=== PATIENT | female | born 1970 | race Caucasian/White ===

== ENCOUNTER → 2017-10-03 11:35 | Outpatient (POV) | payer MEDICARE, SELFPAY ==
[2017-10-03 12:06] VITALS: BP 141/94; PULSE 95; RESP 16; O2SAT 96
--- NOTE | 2017-10-03 12:20 | HMH.PAINSOAP ---
[facility] Pain Management SOAP Note Subjective:: This patient is a pleasant 47-year-old white female who we have been treating for right sided headaches and occipital neuralgia. She did get a right-sided occipital nerve block which did not give her much benefit. I do believe that she would benefit from a cervical epidural steroid injection. This will be the next step and we will seek approval and plan on a cervical epidural steroid injection under fluoroscopy. Objective:: Alert and oriented ?3 in no acute distress. Decreased range of motion of the cervical spine with increased pain with extension. Positive Spurling test to the right. Motor strength of the upper extremities is 5/5. There is no gross sensory deficit. Assessment:: Right-sided occipital neuralgia. 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 Plan:: We will seek approval and plan on cervical epidural steroid injection C6-C7.
== END ==
PROVIDERS: Family Provider Family Medicine; PCP Family Medicine; Visit Provider Anesthesiology
DX: M54.81 Occipital neuralgia (principal); M50.30 Other cervical disc degeneration, unspecified cervical region
CPT/HCPCS: 99212

== ENCOUNTER 2017-10-06 20:57 | Emergency (ER) | payer MEDICARE, SELFPAY ==
[2017-10-06 22:03] VITALS: BP 120/68; PULSE 86; RESP 18; TEMP 37; O2SAT 100; BMI 41.5
--- NOTE | 2017-10-06 23:30 | HMH.EDGENADL ---
ED Disposition Clinical Impression: Migraine Qualifiers: Migraine type: unspecified Status migrainosus presence: with status migrainosus Intractability: intractable Qualified Code(s): G43.911 - Migraine, unspecified, intractable, with status migrainosus Disposition: Home, Self-Care Condition on Discharge: Good Additional Instructions: Additional instructions for HEADACHE: See your physician as soon as possible for further evaluation. Return immediately if worsening headache, vomiting, problems with vision or speech, fever, numbness or weakness of the extremities, neck pain or stiffness. Referrals: Jese Walton MD [Primary Care Provider] - - Critical Care Critical Care Time: No Attestation: On 10/06/17, the high probability of a clinically significant, sudden or life threatening deterioration of the following system(s) required my full and direct attention, intervention and personal management. The time I documented below is in addition to time spent performing reported procedures but includes the following listed in this critical care notation. Medical Decision Making Vital Signs: 10/06/17 22:03 10/07/17 00:04 Temperature 98.6 F Temperature Source Oral Pulse Rate 91 H Pulse Rate [Right Brachial] 86 Respiratory Rate 18 16 Blood Pressure 150/92 Blood Pressure [Right Arm] 120/68 Blood Pressure Mean [Right Arm] 85 Blood Pressure Source [Right Arm] Automatic Cuff Blood Pressure Position [Right Arm] Sitting 02 Sat by Pulse Oximetry 100 Oxygen Delivery Method Room Air Room Air Orders (Tests/Meds): ED MEDICATIONS Discontinued Medications Generic Name Dose Route Start Last Admin Trade Name Freq PRN Reason Stop Dose Admin Morphine Sulfate 10 mg 10/06/17 23:28 10/06/17 23:46 Morphine 2mg/Ml Syringe IM 10/06/17 23:29 10 mg ONCE ONE Administration Promethazine HCl 25 mg 10/06/17 23:30 10/06/17 23:38 Phenergan 25mg/Ml 1ml Vial IM 10/06/17 23:31 25 mg ONCE ONE Administration - Timothy Inquiry Pt receiving controlled substance: Yes Timothy was queried for this patient: No Reason not queried -: Emergent pt cond-no time Risks and benefits of using a controlled substance: were not discussed with pt by me Comment: patient familiar, requests specific meds General Adult HPI - General Chief complaint: PAIN Stated complaint: migraine Mode of Arrival: Family Vehicle Limitations: No Limitations Description of Symptoms (Recalled from ER Triage Doc. by RN): C/O MIGRAINE HEADCAHE WITH NAUSEA AND VOMITING AND LIGHT SENSITIVITY - History of Present Illness HPI narrative: The patient complains of a migraine headache for 3 days. She has a long history of your migraines, and currently seen in pain management by Dr. Chávez. She had a nerve block at the beginning of September which did not help. She is scheduled to have an epidural injection next Monday. She currently uses Effexor, Maxalt, and oxycodone. When she comes to the emergency department she gets an injection of morphine and Phenergan. She states the last time she was in the emergency room was in August. Her headache is above her right eye with nausea, vomiting, and photophobia. All symptoms are typical of her migraines. - Related Data Home Medications Medication Instructions Recorded Confirmed ALPRAZolam [Alprazolam 0.25mg 0.25 mg PO BID 10/06/17 10/06/17 Tab] Alendronate Sodium [Fosamax] 70 mg PO WEEKLY 10/06/17 10/06/17 Esomeprazole Magnesium [Nexium 40 mg PO DAILY 10/06/17 10/06/17 24Hr] Levothyroxine Sodium 100 mg PO DAILY 10/06/17 10/06/17 [Levothyroxine 100mcg (0.1MG) Tab] Oxycodone HCl [Oxycodone (IR) 5mg 5 mg PO Q4HP PRN 10/06/17 10/06/17 Cap] Potassium Chloride [K-Tab ER 20 20 meq PO BID 10/06/17 10/06/17 mEq] Rizatriptan Benzoate [Rizatriptan] 10 mg PO Q2HP PRN 10/06/17 10/06/17 Triamterene/Hydrochlorothiazid 0.5 mg PO DAILY 10/06/17 10/06/17 [Triamterene-Hctz 75-50 mg Tab] Venl
--- NOTE | 2017-10-06 23:33 | ED_ITS ---
ED Disposition Clinical Impression: Migraine Qualifiers: Migraine type: unspecified Status migrainosus presence: with status migrainosus Intractability: intractable Qualified Code(s): G43.911 - Migraine, unspecified, intractable, with status migrainosus Disposition: Home, Self-Care Condition on Discharge: Good Additional Instructions: Additional instructions for HEADACHE: See your physician as soon as possible for further evaluation. Return immediately if worsening headache, vomiting, problems with vision or speech, fever, numbness or weakness of the extremities, neck pain or stiffness. Referrals: Jese Walton MD [Primary Care Provider] - - Critical Care Critical Care Time: No Attestation: On 10/06/17, the high probability of a clinically significant, sudden or life threatening deterioration of the following system(s) required my full and direct attention, intervention and personal management. The time I documented below is in addition to time spent performing reported procedures but includes the following listed in this critical care notation. Medical Decision Making Vital Signs: 10/06/17 22:03 10/07/17 00:04 Temperature 98.6 F Temperature Source Oral Pulse Rate 91 H Pulse Rate [Right Brachial] 86 Respiratory Rate 18 16 Blood Pressure 150/92 Blood Pressure [Right Arm] 120/68 Blood Pressure Mean [Right Arm] 85 Blood Pressure Source [Right Arm] Automatic Cuff Blood Pressure Position [Right Arm] Sitting 02 Sat by Pulse Oximetry 100 Oxygen Delivery Method Room Air Room Air Orders (Tests/Meds): ED MEDICATIONS Discontinued Medications Generic Name Dose Route Start Last Admin Trade Name Freq PRN Reason Stop Dose Admin Morphine Sulfate 10 mg 10/06/17 23:28 10/06/17 23:46 Morphine 2mg/Ml Syringe IM 10/06/17 23:29 10 mg ONCE ONE Administration Promethazine HCl 25 mg 10/06/17 23:30 10/06/17 23:38 Phenergan 25mg/Ml 1ml Vial IM 10/06/17 23:31 25 mg ONCE ONE Administration - Timothy Inquiry Pt receiving controlled substance: Yes Timothy was queried for this patient: No Reason not queried -: Emergent pt cond-no time Risks and benefits of using a controlled substance: were not discussed with pt by me Comment: patient familiar, requests specific meds General Adult HPI - General Chief complaint: PAIN Stated complaint: migraine Mode of Arrival: Family Vehicle Limitations: No Limitations Description of Symptoms (Recalled from ER Triage Doc. by RN): C/O MIGRAINE HEADCAHE WITH NAUSEA AND VOMITING AND LIGHT SENSITIVITY - History of Present Illness HPI narrative: The patient complains of a migraine headache for 3 days. She has a long history of your migraines, and currently seen in pain management by Dr. Chávez. She had a nerve block at the beginning of September which did not help. She is scheduled to have an epidural injection next Monday. She currently uses Effexor, Maxalt, and oxycodone. When she comes to the emergency department she gets an injection of morphine and Phenergan. She states the last time she was in the emergency room was in August. Her headache is above her right eye with nausea, vomiting, and photophobia. All symptoms are typical of her migraines. - Related Data Home Medications Medication Instructions Recorded Confirmed ALPRAZolam [Alprazolam 0.25m
[2017-10-07 00:04] VITALS: BP 150/92; PULSE 91; RESP 16; O2SAT 98
== END 2017-10-07 00:06 | disposition home or self-care (01) ==
PROVIDERS: Emergency Provider Emergency Medicine; Family Provider Family Medicine; PCP Family Medicine
DX: G43.911 Migraine, unspecified, intractable, with status migrainosus (principal); Z79.899 Other long term (current) drug therapy; Z88.6 Allergy status to analgesic agent; Z88.8 Allergy status to other drugs, medicaments and biological substances
CPT/HCPCS: 96372; 99282

== ENCOUNTER 2017-10-27 17:26 | Emergency (ER) | payer MEDICARE, SELFPAY ==
[2017-10-27 17:27] VITALS: BP 149/85; PULSE 104; RESP 18; O2SAT 97
[2017-10-27 17:46] VITALS: BP 161/96; PULSE 103; RESP 22; TEMP 36.8; O2SAT 97; BMI 43.2
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
[2017-10-27 18:27] VITALS: BP 149/85; PULSE 104; RESP 18; O2SAT 97
[2017-10-27 19:30] VITALS: BP 143/84; PULSE 92; RESP 19; O2SAT 98
== END 2017-10-27 19:40 | disposition home or self-care (01) ==
PROVIDERS: Emergency Provider Emergency Medicine; Family Provider Family Medicine; PCP Family Medicine
DX: S51.812A Laceration without foreign body of left forearm, initial encounter (principal); G43.909 Migraine, unspecified, not intractable, without status migrainosus; W26.0XXA Contact with knife, initial encounter; Y93.89 Activity, other specified; Y92.9 Unspecified place or not applicable; Z79.899 Other long term (current) drug therapy; Z88.5 Allergy status to narcotic agent; Z88.8 Allergy status to other drugs, medicaments and biological substances; Z91.048 Other nonmedicinal substance allergy status; Z85.9 Personal history of malignant neoplasm, unspecified; Z23 Encounter for immunization
CPT/HCPCS: 90715; 99283

== ENCOUNTER → 2017-11-10 12:04 | Outpatient (CLI) | payer MEDICARE, SELFPAY ==
[2017-11-10 12:45] VITALS: BP 122/70; PULSE 68; RESP 20; TEMP 36.9; O2SAT 96
[2017-11-10 12:50] VITALS: BP 140/70; PULSE 66; RESP 20; TEMP 36.4; O2SAT 96
== END ==
PROVIDERS: PCP Family Medicine; Visit Provider Family Medicine
DX: G43.819 Other migraine, intractable, without status migrainosus (principal)
CPT/HCPCS: 96372

== ENCOUNTER 2017-11-21 18:50 | Emergency (ER) | payer MEDICARE, SELFPAY ==
[2017-11-21 19:29] VITALS: BP 187/105; PULSE 100; RESP 16; TEMP 36.6; O2SAT 94; BMI 41.4
--- NOTE | 2017-11-21 22:41 | HMH.EDHA ---
ED Disposition Clinical Impression: Headache Qualifiers: Headache type: unspecified Headache chronicity pattern: acute headache Intractability: not intractable Qualified Code(s): R51 - Headache Disposition: Home, Self-Care Condition on Discharge: Good Instructions: DI for Headache Additional Instructions: fluids and call pcp for follow up Referrals: Josh Walton MD [Primary Care Provider] - - Critical Care Critical Care Time: No Attestation: On 11/21/17, the high probability of a clinically significant, sudden or life threatening deterioration of the following system(s) required my full and direct attention, intervention and personal management. The time I documented below is in addition to time spent performing reported procedures but includes the following listed in this critical care notation. Medical Decision Making - Medical Records Medical records reviewed: Yes: I reviewed the patient's medical records. Vital Signs: 11/21/17 19:29 Temperature 97.9 F Temperature Source Oral Pulse Rate [Right Brachial] 100 H Respiratory Rate 16 Blood Pressure [Right Arm] 187/105 Blood Pressure Mean [Right Arm] 132 02 Sat by Pulse Oximetry 94 L Oxygen Delivery Method Room Air - Lab Data Lab results reviewed: Yes: I reviewed the patient's lab results. - Timothy Inquiry Pt receiving controlled substance: No Headache HPI - General Chief Complaint: Headache Stated Complaint: BROOKE Time Seen by Provider: 11/21/17 22:41 Mode of Arrival: Ambulatory Source of Information: Patient, Relative, Medical Record Limitations: No Limitations Description of Symptoms (Recalled from ER Triage Doc. by RN): MIGRAINE X2 DAYS - History of Present Illness HPI Narrative: pt with acute onset of brooke with hx of brooke with no fever or rash or trauma Complaint: headache Onset (ago): day(s) Onset description: gradual Severity: moderate - Related Data Home Medications Medication Instructions Recorded Confirmed ALPRAZolam [Alprazolam 0.25mg 0.25 mg PO BID 10/06/17 10/27/17 Tab] Alendronate Sodium [Fosamax] 70 mg PO WEEKLY 10/06/17 10/27/17 Esomeprazole Magnesium [Nexium 40 mg PO DAILY 10/06/17 10/27/17 24Hr] Levothyroxine Sodium 100 mg PO DAILY 10/06/17 10/27/17 [Levothyroxine 100mcg (0.1MG) Tab] Oxycodone HCl [Oxycodone (IR) 5mg 5 mg PO Q4HP PRN 10/06/17 10/27/17 Cap] Potassium Chloride [K-Tab ER 20 20 meq PO BID 10/06/17 10/27/17 mEq] Rizatriptan Benzoate [Rizatriptan] 10 mg PO Q2HP PRN 10/06/17 10/27/17 Triamterene/Hydrochlorothiazid 0.5 mg PO DAILY 10/06/17 10/27/17 [Triamterene-Hctz 75-50 mg Tab] Venlafaxine HCl [Effexor Xr] 150 mg PO BID 10/06/17 10/27/17 dilTIAZem HCl [Cartia Xt] 240 mg PO DAILY 10/06/17 10/27/17 Allergies Allergy/AdvReac Type Severity Reaction Status Date / Time bupropion [BUPROPION] Allergy Unknown Verified 10/27/17 17:55 butorphanol [From STADOL] Allergy Unknown Verified 10/27/17 17:55 gabapentin [From NEURONTIN] Allergy Unknown Verified 10/27/17 17:55 hydromorphone [HYDROMORPHONE] Allergy Unknown Verified 10/27/17 17:55 ketorolac [From TORADOL] Allergy Unknown Verified 10/27/17 17:55 metoclopramide [From REGLAN] Allergy Unknown Verified 10/27/17 17:55 prochlorperazine Allergy Unknown Verified 10/27/17 17:55 [From COMPAZINE] BANDAIDS Allergy Unknown I-RASH Uncoded 09/19/17 14:41 PEANUTS (FOOD) Allergy Unknown I-RASH Uncoded 09/19/17 14:41 TOMATOES (FOOD) Allergy Unknown I-RASH Uncoded 09/19/17 14:41 [facility] History I have reviewed the patient's past medical history: Yes Medical History: Reports:: Cancer Denies:: Diabetes Mellitus Type 1, Diabetes Mellitus Type 2, MRSA Laterality Cases: Left: Lumpectomy Amputation: No Fractures: No - Social History Smoking Status: Never smoker Alcohol Intake: never Alcohol Intake Frequency:: holidays/special occasions only Substance Use Type: denies use - Psychiatric History Expresses thoughts of harming self
--- NOTE | 2017-11-21 22:44 | ED_ITS ---
ED Disposition Clinical Impression: Headache Qualifiers: Headache type: unspecified Headache chronicity pattern: acute headache Intractability: not intractable Qualified Code(s): R51 - Headache Disposition: Home, Self-Care Condition on Discharge: Good Instructions: DI for Headache Additional Instructions: fluids and call pcp for follow up Referrals: Josh Walton MD [Primary Care Provider] - - Critical Care Critical Care Time: No Attestation: On 11/21/17, the high probability of a clinically significant, sudden or life threatening deterioration of the following system(s) required my full and direct attention, intervention and personal management. The time I documented below is in addition to time spent performing reported procedures but includes the following listed in this critical care notation. Medical Decision Making - Medical Records Medical records reviewed: Yes: I reviewed the patient's medical records. Vital Signs: 11/21/17 19:29 Temperature 97.9 F Temperature Source Oral Pulse Rate [Right Brachial] 100 H Respiratory Rate 16 Blood Pressure [Right Arm] 187/105 Blood Pressure Mean [Right Arm] 132 02 Sat by Pulse Oximetry 94 L Oxygen Delivery Method Room Air - Lab Data Lab results reviewed: Yes: I reviewed the patient's lab results. - Timothy Inquiry Pt receiving controlled substance: No Headache HPI - General Chief Complaint: Headache Stated Complaint: BROOKE Time Seen by Provider: 11/21/17 22:41 Mode of Arrival: Ambulatory Source of Information: Patient, Relative, Medical Record Limitations: No Limitations Description of Symptoms (Recalled from ER Triage Doc. by RN): MIGRAINE X2 DAYS - History of Present Illness HPI Narrative: pt with acute onset of brooke with hx of brooke with no fever or rash or trauma Complaint: headache Onset (ago): day(s) Onset description: gradual Severity: moderate - Related Data Home Medications Medication Instructions Recorded Confirmed ALPRAZolam [Alprazolam 0.25mg 0.25 mg PO BID 10/06/17 10/27/17 Tab] Alendronate Sodium [Fosamax] 70 mg PO WEEKLY 10/06/17 10/27/17 Esomeprazole Magnesium [Nexium 40 mg PO DAILY 10/06/17 10/27/17 24Hr] Levothyroxine Sodium 100 mg PO DAILY 10/06/17 10/27/17 [Levothyroxine 100mcg (0.1MG) Tab] Oxycodone HCl [Oxycodone (IR) 5mg 5 mg PO Q4HP PRN 10/06/17 10/27/17 Cap] Potassium Chloride [K-Tab ER 20 20 meq PO BID 10/06/17 10/27/17 mEq] Rizatriptan Benzoate [Rizatriptan] 10 mg PO Q2HP PRN 10/06/17 10/27/17 Triamterene/Hydrochlorothiazid 0.5 mg PO DAILY 10/06/17 10/27/17 [Triamterene-Hctz 75-50 mg Tab] Venlafaxine HCl [Effexor Xr] 150 mg PO BID 10/06/17 10/27/17 dilTIAZem HCl [Cartia Xt] 240 mg PO DAILY 10/06/17 10/27/17 Allergies Allergy/AdvReac Type Severity Reaction Status Date / Time bupropion [BUPROPION] Allergy Unknown Verified 10/27/17 17:55 butorphanol [From STADOL] Allergy Unknown Verified 10/27/17 17:55 gabapentin [From NEURONTIN] Allergy Unknown Verified 10/27/17 17:55 hydromorphone [HYDROMORPHONE] Allergy Unknown Verified 10/27/17 17:55 ketorolac [From TORADOL] Allergy Unknown Verified 10/27/17 17:55 metoclopramide [From REGLAN] Allergy Unknown Verified 10/27/17 17:55 prochlorperazine Allergy Unknown Verified 10/27
[2017-11-21 22:57] VITALS: BP 152/95; PULSE 97; RESP 16; TEMP 36.6
== END 2017-11-21 22:58 | disposition home or self-care (01) ==
PROVIDERS: Emergency Provider Emergency Medicine; Family Provider Family Medicine; PCP Family Medicine
DX: R51 Headache (principal); Z88.8 Allergy status to other drugs, medicaments and biological substances; Z79.899 Other long term (current) drug therapy
CPT/HCPCS: 96372; 99281

== ENCOUNTER → 2017-11-24 12:56 | Day surgery (SDC) | payer MEDICARE, SELFPAY ==
[2017-11-24 13:30] VITALS: BP 160/100; PULSE 92; RESP 19; TEMP 36.4; O2SAT 99; BMI 38.1
[2017-11-24 13:59] VITALS: BP 189/94; PULSE 84; RESP 18; O2SAT 97
[2017-11-24 14:02] VITALS: BP 154/103; PULSE 94; RESP 20; O2SAT 95
--- NOTE | 2017-11-24 14:06 | HMH.PMPROC ---
- Procedure Date: 11/24/17 Time: 14:06 Anesthesiologist:: Merrill Chávez MD Complications:: None Pre-procedure Diagnosis:: Degenerative disc disease of cervical spine cervical radiculopathy symptoms. Post-procedure Diagnosis:: Same Indications for Procedure:: Patient is a pleasant 47-year-old white female who we have been treating for right sided headaches and occipital neuralgia. She has also some neck pain with degenerative disc disease of the cervical spine with cervical radiculopathy symptoms. He did not get much benefit from her right-sided occipital nerve block. We will do a cervical epidural steroid injection today to see if this gives her better benefit. Procedure Details:: Cervical epidural steroid injection under fluoroscopy Informed consent was obtained and the risks and benefits of the procedure was explained to the patient. The patient was taken to the procedure room placed prone on the procedure table. The neck was prepped using ChloraPrep. The skin and subcutaneous tissues were anesthetized using lidocaine. I placed a 18-gauge epidural needle into the C5-C6 interspace and advanced using [id number] to air and fluoroscopic guidance. After confirmation of needle placement in the epidural space with dye, I injected 3 mL's lidocaine 1.5% and Depo-Medrol 80 mg. The patient tolerated the procedure well with no complications. Plan and Disposition:: We will follow-up with her in 2 weeks. Will reevaluate her symptoms at that time.
--- NOTE | 2017-11-24 14:09 | P.PCN_ITS ---
- Procedure Date: 11/24/17 Time: 14:06 Anesthesiologist:: Merrill Chávez MD Complications:: None Pre-procedure Diagnosis:: Degenerative disc disease of cervical spine cervical radiculopathy symptoms. Post-procedure Diagnosis:: Same Indications for Procedure:: Patient is a pleasant 47-year-old white female who we have been treating for right sided headaches and occipital neuralgia. She has also some neck pain with degenerative disc disease of the cervical spine with cervical radiculopathy symptoms. He did not get much benefit from her right-sided occipital nerve block. We will do a cervical epidural steroid injection today to see if this gives her better benefit. Procedure Details:: Cervical epidural steroid injection under fluoroscopy Informed consent was obtained and the risks and benefits of the procedure was explained to the patient. The patient was taken to the procedure room placed prone on the procedure table. The neck was prepped using ChloraPrep. The skin and subcutaneous tissues were anesthetized using lidocaine. I placed a 18- gauge epidural needle into the C5-C6 interspace and advanced using loss-of- resistance to air and fluoroscopic guidance. After confirmation of needle placement in the epidural space with dye, I injected 3 mL's lidocaine 1.5% and Depo-Medrol 80 mg. The patient tolerated the procedure well with no complications. Plan and Disposition:: We will follow-up with her in 2 weeks. Will reevaluate her symptoms at that time.
[2017-11-24 14:19] VITALS: BP 177/108; PULSE 88; RESP 16; TEMP 36.6; O2SAT 100
== END ==
PROVIDERS: Family Provider Family Medicine; PCP Family Medicine; Visit Provider Anesthesiology
DX: M50.10 Cervical disc disorder with radiculopathy, unspecified cervical region (principal); M54.81 Occipital neuralgia
CPT/HCPCS: 62321; J1040; Q9966

== ENCOUNTER 2017-12-10 19:13 | Emergency (ER) | payer MEDICARE, SELFPAY ==
[2017-12-10 19:14] VITALS: BP 158/83; PULSE 110; RESP 18; TEMP 36.6; O2SAT 97; BMI 41.4
--- NOTE | 2017-12-10 19:26 | HMH.EDHA ---
ED Disposition Clinical Impression: Migraine Qualifiers: Migraine type: unspecified Status migrainosus presence: without status migrainosus Intractability: not intractable Qualified Code(s): G43.909 - Migraine, unspecified, not intractable, without status migrainosus Disposition: Home, Self-Care Condition on Discharge: Good Instructions: DI for Migraine Additional Instructions: call pcp in am Referrals: Josh Walton MD [Primary Care Provider] - - Critical Care Critical Care Time: No Attestation: On 12/10/17, the high probability of a clinically significant, sudden or life threatening deterioration of the following system(s) required my full and direct attention, intervention and personal management. The time I documented below is in addition to time spent performing reported procedures but includes the following listed in this critical care notation. Medical Decision Making - Medical Records Medical records reviewed: Yes: I reviewed the patient's medical records. Vital Signs: 12/10/17 19:14 Temperature 97.9 F Temperature Source Oral Pulse Rate [Right Brachial] 110 H Respiratory Rate 18 Blood Pressure [Right Arm] 158/83 Blood Pressure Mean [Right Arm] 108 Blood Pressure Source [Right Arm] Automatic Cuff Blood Pressure Position [Right Arm] Sitting 02 Sat by Pulse Oximetry 97 Oxygen Delivery Method Room Air - Timothy Inquiry Pt receiving controlled substance: No Headache HPI - General Chief Complaint: Headache Stated Complaint: migraine Time Seen by Provider: 12/10/17 19:26 Mode of Arrival: Ambulatory Source of Information: Patient, Significant Other, Medical Record Limitations: No Limitations Description of Symptoms (Recalled from ER Triage Doc. by RN): Migraine that started 3 days ago. Took oxycodone around 1400 with no relief. Go to Dr. Chávez for pain management of migraines. Next appointment is tomorrow. - History of Present Illness HPI Narrative: wf with hx of migraines/chronic roe who presents for eval- she is seeing pain center- she reports no relief with home meds- no new sx and no neuro or fever or rash and no trauma Complaint: migraine Onset (ago): day(s) Onset description: gradual Location: diffuse Severity: similar to previous episodes Quality: similar to previous headaches Relieving factors: prescription medication Treatments prior to arrival: prescription analgesic - Related Data Home Medications Medication Instructions Recorded Confirmed ALPRAZolam [Alprazolam 0.25mg 0.25 mg PO BID 10/06/17 10/27/17 Tab] Alendronate Sodium [Fosamax] 70 mg PO WEEKLY 10/06/17 10/27/17 Esomeprazole Magnesium [Nexium 40 mg PO DAILY 10/06/17 10/27/17 24Hr] Levothyroxine Sodium 100 mg PO DAILY 10/06/17 10/27/17 [Levothyroxine 100mcg (0.1MG) Tab] Oxycodone HCl [Oxycodone (IR) 5mg 5 mg PO Q4HP PRN 10/06/17 10/27/17 Cap] Rizatriptan Benzoate [Rizatriptan] 10 mg PO Q2HP PRN 10/06/17 10/27/17 Triamterene/Hydrochlorothiazid 0.5 mg PO DAILY 10/06/17 10/27/17 [Triamterene-Hctz 75-50 mg Tab] Venlafaxine HCl [Effexor Xr] 150 mg PO BID 10/06/17 10/27/17 dilTIAZem HCl [Cartia Xt] 240 mg PO DAILY 10/06/17 10/27/17 Allergies Allergy/AdvReac Type Severity Reaction Status Date / Time bupropion [BUPROPION] Allergy Unknown Verified 10/27/17 17:55 butorphanol [From STADOL] Allergy Unknown Verified 10/27/17 17:55 gabapentin [From NEURONTIN] Allergy Unknown Verified 10/27/17 17:55 hydromorphone [HYDROMORPHONE] Allergy Unknown Verified 10/27/17 17:55 ketorolac [From TORADOL] Allergy Unknown Verified 10/27/17 17:55 metoclopramide [From REGLAN] Allergy Unknown Verified 10/27/17 17:55 prochlorperazine Allergy Unknown Verified 10/27/17 17:55 [From COMPAZINE] BANDAIDS Allergy Unknown I-RASH Uncoded 09/19/17 14:41 PEANUTS (FOOD) Allergy Unknown I-RASH Uncoded 09/19/17 14:41 TOMATOES (FOOD) Allergy Unknown I-RASH Uncoded 09/19/17 14:[address] [facility] History I have reviewed the p
--- NOTE | 2017-12-10 19:30 | ED_ITS ---
ED Disposition Clinical Impression: Migraine Qualifiers: Migraine type: unspecified Status migrainosus presence: without status migrainosus Intractability: not intractable Qualified Code(s): G43.909 - Migraine, unspecified, not intractable, without status migrainosus Disposition: Home, Self-Care Condition on Discharge: Good Instructions: DI for Migraine Additional Instructions: call pcp in am Referrals: Josh Walton MD [Primary Care Provider] - - Critical Care Critical Care Time: No Attestation: On 12/10/17, the high probability of a clinically significant, sudden or life threatening deterioration of the following system(s) required my full and direct attention, intervention and personal management. The time I documented below is in addition to time spent performing reported procedures but includes the following listed in this critical care notation. Medical Decision Making - Medical Records Medical records reviewed: Yes: I reviewed the patient's medical records. Vital Signs: 12/10/17 19:14 Temperature 97.9 F Temperature Source Oral Pulse Rate [Right Brachial] 110 H Respiratory Rate 18 Blood Pressure [Right Arm] 158/83 Blood Pressure Mean [Right Arm] 108 Blood Pressure Source [Right Arm] Automatic Cuff Blood Pressure Position [Right Arm] Sitting 02 Sat by Pulse Oximetry 97 Oxygen Delivery Method Room Air - Timothy Inquiry Pt receiving controlled substance: No Headache HPI - General Chief Complaint: Headache Stated Complaint: migraine Time Seen by Provider: 12/10/17 19:26 Mode of Arrival: Ambulatory Source of Information: Patient, Significant Other, Medical Record Limitations: No Limitations Description of Symptoms (Recalled from ER Triage Doc. by RN): Migraine that started 3 days ago. Took oxycodone around 1400 with no relief. Go to Dr. Chávez for pain management of migraines. Next appointment is tomorrow. - History of Present Illness HPI Narrative: wf with hx of migraines/chronic roe who presents for eval- she is seeing pain center- she reports no relief with home meds- no new sx and no neuro or fever or rash and no trauma Complaint: migraine Onset (ago): day(s) Onset description: gradual Location: diffuse Severity: similar to previous episodes Quality: similar to previous headaches Relieving factors: prescription medication Treatments prior to arrival: prescription analgesic - Related Data Home Medications Medication Instructions Recorded Confirmed ALPRAZolam [Alprazolam 0.25mg 0.25 mg PO BID 10/06/17 10/27/17 Tab] Alendronate Sodium [Fosamax] 70 mg PO WEEKLY 10/06/17 10/27/17 Esomeprazole Magnesium [Nexium 40 mg PO DAILY 10/06/17 10/27/17 24Hr] Levothyroxine Sodium 100 mg PO DAILY 10/06/17 10/27/17 [Levothyroxine 100mcg (0.1MG) Tab] Oxycodone HCl [Oxycodone (IR) 5mg 5 mg PO Q4HP PRN 10/06/17 10/27/17 Cap] Rizatriptan Benzoate [Rizatriptan] 10 mg PO Q2HP PRN 10/06/17 10/27/17 Triamterene/Hydrochlorothiazid 0.5 mg PO DAILY 10/06/17 10/27/17 [Triamterene-Hctz 75-50 mg Tab] Venlafaxine HCl [Effexor Xr] 150 mg PO BID 10/06/17 10/27/17 dilTIAZem HCl [Cartia Xt] 240 mg PO DAILY 10/06/17 10/27/17 Allergies Allergy/AdvReac Type Severity Reaction Status Date / Time bupropion [BUPROPION] Allergy Unknown Verified 10/27/17 17:55
[2017-12-10 20:01] VITALS: BP 164/87; PULSE 103; RESP 16; TEMP 36.6; O2SAT 100
== END 2017-12-10 20:02 | disposition home or self-care (01) ==
PROVIDERS: Emergency Provider Emergency Medicine; Family Provider Family Medicine; PCP Family Medicine
DX: G43.909 Migraine, unspecified, not intractable, without status migrainosus (principal); E78.5 Hyperlipidemia, unspecified; I10 Essential (primary) hypertension; Z79.899 Other long term (current) drug therapy; Z88.6 Allergy status to analgesic agent; Z88.8 Allergy status to other drugs, medicaments and biological substances
CPT/HCPCS: 96372; 99281

== ENCOUNTER → 2017-12-11 15:02 | Outpatient (POV) | payer MEDICARE, SELFPAY ==
[2017-12-11 15:15] VITALS: BP 151/94; PULSE 95; RESP 18; TEMP 36.4; O2SAT 97; BMI 38.6
--- NOTE | 2017-12-11 16:01 | HMH.PAINSOAP ---
[facility] Pain Management SOAP Note Subjective:: Patient is a pleasant 47-year-old white female that we are treating in our clinic for chronic pain. Patient has right-sided headaches, occipital neuralgia, migraines. Patient has seen multiple neurologists and has tried and failed Botox injections and numerous medications. Patient is following up today after cervical epidural steroid injection. She stated it helped her pain significantly however her pain did return. She is now having more neck pain it is facet-like in nature. Patient denies any radiation of pain at this time. Patient rates her pain a 3 out of 10 at this moment. Patient does have a MRI of her cervical spine showing multilevel cervical spondylosis and degenerative disc disease along with bulging disks. Due to the relief that she received after her cervical epidural she is interested in injective therapies. She is wanting to know if there is an injection that may help with more long-term relief. ROS General: no recent weight change, no fever, no sleep disturbances Respiratory: no cough, no shortness of air, no recurring pulmonary infections Cardiovascular/Peripheral Vascular: No chest pain, No palpitations, no edema, no shortness of breath. Gastrointestinal: no incontinence, normal bowel movements reported Genitourinary: no incontinence Musculoskeletal: Neck pain Psychiatric: normal mood/ affect, [denies depression], [denies anxiety] Neurological: [denies weakness in extremities], [denies balance issues] Objective:: Physical Exam General: Alert and oriented x3, no acute distress, pleasant and cooperative, [on room air] Lungs: Resps E/U, Symmetrical chest expansion, Eyes: PERRL Musculoskeletal: Flexion and extension of cervical spine somewhat guarded secondary to pain, positive facet loading cervical spine bilaterally. 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 Patient has had injections and RFA of the facet joints of the lumbar spine in the past with relief lasting over 2 years. I believe that giving the patient's symptomology that this will be very beneficial for her. Patient has tried and failed multiple medications, anti-inflammatories, therapy. This note was dictated using voice recognition software may contain errors or omissions
--- NOTE | 2017-12-11 16:05 | P.CONS_ITS ---
[facility] Pain Management SOAP Note Subjective:: Patient is a pleasant 47-year-old white female that we are treating in our clinic for chronic pain. Patient has right-sided headaches, occipital neuralgia , migraines. Patient has seen multiple neurologists and has tried and failed Botox injections and numerous medications. Patient is following up today after cervical epidural steroid injection. She stated it helped her pain significantly however her pain did return. She is now having more neck pain it is facet-like in nature. Patient denies any radiation of pain at this time. Patient rates her pain a 3 out of 10 at this moment. Patient does have a MRI of her cervical spine showing multilevel cervical spondylosis and degenerative disc disease along with bulging disks. Due to the relief that she received after her cervical epidural she is interested in injective therapies. She is wanting to know if there is an injection that may help with more long-term relief. ROS General: no recent weight change, no fever, no sleep disturbances Respiratory: no cough, no shortness of air, no recurring pulmonary infections Cardiovascular/Peripheral Vascular: No chest pain, No palpitations, no edema, no shortness of breath. Gastrointestinal: no incontinence, normal bowel movements reported Genitourinary: no incontinence Musculoskeletal: Neck pain Psychiatric: normal mood/ affect, [denies depression], [denies anxiety] Neurological: [denies weakness in extremities], [denies balance issues] Objective:: Physical Exam General: Alert and oriented x3, no acute distress, pleasant and cooperative, [ on room air] Lungs: Resps E/U, Symmetrical chest expansion, Eyes: PERRL Musculoskeletal: Flexion and extension of cervical spine somewhat guarded secondary to pain, positive facet loading cervical spine bilaterally. Deep tendon reflexes normal, strength in upper and lower extremities [5/5], normal gait noted Neurological: speech clear, rn documentation equal, no gross sensory deficits Assessment:: Cervical spondylosis, cervical degenerative disc disease, cervical bulging disc Plan:: We will attempt to get insurance approval for cervical facet joint injection at C4-C5 C5-C6 C6-C7. Patient has had injections and RFA of the facet joints of the lumbar spine in the past with relief lasting over 2 years. I believe that giving the patient's symptomology that this will be very beneficial for her. Patient has tried and failed multiple medications, anti-inflammatories, therapy. This note was dictated using voice recognition software may contain errors or omissions
== END ==
PROVIDERS: Family Provider Family Medicine; PCP Family Medicine; Visit Provider Clinical Nurse Specialist Family Health
DX: M47.812 Spondylosis without myelopathy or radiculopathy, cervical region (principal)
CPT/HCPCS: 99212

== ENCOUNTER 2017-12-22 12:02 | Outpatient (CLI) | payer MEDICARE, SELFPAY ==
[2017-12-22 12:50] VITALS: BP 141/92; PULSE 83; RESP 18; TEMP 36.6
[2017-12-22 13:25] VITALS: BP 167/83; PULSE 84; RESP 18
== END 2017-12-22 13:25 | disposition home or self-care (01) ==
LOC: INF 12:02
PROVIDERS: PCP Family Medicine; Visit Provider Family Medicine
DX: G43.911 Migraine, unspecified, intractable, with status migrainosus (principal)
CPT/HCPCS: 96372; J2270

== ENCOUNTER → 2017-12-28 14:45 | Day surgery (SDC) | payer MEDICARE, SELFPAY ==
[2017-12-28 15:02] VITALS: BP 154/98; PULSE 102; RESP 18; TEMP 36.7; O2SAT 92; BMI 38.1
--- NOTE | 2017-12-28 15:32 | HMH.PMPROC ---
- Procedure Date: 12/28/17 Time: 15:32 Anesthesiologist:: Merrill Chávez MD Complications:: None Pre-procedure Diagnosis:: Degenerative disc disease of cervical spine with cervical spondylosis and arthropathy Post-procedure Diagnosis:: Same Indications for Procedure:: This patient is a pleasant 47-year-old white female who we are treating for neck pain. She does have facet RV at C4-5, C5-6 and C6-7. Increased pain with extension. Most of her pain is axial. We will do bilateral facet joint injection/medial branch blocks of C4-5, C5-6 and C6-7 today. Procedure Details:: Cervical medial branch block Informed consent was obtained and the risk and benefits of the procedure was explained to the patient. The patient was into the procedure room and placed prone on the procedure table. The neck was prepped using ChloraPrep. C-arm fluoroscopy was used to view the cervical spine. The skin and subcutaneous tissues were anesthetized lidocaine. I placed 22-gauge spinal needles into the facet joints of C 4-5, C 5-6 and C 6-7 bilaterally. Needle placement was confirmed with dye. After this I injected 1 mL lidocaine 1.5% and Depo-Medrol 13 mg into each facet joint/medial branch of C4-C5, C5-C6 and C6-C7 bilaterally. We used a total of 80 mg of Medrol for all 3 levels bilaterally. Patient tolerated the procedure well with no complications. Plan and Disposition:: We will follow-up with her in 2 weeks. We will reevaluate her symptoms at that time.
[2017-12-28 15:36] VITALS: BP 128/80; PULSE 70; RESP 20
[2017-12-28 15:37] VITALS: BP 128/87; PULSE 79; RESP 20
[2017-12-28 15:43] VITALS: BP 160/94; PULSE 105; RESP 16; O2SAT 96
== END ==
PROVIDERS: Family Provider Family Medicine; PCP Family Medicine; Visit Provider Anesthesiology
DX: M50.321 Other cervical disc degeneration at C4-C5 level (principal); M47.892 Other spondylosis, cervical region; M12.88 Other specific arthropathies, not elsewhere classified, other specified site
CPT/HCPCS: 64490; 64491; 64492; J1030; Q9967

== ENCOUNTER → 2018-01-04 10:26 | Outpatient (CLI) | payer MEDICARE, SELFPAY ==
--- NOTE | 2018-01-04 10:31 | CT_ITS ---
CT abdomen pelvis w con Ordering Physician: Valentín Juarez MD Patient Age: 47 years: Female HISTORY: ITS.REASON: ABD PAIN Lower abdominal pain mainly left lower quadrant TECHNIQUE: Helical CT scans abdomen pelvis with 75 cc [id number]. No oral contrast utilized. COMPARISON :Previous CT abdomen and pelvis 02/03/20 17 FINDINGS Lung bases clear. Heart normal size. Liver. 17 mm hepatic cyst at the superior left lobe. No significant change since 2017. Perhaps 2 mm incrementally larger. Remainder of liver is unremarkable. Gallbladder unremarkable. Pancreas unremarkable. Adrenals unremarkable Pelvis. Hysterectomy. No adnexal masses Appendix is normal. Terminal ileum unremarkable. Large bowel Increased/generous stool is seen at the right and transverse colon. Less evident stool stool throughout left colon.. Upper normal wall thickness sigmoid colon. Most likely reflects lack of distentionThere may be some developing diverticuli at the distal sigmoid colon but I see no good evidence of diverticulitis. Small bowel unremarkable. Good transit of oral contrast. There are fatty changes changes at ileocecal valve noted. Reflecting Normal variation. Here. No pelvic nor mesenteric nor retrograde no adenopathy. Small fat-containing umbilical hernia. Osseous structures. No lesions.. Mild degenerative disc space narrowing L5/S1 with mild spondylosis and mild bilateral foraminal encroachment due to such at this level mild facet arthropathy as well. IMPRESSION 1. No acute findings in the abdomen or pelvis. Appendix & terminal ileum normal. 2. Slight increased, generous stool throughout the right and transverse colon Upper normal wall thickness at sigmoid colon most likely reflects lack of distention. Possibly a few developing diverticuli at sigmoid colon but no diverticulitis No pelvic pathology 3... Final added note. Left renal pelvis is slightly more generous on today's study than it was on 2017, however the left ureter is unremarkable and no calculi evident.. This this may may reflect more generous hydration state today. Consider correlation with urinalysis
== END ==
PROVIDERS: Family Provider Family Medicine; PCP Family Medicine; Visit Provider Family Medicine
DX: R10.9 Unspecified abdominal pain (principal)
CPT/HCPCS: 74177; Q9967

== ENCOUNTER → 2018-01-15 13:59 | Outpatient (POV) | payer MEDICARE, SELFPAY ==
[2018-01-15 14:26] VITALS: BP 134/77; PULSE 94; RESP 18; BMI 38.9
--- NOTE | 2018-01-15 16:14 | HMH.PAINSOAP ---
[facility] Pain Management SOAP Note Subjective:: Patient is a pleasant 47-year-old white female who presents today for follow-up after cervical facet joint injections. Patient states that after injection her pain got worse. She says she did not get any relief from her medial branch block at any point in time. Patient is still currently having headaches up to 3-4 times a week. Patient's tried and failed Botox, Prozac, Imitrex, Topamax, injections. Patient is currently on oxycodone 5 mg 1 p.o. 3 times daily from her primary care physician she also gets injections of morphine when her migraines are uncontrollable. Patient and I discussed potentially nerve stimulation to help with her neck and bilateral shoulder pain along with her migraines. I gave the patient information on nuVectra. ROS General: no recent weight change, no fever, no sleep disturbances Respiratory: no cough, no shortness of air, no recurring pulmonary infections Cardiovascular/Peripheral Vascular: No chest pain, No palpitations, no edema, no shortness of breath. Gastrointestinal: no incontinence, normal bowel movements reported Genitourinary: no incontinence Musculoskeletal: Neck pain, bilateral shoulder pain, migraines Psychiatric: normal mood/ affect, Neurological: [denies weakness in extremities], [denies balance issues] Objective:: Physical Exam General: Alert and oriented x3, no acute distress, pleasant and cooperative, [on room air] Lungs: Resps E/U, Symmetrical chest expansion, Eyes: PERRL Musculoskeletal: Flexion and extension of cervical spine somewhat guarded secondary to pain, deep tendon reflexes normal, strength in upper and lower extremities [5/5], normal gait noted Neurological: speech clear, all round logger equal, no gross sensory deficits Assessment:: Degenerative disc disease of the cervical spine with cervical spondylosis and arthropathy, cervical radiculopathy, migraines Plan:: Follow-up with this patient in a month after she has time to look over the nerve stimulation information. At this time the patient will continue with their current regimen with her primary care physician. This note was dictated using voice recognition software and may contain errors or omissions
--- NOTE | 2018-01-15 16:18 | P.CONS_ITS ---
[facility] Pain Management SOAP Note Subjective:: Patient is a pleasant 47-year-old white female who presents today for follow-up after cervical facet joint injections. Patient states that after injection her pain got worse. She says she did not get any relief from her medial branch block at any point in time. Patient is still currently having headaches up to 3 -4 times a week. Patient's tried and failed Botox, Prozac, Imitrex, Topamax, injections. Patient is currently on oxycodone 5 mg 1 p.o. 3 times daily from her primary care physician she also gets injections of morphine when her migraines are uncontrollable. Patient and I discussed potentially nerve stimulation to help with her neck and bilateral shoulder pain along with her migraines. I gave the patient information on nuVectra. ROS General: no recent weight change, no fever, no sleep disturbances Respiratory: no cough, no shortness of air, no recurring pulmonary infections Cardiovascular/Peripheral Vascular: No chest pain, No palpitations, no edema, no shortness of breath. Gastrointestinal: no incontinence, normal bowel movements reported Genitourinary: no incontinence Musculoskeletal: Neck pain, bilateral shoulder pain, migraines Psychiatric: normal mood/ affect, Neurological: [denies weakness in extremities], [denies balance issues] Objective:: Physical Exam General: Alert and oriented x3, no acute distress, pleasant and cooperative, [ on room air] Lungs: Resps E/U, Symmetrical chest expansion, Eyes: PERRL Musculoskeletal: Flexion and extension of cervical spine somewhat guarded secondary to pain, deep tendon reflexes normal, strength in upper and lower extremities [5/5], normal gait noted Neurological: speech clear, 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 At this time the patient will continue with their current regimen with her primary care physician. This note was dictated using voice recognition software and may contain errors or omissions
== END ==
PROVIDERS: Family Provider Family Medicine; PCP Family Medicine; Visit Provider Clinical Nurse Specialist Family Health
DX: M54.12 Radiculopathy, cervical region (principal)
CPT/HCPCS: 99212

== ENCOUNTER 2018-01-30 15:24 | Outpatient (CLI) | payer MEDICARE, SELFPAY ==
[2018-01-30 15:43] VITALS: BP 145/94; PULSE 88; RESP 18; TEMP 36.5; O2SAT 96
== END 2018-01-30 16:00 | disposition home or self-care (01) ==
LOC: INF 15:25
PROVIDERS: PCP Family Medicine; Visit Provider Family Medicine
DX: G43.819 Other migraine, intractable, without status migrainosus (principal)
CPT/HCPCS: 96372

== ENCOUNTER 2018-02-15 14:23 | Outpatient (CLI) | payer MEDICARE, SELFPAY ==
[2018-02-15 14:55] VITALS: BP 108/84; PULSE 93; RESP 18; O2SAT 100
== END 2018-02-15 15:25 | disposition home or self-care (01) ==
LOC: INF 14:25
PROVIDERS: PCP Family Medicine; Visit Provider Family Medicine
DX: G43.819 Other migraine, intractable, without status migrainosus (principal)
CPT/HCPCS: 96372

== ENCOUNTER 2018-03-27 16:49 | Outpatient (CLI) | payer MEDICARE, SELFPAY ==
[2018-03-27 17:05] VITALS: BP 138/75; PULSE 84; RESP 18; TEMP 36.4; O2SAT 95; BMI 39.1
[2018-03-27 17:20] VITALS: BP 136/84; PULSE 88; RESP 18; TEMP 36.6; O2SAT 97
[2018-03-27 17:23] VITALS: RESP 18
== END 2018-03-27 17:20 | disposition home or self-care (01) ==
LOC: INF 16:50
PROVIDERS: PCP Family Medicine; Visit Provider Family Medicine
DX: G43.909 Migraine, unspecified, not intractable, without status migrainosus (principal)
CPT/HCPCS: 96372; G0463

== ENCOUNTER 2018-04-20 12:07 | Outpatient (CLI) | payer MEDICARE, SELFPAY ==
[2018-04-20 12:35] VITALS: BP 128/70; PULSE 68; RESP 20; TEMP 36.6; O2SAT 98
[2018-04-20 12:50] VITALS: BP 135/70; PULSE 68; RESP 20; TEMP 36.9; O2SAT 98
== END 2018-04-20 12:50 | disposition home or self-care (01) ==
LOC: INF 12:08
PROVIDERS: PCP Family Medicine; Visit Provider Family Medicine
DX: G43.819 Other migraine, intractable, without status migrainosus (principal)
CPT/HCPCS: 96372

== ENCOUNTER 2018-08-10 11:26 | Outpatient (CLI) | payer MEDICARE, SELFPAY ==
[2018-08-10 11:42] VITALS: BP 129/89; PULSE 78; RESP 18; O2SAT 99
== END 2018-08-10 12:15 | disposition home or self-care (01) ==
LOC: INF 11:28
PROVIDERS: PCP Family Medicine; Visit Provider Family Medicine
DX: G43.911 Migraine, unspecified, intractable, with status migrainosus (principal)
CPT/HCPCS: 96372

== ENCOUNTER 2018-08-28 11:40 | Outpatient (CLI) | payer MEDICARE, SELFPAY ==
[2018-08-28 11:57] VITALS: BP 144/93; PULSE 99; RESP 18; TEMP 36.6; O2SAT 99
== END 2018-08-28 12:20 | disposition home or self-care (01) ==
LOC: INF 11:41
PROVIDERS: PCP Family Medicine; Visit Provider Family Medicine
DX: G43.911 Migraine, unspecified, intractable, with status migrainosus (principal)
CPT/HCPCS: 96372

== ENCOUNTER 2018-09-27 11:50 | Outpatient (CLI) | payer MEDICARE, SELFPAY ==
[2018-09-27 12:02] VITALS: BP 118/75; PULSE 78; RESP 18; TEMP 36.6; O2SAT 99
== END 2018-09-27 12:30 | disposition home or self-care (01) ==
LOC: INF 11:52
PROVIDERS: PCP Family Medicine; Visit Provider Family Medicine
DX: G43.911 Migraine, unspecified, intractable, with status migrainosus (principal)
CPT/HCPCS: 96372

== ENCOUNTER 2018-10-04 16:17 | Outpatient (CLI) | payer MEDICARE, SELFPAY ==
[2018-10-04 16:26] VITALS: BP 140/62; PULSE 81; RESP 20; TEMP 36.8; O2SAT 97
== END 2018-10-04 16:47 | disposition home or self-care (01) ==
PROVIDERS: PCP Family Medicine; Visit Provider Family Medicine
DX: G43.911 Migraine, unspecified, intractable, with status migrainosus (principal)
CPT/HCPCS: 96372

== ENCOUNTER 2018-10-19 15:22 | Outpatient (CLI) | payer MEDICARE, SELFPAY ==
[2018-10-19 15:37] VITALS: BP 146/78; PULSE 69; RESP 18; TEMP 36.6; O2SAT 98
== END 2018-10-19 15:55 | disposition home or self-care (01) ==
LOC: RAD 15:23 → INF 15:32
PROVIDERS: PCP Family Medicine; Visit Provider Family Medicine
DX: G43.911 Migraine, unspecified, intractable, with status migrainosus (principal)
CPT/HCPCS: 96372

== ENCOUNTER 2018-11-05 12:49 | Outpatient (RCR) | payer MEDICARE, SELFPAY | END 2018-11-05 12:55 | disposition home or self-care (01) | LOC: PT 12:49 | PROVIDERS: Visit Provider Specialist | DX: R51 Headache (principal); M54.2 Cervicalgia | CPT/HCPCS: 97010; 97035; 97110; 97163 ==

== ENCOUNTER → 2018-11-06 09:34 | Outpatient (POV) | payer MEDICARE, SELFPAY ==
[2018-11-06 09:45] VITALS: BP 121/73; PULSE 90; RESP 18; O2SAT 99; BMI 39.1
--- NOTE | 2018-11-06 09:59 | HMH.PAINSOAP ---
[facility] Pain Management SOAP Note Subjective:: Patient is a pleasant 48-year-old white female who presents today for follow-up. Patient has been seen by Dr. Jamison who has suggested treatment for TMJ. Patient is interested in a trigeminal nerve block. She rates her pain an 8 out of 10. She states is on her right side. Patient states that chewing is difficult for her she states that her jaw locks up at times. She states that she has radiation into her ears and her head. ROS General: no recent weight change, no fever, no sleep disturbances Respiratory: no cough, no shortness of air, no recurring pulmonary infections Cardiovascular/Peripheral Vascular: No chest pain, No palpitations, no edema, no shortness of breath. Gastrointestinal: no incontinence, normal bowel movements reported Genitourinary: no incontinence Musculoskeletal: Jaw pain Psychiatric: normal mood/ affect Neurological: [denies weakness in extremities], [denies balance issues] Objective:: Physical Exam General: Alert and oriented x3, no acute distress, pleasant and cooperative, [on room air] Lungs: Resps E/U, Symmetrical chest expansion, Eyes: PERRL Musculoskeletal: Extreme tenderness with facial palpation on the right side, deep tendon reflexes normal, strength in upper and lower extremities [5/5], normal gait noted Neurological: speech clear, mac developer equal, no gross sensory deficits Assessment:: Trigeminal neuralgia Plan:: We will set the patient up for trigeminal nerve block. I will follow-up with the patient after that injection. Patient's been instructed to call the office if she has any issues prior to her next appointment. Dr. Chávez has reviewed this note and agrees with this plan of care. This note was dictated using voice recognition software and may contain errors or omissions
--- NOTE | 2018-11-06 10:02 | P.CONS_ITS ---
[facility] Pain Management SOAP Note Subjective:: Patient is a pleasant 48-year-old white female who presents today for follow-up. Patient has been seen by Dr. Jamison who has suggested treatment for TMJ. Patient is interested in a trigeminal nerve block. She rates her pain an 8 out of 10. She states is on her right side. Patient states that chewing is difficult for her she states that her jaw locks up at times. She states that she has radiation into her ears and her head. ROS General: no recent weight change, no fever, no sleep disturbances Respiratory: no cough, no shortness of air, no recurring pulmonary infections Cardiovascular/Peripheral Vascular: No chest pain, No palpitations, no edema, no shortness of breath. Gastrointestinal: no incontinence, normal bowel movements reported Genitourinary: no incontinence Musculoskeletal: Jaw pain Psychiatric: normal mood/ affect Neurological: [denies weakness in extremities], [denies balance issues] Objective:: Physical Exam General: Alert and oriented x3, no acute distress, pleasant and cooperative, [on room air] Lungs: Resps E/U, Symmetrical chest expansion, Eyes: PERRL Musculoskeletal: Extreme tenderness with facial palpation on the right side, deep tendon reflexes normal, strength in upper and lower extremities [5/5], normal gait noted Neurological: speech clear, 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 I will follow-up with the patient after that injection. Patient's been instructed to call the office if she has any issues prior to her next appointment. Dr. Chávez has reviewed this note and agrees with this plan of care. This note was dictated using voice recognition software and may contain errors or omissions
== END ==
PROVIDERS: PCP Family Medicine; Visit Provider Clinical Nurse Specialist Family Health
DX: G50.0 Trigeminal neuralgia (principal)
CPT/HCPCS: 99213

== ENCOUNTER → 2018-11-13 08:17 | Outpatient (CLI) | payer MEDICARE, SELFPAY ==
--- NOTE | 2018-11-13 08:19 | MR_ITS ---
MR head/brain wo/w con HISTORY: Severe worsening headaches with right-sided facial numbness noted as with no acute mammo- ITS.REASON: headache ORDERING PHYSICIAN: Vaishnavi Jamison MD PATIENT AGE: 48 years Comparison: None TECHNIQUE: Standard multiplanar multiecho sequences are performed without and with gadolinium enhancement. FINDINGS: No midline shift, mass effect, intracranial hemorrhage, or hydrocephalus evident. No evidence of acute infarction. The cerebellopontine angles, cerebellum, and brainstem are unremarkable. No enhancing lesions. There is normal gonsales-white matter differentiation. The pituitary, optic chiasm, and corpus callosum are unremarkable. No cerebellar ectopia. Small amount of fluid signal present in the left mastoid sinus and there is mild mucosal thickening of the sphenoid sinus and moderate mucosal thickening ethmoid sinuses and maxillary sinuses. IMPRESSION: 1. No acute intracranial findings. 2. Left mastoid and paranasal sinus inflammatory changes
== END ==
PROVIDERS: PCP Family Medicine; Visit Provider Specialist
DX: F31.9 Bipolar disorder, unspecified (principal); G47.00 Insomnia, unspecified; G47.33 Obstructive sleep apnea (adult) (pediatric); R51 Headache
CPT/HCPCS: 70553; A9576

== ENCOUNTER → 2018-11-14 15:37 | Outpatient (POV) | payer MEDICARE, SELFPAY | DX: Z00.00 Encounter for general adult medical examination without abnormal findings (principal) ==

== ENCOUNTER 2018-11-22 10:30 | Outpatient (CLI) | payer MEDICARE, SELFPAY ==
[2018-11-22 10:46] VITALS: RESP 18
== END 2018-11-22 11:10 | disposition home or self-care (01) ==
LOC: INF 10:31
PROVIDERS: PCP Family Medicine; Visit Provider Family Medicine
DX: G43.911 Migraine, unspecified, intractable, with status migrainosus (principal)
CPT/HCPCS: 96372

== ENCOUNTER → 2018-12-10 15:33 | Outpatient (POV) | payer MEDICARE, SELFPAY ==
[2018-12-10 15:55] VITALS: BP 133/60; PULSE 93; RESP 18; O2SAT 98; BMI 38.6
--- NOTE | 2018-12-11 08:22 | HMH.PAINSOAP ---
[facility] Pain Management SOAP Note Subjective:: Patient is a pleasant 48-year-old white female who presents today for follow-up after a trigeminal nerve block. Patient states she is doing extremely well she states is decreased her pain up to 90%. Patient would like to repeat this next month or so. Patient states she is able to eat and drink without pain. Patient headaches have resolved. She rates her pain today a 1 out of 10. ROS General: no recent weight change, no fever, no sleep disturbances Respiratory: no cough, no shortness of air, no recurring pulmonary infections Cardiovascular/Peripheral Vascular: No chest pain, No palpitations, no edema, no shortness of breath. Gastrointestinal: no incontinence, normal bowel movements reported Genitourinary: no incontinence Musculoskeletal: Right-sided facial pain Psychiatric: normal mood/ affect Neurological: [denies weakness in extremities], [denies balance issues] Objective:: Physical Exam General: Alert and oriented x3, no acute distress, pleasant and cooperative, [on room air] Lungs: Resps E/U, Symmetrical chest expansion, Eyes: PERRL Musculoskeletal: Tenderness to palpation of right side of face secondary to pain, deep tendon reflexes normal, strength in upper and lower extremities [5/5], normal gait noted Neurological: speech clear, manager call center equal, no gross sensory deficits Assessment:: Trigeminal neuralgia Plan:: We will see the patient back next month for another trigeminal nerve block. I believe that would be beneficial given the efficacy of the last one. Dr. Chávez has reviewed this note and agrees with this plan of care. This note was dictated using voice recognition software and may contain errors or omissions
== END ==
PROVIDERS: PCP Family Medicine; Visit Provider Clinical Nurse Specialist Family Health
DX: Z09 Encounter for follow-up examination after completed treatment for conditions other than malignant neoplasm (principal); G50.0 Trigeminal neuralgia
CPT/HCPCS: 99213

== ENCOUNTER 2019-01-18 22:23 | Emergency (ER) | payer MEDICARE, SELFPAY ==
[2019-01-18 22:24] VITALS: BP 145/106; PULSE 102; RESP 16; TEMP 36.9; O2SAT 100; BMI 38.6
--- NOTE | 2019-01-18 22:51 | PC.NURSE ---
VO for 6mg of morphine and 25 mg of phenergran IM per MD
--- NOTE | 2019-01-18 23:01 | HMH.EDGENADL ---
ED Disposition Clinical Impression: Migraine Qualifiers: Migraine type: unspecified Status migrainosus presence: without status migrainosus Intractability: not intractable Qualified Code(s): G43.909 - Migraine, unspecified, not intractable, without status migrainosus Disposition: Home, Self-Care Condition on Discharge: Good Instructions: DI for Migraine Additional Instructions: see pcp for follow up Referrals: Josh Walton MD [Primary Care Provider] - - Critical Care Critical Care Time: No Attestation: On 01/18/19, the high probability of a clinically significant, sudden or life threatening deterioration of the following system(s) required my full and direct attention, intervention and personal management. The time I documented below is in addition to time spent performing reported procedures but includes the following listed in this critical care notation. Medical Decision Making - Medical Records Medical records reviewed: Yes: I reviewed the patient's medical records. - Timothy Inquiry Pt receiving controlled substance: No Vital Signs: 01/18/19 22:24 Temperature 98.5 F Temperature Source Temporal Artery Scan Pulse Rate [Right Brachial] 102 H Respiratory Rate 16 Blood Pressure [Right Arm] 145/106 H Blood Pressure Mean [Right Arm] 119 Blood Pressure Source [Right Arm] Automatic Cuff Blood Pressure Position [Right Arm] Sitting 02 Sat by Pulse Oximetry 100 Oxygen Delivery Method Room Air Orders (Tests/Meds): ED MEDICATIONS Discontinued Medications Generic Name Dose Route Start Last Admin Trade Name Freq PRN Reason Stop Dose Admin Morphine Sulfate 6 mg 01/18/19 22:52 01/18/19 22:53 Morphine 2mg/Ml Syringe IM 01/18/19 22:53 6 mg ONCE ONE Administration Promethazine HCl 25 mg 01/18/19 22:52 01/18/19 22:54 Phenergan 25mg/Ml 1ml Vial IM 01/18/19 22:53 25 mg ONCE ONE Administration Sodium Chloride 25 ml 01/18/19 22:52 01/18/19 22:53 Sod Chlor 0.9% 25ml Bag IV 01/18/19 22:53 25 ml ONCE ONE Administration General Adult HPI - General Chief complaint: PAIN Stated complaint: BROOKE Time Seen by Provider: 01/18/19 23:01 Mode of Arrival: Ambulatory Source of Information: Patient, Medical Record Limitations: No Limitations Description of Symptoms (Recalled from ER Triage Doc. by RN): Pt has hx of migraines, c/o migraine for 3 days - History of Present Illness HPI narrative: acute excerbation of migraine with no fever or new sx and no rash or trauma Onset (ago): hour(s) Location: head Severity: moderate, similar to prior episodes Associated symptoms: denies other symptoms Treatments prior to arrival: none - Related Data Home Medications Medication Instructions Recorded Confirmed Esomeprazole Magnesium [Nexium 40 mg PO DAILY 10/06/17 12/27/18 24Hr] Levothyroxine Sodium 100 mg PO DAILY 10/06/17 12/27/18 [Levothyroxine 100mcg (0.1MG) Tab] Oxycodone HCl [Oxycodone (IR) 5mg 5 mg PO Q4HP PRN 10/06/17 12/27/18 Cap] Rizatriptan Benzoate [Rizatriptan] 10 mg PO Q2HP PRN 10/06/17 12/27/18 Venlafaxine HCl [Effexor Xr] 150 mg PO BID 10/06/17 12/27/18 dilTIAZem HCl [Cartia Xt] 240 mg PO DAILY 10/06/17 12/27/18 ondansetron HCl 4 mg tablet 4 mg PO TID PRN 09/05/18 12/27/18 aspirin 81 mg tablet,delayed 81 mg PO DAILY 10/29/18 12/27/18 release triamterene 37.5 1 tab PO DAILY 90 Days #90 tab 10/29/18 12/27/18 mg-hydrochlorothiazide 25 mg tablet alendronate 35 mg tablet PO 28 Days #4 tab 12/24/18 12/27/18 Previous Rx's Medication Instructions Recorded acetaminophen 500 mg tablet 500 mg PO Q6H PRN 30 Days #30 tab 12/24/18 diphenhydramine 25 mg capsule 25 mg PO Q6H PRN 30 Days #30 cap 12/24/18 erenumab-aooe 70 mg/mL 70 mg SQ QMONTH 30 Days #1 each 12/24/18 subcutaneous auto-injector promethazine 25 mg tablet 25 mg PO Q6H PRN 30 Days #30 tab 12/24/18 Allergies Allergy/AdvReac Type Severity Reaction Status Date / Time bupropion [BUPRO
--- NOTE | 2019-01-18 23:04 | ED_ITS ---
ED Disposition Clinical Impression: Migraine Qualifiers: Migraine type: unspecified Status migrainosus presence: without status migrainosus Intractability: not intractable Qualified Code(s): G43.909 - Migraine, unspecified, not intractable, without status migrainosus Disposition: Home, Self-Care Condition on Discharge: Good Instructions: DI for Migraine Additional Instructions: see pcp for follow up Referrals: Josh Walton MD [Primary Care Provider] - - Critical Care Critical Care Time: No Attestation: On 01/18/19, the high probability of a clinically significant, sudden or life threatening deterioration of the following system(s) required my full and direct attention, intervention and personal management. The time I documented below is in addition to time spent performing reported procedures but includes the following listed in this critical care notation. Medical Decision Making - Medical Records Medical records reviewed: Yes: I reviewed the patient's medical records. - Timothy Inquiry Pt receiving controlled substance: No Vital Signs: 01/18/19 22:24 Temperature 98.5 F Temperature Source Temporal Artery Scan Pulse Rate [Right Brachial] 102 H Respiratory Rate 16 Blood Pressure [Right Arm] 145/106 H Blood Pressure Mean [Right Arm] 119 Blood Pressure Source [Right Arm] Automatic Cuff Blood Pressure Position [Right Arm] Sitting 02 Sat by Pulse Oximetry 100 Oxygen Delivery Method Room Air Orders (Tests/Meds): ED MEDICATIONS Discontinued Medications Generic Name Dose Route Start Last Admin Trade Name Freq PRN Reason Stop Dose Admin Morphine Sulfate 6 mg 01/18/19 22:52 01/18/19 22:53 Morphine 2mg/Ml Syringe IM 01/18/19 22:53 6 mg ONCE ONE Administration Promethazine HCl 25 mg 01/18/19 22:52 01/18/19 22:54 Phenergan 25mg/Ml 1ml Vial IM 01/18/19 22:53 25 mg ONCE ONE Administration Sodium Chloride 25 ml 01/18/19 22:52 01/18/19 22:53 Sod Chlor 0.9% 25ml Bag IV 01/18/19 22:53 25 ml ONCE ONE Administration General Adult HPI - General Chief complaint: PAIN Stated complaint: BROOKE Time Seen by Provider: 01/18/19 23:01 Mode of Arrival: Ambulatory Source of Information: Patient, Medical Record Limitations: No Limitations Description of Symptoms (Recalled from ER Triage Doc. by RN): Pt has hx of migraines, c/o migraine for 3 days - History of Present Illness HPI narrative: acute excerbation of migraine with no fever or new sx and no rash or trauma Onset (ago): hour(s) Location: head Severity: moderate, similar to prior episodes Associated symptoms: denies other symptoms Treatments prior to arrival: none - Related Data Home Medications Medication Instructions Recorded Confirmed Esomeprazole Magnesium [Nexium 40 mg PO DAILY 10/06/17 12/27/18 24Hr] Levothyroxine Sodium 100 mg PO DAILY 10/06/17 12/27/18 [Levothyroxine 100mcg (0.1MG) Tab] Oxycodone HCl [Oxycodone (IR) 5mg 5 mg PO Q4HP PRN 10/06/17 12/27/18 Cap] Rizatriptan Benzoate [Rizatriptan] 10 mg PO Q2HP PRN 10/06/17 12/27/18 Venlafaxine HCl [Effexor Xr] 150 mg PO BID 10/06/17 12/27/18 dilTIAZem HCl [Carti
[2019-01-18 23:07] VITALS: BP 144/98; PULSE 72; RESP 16; TEMP 36.9; O2SAT 99
== END 2019-01-18 23:07 | disposition home or self-care (01) ==
PROVIDERS: Emergency Provider Emergency Medicine; PCP Family Medicine
DX: G43.909 Migraine, unspecified, not intractable, without status migrainosus (principal); I10 Essential (primary) hypertension; Z51.81 Encounter for therapeutic drug level monitoring; F41.8 Other specified anxiety disorders; E78.5 Hyperlipidemia, unspecified
CPT/HCPCS: 96372; 99281

== ENCOUNTER → 2019-01-28 11:37 | Outpatient (POV) | payer MEDICARE, SELFPAY ==
[2019-01-28 11:44] VITALS: BP 135/80; PULSE 91; RESP 18; O2SAT 99; BMI 39.2
--- NOTE | 2019-01-28 11:51 | HMH.PAINSOAP ---
[facility] Pain Management SOAP Note Subjective:: Patient is a pleasant 48-year-old white female who we are treating for right-sided trigeminal neuralgia. Patient did extremely well with her first injection and 1st nerve block. Rating her pain 90% relief. Patient had a second when she did not get as much relief however she states that she is in the middle of the flare at this time she rates the pain a 5 out of 10. She would like to repeat this 1 more time. ROS General: no recent weight change, no fever, no sleep disturbances Respiratory: no cough, no shortness of air, no recurring pulmonary infections Cardiovascular/Peripheral Vascular: No chest pain, No palpitations, no edema, no shortness of breath. Gastrointestinal: no incontinence, normal bowel movements reported Genitourinary: no incontinence Musculoskeletal: Right-sided facial pain Psychiatric: normal mood/ affect Neurological: [denies weakness in extremities], [denies balance issues] Objective:: Physical Exam General: Alert and oriented x3, no acute distress, pleasant and cooperative, [on room air] Lungs: Resps E/U, Symmetrical chest expansion, Eyes: PERRL Musculoskeletal: Tenderness on palpation right side of face, deep tendon reflexes normal, strength in upper and lower extremities [5/5], normal gait noted Neurological: speech clear, 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 I will follow-up with her after this reassess her symptoms at that time. Dr. Chávez has reviewed this note and agrees with this plan of care. This note was dictated using voice recognition software and may contain errors or omissions
--- NOTE | 2019-01-28 11:54 | P.CONS_ITS ---
[facility] Pain Management SOAP Note Subjective:: Patient is a pleasant 48-year-old white female who we are treating for right- sided trigeminal neuralgia. Patient did extremely well with her first injection and 1st nerve block. Rating her pain 90% relief. Patient had a second when she did not get as much relief however she states that she is in the middle of the flare at this time she rates the pain a 5 out of 10. She would like to repeat this 1 more time. ROS General: no recent weight change, no fever, no sleep disturbances Respiratory: no cough, no shortness of air, no recurring pulmonary infections Cardiovascular/Peripheral Vascular: No chest pain, No palpitations, no edema, no shortness of breath. Gastrointestinal: no incontinence, normal bowel movements reported Genitourinary: no incontinence Musculoskeletal: Right-sided facial pain Psychiatric: normal mood/ affect Neurological: [denies weakness in extremities], [denies balance issues] Objective:: Physical Exam General: Alert and oriented x3, no acute distress, pleasant and cooperative, [on room air] Lungs: Resps E/U, Symmetrical chest expansion, Eyes: PERRL Musculoskeletal: Tenderness on palpation right side of face, deep tendon reflexes normal, strength in upper and lower extremities [5/5], normal gait noted Neurological: speech clear, population health coach equal, no gross sensory deficits Assessment:: Trigeminal neuralgia Plan:: We will repeat her try trigeminal nerve block on the right side. I will follow- up with her after this reassess her symptoms at that time. Dr. Chávez has reviewed this note and agrees with this plan of care. This note was dictated using voice recognition software and may contain errors or omissions
== END ==
PROVIDERS: PCP Family Medicine; Visit Provider Clinical Nurse Specialist Family Health
DX: G50.0 Trigeminal neuralgia
CPT/HCPCS: 99212

== ENCOUNTER 2019-02-01 10:12 | Outpatient (CLI) | payer MEDICARE, SELFPAY ==
[2019-02-01 10:45] VITALS: BP 121/80; PULSE 84; RESP 20; TEMP 37.7; O2SAT 95
[2019-02-01 11:10] VITALS: BP 118/74; PULSE 68; RESP 20; TEMP 36.9; O2SAT 95
== END 2019-02-01 11:15 | disposition home or self-care (01) ==
LOC: INF 10:14
PROVIDERS: PCP Family Medicine; Visit Provider Family Medicine
DX: G43.911 Migraine, unspecified, intractable, with status migrainosus (principal)
CPT/HCPCS: 96372

== ENCOUNTER → 2019-03-05 11:12 | Outpatient (POV) | payer MEDICARE, SELFPAY ==
[2019-03-05 11:23] VITALS: BP 150/79; PULSE 100; RESP 18; O2SAT 99; BMI 39.7
--- NOTE | 2019-03-05 11:35 | HMH.PAINSOAP ---
[facility] Pain Management SOAP Note Subjective:: Patient is a pleasant 49-year-old white female who presents today for follow-up for right trigeminal nerve block. Treating her for right-sided trigeminal neuralgia. The patient reports she had 90% relief with her first injection, 50 to 60% relief with the second injection, and last injection 100% relief. Her pain a 0 out of 10 today. She is very happy today, stating this is the best I felt in a long time . ROS General: no recent weight change, no fever, no sleep disturbances Respiratory: no cough, no shortness of air, no recurring pulmonary infections Cardiovascular/Peripheral Vascular: No chest pain, No palpitations, no edema, no shortness of breath. Gastrointestinal: no incontinence, normal bowel movements reported Genitourinary: no incontinence Musculoskeletal: Intermittent right-sided facial pain Psychiatric: normal mood/ affect, [denies depression], [denies anxiety] Neurological: [denies weakness in extremities], [denies balance issues] Objective:: Physical Exam General: Alert and oriented x3, no acute distress, pleasant and cooperative, [on room air] Lungs: Resps E/U, Symmetrical chest expansion, Eyes: PERRL Musculoskeletal: deep tendon reflexes normal, strength in upper and lower extremities [5/5], normal gait noted] Neurological: speech clear, tube filler equal, no gross sensory deficits Assessment:: Right trigeminal neuralgia and temporomandibular joint dysfunction Plan:: The patient is doing well today. We will follow-up with her month her symptoms at that time. Been instructed to call the office if she has any concerns prior to the next visit. Dr. Chávez has reviewed this note and agrees with this plan of care. This note was dictated using voice recognition software and may contain errors or omissions
--- NOTE | 2019-03-05 11:38 | P.CONS_ITS ---
[facility] Pain Management SOAP Note Subjective:: Patient is a pleasant 49-year-old white female who presents today for follow-up for right trigeminal nerve block. Treating her for right-sided trigeminal neuralgia. The patient reports she had 90% relief with her first injection, 50 to 60% relief with the second injection, and last injection 100% relief. Her pain a 0 out of 10 today. She is very happy today, stating this is the best I felt in a long time . ROS General: no recent weight change, no fever, no sleep disturbances Respiratory: no cough, no shortness of air, no recurring pulmonary infections Cardiovascular/Peripheral Vascular: No chest pain, No palpitations, no edema, no shortness of breath. Gastrointestinal: no incontinence, normal bowel movements reported Genitourinary: no incontinence Musculoskeletal: Intermittent right-sided facial pain Psychiatric: normal mood/ affect, [denies depression], [denies anxiety] Neurological: [denies weakness in extremities], [denies balance issues] Objective:: Physical Exam General: Alert and oriented x3, no acute distress, pleasant and cooperative, [on room air] Lungs: Resps E/U, Symmetrical chest expansion, Eyes: PERRL Musculoskeletal: deep tendon reflexes normal, strength in upper and lower extremities [5/5], normal gait noted] Neurological: speech clear, plate painter equal, no gross sensory deficits Assessment:: Right trigeminal neuralgia and temporomandibular joint dysfunction Plan:: The patient is doing well today. We will follow-up with her month her symptoms at that time. Been instructed to call the office if she has any concerns prior to the next visit. Dr. Chávez has reviewed this note and agrees with this plan of care. This note was dictated using voice recognition software and may contain errors or omissions
== END ==
PROVIDERS: PCP Family Medicine; Visit Provider Clinical Nurse Specialist Family Health
DX: M26.609 Unspecified temporomandibular joint disorder, unspecified side (principal); G50.0 Trigeminal neuralgia
CPT/HCPCS: 99212

== ENCOUNTER → 2019-04-02 11:36 | Outpatient (POV) | payer MEDICARE, SELFPAY ==
[2019-04-02 11:47] VITALS: BP 113/61; PULSE 81; RESP 18; O2SAT 98; BMI 39.7
--- NOTE | 2019-04-02 13:25 | HMH.PAINSOAP ---
[facility] Pain Management SOAP Note Subjective:: Patient is a pleasant 49-year-old white female who presents today for complaints of right side facial pain. She has been treated for right side trigeminal neuralgia and temporomandibular joint dysfunction in the past. She has had a right trigeminal nerve block and reports that she generally gets about 90% relief with this for at least 2 to 3 months. She is here today she would like another injection. She rates her pain a 5 out of 10 today. Review of Systems General: No recent weight changes, no fever, no sleep disturbances Respiratory: No cough, no shortness of air, no recurring pulmonary infections Cardiovascular/peripheral vascular: No chest pain, no palpitations, no edema, no shortness of breath Gastrointestinal: No new onset incontinence, normal bowel movements reported Genitourinary: No new onset incontinence Musculoskeletal: Intermittent right-sided facial pain Psychiatric: Normal mood/affect Neurological: [Denies weakness in extremities], [denies balance issues] Objective:: Physical exam General: Alert and oriented x3, no acute distress, pleasant and cooperative, [on room air] Lungs: Respirations even and unlabored, symmetrical chest expansion Eyes: PERRL Musculoskeletal: deep tendon reflexes normal, strength in upper and lower extremities [5/5], [abnormal gait noted] Neurological: Speech clear, electro mechanical solar technician equal, no gross sensory deficit Assessment:: Right trigeminal neuralgia and temporomandibular joint dysfunction Plan:: We will schedule the patient for a right side trigeminal nerve block. Patient is not on any anticoagulation therapy. We will schedule her for the procedure and follow-up with her in the office afterwards to reassess her symptoms at that time. She is been instructed to call the office if she has any concerns prior to her next visit. Dr. Chávez has reviewed this note and agrees with this plan of care. This note was dictated using voice recognition software and make contain errors or omissions.
--- NOTE | 2019-04-02 13:28 | P.CONS_ITS ---
[facility] Pain Management SOAP Note Subjective:: Patient is a pleasant 49-year-old white female who presents today for complaints of right side facial pain. She has been treated for right side trigeminal neuralgia and temporomandibular joint dysfunction in the past. She has had a right trigeminal nerve block and reports that she generally gets about 90% relief with this for at least 2 to 3 months. She is here today she would like another injection. She rates her pain a 5 out of 10 today. Review of Systems General: No recent weight changes, no fever, no sleep disturbances Respiratory: No cough, no shortness of air, no recurring pulmonary infections Cardiovascular/peripheral vascular: No chest pain, no palpitations, no edema, no shortness of breath Gastrointestinal: No new onset incontinence, normal bowel movements reported Genitourinary: No new onset incontinence Musculoskeletal: Intermittent right-sided facial pain Psychiatric: Normal mood/affect Neurological: [Denies weakness in extremities], [denies balance issues] Objective:: Physical exam General: Alert and oriented x3, no acute distress, pleasant and cooperative, [on room air] Lungs: Respirations even and unlabored, symmetrical chest expansion Eyes: PERRL Musculoskeletal: deep tendon reflexes normal, strength in upper and lower e xtremities [5/5], [abnormal gait noted] Neurological: Speech clear, senior portfolio manager equal, no gross sensory deficit Assessment:: Right trigeminal neuralgia and temporomandibular joint dysfunction Plan:: We will schedule the patient for a right side trigeminal nerve block. Patient is not on any anticoagulation therapy. We will schedule her for the procedure and follow-up with her in the office afterwards to reassess her symptoms at that time. She is been instructed to call the office if she has any concerns prior to her next visit. Dr. Chávez has reviewed this note and agrees with this plan of care. This note was dictated using voice recognition software and make contain errors or omissions.
== END ==
PROVIDERS: PCP Family Medicine; Visit Provider Clinical Nurse Specialist Family Health
DX: G50.0 Trigeminal neuralgia; M26.601 Right temporomandibular joint disorder, unspecified
CPT/HCPCS: 99212

== ENCOUNTER 2019-04-12 10:50 | Outpatient (CLI) | payer MEDICARE, SELFPAY ==
[2019-04-12 11:29] VITALS: BP 140/86; PULSE 68; RESP 18
[2019-04-12 14:25] LABS: Alanine Aminotransferase 35 U/L (12-78); Albumin Level 3.8 gm/dL (3.4-5.0); Albumin/Globulin Ratio 1.1 (1.1-1.8); Alkaline Phosphatase 59 U/L (46-116); Anion Gap 12.8 mEq/L (5-15); Aspartate Amino Transferase 19 U/L (15-37); Bilirubin,Total 0.4 mg/dL (0.2-1.0); Blood Urea Nitrogen 16 mg/dL (7-18); Carbon Dioxide 28 mmol/L (21.0-32.0); Chloride 104 mmol/L (98-107); Chol/HDL Ratio 4.4 (1-3.5); Cholesterol 258 mg/dL (140-200); Creatinine,Serum 1.09 mg/dL (0.55-1.02); Estimated Glomerular Filt Rate 53 ml/min (>60); GFR (African American) 64 ML/MIN (>60); Globulin 3.4 gm/dl (1.3-3.2); Glucose 99 mg/dL (74-106); HDL Cholesterol 59 mg/dL (29-89); LDL Cholesterol 149 mg/dL (0-130); Potassium 3.8 mmoL/L (3.5-5.1); Sodium 141 mmol/L (136-145); Thyroid Stimulating Hormone 1.54 uIU/ml (0.358-3.740); Total Protein,Serum 7.2 gm/dL (6.4-8.2); Triglycerides 250 mg/dL (30-200); VLDL Cholesterol 50 mg/dL (0-40)
== END 2019-04-12 12:00 | disposition home or self-care (01) ==
LOC: INF 10:52
PROVIDERS: Physician Assistant; PCP Family Medicine; Visit Provider Family Medicine
DX: I10 Essential (primary) hypertension (principal); E03.9 Hypothyroidism, unspecified; Z13.220 Encounter for screening for lipoid disorders; G43.909 Migraine, unspecified, not intractable, without status migrainosus
CPT/HCPCS: 36415; 80053; 80061; 84443; 96372

== ENCOUNTER 2019-04-25 16:29 | Outpatient (CLI) | payer MEDICARE, SELFPAY ==
[2019-04-25 16:47] VITALS: BP 149/98; PULSE 92; RESP 20; TEMP 36.5; O2SAT 98
== END 2019-04-25 17:07 | disposition home or self-care (01) ==
LOC: INF 16:32
PROVIDERS: PCP Family Medicine; Visit Provider Family Medicine
DX: G43.911 Migraine, unspecified, intractable, with status migrainosus (principal)
CPT/HCPCS: 96372

== ENCOUNTER → 2019-05-15 09:51 | Outpatient (CLI) | payer MEDICARE, SELFPAY ==
--- NOTE | 2019-05-15 10:24 | XR_ITS ---
PROCEDURE: XR HAND LT MIN 3V CLINICAL INDICATION: INFLAMMATORY ARTHRITIS Pain COMPARISON: No exams were available for comparison FINDINGS: No fracture or dislocation. Joint spaces are well preserved. Small cystic areas present along the radial aspect of the middle phalanx of the 2nd digit distally non-specific. IMPRESSION: No acute finding. Nonspecific well-circumscribed small cystic area of the middle phalanx of the 2nd digit. Consider radiographic follow-up to confirm stability Dictated by: Buster Gómez MD 05/16/2019 04:55 Signed by: <Electronically signed by Buster Gómez MD in [place]> 05/16/2019 04:55
--- NOTE | 2019-05-15 10:24 | XR_ITS ---
PROCEDURE: XR HAND RT MIN 3V CLINICAL INDICATION: INFLAMMATORY ARTHRITIS Pain COMPARISON: No exams were available for comparison FINDINGS: No fracture or dislocation. The joint spaces are well preserved. No joint space erosion evident. There is a small lucency at the distal and radial aspect of the proximal phalanx of the 5th digit non-specific well-circumscribed IMPRESSION: Small cystic area of the distal aspect of the proximal phalanx of the 5th digit of questionable clinical significance. Not typical for erosive osteoarthritis. Please correlate with clinical findings and radiographic follow-up the Dictated by: Buster Gómez MD 05/16/2019 04:53 Signed by: <Electronically signed by Buster Gómez MD in [place]> 05/16/2019 04:53
[2019-05-15 10:39] LABS: Basophils % 0.5 % (0.1-2.0); Eosinophils # 0.3 K/mm3 (0.0-0.4); Eosinophils % 4.2 % (0.1-12.0); Hemoglobin 12.2 g/dL (12.2-16.2); Lymphocytes # 2.1 K/mm3 (0.7-4.5); Lymphocytes % 30.1 % (10-50); Mean Corpuscular HGB Conc 32.2 g/dL (31.8-35.4); Mean Corpuscular Hemoglobin 28.7 pg (27.0-31.2); Mean Corpuscular Volume 89.4 fl (81-99); Mean Platelet Volume 7.1 fl (7.4-10.4); Monocytes # 0.5 K/mm3 (0.1-1.0); Monocytes % 7.6 % (1.7-9.3); Neutrophils % 57.6 % (37.0-80.0); Platelet Count 391 K/mm3 (142-424); Red Blood Count 4.25 M/mm3 (4.20-5.40); Red Cell Distribution Width 14.3 % (11.5-17.5); White Blood Count 6.9 K/mm3 (4.8-10.8)
[2019-05-15 12:56] LABS: Erythrocyte Sedimentation Rate 56 mm/hr (0-30)
[2019-05-15 15:29] LABS: Alanine Aminotransferase 24 U/L (12-78); Albumin Level 3.8 gm/dL (3.4-5.0); Albumin/Globulin Ratio 1.1 (1.1-1.8); Alkaline Phosphatase 63 U/L (46-116); Anion Gap 16.3 mEq/L (5-15); Aspartate Amino Transferase 10 U/L (15-37); Bilirubin,Total 0.4 mg/dL (0.2-1.0); Blood Urea Nitrogen 24 mg/dL (7-18); Calcium 9.4 mg/dL (8.5-10.1); Carbon Dioxide 26 mmol/L (21.0-32.0); Chloride 102 mmol/L (98-107); Creatinine,Serum 1.16 mg/dL (0.55-1.02); Estimated Glomerular Filt Rate 49 ml/min (>60); GFR (African American) 60 ML/MIN (>60); Globulin 3.4 gm/dl (1.3-3.2); Glucose 97 mg/dL (74-106); Potassium 3.3 mmoL/L (3.5-5.1); Sodium 141 mmol/L (136-145); Total Protein,Serum 7.2 gm/dL (6.4-8.2)
[2019-05-16 13:09] LABS: Sjogren's Anti-SS-A <0.2 AI (0.0-0.9); Sjogren's Anti-SS-B <0.2 AI (0.0-0.9)
[2019-05-17 18:02] LABS: Anti-Cyclic Citrullinated Pept 7 units (0-19); Anti-DNA (DS) Ab Qn <1 IU/mL (0-9); RA Latex Turbid. 11.4 IU/mL (0.0-13.9)
== END ==
PROVIDERS: PCP Family Medicine; Visit Provider Internal Medicine Rheumatology
DX: M19.042 Primary osteoarthritis, left hand (principal); M19.041 Primary osteoarthritis, right hand; Z79.899 Other long term (current) drug therapy
CPT/HCPCS: 36415; 73130; 80053; 83520; 85025; 85651; 86200; 86225; 86235; 86431

== ENCOUNTER 2019-05-16 15:42 | Outpatient (CLI) | payer MEDICARE, SELFPAY ==
[2019-05-16 15:50] VITALS: BP 134/81; PULSE 80; RESP 18; TEMP 36.6; O2SAT 98
== END 2019-05-16 16:00 | disposition home or self-care (01) ==
LOC: INF 15:43
PROVIDERS: PCP Family Medicine; Visit Provider Family Medicine
DX: G43.911 Migraine, unspecified, intractable, with status migrainosus (principal)
CPT/HCPCS: 96372

== ENCOUNTER 2019-06-18 14:57 | Outpatient (CLI) | payer MEDICARE, SELFPAY ==
[2019-06-18 15:00] VITALS: BP 124/59; PULSE 79; RESP 18; TEMP 36.8; O2SAT 98
== END 2019-06-18 15:20 | disposition home or self-care (01) ==
LOC: INF 14:58
PROVIDERS: PCP Family Medicine; Visit Provider Family Medicine
DX: G43.909 Migraine, unspecified, not intractable, without status migrainosus (principal)
CPT/HCPCS: 96372

== ENCOUNTER 2019-07-26 11:37 | Outpatient (CLI) | payer MEDICARE, SELFPAY ==
[2019-07-26 11:55] VITALS: BP 142/91; PULSE 74; RESP 18; O2SAT 97
== END 2019-07-26 12:00 | disposition home or self-care (01) ==
LOC: INF 11:41
PROVIDERS: PCP Family Medicine; Visit Provider Family Medicine
DX: G43.911 Migraine, unspecified, intractable, with status migrainosus (principal)
CPT/HCPCS: 96372

== ENCOUNTER 2019-08-23 12:20 | Outpatient (CLI) | payer MEDICARE, SELFPAY ==
[2019-08-23 12:50] VITALS: BP 142/79; PULSE 108; RESP 18; O2SAT 95
== END 2019-08-23 13:05 | disposition home or self-care (01) ==
LOC: INF 12:21
PROVIDERS: PCP Family Medicine; Visit Provider Family Medicine
DX: G43.911 Migraine, unspecified, intractable, with status migrainosus (principal)
CPT/HCPCS: 96372

== ENCOUNTER → 2019-09-04 10:03 | Outpatient (CLI) | payer MEDICARE, SELFPAY ==
[2019-09-04 12:11] LABS: Alanine Aminotransferase 25 U/L (12-78); Albumin Level 3.8 gm/dL (3.4-5.0); Albumin/Globulin Ratio 1.1 (1.1-1.8); Alkaline Phosphatase 61 U/L (46-116); Aspartate Amino Transferase 16 U/L (15-37); Bilirubin,Total 0.5 mg/dL (0.2-1.0); Blood Urea Nitrogen 24 mg/dL (7-18); Calcium 8.9 mg/dL (8.5-10.1); Carbon Dioxide 24 mmol/L (21.0-32.0); Chloride 103 mmol/L (98-107); Chol/HDL Ratio 2.3 (1-3.5); Cholesterol 179 mg/dL (140-200); Creatinine,Serum 0.99 mg/dL (0.55-1.02); Estimated Glomerular Filt Rate 59 ml/min (>60); GFR (African American) 72 ML/MIN (>60); Globulin 3.4 gm/dl (1.3-3.2); Glucose 105 mg/dL (74-106); HDL Cholesterol 78 mg/dL (29-89); LDL Cholesterol 80 mg/dL (0-130); Sodium 143 mmol/L (136-145); Total Protein,Serum 7.2 gm/dL (6.4-8.2); Triglycerides 104 mg/dL (30-200); VLDL Cholesterol 21 mg/dL (0-40)
== END ==
PROVIDERS: Visit Provider Family Medicine
DX: E78.5 Hyperlipidemia, unspecified (principal); E03.9 Hypothyroidism, unspecified
CPT/HCPCS: 36415; 80053; 80061; 84443

== ENCOUNTER → 2019-09-30 15:03 | Outpatient (CLI) | payer MEDICARE, SELFPAY ==
[2019-09-30 15:41] LABS: Basophils # 0.1 K/mm3 (0-0.2); Basophils % 0.9 % (0.1-2.0); Eosinophils # 0.4 K/mm3 (0.0-0.4); Eosinophils % 5.6 % (0.1-12.0); Hematocrit 38.5 % (37.0-47.0); Hemoglobin 12.1 g/dL (12.2-16.2); Lymphocytes # 1.7 K/mm3 (0.7-4.5); Lymphocytes % 24.2 % (10-50); Mean Corpuscular HGB Conc 31.3 g/dL (31.8-35.4); Mean Corpuscular Hemoglobin 29.7 pg (27.0-31.2); Mean Platelet Volume 7.4 fl (7.4-10.4); Monocytes # 0.5 K/mm3 (0.1-1.0); Monocytes % 7.9 % (1.7-9.3); Neutrophils # 4.2 K/mm3 (1.8-7.8); Neutrophils % 61.4 % (37.0-80.0); Platelet Count 392 K/mm3 (142-424); Red Blood Count 4.06 M/mm3 (4.20-5.40); Red Cell Distribution Width 16.3 % (11.5-17.5); White Blood Count 6.8 K/mm3 (4.8-10.8)
[2019-09-30 16:12] LABS: Alanine Aminotransferase 23 U/L (12-78); Albumin Level 3.8 gm/dL (3.4-5.0); Albumin/Globulin Ratio 1.2 (1.1-1.8); Alkaline Phosphatase 57 U/L (46-116); Anion Gap 14.6 mEq/L (5-15); Aspartate Amino Transferase 16 U/L (15-37); Bilirubin,Total 0.3 mg/dL (0.2-1.0); Blood Urea Nitrogen 25 mg/dL (7-18); C-Reactive Protein 0.5 mg/dL (0.0-0.9); Calcium 9.5 mg/dL (8.5-10.1); Carbon Dioxide 28 mmol/L (21.0-32.0); Chloride 104 mmol/L (98-107); Creatinine,Serum 0.96 mg/dL (0.55-1.02); Estimated Glomerular Filt Rate 61 ml/min (>60); GFR (African American) 74 ML/MIN (>60); Globulin 3.3 gm/dl (1.3-3.2); Glucose 75 mg/dL (74-106); Potassium 3.6 mmoL/L (3.5-5.1); Sodium 143 mmol/L (136-145); Total Protein,Serum 7.1 gm/dL (6.4-8.2)
[2019-09-30 18:30] LABS: Erythrocyte Sedimentation Rate 82 mm/hr (0-30)
== END ==
PROVIDERS: Visit Provider Internal Medicine Rheumatology
DX: M06.00 Rheumatoid arthritis without rheumatoid factor, unspecified site (principal)
CPT/HCPCS: 36415; 80053; 85025; 85651; 86140

== ENCOUNTER 2019-10-18 15:27 | Outpatient (CLI) | payer MEDICARE, SELFPAY ==
[2019-10-18 15:55] VITALS: BP 156/108; PULSE 90; RESP 20; O2SAT 95
== END 2019-10-18 16:30 | disposition home or self-care (01) ==
PROVIDERS: PCP Family Medicine; Visit Provider Family Medicine
DX: G43.911 Migraine, unspecified, intractable, with status migrainosus (principal)
CPT/HCPCS: 96372

== ENCOUNTER 2019-11-14 15:58 | Outpatient (CLI) | payer MEDICARE, SELFPAY ==
[2019-11-14 16:05] VITALS: BP 145/81; PULSE 82; RESP 20; TEMP 36.6; O2SAT 93
== END 2019-11-14 16:35 | disposition home or self-care (01) ==
LOC: INF 16:00
PROVIDERS: PCP Family Medicine; Visit Provider Family Medicine
DX: G43.511 Persistent migraine aura without cerebral infarction, intractable, with status migrainosus (principal)
CPT/HCPCS: 96372

== ENCOUNTER 2020-01-03 11:05 | Outpatient (CLI) | payer MEDICARE, SELFPAY ==
[2020-01-03 11:25] VITALS: BP 137/85; PULSE 71; RESP 18; TEMP 36.5; O2SAT 97
== END 2020-01-03 11:25 | disposition home or self-care (01) ==
LOC: INF 11:06
PROVIDERS: PCP Family Medicine; Visit Provider Family Medicine
DX: G43.911 Migraine, unspecified, intractable, with status migrainosus (principal)
CPT/HCPCS: 96372

== ENCOUNTER → 2020-01-10 16:33 | Outpatient (CLI) | payer MEDICARE, SELFPAY ==
[2020-01-10 16:51] LABS: Basophils # 0.1 K/mm3 (0-0.2); Basophils % 1.1 % (0.1-2.0); Eosinophils # 0.4 K/mm3 (0.0-0.4); Eosinophils % 5.6 % (0.1-12.0); Hematocrit 36.8 % (37.0-47.0); Hemoglobin 12.4 g/dL (12.2-16.2); Lymphocytes # 1.7 K/mm3 (0.7-4.5); Lymphocytes % 24.5 % (10-50); Mean Corpuscular HGB Conc 33.7 g/dL (31.8-35.4); Mean Corpuscular Volume 91.9 fl (81-99); Mean Platelet Volume 7.5 fl (7.4-10.4); Monocytes # 0.5 K/mm3 (0.1-1.0); Monocytes % 7.5 % (1.7-9.3); Neutrophils # 4.3 K/mm3 (1.8-7.8); Neutrophils % 61.4 % (37.0-80.0); Platelet Count 373 K/mm3 (142-424); Red Blood Count 4.01 M/mm3 (4.20-5.40); Red Cell Distribution Width 14.1 % (11.5-17.5); White Blood Count 6.9 K/mm3 (4.8-10.8)
[2020-01-10 17:35] LABS: Erythrocyte Sedimentation Rate 78 mm/hr (0-30)
[2020-01-10 17:39] LABS: Cholesterol 189 mg/dl (140-200); HDL Cholesterol 93 mg/dl (40-60); Triglycerides 148 mg/dl (30-150); VLDL Cholesterol 30 mg/dL (0-40)
[2020-01-10 17:55] LABS: Chloride 104 mmol/L (98-107)
[2020-01-10 17:56] LABS: T4 (Thyroxine) 8.8 ug/dl (5.53-11.0)
[2020-01-10 17:56] LABS: Potassium 3.9 mmoL/L (3.5-5.1); Sodium 139 mmol/L (136-145)
[2020-01-10 17:58] LABS: Alanine Aminotransferase 23 U/L (12-78); Aspartate Amino Transferase 27 U/L (14-36); Blood Urea Nitrogen 24 mg/dl (7-17); Estimated Glomerular Filt Rate 66 ml/min (>60); GFR (African American) 80 ML/MIN (>60)
[2020-01-10 17:59] LABS: Albumin Level 4.1 g/dl (3.5-5.0); Albumin/Globulin Ratio 1.5 (1.1-1.8); Alkaline Phosphatase 45 U/L (38-126); Anion Gap 10.9 mEq/L (5-15); Bilirubin,Total 0.5 mg/dl (0.2-1.3); Calcium 9.7 mg/dl (8.4-10.2); Carbon Dioxide 28 mmol/L (22.0-30.0); Globulin 2.8 g/dL (1.3-3.2); Glucose 90 mg/dl (74-100); Total Protein,Serum 6.9 g/dl (6.3-8.2)
[2020-01-10 18:04] LABS: C-Reactive Protein 6.5 mg/L (0-4)
[2020-01-10 18:10] LABS: Thyroid Stimulating Hormone 3.04 uIU/mL (0.465-4.68)
== END ==
PROVIDERS: Family Medicine; Visit Provider Internal Medicine Rheumatology
DX: E03.9 Hypothyroidism, unspecified (principal); E78.5 Hyperlipidemia, unspecified; Z79.899 Other long term (current) drug therapy
CPT/HCPCS: 36415; 80053; 80061; 84436; 84443; 85025; 85651; 86140

== ENCOUNTER 2020-02-18 10:58 | Outpatient (CLI) | payer MEDICARE, MEDICAID, SELFPAY ==
[2020-02-18 11:20] VITALS: BP 148/98; PULSE 78; RESP 18; TEMP 36.4; O2SAT 97
== END 2020-02-18 11:20 | disposition home or self-care (01) ==
LOC: INF 11:00
PROVIDERS: PCP Family Medicine; Visit Provider Family Medicine
DX: G43.911 Migraine, unspecified, intractable, with status migrainosus (principal)
CPT/HCPCS: 96372

== ENCOUNTER 2020-03-05 15:54 | Outpatient (CLI) | payer MEDICARE, MEDICAID, SELFPAY ==
--- NOTE | 2020-03-05 | XR_ITS ---
PROCEDURE: XR ANKLE LT MIN 3V CLINICAL INDICATION: Pain following injury COMPARISON: No exams were available for comparison FINDINGS: Calcification is present at the tip of the medial malleolus which is fairly well-circumscribed and may represent an old injury. Please correlate as the patient's area of pain and tenderness. Otherwise negative. IMPRESSION: Avulsion fracture at the medial malleolar region which may be old Dictated by: Buster Gómez MD 03/05/2020 22:30 Electronically signed by Buster Gómez MD in [place] 03/05/2020 22:30
--- NOTE | 2020-03-05 | XR_ITS ---
PROCEDURE: XR FOOT LT MIN 3V CLINICAL INDICATION: Pain following injury COMPARISON: XR ANKLE LT MIN 3V from 03/05/2020 FINDINGS: No fracture or dislocation. No lytic or blastic change. There is normal mineralization. The joint spaces are well-preserved. No significant degenerative/arthritic changes. No erosive changes evident. Other findings:None. IMPRESSION: No acute findings. Dictated by: Buster Gómez MD 03/05/2020 22:28 Electronically signed by Buster Gómez MD in [place] 03/05/2020 22:28
[2020-03-05 16:06] VITALS: BP 163/95; PULSE 79; RESP 18; TEMP 36.6; O2SAT 99
== END 2020-03-05 16:14 | disposition home or self-care (01) ==
LOC: INF 15:58
PROVIDERS: PCP Family Medicine; Visit Provider Family Medicine
DX: S99.912A Unspecified injury of left ankle, initial encounter (principal); S99.922A Unspecified injury of left foot, initial encounter; G43.911 Migraine, unspecified, intractable, with status migrainosus
CPT/HCPCS: 73610; 73630; 96372

== ENCOUNTER 2020-04-28 15:58 | Outpatient (CLI) | payer MEDICARE, MEDICAID, SELFPAY ==
[2020-04-28 16:07] VITALS: BP 113/72; PULSE 91; RESP 18; TEMP 36.5; O2SAT 96
== END 2020-04-28 16:30 | disposition home or self-care (01) ==
LOC: INF 15:59
PROVIDERS: PCP Family Medicine; Visit Provider Family Medicine
DX: G43.911 Migraine, unspecified, intractable, with status migrainosus (principal)
CPT/HCPCS: 96372

== ENCOUNTER 2020-06-04 13:38 | Outpatient (CLI) | payer MEDICARE, MEDICAID, SELFPAY ==
[2020-06-04 13:57] VITALS: BP 131/75; PULSE 80; RESP 18; TEMP 36.5; O2SAT 94
== END 2020-06-04 13:57 | disposition home or self-care (01) ==
LOC: INF 13:39
PROVIDERS: PCP Family Medicine; Visit Provider Family Medicine
DX: G43.911 Migraine, unspecified, intractable, with status migrainosus (principal)
CPT/HCPCS: 96372

== ENCOUNTER 2020-07-10 12:13 | Outpatient (CLI) | payer MEDICARE, MEDICAID, SELFPAY ==
[2020-07-10 12:40] VITALS: BP 162/100; PULSE 76; RESP 18; TEMP 35.9; O2SAT 98
== END 2020-07-10 12:40 | disposition home or self-care (01) ==
LOC: INF 12:15
PROVIDERS: PCP Family Medicine; Visit Provider Family Medicine
DX: G43.911 Migraine, unspecified, intractable, with status migrainosus (principal)
CPT/HCPCS: 96372

== ENCOUNTER 2020-07-17 15:17 | Outpatient (CLI) | payer MEDICARE, MEDICAID, SELFPAY ==
[2020-07-17 15:42] VITALS: BP 148/88; PULSE 102; RESP 20; TEMP 35.9; O2SAT 95
== END 2020-07-17 15:42 | disposition home or self-care (01) ==
LOC: INF 15:20
PROVIDERS: PCP Family Medicine; Visit Provider Family Medicine
DX: G43.911 Migraine, unspecified, intractable, with status migrainosus (principal)
CPT/HCPCS: 96372

== ENCOUNTER → 2020-08-10 09:50 | Outpatient (POV) | payer MEDICARE, MEDICAID, SELFPAY ==
[2020-08-10 10:23] VITALS: BP 148/90; PULSE 83; RESP 18; TEMP 36.6; O2SAT 95; BMI 39.2
--- NOTE | 2020-08-10 10:39 | HMH.PAINSOAP ---
[facility] Pain Management SOAP Note Subjective:: Patient is a pleasant 80-year-old white female who we have been treating for right sided facial pain. She had a trigeminal nerve block on the right side which she got 90% relief for over 6 months. Patient states that her pain is returned she rates it a 7 out of 10 and would like to repeat this. ROS General: no recent weight change, no fever, no sleep disturbances Respiratory: no cough, no shortness of air, no recurring pulmonary infections Cardiovascular/Peripheral Vascular: No chest pain, No palpitations, no edema, no shortness of breath. Gastrointestinal: no new onset incontinence, normal bowel movements reported Genitourinary: no new onset incontinence Musculoskeletal: Right-sided facial pain Psychiatric: normal mood/ affect Neurological: [denies new onset weakness in extremities], [denies new onset balance issues] Objective:: Physical Exam General: Alert and oriented x3, no acute distress, pleasant and cooperative, [on room air] Lungs: Resps E/U, Symmetrical chest expansion, Eyes: PERRL Musculoskeletal: deep tendon reflexes normal, strength in upper and lower extremities [5/5], normal gait noted Neurological: speech clear, parking regulation enforcement officer equal, no gross sensory deficits Assessment:: Right sided trigeminal neuralgia Plan:: We will set her up for right-sided trigeminal nerve block. I will follow-up with the patient after her injection reassess her symptoms at that time she has been instructed to call the office if she has any issues prior to her next appointment. Dr. Chávez has reviewed this note and agrees with this plan of care. This note was dictated using voice recognition software and may contain errors or omissions [facility] History I have reviewed the patient's past medical history: Yes Medical History: Reports:: Anxiety, Arrhythmia, Asthma, Cancer, Depression, Hyperlipidemia, Hypertension, Kidney Stones, Migraine Denies:: Diabetes Mellitus Type 1, Diabetes Mellitus Type 2, MRSA, Seizures *Have you ever received a pneumonia vaccine?: No *Have you received a flu vaccine this season?: No Other Medical History: Reports: Arthritis, Hypothyroidism, Radiation Therapy, Thyroid Disease. Denies: Blood Transfusion Reaction Laterality Cases: Left: Lumpectomy, Right: Arthroscopy Knee, Bilateral: Tonsillectomy Other Surgeries: Yes: Colonoscopy, Hysterectomy-Total, Hysterectomy-Partial, Sinus Surgery, Thyroidectomy, Other Amputation: No Fractures: No - *Social History Smoking Status: Current every day smoker Tobacco Type: cigarettes # Packs/Day (cigarettes): 1 Alcohol Intake: never Alcohol Intake Frequency:: holidays/special occasions only Substance Use Type: denies use *Occupational Status:: unemployed Housing: house Household Members: family *Travel in the last 8 weeks: None - Psychiatric History Pschychiatric History:: Reports:: Anxiety, Depression Family Hx:: Cancer, Hypertension
== END ==
PROVIDERS: PCP Family Medicine; Visit Provider Clinical Nurse Specialist Family Health
DX: G50.0 Trigeminal neuralgia (principal)
CPT/HCPCS: 99212

== ENCOUNTER 2020-08-14 09:44 | Day surgery (SDC) | payer MEDICARE, SELFPAY ==
[2020-08-14 09:53] VITALS: BP 153/90; PULSE 87; RESP 20; TEMP 36.4; O2SAT 94; BMI 39.2
[2020-08-14 10:22] VITALS: BP 128/88; PULSE 85; RESP 18; O2SAT 98
[2020-08-14 10:23] VITALS: BP 130/74; PULSE 89; RESP 18; O2SAT 99
[2020-08-14 10:40] VITALS: BP 160/99; PULSE 84; RESP 18; O2SAT 94
--- NOTE | 2020-08-14 10:53 | HMH.PMPROC ---
- Procedure Date: 08/14/20 Time: 10:53 Anesthesiologist:: Merrill Chávez MD Complications:: None Pre-procedure Diagnosis:: Trigeminal neuralgia right side Post-procedure Diagnosis:: Same Indications for Procedure:: This patient is a pleasant 80-year-old white female who we have been treating in the past for right-sided facial pain. She has right-sided trigeminal neuralgia. She got 90% relief for over 6 months her last injection which was a year ago. Her pain is now starting to return. We will do a repeat right-sided trigeminal nerve block today. Procedure Details:: Trigeminal nerve block right side Informed consent was obtained and the risk and benefits of the procedure were explained to the patient. Patient was taken the procedure room. The right cheek was prepped using ChloraPrep. Anterior to the tragus a 25-gauge needle was inserted and advanced to the pterygoid plate. We injected 3 mL bupivacaine 0.25% and Depo-Medrol 40 mg into the area of the right trigeminal ganglia. The patient tolerated the procedure well with no complications. Plan and Disposition:: We will follow-up with this patient in 2 weeks. Will reevaluate symptoms at that time. She may need repeat right-sided trigeminal nerve block.
== END 2020-08-14 10:40 | disposition home or self-care (01) ==
LOC: SC.PAINP 09:45
PROVIDERS: PCP Family Medicine; Visit Provider Anesthesiology
DX: G50.0 Trigeminal neuralgia (principal); I10 Essential (primary) hypertension; E78.5 Hyperlipidemia, unspecified; K21.9 Gastro-esophageal reflux disease without esophagitis; J45.909 Unspecified asthma, uncomplicated; F32.9 Major depressive disorder, single episode, unspecified; G43.909 Migraine, unspecified, not intractable, without status migrainosus
CPT/HCPCS: 64400; J1040

== ENCOUNTER 2020-09-04 11:37 | Outpatient (CLI) | payer MEDICARE, SELFPAY ==
[2020-09-04 11:50] VITALS: BP 154/81; PULSE 68; RESP 20; TEMP 37.1; O2SAT 95
[2020-09-04 12:30] VITALS: BP 145/74; PULSE 78; RESP 20; TEMP 36.9; O2SAT 95
== END 2020-09-04 12:30 | disposition home or self-care (01) ==
LOC: INF 11:39
PROVIDERS: PCP Family Medicine; Visit Provider Family Medicine
DX: G43.911 Migraine, unspecified, intractable, with status migrainosus (principal)
CPT/HCPCS: 96372

== ENCOUNTER 2020-09-12 00:55 | Emergency (ER) | payer MEDICARE, SELFPAY ==
[2020-09-12 01:05] VITALS: BP 175/83; PULSE 95; RESP 16; O2SAT 99; BMI 39.2
[2020-09-12 01:45] VITALS: BP 167/90; PULSE 88; RESP 16; TEMP 37.1
--- NOTE | 2020-09-12 02:36 | HMH.EDGENADL ---
ED Disposition Clinical Impression: Migraine Qualifiers: Migraine type: unspecified Status migrainosus presence: without status migrainosus Intractability: not intractable Qualified Code(s): G43.909 - Migraine, unspecified, not intractable, without status migrainosus Disposition: Home, Self-Care Condition on Discharge: Good Instructions: DI for Migraine Referrals: Josh Walton MD [Primary Care Provider] - - Critical Care Critical Care Time: No Attestation: On 09/12/20, the high probability of a clinically significant, sudden or life threatening deterioration of the following system(s) required my full and direct attention, intervention and personal management. The time I documented below is in addition to time spent performing reported procedures but includes the following listed in this critical care notation. Medical Decision Making - Timothy Inquiry Pt receiving controlled substance: No Vital Signs: 09/12/20 01:05 09/12/20 01:42 09/12/20 01:45 Temperature 98.7 F Temperature Source Oral Pulse Rate 88 Pulse Rate [Right Brachial] 95 H Respiratory Rate 16 16 Blood Pressure 167/90 H Blood Pressure [Right Arm] 175/83 H Blood Pressure Mean [Right Arm] 113 Blood Pressure Source Automatic Cuff Blood Pressure Source [Right Arm] Automatic Cuff Blood Pressure Position Sitting Blood Pressure Position [Right Arm] Sitting 02 Sat by Pulse Oximetry 99 Oxygen Delivery Method Room Air Room Air Room Air Orders (Tests/Meds): ED MEDICATIONS Discontinued Medications Generic Name Dose Route Start Last Admin Trade Name Freq PRN Reason Stop Dose Admin Morphine Sulfate 4 mg 09/12/20 01:08 09/12/20 01:29 Morphine 2mg/Ml Syringe IM 09/12/20 01:09 4 mg ONCE ONE Administration Promethazine HCl 12.5 mg 09/12/20 01:09 09/12/20 01:28 Promethazine Hcl 25mg/Ml 1ml Vial IM 09/12/20 01:10 12.5 mg ONCE ONE Administration Medical Decision Narrative: Patient presents with migraine. States this is typical of her normal migraines. No neurologic deficit, no concern for intracranial hemorrhage, meningitis, or other acute life threatening etiology. Given IM morphine 4mg and IM phenergan 12.5mg with complete relief of her headache. Discharged home with return precautions. General Adult HPI - General Chief complaint: Headache Stated complaint: Migrane Time Seen by Provider: 09/12/20 01:05 Mode of Arrival: Ambulatory Limitations: No Limitations Description of Symptoms (Recalled from ER Triage Doc. by RN): Migraine x 3 days - History of Present Illness HPI narrative: Patient presents with headache. She states this is typical of her normal migraines. She tried her home medication and it did not work. She states the only thing that works is morphine and phenergan. She endorses photophobia, phonophobia and sensitivity to smells. No blurry vision or double vision, weakness, fever, neck pain or any other symptoms. - Related Data Home Medications Medication Instructions Recorded Confirmed Esomeprazole Magnesium [Nexium 40 mg PO DAILY 10/06/17 08/14/20 24Hr] Levothyroxine Sodium 100 mg PO DAILY 10/06/17 08/14/20 [Levothyroxine 100mcg (0.1MG) Tab] Oxycodone HCl [Oxycodone (IR) 5mg 5 mg PO Q4HP PRN 10/06/17 08/14/20 Cap] Rizatriptan Benzoate [Rizatriptan] 10 mg PO Q2HP PRN 10/06/17 08/14/20 Venlafaxine HCl [Effexor Xr] 150 mg PO BID 10/06/17 08/14/20 dilTIAZem HCL [Cartia Xt] 240 mg PO DAILY 10/06/17 08/14/20 aspirin 81 mg tablet,delayed 81 mg PO DAILY 10/29/18 08/14/20 release triamterene 37.5 1 tab PO DAILY 90 Days #90 tab 10/29/18 08/14/20 mg-hydrochlorothiazide 25 mg tablet alendronate 35 mg tablet 35 mg PO WEEKLY 28 Days #4 tab 12/24/18 08/14/20 rosuvastatin 5 mg tablet 5 mg PO DAILY 06/27/19 08/14/20 folic acid 1 mg tablet 1 mg PO DAILY 08/07/19 08/14/20 Methotrexate Sodium/Pf 20 mg SUBCONJ WEEKLY 11/14/19 08/14/20 [Methotrexate 50 mg/2 ml Vial] H
== END 2020-09-12 01:46 | disposition home or self-care (01) ==
PROVIDERS: Emergency Provider Emergency Medicine; PCP Family Medicine
DX: G43.109 Migraine with aura, not intractable, without status migrainosus (principal); F41.8 Other specified anxiety disorders; E78.5 Hyperlipidemia, unspecified; I10 Essential (primary) hypertension; E03.9 Hypothyroidism, unspecified; Z88.8 Allergy status to other drugs, medicaments and biological substances; Z87.442 Personal history of urinary calculi; Z90.710 Acquired absence of both cervix and uterus; Z79.899 Other long term (current) drug therapy
CPT/HCPCS: 96372; 99281

== ENCOUNTER → 2020-09-14 09:02 | Outpatient (POV) | payer MEDICARE, SELFPAY ==
[2020-09-14 09:12] VITALS: BP 133/74; PULSE 64; RESP 18; O2SAT 98; BMI 39.2
--- NOTE | 2020-09-14 09:24 | P.CONS_ITS ---
[facility] Pain Management SOAP Note Subjective:: She is a pleasant 50-year-old white female who presents today for follow-up after trigeminal nerve block. Patient got good relief up to 90% and would like to repeat it her pain is beginning to come back. Patient rates her pain an 8 out of 10 today. Patient good good relief with her trigeminal nerve blocks. ROS General: no recent weight change, no fever, no sleep disturbances Respiratory: no cough, no shortness of air, no recurring pulmonary infections Cardiovascular/Peripheral Vascular: No chest pain, No palpitations, no edema, no shortness of breath. Gastrointestinal: no new onset incontinence, normal bowel movements reported Genitourinary: no new onset incontinence Musculoskeletal: Right-sided face pain Psychiatric: normal mood/ affect Neurological: [denies new onset weakness in extremities], [denies new onset balance issues] Objective:: Physical Exam General: Alert and oriented x3, no acute distress, pleasant and cooperative, [on room air] Lungs: Resps E/U, Symmetrical chest expansion, Eyes: PERRL Musculoskeletal: deep tendon reflexes normal, strength in upper and lower extremities [5/5], normal gait noted Neurological: speech clear, rn patient care equal, no gross sensory deficits Assessment:: Trigeminal neuralgia right side Plan:: We will set up the patient for repeat trigeminal nerve block given the efficacy of this I do believe it would benefit her. I will follow-up with her after this reassess her symptoms at that time she has been instructed to call the office if she has any issues prior to her next appointment. Dr. Chávez has reviewed this note and agrees with this plan of care. This note was dictated using voice recognition software and may contain errors or omissions [facility] History I have reviewed the patient's past medical history: Yes Medical History: Reports:: Anxiety, Arrhythmia, Asthma, Depression, Hyperlipidemia, Hypertension, Kidney Stones, Migraine Denies:: Cancer, Diabetes Mellitus Type 1, Diabetes Mellitus Type 2, MRSA, Seizures *Have you ever received a pneumonia vaccine?: Yes *Have you received a flu vaccine this season?: Yes Other Medical History: Reports: Arthritis, Hypothyroidism, Radiation Therapy, Thyroid Disease. Denies: Blood Transfusion Reaction Laterality Cases: Left: Lumpectomy, Right: Arthroscopy Knee, Bilateral: Tonsillectomy Other Surgeries: Yes: Colonoscopy, Hysterectomy-Total, Hysterectomy-Partial, Sinus Surgery, Thyroidectomy, Other Amputation: No Fractures: No - *Social History Smoking Status: Never smoker Tobacco Type: cigarettes # Packs/Day (cigarettes): 1 Alcohol Intake: never Alcohol Intake Frequency:: holidays/special occasions only Substance Use Type: denies use *Occupational Status:: other Housing: house Household Members: children *Travel in the last 8 weeks: None - Psychiatric History Pschychiatric History:: Reports:: Anxiety, Depression Family Hx:: Cancer, Hypertension
== END ==
PROVIDERS: PCP Family Medicine; Visit Provider Clinical Nurse Specialist Family Health
DX: G50.0 Trigeminal neuralgia (principal)
CPT/HCPCS: 99212

== ENCOUNTER 2020-09-30 13:51 | Day surgery (SDC) | payer MEDICARE, SELFPAY ==
[2020-09-30 13:53] VITALS: BP 176/84; PULSE 87; RESP 18; TEMP 36.8; O2SAT 98; BMI 38.6
[2020-09-30 14:45] VITALS: BP 138/77; PULSE 74; RESP 18; O2SAT 98
[2020-09-30 14:47] VITALS: BP 132/77; PULSE 74; RESP 18; O2SAT 98
[2020-09-30 14:55] VITALS: BP 157/78; PULSE 74; RESP 18; O2SAT 98
--- NOTE | 2020-09-30 15:14 | P.PCN_ITS ---
- Procedure Date: 09/30/20 Time: 15:14 Anesthesiologist:: Merrill Chávez MD Complications:: None Pre-procedure Diagnosis:: Right-sided trigeminal neuralgia Post-procedure Diagnosis:: Same Indications for Procedure:: Patient is a pleasant 50-year-old white female who we are treating for right- sided trigeminal neuralgia. She has had a previous trigeminal nerve block and got great relief she was 90% better pain is just now starting to come back. We will do a repeat right trigeminal nerve block today to help her with her pain symptoms. Procedure Details:: Right trigeminal nerve block Form consent was obtained the risk and benefits of the procedure were explained to the patient. Patient was taken the procedure room. The right cheek was prepped using ChloraPrep. A 25-gauge needle was used and advanced in front of the tragus of the right ear. The needle was advanced until the pterygoid plate. And we injected 3 mL bupivacaine 0.25% and Depo-Medrol 40 mg into the area of the right trigeminal ganglia. Patient tolerated the procedure well with no complications. Plan and Disposition:: We will follow-up with her in 2 weeks. Will reevaluate her symptoms at that time.
== END 2020-09-30 14:55 | disposition home or self-care (01) ==
LOC: SC.PAINP 13:52
PROVIDERS: PCP Family Medicine; Visit Provider Anesthesiology
DX: G50.0 Trigeminal neuralgia (principal); I10 Essential (primary) hypertension; K21.9 Gastro-esophageal reflux disease without esophagitis; Z88.8 Allergy status to other drugs, medicaments and biological substances; I25.10 Atherosclerotic heart disease of native coronary artery without angina pectoris; E78.5 Hyperlipidemia, unspecified; E07.9 Disorder of thyroid, unspecified; Z91.010 Allergy to peanuts; Z91.018 Allergy to other foods; Z91.048 Other nonmedicinal substance allergy status; Z79.82 Long term (current) use of aspirin; Z79.899 Other long term (current) drug therapy
CPT/HCPCS: 64400; J1040

== ENCOUNTER 2020-10-28 00:13 | Emergency (ER) | payer MEDICARE, SELFPAY ==
[2020-10-28 00:14] VITALS: BP 170/86; PULSE 89; RESP 16; TEMP 37; O2SAT 95; BMI 40.2
--- NOTE | 2020-10-28 00:34 | HMH.EDHA ---
ED Disposition Clinical Impression: Headache Qualifiers: Headache type: unspecified Headache chronicity pattern: episodic headache Intractability: not intractable Qualified Code(s): R51.9 - Headache, unspecified Disposition: Home, Self-Care Condition on Discharge: Good Instructions: DI for Headache Additional Instructions: call pcp in am for follow up Referrals: Josh Walton MD [Primary Care Provider] - - Critical Care Critical Care Time: No Attestation: On , the high probability of a clinically significant, sudden or life threatening deterioration of the following system(s) required my full and direct attention, intervention and personal management. The time I documented below is in addition to time spent performing reported procedures but includes the following listed in this critical care notation. Medical Decision Making - Medical Records Medical records reviewed: Yes: I reviewed the patient's medical records. - Timothy Inquiry Pt receiving controlled substance: No Vital Signs: 10/28/20 00:14 Temperature 98.6 F Temperature Source Oral Pulse Rate [Left Radial] 89 Respiratory Rate 16 Blood Pressure [Right Arm] 170/86 H Blood Pressure Mean [Right Arm] 114 Blood Pressure Source [Right Arm] Automatic Cuff Blood Pressure Position [Right Arm] Sitting 02 Sat by Pulse Oximetry 95 Oxygen Delivery Method Room Air Headache HPI - General Chief Complaint: Headache Stated Complaint: Migraine Time Seen by Provider: 10/28/20 00:34 Mode of Arrival: Ambulatory Source of Information: Patient, Medical Record Limitations: No Limitations Description of Symptoms (Recalled from ER Triage Doc. by RN): Pt c/o migraine getting worse as day progressed. - History of Present Illness HPI Narrative: pt with hx of headache and is followed by pcp and neurology presents to the ed with roe without adequate resp to home meds - no fever/rash or trauma Complaint: headache Onset (ago): hour(s) Onset description: gradual Location: diffuse Severity: similar to previous episodes Context: occurred at rest Associated symptoms: none Treatments prior to arrival: prescription analgesic, migraine medication - Related Data Home Medications Medication Instructions Recorded Confirmed Esomeprazole Magnesium [Nexium 40 mg PO DAILY 10/06/17 09/30/20 24Hr] Levothyroxine Sodium 100 mg PO DAILY 10/06/17 09/30/20 [Levothyroxine 100mcg (0.1MG) Tab] Oxycodone HCl [Oxycodone (IR) 5mg 5 mg PO Q4HP PRN 10/06/17 09/30/20 Cap] Rizatriptan Benzoate [Rizatriptan] 10 mg PO Q2HP PRN 10/06/17 09/30/20 Venlafaxine HCl [Effexor Xr] 150 mg PO BID 10/06/17 09/30/20 dilTIAZem HCL [Cartia Xt] 240 mg PO DAILY 10/06/17 09/30/20 aspirin 81 mg tablet,delayed 81 mg PO DAILY 10/29/18 09/30/20 release triamterene 37.5 1 tab PO DAILY 90 Days #90 tab 10/29/18 09/30/20 mg-hydrochlorothiazide 25 mg tablet alendronate 35 mg tablet 35 mg PO WEEKLY 28 Days #4 tab 12/24/18 09/30/20 rosuvastatin 5 mg tablet 5 mg PO DAILY 06/27/19 09/30/20 folic acid 1 mg tablet 1 mg PO DAILY 08/07/19 09/30/20 Methotrexate Sodium/Pf 20 mg SUBCONJ WEEKLY 11/14/19 09/30/20 [Methotrexate 50 mg/2 ml Vial] Hydroxychloroquine Sulfate 200 mg PO DAILY 08/14/20 09/30/20 [Plaquenil 200mg tablet] Previous Rx's Medication Instructions Recorded acetaminophen 500 mg tablet 500 mg PO Q6H PRN 30 Days #30 tab 12/24/18 diphenhydramine HCl 25 mg capsule 25 mg PO Q6H PRN 30 Days #30 cap 12/24/18 promethazine 25 mg tablet 25 mg PO Q6H PRN 30 Days #30 tab 12/24/18 erenumab-aooe 70 mg/mL 140 mg SQ QMONTH 30 Days #2 each 06/13/19 subcutaneous auto-injector Allergies Allergy/AdvReac Type Severity Reaction Status Date / Time bupropion [BUPROPION] Allergy Unknown Unknown Verified 08/14/20 09:54 allergy reaction butorphanol [From STADOL] Allergy Unknown Unknown Verified 08/14/20 09:54 allergy reaction gabapentin [From NEURONTIN] Allergy Unknown Unk
[2020-10-28 00:57] VITALS: BP 177/88; PULSE 89; RESP 20; TEMP 37.1; O2SAT 99
== END 2020-10-28 00:57 | disposition home or self-care (01) ==
LOC: ER 00:44
PROVIDERS: Emergency Provider Emergency Medicine; PCP Family Medicine
DX: G43.909 Migraine, unspecified, not intractable, without status migrainosus (principal); I25.10 Atherosclerotic heart disease of native coronary artery without angina pectoris; F41.8 Other specified anxiety disorders; E78.5 Hyperlipidemia, unspecified; I10 Essential (primary) hypertension; E03.9 Hypothyroidism, unspecified; Z87.442 Personal history of urinary calculi; Z88.5 Allergy status to narcotic agent; Z88.8 Allergy status to other drugs, medicaments and biological substances; Z79.899 Other long term (current) drug therapy
CPT/HCPCS: 96372; 99281

== ENCOUNTER → 2020-11-05 09:46 | Outpatient (POV) | payer MEDICARE, SELFPAY ==
[2020-11-05 09:56] VITALS: BP 128/75; PULSE 75; RESP 18; TEMP 36.8; O2SAT 99; BMI 39.2
--- NOTE | 2020-11-05 10:10 | HMH.PAINSOAP ---
[facility] Pain Management SOAP Note Subjective:: Patient is a pleasant 50-year-old white female who presents today for follow-up after right-sided trigeminal nerve block. Patient states that the block itself is extremely painful however it was beneficial for her. Her pain today is a 9 out of 10. Patient is failed Lyrica and gabapentin along with other medications for her pain. Patient would like to repeat her trigeminal nerve block. Patient usually gets quite a significant relief. Patient is on oxycodone from her primary care physician. ROS General: no recent weight change, no fever, no sleep disturbances Respiratory: no cough, no shortness of air, no recurring pulmonary infections Cardiovascular/Peripheral Vascular: No chest pain, No palpitations, no edema, no shortness of breath. Gastrointestinal: no new onset incontinence, normal bowel movements reported Genitourinary: no new onset incontinence Musculoskeletal: Right-sided facial pain Psychiatric: normal mood/ affect Neurological: [denies new onset weakness in extremities], [denies new onset balance issues] Objective:: Physical Exam General: Alert and oriented x3, no acute distress, pleasant and cooperative, [on room air] Lungs: Resps E/U, Symmetrical chest expansion, Eyes: PERRL Musculoskeletal: deep tendon reflexes normal, strength in upper and lower extremities [5/5], normal gait noted Neurological: speech clear, loss prevention associate equal, no gross sensory deficits Assessment:: Trigeminal neuralgia Plan:: We will schedule the patient for a right trigeminal nerve block. I will follow-up with her after this reassess her symptoms at that time she has been instructed to call the office if she has any issues prior to her next appointment. Dr. Chávez has reviewed this note and agrees with this plan of care. This note was dictated using voice recognition software and may contain errors or omissions [facility] History I have reviewed the patient's past medical history: Yes Medical History: Reports:: Anxiety, Arrhythmia, Asthma, Cancer (uterine, thyroid, breast), Coronary Artery Disease, Depression, Hyperlipidemia, Hypertension, Kidney Stones, Migraine Denies:: Diabetes Mellitus Type 1, Diabetes Mellitus Type 2, MRSA, Seizures *Have you ever received a pneumonia vaccine?: Yes *Have you received a flu vaccine this season?: Yes Other Medical History: Reports: Arthritis, Hypothyroidism, Radiation Therapy, Thyroid Disease. Denies: Blood Transfusion Reaction Laterality Cases: Left: Lumpectomy, Right: Arthroscopy Knee, Bilateral: Tonsillectomy Other Surgeries: Yes: Colonoscopy, Hysterectomy-Total, Hysterectomy-Partial, Sinus Surgery, Thyroidectomy, Other Amputation: No Fractures: No - *Social History Smoking Status: Never smoker Tobacco Type: cigarettes # Packs/Day (cigarettes): 1 Alcohol Intake: never Alcohol Intake Frequency:: holidays/special occasions only Substance Use Type: denies use *Occupational Status:: other Housing: house Household Members: children *Travel in the last 8 weeks: None - Psychiatric History Pschychiatric History:: Reports:: Anxiety, Depression Family Hx:: Cancer, Hypertension
== END ==
PROVIDERS: PCP Family Medicine; Visit Provider Clinical Nurse Specialist Family Health
DX: G50.0 Trigeminal neuralgia (principal)
CPT/HCPCS: 96372; 99212; G0463

== ENCOUNTER 2020-11-05 16:07 | Outpatient (CLI) | payer MEDICARE, SELFPAY ==
[2020-11-05 16:30] VITALS: BP 125/69; PULSE 69; RESP 18; TEMP 36.3; O2SAT 98
== END 2020-11-05 16:34 | disposition home or self-care (01) ==
LOC: INF 16:12
PROVIDERS: PCP Family Medicine; Visit Provider Family Medicine
DX: G43.911 Migraine, unspecified, intractable, with status migrainosus (principal)
CPT/HCPCS: 96372; 99212; G0463

== ENCOUNTER → 2020-11-13 11:58 | Outpatient (CLI) | payer MEDICARE, SELFPAY ==
[2020-11-13 13:24] LABS: Alanine Aminotransferase 22 U/L (12-78); Albumin Level 4.8 g/dl (3.5-5.0); Albumin/Globulin Ratio 1.5 (1.1-1.8); Alkaline Phosphatase 81 U/L (38-126); Anion Gap 11.6 mEq/L (5-15); Aspartate Amino Transferase 23 U/L (14-36); Bilirubin,Total 0.7 mg/dl (0.2-1.3); Blood Urea Nitrogen 23 mg/dl (7-17); Calcium 10.2 mg/dl (8.4-10.2); Carbon Dioxide 26 mmol/L (22.0-30.0); Chloride 104 mmol/L (98-107); Chol/HDL Ratio 2.3 (1-3.5); Cholesterol 231 mg/dl (140-200); Estimated Glomerular Filt Rate 58 ml/min (>60); GFR (African American) 70 ML/MIN (>60); Globulin 3.2 g/dL (1.3-3.2); Glucose 138 mg/dl (74-100); HDL Cholesterol 100 mg/dl (40-60); Potassium 3.6 mmoL/L (3.5-5.1); Sodium 138 mmol/L (136-145); Triglycerides 124 mg/dl (30-150); VLDL Cholesterol 25 mg/dL (0-40)
[2020-11-13 13:36] LABS: Direct LDL Cholesterol 97.69 mg/dL (100-129)
== END ==
PROVIDERS: Visit Provider Family Medicine
DX: E03.9 Hypothyroidism, unspecified (principal); E78.5 Hyperlipidemia, unspecified; I10 Essential (primary) hypertension
CPT/HCPCS: 36415; 80053; 80061; 84443

== ENCOUNTER → 2020-11-16 13:17 | Outpatient (CLI) | payer MEDICARE, SELFPAY ==
[2020-11-16 14:32] LABS: Chloride 101 mmol/L (98-107); Potassium 4.2 mmoL/L (3.5-5.1); Sodium 139 mmol/L (136-145)
[2020-11-16 14:35] LABS: Alanine Aminotransferase 18 U/L (12-78); Albumin Level 4.6 g/dl (3.5-5.0); Albumin/Globulin Ratio 1.4 (1.1-1.8); Alkaline Phosphatase 67 U/L (38-126); Anion Gap 11.2 mEq/L (5-15); Aspartate Amino Transferase 24 U/L (14-36); Bilirubin,Total 0.7 mg/dl (0.2-1.3); Blood Urea Nitrogen 25 mg/dl (7-17); Calcium 10.4 mg/dl (8.4-10.2); Carbon Dioxide 31 mmol/L (22.0-30.0); Estimated Glomerular Filt Rate 52 ml/min (>60); GFR (African American) 63 ML/MIN (>60); Globulin 3.2 g/dL (1.3-3.2); Glucose 85 mg/dl (74-100); Total Protein,Serum 7.8 g/dl (6.3-8.2)
[2020-11-16 14:41] LABS: C-Reactive Protein 15.2 mg/L (0-4)
[2020-11-16 15:11] LABS: Basophils # 0.1 K/mm3 (0-0.2); Basophils % 0.5 % (0.1-2.0); Eosinophils # 0.2 K/mm3 (0.0-0.4); Eosinophils % 2.3 % (0.1-12.0); Hematocrit 40.8 % (37.0-47.0); Hemoglobin 13.6 g/dL (12.2-16.2); Lymphocytes # 1.7 K/mm3 (0.7-4.5); Lymphocytes % 19.6 % (10-50); Mean Corpuscular HGB Conc 33.4 g/dL (31.8-35.4); Mean Corpuscular Hemoglobin 30.1 pg (27.0-31.2); Mean Corpuscular Volume 90.1 fl (81-99); Mean Platelet Volume 7.7 fl (7.4-10.4); Monocytes # 0.6 K/mm3 (0.1-1.0); Monocytes % 7.2 % (1.7-9.3); Neutrophils # 6.3 K/mm3 (1.8-7.8); Neutrophils % 70.4 % (37.0-80.0); Platelet Count 375 K/mm3 (142-424); Red Blood Count 4.53 M/mm3 (4.20-5.40); Red Cell Distribution Width 14.6 % (11.5-17.5); White Blood Count 8.9 K/mm3 (4.8-10.8)
[2020-11-16 15:55] LABS: Erythrocyte Sedimentation Rate 30 mm/hr (0-30)
== END ==
PROVIDERS: Visit Provider Internal Medicine Rheumatology
DX: Z79.899 Other long term (current) drug therapy (principal)
CPT/HCPCS: 36415; 80053; 85025; 85651; 86140

== ENCOUNTER → 2020-12-15 13:17 | Outpatient (CLI) | payer MEDICARE, SELFPAY ==
[2020-12-15 13:39] LABS: Basophils # 0.1 K/mm3 (0-0.2); Basophils % 0.9 % (0.1-2.0); Eosinophils # 0.4 K/mm3 (0.0-0.4); Eosinophils % 5.7 % (0.1-12.0); Hematocrit 39.1 % (37.0-47.0); Hemoglobin 12.5 g/dL (12.2-16.2); Lymphocytes # 1.7 K/mm3 (0.7-4.5); Mean Corpuscular HGB Conc 31.9 g/dL (31.8-35.4); Mean Corpuscular Hemoglobin 29.3 pg (27.0-31.2); Mean Corpuscular Volume 91.8 fl (81-99); Mean Platelet Volume 7.6 fl (7.4-10.4); Monocytes # 0.4 K/mm3 (0.1-1.0); Neutrophils # 4.8 K/mm3 (1.8-7.8); Neutrophils % 64.4 % (37.0-80.0); Platelet Count 376 K/mm3 (142-424); Red Blood Count 4.26 M/mm3 (4.20-5.40); Red Cell Distribution Width 14.3 % (11.5-17.5); White Blood Count 7.4 K/mm3 (4.8-10.8)
[2020-12-15 14:18] LABS: Erythrocyte Sedimentation Rate 33 mm/hr (0-30)
[2020-12-15 14:50] LABS: Chloride 104 mmol/L (98-107); Potassium 4.1 mmoL/L (3.5-5.1); Sodium 142 mmol/L (136-145)
[2020-12-15 14:53] LABS: Alanine Aminotransferase 18 U/L (12-78); Albumin Level 4.5 g/dl (3.5-5.0); Albumin/Globulin Ratio 1.5 (1.1-1.8); Alkaline Phosphatase 68 U/L (38-126); Anion Gap 14.1 mEq/L (5-15); Aspartate Amino Transferase 22 U/L (14-36); Bilirubin,Total 0.5 mg/dl (0.2-1.3); Blood Urea Nitrogen 25 mg/dl (7-17); Carbon Dioxide 28 mmol/L (22.0-30.0); Estimated Glomerular Filt Rate 58 ml/min (>60); GFR (African American) 70 ML/MIN (>60); Total Protein,Serum 7.5 g/dl (6.3-8.2)
[2020-12-15 14:54] LABS: Calcium 10.1 mg/dl (8.4-10.2); Glucose 119 mg/dl (74-100)
[2020-12-15 14:59] LABS: C-Reactive Protein 12.7 mg/L (0-4)
[2020-12-18 23:23] LABS: QuantiFERON-TB Gold Plus Negative (Negative)
== END ==
PROVIDERS: Visit Provider Internal Medicine Rheumatology
DX: M06.00 Rheumatoid arthritis without rheumatoid factor, unspecified site (principal); Z51.81 Encounter for therapeutic drug level monitoring
CPT/HCPCS: 36415; 80053; 85025; 85651; 86140; 86480

== ENCOUNTER 2020-12-18 11:02 | Outpatient (CLI) | payer MEDICARE, SELFPAY ==
[2020-12-18 11:36] VITALS: BP 134/75; PULSE 75; RESP 18; TEMP 36.2; O2SAT 99
== END 2020-12-18 11:42 | disposition home or self-care (01) ==
LOC: INF 11:04
PROVIDERS: PCP Family Medicine; Visit Provider Family Medicine
DX: G43.911 Migraine, unspecified, intractable, with status migrainosus (principal)
CPT/HCPCS: 96372

== ENCOUNTER 2020-12-31 16:49 | Outpatient (CLI) | payer MEDICARE, SELFPAY ==
[2020-12-31 16:57] VITALS: BP 167/101; PULSE 87; RESP 18; TEMP 36.3; O2SAT 97
== END 2020-12-31 17:05 | disposition home or self-care (01) ==
LOC: INF 16:50
PROVIDERS: PCP Family Medicine; Visit Provider Family Medicine
DX: G43.911 Migraine, unspecified, intractable, with status migrainosus (principal)
CPT/HCPCS: 96372

== ENCOUNTER → 2021-03-17 16:46 | Outpatient (CLI) | payer MEDICARE, SELFPAY ==
[2021-03-17 17:48] LABS: Alanine Aminotransferase 19 U/L (12-78); Albumin Level 4.1 g/dl (3.5-5.0); Albumin/Globulin Ratio 1.5 (1.1-1.8); Alkaline Phosphatase 65 U/L (38-126); Anion Gap 9.7 mEq/L (5-15); Aspartate Amino Transferase 24 U/L (14-36); Bilirubin,Total 0.7 mg/dl (0.2-1.3); Blood Urea Nitrogen 18 mg/dl (7-17); Carbon Dioxide 28 mmol/L (22.0-30.0); Chloride 107 mmol/L (98-107); Estimated Glomerular Filt Rate 65 ml/min (>60); GFR (African American) 79 ML/MIN (>60); Globulin 2.7 g/dL (1.3-3.2); Glucose 111 mg/dl (74-100); Potassium 3.7 mmoL/L (3.5-5.1); Sodium 141 mmol/L (136-145); Total Protein,Serum 6.8 g/dl (6.3-8.2)
[2021-03-17 17:50] LABS: Basophils # 0.1 K/mm3 (0-0.2); Basophils % 1.2 % (0.1-2.0); Eosinophils # 0.4 K/mm3 (0.0-0.4); Eosinophils % 5.7 % (0.1-12.0); Hematocrit 37.1 % (37.0-47.0); Hemoglobin 12.9 g/dL (12.2-16.2); Lymphocytes # 1.8 K/mm3 (0.7-4.5); Lymphocytes % 29.6 % (10-50); Mean Corpuscular HGB Conc 34.8 g/dL (31.8-35.4); Mean Corpuscular Hemoglobin 29.4 pg (27.0-31.2); Mean Corpuscular Volume 84.4 fl (81-99); Mean Platelet Volume 7.2 fl (7.4-10.4); Monocytes # 0.4 K/mm3 (0.1-1.0); Monocytes % 7.2 % (1.7-9.3); Neutrophils # 3.5 K/mm3 (1.8-7.8); Neutrophils % 56.3 % (37.0-80.0); Platelet Count 347 K/mm3 (142-424); Red Blood Count 4.39 M/mm3 (4.20-5.40); Red Cell Distribution Width 13.6 % (11.5-17.5); White Blood Count 6.1 K/mm3 (4.8-10.8)
[2021-03-17 18:33] LABS: C-Reactive Protein 8.4 mg/L (0-4)
[2021-03-17 19:10] LABS: Erythrocyte Sedimentation Rate 37 mm/hr (0-30)
== END ==
PROVIDERS: Visit Provider Internal Medicine Rheumatology
DX: Z79.899 Other long term (current) drug therapy (principal)
CPT/HCPCS: 36415; 80053; 85025; 85651; 86140

== ENCOUNTER 2021-03-26 11:32 | Outpatient (CLI) | payer MEDICARE, SELFPAY ==
[2021-03-26 12:00] VITALS: BP 154/93; PULSE 87; RESP 18
== END 2021-03-26 12:00 | disposition home or self-care (01) ==
LOC: INF 11:34
PROVIDERS: PCP Family Medicine; Visit Provider Family Medicine
DX: G43.911 Migraine, unspecified, intractable, with status migrainosus (principal)
CPT/HCPCS: 96372

== ENCOUNTER → 2021-07-23 12:43 | Outpatient (CLI) | payer MEDICARE, SELFPAY ==
--- NOTE | 2021-07-23 12:51 | XR_ITS ---
PROCEDURE: XR KNEE RT 4V CLINICAL INDICATION: 4 view standing COMPARISON: No exams were available for comparison FINDINGS: No fracture or dislocation. No lytic or blastic change. There is normal mineralization. There are mild osteoarthritic changes involving all 3 compartments. Other findings:None. IMPRESSION: Mild osteoarthritis Dictated by: Buster Gómez MD 07/23/2021 13:55 Buster Gómez MD in [facility] 07/23/2021 13:55
--- NOTE | 2021-07-23 12:51 | XR_ITS ---
PROCEDURE: XR KNEE LT 4V CLINICAL INDICATION: 4 view standing Pain COMPARISON: No exams were available for comparison FINDINGS: No fracture or dislocation. No lytic or blastic change. There is normal mineralization. There are mild osteoarthritic changes involving all 3 compartments with a small suprapatellar effusion. Other findings:None. IMPRESSION: Mild osteoarthritis with small knee joint effusion Dictated by: Buster Gómez MD 07/23/2021 13:54 Buster Gómez MD in [facility] 07/23/2021 13:54
== END ==
PROVIDERS: PCP Family Medicine; Visit Provider Orthopaedic Surgery
DX: M25.562 Pain in left knee (principal); M25.561 Pain in right knee
CPT/HCPCS: 73564

== ENCOUNTER 2021-08-09 10:14 | Outpatient (CLI) | payer MEDICARE, SELFPAY ==
[2021-08-09 10:30] VITALS: BP 147/98; PULSE 77; RESP 18; TEMP 36.9; O2SAT 98
== END 2021-08-09 10:45 | disposition home or self-care (01) ==
LOC: INF 10:15
PROVIDERS: PCP Family Medicine; Visit Provider Family Medicine
DX: G43.911 Migraine, unspecified, intractable, with status migrainosus (principal)
CPT/HCPCS: 96372

== ENCOUNTER 2021-08-30 14:34 | Outpatient (CLI) | payer MEDICARE, SELFPAY ==
[2021-08-30 14:45] VITALS: BP 161/105; PULSE 89; RESP 18; TEMP 36.4; O2SAT 96
[2021-08-30 15:05] VITALS: BP 158/97; PULSE 84
== END 2021-08-30 15:05 | disposition home or self-care (01) ==
LOC: INF 14:34
PROVIDERS: PCP Family Medicine; Visit Provider Family Medicine
DX: G43.911 Migraine, unspecified, intractable, with status migrainosus (principal)
CPT/HCPCS: 96372

== ENCOUNTER → 2021-09-14 08:55 | Outpatient (POV) | payer MEDICARE, SELFPAY ==
[2021-09-14 09:01] VITALS: BP 178/90; PULSE 96; RESP 18; O2SAT 96; BMI 40.2
--- NOTE | 2021-09-14 09:36 | HMH.PAINSOAP ---
[facility] Pain Management SOAP Note Subjective:: Patient is a pleasant 51-year-old female who comes in here for follow-up. Patient is currently being treated for trigeminal neuralgia. Previously, we have been managing the patient with a trigeminal nerve block. Patient says that this has worked for her really well in the past and she gets about 80 to 90% relief after we do these nerve blocks. She denies any issues after this procedure. Patient says that she grinds her teeth constantly which is causing the trigeminal nerve pain. She says that she has tried mild guards that are so uncomfortable that she cannot wear them. Patient would like to schedule for another trigeminal nerve block today. Patient is also currently taking oxycodone 5 mg 3 times a day that is prescribed by Dr. Juarez. According to the patient, she is taking this oxycodone for migraines. I talk to the patient that our clinic is offering Botox for migraines and she is interested in this procedure. She rates her pain today as 8 out of 10. Her Timothy number is [id number] with an active morphine equivalent of 23. Review of Systems General: No recent weight changes, no fever, no sleep disturbances Respiratory: No cough, no shortness of air, no recurring pulmonary infections Cardiovascular/peripheral vascular: No chest pain, no palpitations, no edema, no shortness of breath Gastrointestinal: No new onset incontinence, normal bowel movements reported Genitourinary: No new onset incontinence Musculoskeletal: Jaw pain Psychiatric: [Normal mood/affect] Neurological: [Denies weakness in extremities], [denies balance issues] Objective:: Physical exam General: Alert and oriented x3, no acute distress, pleasant and cooperative Lungs: Respirations even and unlabored, symmetrical chest expansion Eyes: PERRL Musculoskeletal: Bilateral jaw tender to palpation, worse on the right. Neurological: Speech clear, no gross sensory deficit Assessment:: Trigeminal neuralgia Plan:: Patient has had tremendous relief after her previous trigeminal nerve blocks -- last one was in the October 2020. We will schedule the patient for another trigeminal nerve block. Risks and benefits of the procedure have been explained to the patient. Patient would like to proceed with the procedure. Additionally, patient says that she is taking oxycodone 5 mg 3 times a day for migraine that is prescribed by Dr. Juarez. I have discussed with the patient that our clinic is now offering Botox for migraines. Patient says that she has had this procedure done by a different clinic in the past and has worked well for her. Patient is interested in doing this procedure after her trigeminal nerve blocks. Patient has been instructed to contact the clinic with any concerns before the next appointment. Dr. Chávez has reviewed this note and agrees with this plan of care. This note was dictated using voice recognition software and make contain errors or omissions. [facility] History Medical History: Reports:: Anxiety, Arrhythmia, Asthma, Cancer (breast/thyroid), Coronary Artery Disease, Depression, Hyperlipidemia, Hypertension, Kidney Stones, Migraine Denies:: Diabetes Mellitus Type 1, Diabetes Mellitus Type 2, MRSA, Seizures *Have you ever received a pneumonia vaccine?: No *Have you received a flu vaccine this season?: No Other Medical History: Reports: Arthritis, Chemotherapy, Hypothyroidism, Radiation Therapy, Thyroid Disease. Denies: Blood Transfusion Reaction Laterality Cases: Left: Lumpectomy, Right: Arthroscopy Knee, Bilateral: Tonsillectomy Other Surgeries: Yes: Colonoscopy, Hysterectomy-Total, Hysterectomy-Partial, Sinus Surgery, Thyroidectomy, Other Amputation: No Fractures: No - *Social History Smoking Status: Never smoker Tobacco Type: cigarettes # Packs/Day (cigarettes): 1 Alcohol Intake: current Alcohol Intake Frequency:: holidays/special occasions only Substance Use Type: denies use *Occupational
== END ==
PROVIDERS: Visit Provider Clinical Nurse Specialist Family Health
DX: G50.0 Trigeminal neuralgia (principal)
CPT/HCPCS: 99212; G0463

== ENCOUNTER 2021-09-30 11:58 | Outpatient (CLI) | payer MEDICARE, SELFPAY ==
[2021-09-30 12:08] VITALS: BP 153/97; PULSE 80; RESP 20; TEMP 36.4; O2SAT 95
== END 2021-09-30 12:35 | disposition home or self-care (01) ==
LOC: INF 11:59
PROVIDERS: PCP Family Medicine; Visit Provider Family Medicine
DX: G43.911 Migraine, unspecified, intractable, with status migrainosus (principal)
CPT/HCPCS: 96372

== ENCOUNTER 2021-10-06 11:25 | Day surgery (SDC) | payer MEDICARE, SELFPAY ==
[2021-10-06 11:42] VITALS: BP 135/81; PULSE 89; RESP 18; TEMP 36.4; O2SAT 95; BMI 40.7
[2021-10-06 12:13] VITALS: PULSE 93; RESP 18; O2SAT 100
[2021-10-06 12:14] VITALS: PULSE 91; RESP 18; O2SAT 99
--- NOTE | 2021-10-06 12:15 | P.PCN_ITS ---
- Procedure Date: 10/06/21 Time: 12:15 Anesthesiologist:: Merrill Chávez MD Complications:: None Pre-procedure Diagnosis:: Trigeminal neuralgia right side Post-procedure Diagnosis:: Same Indications for Procedure:: This patient is a pleasant 51-year-old white female who we have been treating for right-sided trigeminal neuralgia. She has done well with previous trigeminal nerve blocks. Her last trigeminal nerve block she did have some increased pain right after the block. We will plan on repeat right side trigeminal nerve block today to help with her trigeminal neuralgia. Procedure Details:: Trigeminal nerve block right side Informed consent was obtained the risk and benefits of the procedure were explained to the patient. Patient was taken the procedure room. She was placed in the supine position. The area anterior to the tragus was prepped. A 25- gauge needle was used and advanced until contact of the pterygoid plate. After this we incrementally injected 3 mL of lidocaine 1.5% and Depo-Medrol 80 mg. Patient tolerated procedure well with no complications. Plan and Disposition:: We will follow-up with her in 2 weeks. Will reevaluate symptoms at that time.
[2021-10-06 12:20] VITALS: BP 138/81; PULSE 87; RESP 18; O2SAT 99
== END 2021-10-06 12:19 | disposition home or self-care (01) ==
LOC: SC.PAINP 11:26
PROVIDERS: PCP Family Medicine; Visit Provider Anesthesiology
DX: G50.0 Trigeminal neuralgia (principal); E03.9 Hypothyroidism, unspecified; G43.909 Migraine, unspecified, not intractable, without status migrainosus; E78.5 Hyperlipidemia, unspecified; I10 Essential (primary) hypertension; J45.909 Unspecified asthma, uncomplicated; K21.9 Gastro-esophageal reflux disease without esophagitis; M19.90 Unspecified osteoarthritis, unspecified site; Z87.442 Personal history of urinary calculi; Z88.0 Allergy status to penicillin
CPT/HCPCS: 64450; J1040

== ENCOUNTER 2021-10-07 01:13 | Emergency (ER) | payer MEDICARE, SELFPAY ==
[2021-10-07 01:14] VITALS: BP 212/124; PULSE 76; RESP 20; TEMP 36.7; O2SAT 99; BMI 40.7
--- NOTE | 2021-10-07 01:40 | HMH.EDHA ---
ED Disposition Clinical Impression: Headache Qualifiers: Headache type: unspecified Headache chronicity pattern: acute headache Intractability: not intractable Qualified Code(s): R51.9 - Headache, unspecified Disposition: Home, Self-Care Condition on Discharge: Good Instructions: DI for Headache Additional Instructions: call pcp for follow up Referrals: Valentín Juarez MD [Primary Care Provider] - - Critical Care Critical Care Time: No Attestation: On , the high probability of a clinically significant, sudden or life threatening deterioration of the following system(s) required my full and direct attention, intervention and personal management. The time I documented below is in addition to time spent performing reported procedures but includes the following listed in this critical care notation. Medical Decision Making - Medical Records Medical records reviewed: Yes: I reviewed the patient's medical records. - Timothy Inquiry Pt receiving controlled substance: No Vital Signs: 10/07/21 01:14 Temperature 98.1 F Temperature Source Oral Pulse Rate [Apical] 76 Respiratory Rate 20 Blood Pressure [Left Arm] 212/124 H Blood Pressure Mean [Left Arm] 153 Blood Pressure Source [Left Arm] Automatic Cuff Blood Pressure Position [Left Arm] Sitting 02 Sat by Pulse Oximetry 99 Oxygen Delivery Method Room Air - Lab Data Lab results reviewed: Yes: I reviewed the patient's lab results. Medical Decision Narrative: stable exam at this time Headache HPI - General Chief Complaint: Headache Stated Complaint: Migraine Time Seen by Provider: 10/07/21 01:40 Mode of Arrival: Ambulatory Source of Information: Patient, Medical Record Limitations: No Limitations Description of Symptoms (Recalled from ER Triage Doc. by RN): Patient c/o migraine for the last 3 days. Reports hx of migraines, went today to get tmj injections which she thinks worsened her migraines. States that her medications that she typically takes for migraines, which is maxalt and oxycodone, did not work at relieving her pain. - History of Present Illness HPI Narrative: pt with hx of roe with acute roe not relieved with home meds - no fever/rash /trauma or focal changes Complaint: headache Onset (ago): day(s) Onset description: gradual Location: diffuse Severity: similar to previous episodes Context: occurred at rest Associated symptoms: none Treatments prior to arrival: none - Related Data Home Medications Medication Instructions Recorded Confirmed Esomeprazole Magnesium [Nexium 40 mg PO DAILY 10/06/17 10/06/21 24Hr] Levothyroxine Sodium 100 mg PO DAILY 10/06/17 10/06/21 [Levothyroxine 100mcg (0.1MG) Tab] Oxycodone HCl [Oxycodone (IR) 5mg 5 mg PO Q4HP PRN 10/06/17 10/06/21 Cap] Rizatriptan Benzoate [Rizatriptan] 10 mg PO Q2HP PRN 10/06/17 10/06/21 Venlafaxine HCl [Effexor Xr] 150 mg PO BID 10/06/17 10/06/21 aspirin 81 mg tablet,delayed 81 mg PO DAILY 10/29/18 10/06/21 release rosuvastatin 5 mg tablet 5 mg PO DAILY 06/27/19 10/06/21 Rizatriptan Benzoate [Maxalt] 10 mg PO DAILY 10/07/21 10/07/21 Previous Rx's Medication Instructions Recorded acetaminophen 500 mg tablet 500 mg PO Q6H PRN 30 Days #30 tab 12/24/18 promethazine 25 mg tablet 25 mg PO Q6H PRN 30 Days #30 tab 12/24/18 Allergies Allergy/AdvReac Type Severity Reaction Status Date / Time bupropion [BUPROPION] Allergy Unknown Unknown Verified 07/23/21 13:21 allergy reaction butorphanol [From STADOL] Allergy Unknown Unknown Verified 07/23/21 13:21 allergy reaction gabapentin [From NEURONTIN] Allergy Unknown Unknown Verified 07/23/21 13:21 allergy reaction hydromorphone [HYDROMORPHONE] Allergy Unknown Unknown Verified 07/23/21 13:21 allergy reaction ketorolac [From TORADOL] Allergy Unknown Unknown Verified 07/23/21 13:21 allergy reaction metoclopramide [From REGLAN] Allergy Unknown Unknown Verified
[2021-10-07 02:06] VITALS: BP 190/98; PULSE 85; RESP 20; TEMP 36.9; O2SAT 98
== END 2021-10-07 02:06 | disposition home or self-care (01) ==
LOC: ER 02:43
PROVIDERS: Emergency Provider Emergency Medicine; PCP Family Medicine
DX: G43.009 Migraine without aura, not intractable, without status migrainosus (principal); I10 Essential (primary) hypertension; F41.8 Other specified anxiety disorders; E78.5 Hyperlipidemia, unspecified; I25.10 Atherosclerotic heart disease of native coronary artery without angina pectoris; E03.9 Hypothyroidism, unspecified; Z88.5 Allergy status to narcotic agent; Z88.8 Allergy status to other drugs, medicaments and biological substances; Z91.048 Other nonmedicinal substance allergy status
CPT/HCPCS: 96372; 99281

== ENCOUNTER → 2021-11-08 09:41 | Outpatient (POV) | payer MEDICARE, SELFPAY ==
[2021-11-08 09:57] VITALS: BP 158/98; PULSE 110; RESP 18; O2SAT 96; BMI 40.7
--- NOTE | 2021-11-08 11:49 | HMH.PAINSOAP ---
[facility] Pain Management SOAP Note Subjective:: Patient is a 51-year-old female who presents today for follow-up. The patient recently had a trigeminal right side nerve block. She got minimal relief. Patient says she has TMJ symptoms. She says this has been ongoing for many years. She has seen multiple neurologists for both migraines and TMJ. She has gotten minimal relief. She has migraines approximately 5 days out of the week. She says that the pain is associated with nausea vomiting photophobia along with sensitivity to noise and smells. She does report to have grinding of her teeth. She does have jaw pain as well. The headaches are primarily on the right side associated with blurred vision following the headaches. She says she has had headaches for approximately 15 years and has tried multiple medications such as Imitrex and amitriptyline with minimal relief. Would like to proceed with possible Botox injections. She did try these injections many years ago which she does feel gave her significant relief. She is currently on oxycodone for chronic pain and related to pain associated with migraines and TMJ. She rates her pain a 7 out of 10. She does have jaw pain as well. Review of Systems General: No recent weight changes, no fever, no sleep disturbances Respiratory: No cough, no shortness of air, no recurring pulmonary infections Cardiovascular/peripheral vascular: No chest pain, no palpitations, no edema, no shortness of breath Gastrointestinal: No new onset incontinence, normal bowel movements reported Genitourinary: No new onset incontinence Musculoskeletal: No pain at this time Psychiatric: [Normal mood/affect] Neurological: Headaches, grinding of teeth with jaw pain Objective:: Physical exam General: Alert and oriented x3, no acute distress, pleasant and cooperative Lungs: Respirations even and unlabored, symmetrical chest expansion Eyes: PERRL Musculoskeletal: Flexion and extension of [] [spine] non guarded Neurological: Speech clear, no gross sensory deficit Assessment:: Migraines, TMJ Plan:: We will schedule patient for Botox injections. She has tried multiple oral medication regimens with minimal relief. She does abdominal pain and headaches at least 5 days/week right sided with photophobia, nausea or vomiting, sensitivity to smell with blurred vision. We will follow-up with her after Botox injections for further evaluation. She may be a candidate for injective therapy for TMJ as well. Risks and benefits of the procedure have been explained to the patient. Patient would like to proceed with the procedure. [facility] History I have reviewed the patient's past medical history: Yes Medical History: Reports:: Anxiety, Arrhythmia, Asthma, Cancer (breast/thyroid), Coronary Artery Disease, Depression, Hyperlipidemia, Hypertension, Kidney Stones, Migraine Denies:: Diabetes Mellitus Type 1, Diabetes Mellitus Type 2, MRSA, Seizures *Have you ever received a pneumonia vaccine?: No *Have you received a flu vaccine this season?: No Other Medical History: Reports: Arthritis, Chemotherapy, Hypothyroidism, Radiation Therapy, Thyroid Disease. Denies: Blood Transfusion Reaction Laterality Cases: Left: Lumpectomy, Right: Arthroscopy Knee, Bilateral: Tonsillectomy Other Surgeries: Yes: Colonoscopy, Hysterectomy-Total, Hysterectomy-Partial, Sinus Surgery, Thyroidectomy, Other Amputation: No Fractures: No - *Social History Smoking Status: Never smoker Tobacco Type: cigarettes # Packs/Day (cigarettes): 1 Alcohol Intake: never Alcohol Intake Frequency:: holidays/special occasions only Substance Use Type: denies use *Occupational Status:: unemployed Housing: house Household Members: children *Travel in the last 8 weeks: None - Psychiatric History Pschychiatric History:: Reports:: Anxiety, Depression Family Hx:: Other
== END ==
PROVIDERS: Visit Provider Clinical Nurse Specialist Family Health
DX: G43.909 Migraine, unspecified, not intractable, without status migrainosus (principal); M26.609 Unspecified temporomandibular joint disorder, unspecified side
CPT/HCPCS: 96372; 99212; G0463

== ENCOUNTER 2021-11-08 15:36 | Outpatient (CLI) | payer MEDICARE, SELFPAY ==
[2021-11-08 15:48] VITALS: BP 157/101; PULSE 101; RESP 20; TEMP 36.6; O2SAT 96
== END 2021-11-08 16:06 | disposition home or self-care (01) ==
LOC: INF 15:37
PROVIDERS: PCP Family Medicine; Visit Provider Family Medicine
DX: G43.911 Migraine, unspecified, intractable, with status migrainosus (principal)
CPT/HCPCS: 96372

== ENCOUNTER 2021-11-13 23:40 | Emergency (ER) | payer MEDICARE, SELFPAY ==
[2021-11-13 23:41] VITALS: BP 154/96; PULSE 104; RESP 16; TEMP 36.6; O2SAT 96; BMI 41.2
--- NOTE | 2021-11-14 00:09 | HMH.EDGENADL ---
ED Disposition Clinical Impression: Migraine headache Qualifiers: Migraine type: without aura Status migrainosus presence: without status migrainosus Intractability: not intractable Qualified Code(s): G43.009 - Migraine without aura, not intractable, without status migrainosus Disposition: Home, Self-Care Condition on Discharge: Good Referrals: Valentín Juarez MD [Primary Care Provider] - - Critical Care Critical Care Time: No Attestation: On , the high probability of a clinically significant, sudden or life threatening deterioration of the following system(s) required my full and direct attention, intervention and personal management. The time I documented below is in addition to time spent performing reported procedures but includes the following listed in this critical care notation. Medical Decision Making - Medical Records Medical records reviewed: Yes: I reviewed the patient's medical records. - Timothy Inquiry Pt receiving controlled substance: Yes Timothy was queried for this patient: No Risks and benefits of using a controlled substance: were discussed with pt by me Vital Signs: 11/13/21 23:41 Temperature 97.8 F Temperature Source Oral Pulse Rate [Right Radial] 104 H Respiratory Rate 16 Blood Pressure [Right Arm] 154/96 H Blood Pressure Mean [Right Arm] 115 Blood Pressure Source [Right Arm] Automatic Cuff Blood Pressure Position [Right Arm] Sitting 02 Sat by Pulse Oximetry 96 Oxygen Delivery Method Room Air Orders (Tests/Meds): ED MEDICATIONS Discontinued Medications Generic Name Dose Route Start Last Admin Trade Name Freq PRN Reason Stop Dose Admin Diphenhydramine HCl 25 mg 11/14/21 00:04 Diphenhydramine 50mg/Ml Vial IM 11/14/21 00:05 ONCE ONE Promethazine HCl 25 mg 11/14/21 00:04 Promethazine Hcl 25mg/Ml 1ml Vial IM 11/14/21 00:05 ONCE ONE Sodium Chloride 25 ml 11/14/21 00:04 Sodium Chloride 0.9% 25ml Bag IV 11/14/21 00:05 ONCE ONE Medical Decision Narrative: Patient is a 51-year-old female presents the ED today for further evaluation of right-sided migraine headache which is ongoing for the last couple of days. Patient is well-appearing on initial evaluation, mild tachycardia but no other acute symptoms, vital signs otherwise within normal limits. Initially plan to give the patient a migraine cocktail, however patient has refused stating that in the past she has been giving intramuscular morphine and Phenergan, stating that these have been helpful for the past. On chart review I do see where patient has received these medications in the past, however I have concern regarding given patient intramuscular opioids for treatment of her migraine headache, negotiated with the patient and offered IV medications, however she does not want an IV, stating that the intramuscular medicines were just fine for her. On review of [place] headache [employer] guidelines, opioids did not play a major role in the treatment of migraine headache, and only if given should be given for migraines that are refractory to other treatments. I will administer the patient 25 mg of IM Phenergan and 25 mg of IM Benadryl, and after shared decision making we will not administer opioids given them not being recommended, and fear of variable metabolism, causing patient to have further complications. Patient given return precautions return to the ED with any new or worsening symptoms and is verbalized understanding with this plan. General Adult HPI - General Chief complaint: Headache Stated complaint: Migraine Time Seen by Provider: 11/14/21 00:01 Mode of Arrival: Ambulatory Source of Information: Patient Limitations: No Limitations Description of Symptoms (Recalled from ER Triage Doc. by RN): Pt c/o migraine for 6 days. Pt was seen by PCP on monday and he is having her see for botox d/t migraines but she states she has been unable to get relief using her prescribes medicat
[2021-11-14 00:30] VITALS: BP 167/83; PULSE 72; RESP 18; TEMP 36.7; O2SAT 97
== END 2021-11-14 00:39 | disposition home or self-care (01) ==
PROVIDERS: Emergency Provider Student in an Organized Health Care Education/Training Program; PCP Family Medicine
DX: G43.009 Migraine without aura, not intractable, without status migrainosus (principal); F41.8 Other specified anxiety disorders; E78.5 Hyperlipidemia, unspecified; E03.9 Hypothyroidism, unspecified; I10 Essential (primary) hypertension; I25.10 Atherosclerotic heart disease of native coronary artery without angina pectoris; Z88.8 Allergy status to other drugs, medicaments and biological substances
CPT/HCPCS: 96372; 99281

== ENCOUNTER → 2021-11-22 13:02 | Outpatient (CLI) | payer MEDICARE, SELFPAY ==
[2021-11-22 14:30] LABS: Chol/HDL Ratio 2.3 (1-3.5); Cholesterol 180 mg/dl (140-200); HDL Cholesterol 77 mg/dl (40-60); Triglycerides 167 mg/dl (30-150); VLDL Cholesterol 33 mg/dL (0-40)
[2021-11-22 14:41] LABS: Direct LDL Cholesterol 82.25 mg/dL (100-129)
[2021-11-22 14:42] LABS: Basophils # 0.1 K/mm3 (0-0.2); Basophils % 0.8 % (0.1-2.0); Eosinophils # 0.4 K/mm3 (0.0-0.4); Eosinophils % 5.3 % (0.1-12.0); Hematocrit 39.5 % (37.0-47.0); Hemoglobin 12.9 g/dL (12.2-16.2); Lymphocytes % 27.7 % (10-50); Mean Corpuscular HGB Conc 32.6 g/dL (31.8-35.4); Mean Corpuscular Hemoglobin 29.3 pg (27.0-31.2); Mean Corpuscular Volume 89.8 fl (81-99); Mean Platelet Volume 7.6 fl (7.4-10.4); Monocytes # 0.5 K/mm3 (0.1-1.0); Monocytes % 6.8 % (1.7-9.3); Neutrophils # 4.3 K/mm3 (1.8-7.8); Neutrophils % 59.4 % (37.0-80.0); Platelet Count 359 K/mm3 (142-424); Red Cell Distribution Width 14.9 % (11.5-17.5); White Blood Count 7.2 K/mm3 (4.8-10.8)
[2021-11-22 15:03] LABS: Thyroid Stimulating Hormone 0.36 uIU/mL (0.465-4.68)
[2021-11-22 15:42] LABS: Erythrocyte Sedimentation Rate 44 mm/hr (0-30)
[2021-11-22 19:46] LABS: Alanine Aminotransferase 28 U/L (12-78); Albumin/Globulin Ratio 1.6 (1.1-1.8); Alkaline Phosphatase 76 U/L (38-126); Anion Gap 11.4 mEq/L (5-15); Aspartate Amino Transferase 30 U/L (14-36); Bilirubin,Total 0.4 mg/dl (0.2-1.3); Blood Urea Nitrogen 20 mg/dl (7-17); Calcium 9.5 mg/dl (8.4-10.2); Carbon Dioxide 26 mmol/L (22.0-30.0); Chloride 105 mmol/L (98-107); Estimated Glomerular Filt Rate 75 ml/min (>60); GFR (African American) 91 ML/MIN (>60); Globulin 2.5 g/dL (1.3-3.2); Glucose 91 mg/dl (74-100); Potassium 4.4 mmoL/L (3.5-5.1); Sodium 138 mmol/L (136-145); Total Protein,Serum 6.5 g/dl (6.3-8.2)
[2021-11-22 19:51] LABS: C-Reactive Protein 8.8 mg/L (0-4)
[2021-11-24 12:16] LABS: Hepatitis B Core Antibody IgM Negative (Negative); Hepatitis B Surface Antigen Negative (Negative)
[2021-11-24 22:25] LABS: QuantiFERON-TB Gold Plus Negative (Negative)
== END ==
PROVIDERS: PCP Family Medicine; Visit Provider Internal Medicine Rheumatology
DX: Z51.81 Encounter for therapeutic drug level monitoring (principal); E03.9 Hypothyroidism, unspecified; E78.5 Hyperlipidemia, unspecified
CPT/HCPCS: 36415; 80053; 80061; 84443; 85025; 85651; 86140; 86480; 86704; 87340

== ENCOUNTER 2021-12-03 12:13 | Outpatient (CLI) | payer MEDICARE, SELFPAY ==
[2021-12-03 12:30] VITALS: BP 155/108; PULSE 86; RESP 20; TEMP 36.9; O2SAT 95
[2021-12-03 13:00] VITALS: BP 145/90; PULSE 86; RESP 20; TEMP 36.9; O2SAT 95
== END 2021-12-03 13:00 | disposition home or self-care (01) ==
PROVIDERS: PCP Family Medicine; Visit Provider Family Medicine
DX: G43.911 Migraine, unspecified, intractable, with status migrainosus (principal)
CPT/HCPCS: 96372

== ENCOUNTER 2022-01-06 15:29 | Outpatient (CLI) | payer MEDICARE, SELFPAY ==
[2022-01-06 15:35] VITALS: BP 154/94; PULSE 88; RESP 18; TEMP 36.7; O2SAT 98
== END 2022-01-06 15:56 | disposition home or self-care (01) ==
LOC: INF 15:30
PROVIDERS: PCP Family Medicine; Visit Provider Family Medicine
DX: Z79.899 Other long term (current) drug therapy (principal)
CPT/HCPCS: 96372

== ENCOUNTER 2022-01-09 01:15 | Emergency (ER) | payer MEDICARE, SELFPAY ==
[2022-01-09 01:15] VITALS: BP 172/101; PULSE 99; RESP 14; TEMP 36.7; O2SAT 97; BMI 93.5
--- NOTE | 2022-01-09 01:33 | HMH.EDHA ---
ED Disposition Clinical Impression: Migraine Qualifiers: Migraine type: without aura Status migrainosus presence: without status migrainosus Intractability: not intractable Qualified Code(s): G43.009 - Migraine without aura, not intractable, without status migrainosus Disposition: Home, Self-Care Condition on Discharge: Good Instructions: DI for Migraine Additional Instructions: Return if you have worsening headache, vision changes, or any other concerns. Referrals: Valentín Juarez MD [Primary Care Provider] - - Critical Care Critical Care Time: No Attestation: On , the high probability of a clinically significant, sudden or life threatening deterioration of the following system(s) required my full and direct attention, intervention and personal management. The time I documented below is in addition to time spent performing reported procedures but includes the following listed in this critical care notation. Medical Decision Making - Timothy Inquiry Pt receiving controlled substance: No Vital Signs: 01/09/22 01:15 Temperature 98.1 F Temperature Source Oral Pulse Rate [Left Radial] 99 H Respiratory Rate 14 Blood Pressure [Right Arm] 172/101 H Blood Pressure Mean [Right Arm] 124 02 Sat by Pulse Oximetry 97 Oxygen Delivery Method Room Air Orders (Tests/Meds): ED MEDICATIONS Discontinued Medications Generic Name Dose Route Start Last Admin Trade Name Freq PRN Reason Stop Dose Admin Morphine Sulfate 4 mg 01/09/22 01:25 Morphine 2mg/Ml Syringe IM 01/09/22 01:26 ONCE ONE Promethazine HCl 25 mg 01/09/22 01:24 Promethazine Hcl 25mg/Ml 1ml Vial IM 01/09/22 01:25 ONCE ONE Medical Decision Narrative: The patient is a 51 year old female who presents with headache. The patient is awake, alert, stable. She is neurologically intact. She states this is just like her normal headache. She denies trauma. No indication for imaging. No concern for stroke, intracranial hemorrhage, tumor, trauma, meningitis. Likely her normal migraine. She was given phenergan 25 mg IM and morphine 4 mg IM in the ED with relief. Discharged home with return precautions. Headache HPI - General Chief Complaint: Headache Stated Complaint: Migraine Time Seen by Provider: 01/09/22 01:20 Mode of Arrival: Ambulatory Limitations: No Limitations Description of Symptoms (Recalled from ER Triage Doc. by RN): PT REPORTS MIGRAINE- PAIN IN RIGHT SYNAGOGUE AND ABOVE RIGHT EYE. DULL ACHE 10/10 ON PAIN SCALE. PT REQUEST MORPHINE AND PHENERGAN. - History of Present Illness HPI Narrative: The patient is a 51 year old female who presents with migraine. The patient states that she has a right sided headache typical of her normal migraine. She tried her home medications without relief. She states she usually gets IM phenergan and morphine with relief. Denies anything different about this headache. No trauma. No vomiting. She follows with Neurology. - Related Data Home Medications Medication Instructions Recorded Confirmed Esomeprazole Magnesium [Nexium 40 mg PO DAILY 10/06/17 01/06/22 24Hr] Levothyroxine Sodium 100 mg PO DAILY 10/06/17 01/06/22 [Levothyroxine 100mcg (0.1MG) Tab] Oxycodone HCl [Oxycodone (IR) 5mg 5 mg PO Q4HP PRN 10/06/17 01/06/22 Cap] Rizatriptan Benzoate [Rizatriptan] 10 mg PO Q2HP PRN 10/06/17 01/06/22 Venlafaxine HCl [Effexor Xr] 150 mg PO BID 10/06/17 01/06/22 aspirin 81 mg tablet,delayed 81 mg PO DAILY 10/29/18 01/06/22 release rosuvastatin 5 mg tablet 5 mg PO DAILY 06/27/19 01/06/22 Rizatriptan Benzoate [Maxalt] 10 mg PO DAILY 10/07/21 01/06/22 Previous Rx's Medication Instructions Recorded acetaminophen 500 mg tablet 500 mg PO Q6H PRN 30 Days #30 tab 12/24/18 promethazine 25 mg tablet 25 mg PO Q6H PRN 30 Days #30 tab 12/24/18 Allergies Allergy/AdvReac Type Severity Reaction Status Date / Time bupropion [BUPROPION] Allergy Unknown Unknown Verified 07/23/21 13:21
[2022-01-09 01:52] VITALS: BP 163/91; PULSE 88; RESP 18; TEMP 36.7; O2SAT 98
== END 2022-01-09 01:55 | disposition home or self-care (01) ==
PROVIDERS: Emergency Provider Emergency Medicine; PCP Family Medicine
DX: G43.009 Migraine without aura, not intractable, without status migrainosus (principal); I10 Essential (primary) hypertension; I25.10 Atherosclerotic heart disease of native coronary artery without angina pectoris; I49.9 Cardiac arrhythmia, unspecified; E78.5 Hyperlipidemia, unspecified; E03.9 Hypothyroidism, unspecified; M19.90 Unspecified osteoarthritis, unspecified site; J45.909 Unspecified asthma, uncomplicated; F32.A Depression, unspecified; F41.9 Anxiety disorder, unspecified; Z79.52 Long term (current) use of systemic steroids; Z79.899 Other long term (current) drug therapy; Z88.5 Allergy status to narcotic agent; Z88.6 Allergy status to analgesic agent; Z88.8 Allergy status to other drugs, medicaments and biological substances; Z91.010 Allergy to peanuts; Z91.018 Allergy to other foods; Z91.048 Other nonmedicinal substance allergy status; Z92.21 Personal history of antineoplastic chemotherapy; Z92.3 Personal history of irradiation; Z87.442 Personal history of urinary calculi; Z87.898 Personal history of other specified conditions
CPT/HCPCS: 96372; 99283

== ENCOUNTER 2022-02-17 15:22 | Outpatient (CLI) | payer MEDICARE, SELFPAY ==
[2022-02-17 15:31] VITALS: BP 161/109; PULSE 97; O2SAT 100
== END 2022-02-17 15:40 | disposition home or self-care (01) ==
LOC: INF 15:23
PROVIDERS: PCP Family Medicine; Visit Provider Family Medicine
DX: G43.011 Migraine without aura, intractable, with status migrainosus (principal)
CPT/HCPCS: 96372

== ENCOUNTER → 2022-02-21 15:06 | Outpatient (CLI) | payer MEDICARE, SELFPAY ==
--- NOTE | 2022-02-21 15:12 | US_ITS ---
FINAL REPORT CLINICAL HISTORY: LIPOMA FINDINGS: US EXTREMITY, NONVASCULAR, LIMITED, ANATOMIC SPECIFIC Limited sonographic images were obtained of the soft tissues of the left ankle. At the area of interest is a 2.4 cm soft tissue nodule with echogenicity similar to subcutaneous fat. This favors a lipoma and is avascular. IMPRESSION: 2.4 cm soft tissue nodule favoring a lipoma. Reviewed, Interpreted and Dictated by Ariana Bush MD Transcribed by Anup Crawford Authenticated by Ariana Bush MD on 02/21/2022 05:03:58 PM [facility]
== END ==
PROVIDERS: PCP Family Medicine; Visit Provider Family Medicine
DX: R22.42 Localized swelling, mass and lump, left lower limb (principal); D17.9 Benign lipomatous neoplasm, unspecified
CPT/HCPCS: 76882

== ENCOUNTER 2022-04-14 15:47 | Emergency (ER) | payer MEDICARE, SELFPAY ==
--- NOTE | 2022-04-14 15:43 | ECG_ITS ---
APPROVED REPORT Exam: Resting ECG HR:90 bpm ECG Measurements Heart Rate 90 AXES IN 183 P 50 QRSd 89 QRS 36 QT 348 T 28 QTc 396 Conclusion SINUS RHYTHM NONSPECIFIC T-WAVE ABNORMALITY BORDERLINE ECG UNCONFIRMED REPORT Electronically signed by : Jmaes Mansfield MD 04/17/2022 16:30:19
[2022-04-14 15:49] VITALS: BP 173/109; PULSE 96; RESP 16; TEMP 36.9; O2SAT 98; BMI 41.9
--- NOTE | 2022-04-14 15:56 | XR_ITS ---
FINAL REPORT CLINICAL HISTORY: chest pain X 1 wk FINDINGS: The heart size is normal. The mediastinum is normal. There are mild chronic changes in the lung bases. There is no focal infiltrate or edema. There are no pleural effusions. There is no pneumothorax. There is no osseous abnormality. IMPRESSION: No acute cardiopulmonary process Reviewed, Interpreted and Dictated by Enrique Joya MD Transcribed by Anup Crawford Authenticated and [facility]
[2022-04-14 16:00] VITALS: BP 163/87; PULSE 89; RESP 22; O2SAT 96
[2022-04-14 16:05] LABS: Basophils # 0.1 K/mm3 (0-0.2); Basophils % 1.7 % (0.1-2.0); Eosinophils # 0.4 K/mm3 (0.0-0.4); Eosinophils % 5.8 % (0.1-12.0); Hematocrit 42.9 % (37.0-47.0); Lymphocytes # 1.5 K/mm3 (0.7-4.5); Lymphocytes % 23.4 % (10-50); Mean Corpuscular HGB Conc 32.7 g/dL (31.8-35.4); Mean Corpuscular Hemoglobin 29.5 pg (27.0-31.2); Mean Corpuscular Volume 90.2 fl (81-99); Mean Platelet Volume 7.9 fl (7.4-10.4); Monocytes # 0.6 K/mm3 (0.1-1.0); Monocytes % 8.9 % (1.7-9.3); Neutrophils # 3.8 K/mm3 (1.8-7.8); Neutrophils % 60.1 % (37.0-80.0); Platelet Count 380 K/mm3 (142-424); Red Blood Count 4.75 M/mm3 (4.20-5.40); Red Cell Distribution Width 14.2 % (11.5-17.5); White Blood Count 6.3 K/mm3 (4.8-10.8)
--- NOTE | 2022-04-14 16:05 | HMH.EDCP ---
ED Disposition Clinical Impression: Chest pain Qualifiers: Chest pain type: unspecified Qualified Code(s): R07.9 - Chest pain, unspecified Disposition: Home, Self-Care Condition on Discharge: Good Instructions: DI for Chest Pain Referrals: Provider,Referral, MD [Primary Care Provider] - Time of Disposition: 17:07 - Critical Care Critical Care Time: No Attestation: On 04/14/22, the high probability of a clinically significant, sudden or life threatening deterioration of the following system(s) required my full and direct attention, intervention and personal management. The time I documented below is in addition to time spent performing reported procedures but includes the following listed in this critical care notation. Medical Decision Making - Medical Records Medical records reviewed: Yes: I reviewed the patient's medical records. - Timothy Inquiry Pt receiving controlled substance: No - Lab Data Lab results reviewed: Yes: I reviewed the patient's lab results. Lab Results 04/14/22 15:51: WBC 6.3, RBC 4.75, Hgb 14.0, Hct 42.9, MCV 90.2, MCH 29.5, MCHC 32.7, RDW 14.2, Plt Count 380, MPV 7.9, Neut % (Auto) 60.1, Lymph % (Auto) 23.4, Sierra % (Auto) 8.9, Eos % (Auto) 5.8, Baso % (Auto) 1.7, Neut # (Auto) 3.8, Lymph # (Auto) 1.5, Sierra # (Auto) 0.6, Eos # (Auto) 0.4, Baso # (Auto) 0.1 04/14/22 15:51: Sodium 140, Potassium 3.0 L, Chloride 104, Carbon Dioxide 29, Anion Gap 10.0, BUN 16, Creatinine 0.70, Estimated Creat Clear 83, Estimated GFR 87, Est GFR ( Amer) 106, Glucose 105 H, Calcium 9.3, Troponin I < 0.01 Result diagrams: 04/14/22 15:51 04/14/22 15:51 Orders (Tests/Meds): ED MEDICATIONS Discontinued Medications Generic Name Dose Route Start Last Admin Trade Name Freq PRN Reason Stop Dose Admin Aspirin 243 mg 04/14/22 16:00 04/14/22 16:05 Aspirin 81mg Chewable Tablet PO 04/14/22 16:01 243 mg ONCE ONE Administration Potassium Chloride 40 meq 04/14/22 16:31 Potassium Chloride 20meq Tab PO 04/14/22 16:32 ONCE ONE ORDERS Category Date Time Status Troponin I Q3H Lab 04/14/22 19:00 Ordered Troponin I Q3H Lab 04/14/22 22:00 Ordered - ECG Data Tracing #1 Normal sinus rhythm at rate of 90 normal axis CO 183 QRS [address]/T wave changes - Reevaluation(s) Time: 17:05 (normal Trop with >3 hour onset of discomfort, discussed options and pt would prefer further outpatient f/u, did advise d/w PCP for possible outpatient stress test and clear return precuations discussed) - JALEN Score for Non-Stemi Age of Patient: 50-59 years old Heart Rate: 70-89 bpm Systolic Blood Pressure: 140-159 mmHg Serum Creatinine: 0.80-1.19 mg/dl CHF Killip Class: I-No CHF Other Risk Factors: None Non-Stemi Risk Score: 81 Chest Pain HPI - General Stated Complaint: cp Time Seen by Provider: 04/14/22 16:05 Mode of Arrival: Ambulatory Source of Information: Patient Limitations: No Limitations - History of Present Illness HPI narrative: 52-year-old female, history of hyperlipidemia, denies any coronary artery disease, states she did have a stress test in 2017 that was reported to be normal. She also reports history of mitral valve prolapse. She presents today with central chest pain that been ongoing approximately 1 week associated with mild dyspnea. She denies any nausea, vomiting, diaphoresis or any other symptoms at this time. She did not take anything to try to help alleviate the symptoms. Pain is nonexertional and nonradiating, currently relatively mild - Related Data Home Medications Medication Instructions Recorded Confirmed Esomeprazole Magnesium [Nexium 40 mg PO DAILY 10/06/17 04/13/22 24Hr] Venlafaxine HCl [Effexor Xr] 150 mg PO BID 10/06/17 04/13/22 aspirin 81 mg tablet,delayed 81 mg PO DAILY 10/29/18 04/13/22 release rosuvastatin 5 mg tablet 5 mg PO DAILY 06/27/19 04/13/22 Rizatriptan Benzoate [Maxalt] 10 mg PO DAILY 10/07/21
[2022-04-14 16:09] LABS: Blood Urea Nitrogen 16 mg/dl (7-17); Calcium 9.3 mg/dl (8.4-10.2); Carbon Dioxide 29 mmol/L (22.0-30.0); Chloride 104 mmol/L (98-107); Creatinine Clearance Estimated 83 mL/min (50-200); Estimated Glomerular Filt Rate 87 ml/min (>60); GFR (African American) 106 ML/MIN (>60); Glucose 105 mg/dl (74-100); Sodium 140 mmol/L (136-145)
[2022-04-14 16:23] LABS: Troponin I < 0.01 ng/ml (0.00-0.034)
--- NOTE | 2022-04-14 16:27 | PC.NURSE ---
notified ER of pt critical potassium result at this time
[2022-04-14 16:30] VITALS: BP 156/92; PULSE 89; RESP 18; O2SAT 95
[2022-04-14 17:00] VITALS: BP 161/97; PULSE 84; RESP 16; O2SAT 97
[2022-04-14 18:20] VITALS: BP 163/90; PULSE 87; RESP 16; TEMP 36.6; O2SAT 98
== END 2022-04-14 18:20 | disposition home or self-care (01) ==
PROVIDERS: Emergency Provider Emergency Medicine
DX: R07.9 Chest pain, unspecified (principal); E78.5 Hyperlipidemia, unspecified
CPT/HCPCS: 71045; 80048; 84484; 85025; 93005; 96374; 99284

== ENCOUNTER 2022-04-18 15:49 | Outpatient (CLI) | payer MEDICARE, SELFPAY ==
[2022-04-18 16:06] VITALS: BP 161/95; PULSE 89; RESP 18; TEMP 36.7; O2SAT 98
== END 2022-04-18 16:06 | disposition home or self-care (01) ==
LOC: INF 15:51
PROVIDERS: PCP Family Medicine; Visit Provider Family Medicine
DX: G43.911 Migraine, unspecified, intractable, with status migrainosus (principal)
CPT/HCPCS: 96372

== ENCOUNTER → 2022-04-21 13:59 | Outpatient (CLI) | payer MEDICARE, SELFPAY | PROVIDERS: PCP Family Medicine; Visit Provider Family Medicine | DX: R07.2 Precordial pain (principal) ==

== ENCOUNTER → 2022-04-26 07:17 | Outpatient (CLI) | payer MEDICARE, SELFPAY ==
--- NOTE | 2022-04-26 | CA_ITS ---
APPROVED REPORT Exam: Pharmacologic Technologist: Amarilys Molina, Ht: 5 ft 5 in Wt: 252 lbs BSA: 2.18 m2 HR: 91 bpm BP: 182/93 mmHg Rhythm: NSR, NS ST ABNS LATERALLY Medical History Medical History: HTN, Hyperlipidemia Medications: Levothyroxine,,,,, Effexor,,,,, Nexium,,,,, OxYCODONE,,,,, Maxalt,,,,, RoSUVASTATIN,,,,, Allergies: KETOROLAC,METOCLOPRAMIDE, PROCHLORPERAZINE, BUPROPTON, BUTORPHAL, GABAPENTIN, HYDROMORPHONE Cardiac Risk Factors: HTN, Hyperlipidemia Stress Test Details Test: LEXISCAN HR Resting HR: 105 bpm Max Heart Rate (APMHR): 166.002088 bpm Max HR Achieved: 108 bpm Target HR (85% APMHR): 141.602876 bpm % of APMHR: 65.06 Recovery HR: 89 bpm BP Resting BP: 182/93 mmHg Max BP: 183/84 mmHg Recovery BP: 169.0/87.0 mmHg ECG Resting ECG: NSR, NS ST ABNS LATERALLY Clinical Exercise duration: 04:00 min Highest Stage Achieved: Stress ECG Conclusion PT HAD MILD SOA, MILD HEAD DISCOMFORT, AND MILD CHEST PRESSURE. RARE PVC. MILD, NS ST CHANGES. UNREMARKABLE LEXISCAN STRESS. MYOVIEW IMAGES REPORTED SEPARATELY. Electronically signed by : Jeancarlos Pierre MD 04/27/2022 06:39:19
--- NOTE | 2022-04-26 07:22 | NM_ITS ---
APPROVED REPORT Exam: Nuclear Stress Test Indication: chest pain..short of breath..fatigue Patient Location: Outpatient Stress Tech: Amarilys Whittaker IN Tech:LISANDRA Camarillo RT(R)(N) Ht: 5 ft 5 in Wt: 252 lbs Bra Size: 42d HR: 105 bpm BP: 182/93 mmHg BSA: 2.18 m2 TID: 0.95 BMI: 41.9 History: chest pain..short of breath..fatigue Procedure: Patient received a 0.4 mg of intravenous Lexiscan, resting heart rate 105 bpm, resting blood pressure 182/93 mmHg, with Lexiscan maximum heart rate achived was 108 bpm which is Less than 85 % of the maximum predicted heart rate and blood pressure was 183/84 mmHg. With Lexiscan, patient denied any complaint of chest pain. patient was unable to lay on her belly for prone images Electrocardiogram Resting electrocardiogram shows sinus rhythm, with Lexiscan less than 1.[address] segment depression noted from the baseline EKG. The EKG portion of the Lexiscan is nondiagnostic. Cardiac Stress and Resting SPECT Images: Cardiac Stress and Resting SPECT images were obtained using technetium 99m Myoview 30.2 mCi stress and 10.43 mCi at rest. Gated SPECT for analysis of segmental wall motion and calculation of the ejection fraction was present. Cardiac stress and rest SPECT images show mild fixed defect in the anterior wall with normal contractility in the gated SPECT is likely secondary to soft tissue attenuation, no reversible ischemia seen, computer derived ejection fraction is 62% with no regional wall motion abnormality, right ventricle is normal size and contractility. Conclusion: 1. The EKG portion of the Lexiscan is nondiagnostic. 2. No obvious scintigraphic evidence of reversible ischemia seen, computer derived ejection fraction 62% with no regional wall motion abnormality, right ventricle is normal size and contractility. 3. Likely normal Lexiscan Myoview study. Electronically signed by : Jeancarlos Pierre MD 04/27/2022 06:49:38
== END ==
PROVIDERS: PCP Family Medicine; Visit Provider Family Medicine
DX: R07.2 Precordial pain (principal)
CPT/HCPCS: 78452; 93017; A9502; J2785

== ENCOUNTER → 2022-04-28 14:52 | Outpatient (CLI) | payer MEDICARE, SELFPAY ==
--- NOTE | 2022-04-28 14:56 | MR_ITS ---
PROCEDURE INFORMATION: Exam: MR Left Lower Extremity Joint Without and With Contrast; Ankle Exam date and time: 04/28/2022 3:05 PM Age: 52 years old Clinical indication: Pain; Ankle; Left; Additional info: Soft tissue mass, surgical planning. Anterior ankle pain with knot. Put marker on knot. Knot [id number]. 20ml prohance given. TECHNIQUE: Imaging protocol: Magnetic resonance imaging of the Left lower extremity without and with contrast. Exam focused on the ankle. Contrast material: PROHANCE; Contrast volume: 20 ml; Contrast route: IV; COMPARISON: 1. US EXTREMITY LT LIMITED 02/21/2022 3:15 PM 2. CR XR ANKLE LT MIN 3V 03/05/2020 4:13 PM 3. CR XR FOOT LT MIN 3V 03/05/2020 4:13 PM FINDINGS: Bones and cartilage: A well-corticated osteochondral body adjacent to the tip of the medial malleolus is consistent with a remote unhealed fracture fragment. A focally flattened portion of the anterior tibial plafond suggests a remote impaction fracture (series 6/images 13-14). There are small dorsal and plantar calcaneal enthesophytes. Joint spaces: No significant joint effusion. Bursae: Focal fluid between the first-second and third-fourth metatarsal heads may represent intermetatarsal bursitis, but can be present between the metatarsal heads in asymptomatic patients. LIGAMENTS: Distal tibiofibular syndesmosis: Unremarkable. No tear. Anterior talofibular ligament: The anterior talofibular ligament is thin, consistent with an age indeterminant, intermediate grade partial-thickness tear. Posterior talofibular ligament: Unremarkable. No tear. Calcaneofibular ligament: The calcaneofibular ligament is thin, consistent with an intermediate grade partial thickness tear. Deltoid ligament complex: Heterogeneity of the deep deltoid ligament with an associated ununited fracture fragment from the medial malleolus is consistent with a remote injury. TENDONS: Flexor tendons of foot: Unremarkable as visualized. Tibialis posterior tendon: Moderate tenosynovitis involves the tibialis posterior tendon. Peroneal tendons: Trace tenosynovitis involves the peroneal tendon sheath. Extensor tendons of foot: Unremarkable as visualized. Tibialis anterior tendon: Unremarkable. Achilles tendon: There is no tear or significant tendinosis involving the Achilles tendon. Tarsal canal (Sinus tarsi): The sinus tarsi has normal fat signal. Tarsal tunnel: Unremarkable. Muscles: Unremarkable. Soft tissues: The location of the palpable abnormality involving the anterior ankle was designated with a skin marker. In the symptomatic region, there is abundant subcutaneous fat. The more well-defined fatty mass identified on 02/21/2022 is poorly delineated on MRI although a faint capsule is suggested around a 1.5 cm region of fat measured craniocaudad (series series 5/image 10). This is most consistent with a lipoma and does not contain thickened septa or soft tissue nodules. There is no unusual enhancement. No followup is recommended. There is no suspicious soft tissue mass. Plantar fascia: There is no mass or significant fasciitis (fasciopathy) involving the plantar fascia. IMPRESSION: 1. Palpable mass involving the anterior left ankle corresponds to an incompletely encapsulated benign lipoma in the subcutaneous fat measuring 1.5 cm craniocaudad. 2. Remote injury of the deep deltoid ligament complex with an ununited avulsion fracture involving the tip of the medial malleolus. 3. Intermediate grade, partial-thickness tears of the anterior talofibular ligament and calcaneofibular ligament. 4. Remote impaction fracture involving the anterior tibial plafond. 5. Fluid between the metatarsal he
== END ==
PROVIDERS: PCP Family Medicine; Visit Provider Podiatrist
DX: D17.24 Benign lipomatous neoplasm of skin and subcutaneous tissue of left leg (principal); M79.89 Other specified soft tissue disorders; R22.42 Localized swelling, mass and lump, left lower limb; M25.572 Pain in left ankle and joints of left foot
CPT/HCPCS: 73723; A9576

== ENCOUNTER → 2022-05-09 15:38 | Outpatient (CLI) | payer MEDICARE, SELFPAY ==
[2022-05-09 16:01] LABS: Basophils # 0.2 K/mm3 (0-0.2); Basophils % 2.1 % (0.1-2.0); Eosinophils # 0.4 K/mm3 (0.0-0.4); Eosinophils % 5.2 % (0.1-12.0); Hematocrit 44.2 % (37.0-47.0); Hemoglobin 14.1 g/dL (12.2-16.2); Lymphocytes # 1.6 K/mm3 (0.7-4.5); Lymphocytes % 21.9 % (10-50); Mean Corpuscular HGB Conc 31.9 g/dL (31.8-35.4); Mean Corpuscular Hemoglobin 29.8 pg (27.0-31.2); Mean Corpuscular Volume 93.7 fl (81-99); Mean Platelet Volume 7.9 fl (7.4-10.4); Monocytes # 0.8 K/mm3 (0.1-1.0); Monocytes % 10.8 % (1.7-9.3); Neutrophils # 4.3 K/mm3 (1.8-7.8); Platelet Count 398 K/mm3 (142-424); Red Blood Count 4.72 M/mm3 (4.20-5.40); Red Cell Distribution Width 14.3 % (11.5-17.5); White Blood Count 7.1 K/mm3 (4.8-10.8)
[2022-05-09 16:32] LABS: Alanine Aminotransferase 34 U/L (12-78); Albumin/Globulin Ratio 1.4 (1.1-1.8); Alkaline Phosphatase 93 U/L (38-126); Aspartate Amino Transferase 38 U/L (14-36); Bilirubin,Total 0.4 mg/dl (0.2-1.3); Blood Urea Nitrogen 14 mg/dl (7-17); Calcium 9.8 mg/dl (8.4-10.2); Carbon Dioxide 30 mmol/L (22.0-30.0); Chloride 105 mmol/L (98-107); Estimated Glomerular Filt Rate 75 ml/min (>60); GFR (African American) 90 ML/MIN (>60); Globulin 2.8 g/dL (1.3-3.2); Glucose 104 mg/dl (74-100); Sodium 140 mmol/L (136-145); Total Protein,Serum 6.8 g/dl (6.3-8.2)
[2022-05-17 03:37] LABS: 1,25 Dihydroxy Vitamin D 44 pg/mL (.); 1,25-Dihydroxy, Vitamin D-2 <10 pg/mL (.); 1,25-Dihydroxy, Vitamin D-3 43 pg/mL (.)
== END ==
PROVIDERS: PCP Family Medicine; Visit Provider Podiatrist
DX: M25.572 Pain in left ankle and joints of left foot (principal); E66.9 Obesity, unspecified; Z68.39 Body mass index [BMI] 39.0-39.9, adult
CPT/HCPCS: 36415; 80053; 82652; 85025

== ENCOUNTER 2022-06-02 13:57 | Outpatient (CLI) | payer MEDICARE, SELFPAY ==
[2022-06-02 14:17] VITALS: BP 169/98; PULSE 94; RESP 18; O2SAT 96
== END 2022-06-02 14:17 | disposition home or self-care (01) ==
LOC: INF 13:57
PROVIDERS: PCP Family Medicine; Visit Provider Family Medicine
DX: G43.911 Migraine, unspecified, intractable, with status migrainosus (principal)
CPT/HCPCS: 96372

== ENCOUNTER → 2022-06-06 07:17 | Outpatient (CLI) | payer MEDICARE, SELFPAY ==
[2022-06-06 07:23] LABS: Coronavirus 19, PCR Not Detected (NotDetected); Influenza A, PCR Not Detected (NotDetected); Influenza B, PCR Not Detected (NotDetected)
== END ==
PROVIDERS: PCP Family Medicine; Visit Provider Podiatrist
DX: Z01.812 Encounter for preprocedural laboratory examination; Z20.822 Contact with and (suspected) exposure to COVID-19; M25.572 Pain in left ankle and joints of left foot
CPT/HCPCS: C9803; U0003; U0005

== ENCOUNTER → 2022-06-07 15:06 | Outpatient (CLI) | payer MEDICARE, SELFPAY ==
--- NOTE | 2022-06-07 15:10 | XR_ITS ---
FINAL REPORT CLINICAL HISTORY: pre op clearance, HTN, no sx, non smoker COMPARISON: April 14, 2022 FINDINGS: Two views of the chest were obtained. The heart size and pulmonary vascularity are within normal limits. The mediastinum is normal. No acute pulmonary abnormality is identified. There is no pneumothorax. The bony thorax is intact. IMPRESSION: No active cardiopulmonary disease. Reviewed, Interpreted and Dictated by Nba Ramirez III, MD Transcribed by Elmira Gray Authenticated and . [facility]
== END ==
PROVIDERS: PCP Family Medicine; Visit Provider Podiatrist
DX: Z01.810 Encounter for preprocedural cardiovascular examination (principal)
CPT/HCPCS: 71046

== ENCOUNTER 2022-06-08 10:44 | Day surgery (SDC) | payer MEDICARE, SELFPAY ==
[2022-06-03 10:37] VITALS: BMI 41.8
[2022-06-08] VITALS (12 sets, daily range): BP systolic 127–160; BP diastolic 63–102; PULSE 89–129; RESP 16–30; TEMP 36.2–43; O2SAT 94–99
--- NOTE | 2022-06-08 13:45 | XR_ITS ---
FINAL REPORT CLINICAL HISTORY: LT ANKLE STABILIZATION IN OR ft: 0:31 FINDINGS: FLUORO TIME PROCEDURE: Left ankle stabilization in OR. FINDINGS: Fluoroscopy time was provided by the radiology department for the clinical service. One film was obtained. Fluoroscopy exposure time: 0:31 minutes IMPRESSION: See above Reviewed, Interpreted and Dictated by Nba Ramirez III, MD Transcribed by Elmira Gray Authenticated and [facility]
--- NOTE | 2022-06-08 14:51 | EXP.ANES.CKL ---
PFSH PFS Medical History Anxiety and depression Arthritis Breast cancer CAD (coronary artery disease) Cancer History of chemotherapy History of radiation therapy Hyperlipidemia Hypertension Hypothyroidism Kidney stone Migraine Sleep apnea Thyroid cancer Thyroid disease Uterine cancer Surgical History H/O arthroscopy of right knee History of colonoscopy History of foot surgery History of hysterectomy History of knee surgery History of lumpectomy History of lumpectomy of left breast History of sinus surgery History of thyroidectomy History of total hysterectomy Hx of tonsillectomy Family History Other No significant family history Social History Smoking Status: Never smoker second hand exposure: No alcohol intake: current substance use type: denies use current occupational status: unemployed Travel in the last 8 weeks: None household members: none housing: house number of children: 0 current occupational exposures/hazards: No caffeine: Yes [facility] Anesthesia Checklist Patient Identification Patient Identification: Arm Band and Verbal (Name & ) Structural Data Admitted From: Home Planned Operative Procedure/s: Ankle stabilization Consent for Planned Operative Procedure(s) Verified: Yes NPO Status Verified Time NPO: 00:00 Additional verifications Anesthesia Reactions: No Hx Blood Transfusions: No Blood Transfusion Reaction: No Airway Assessment C-Spine Mobility Assessed: Yes TMJ Mobility Assessed: Yes Dentition: Good Dentition Neurological Assessment Level of Consciousness: Awake Hx Seizures: No Numbness or tingling in extremities: No Anesthesia Plan Anesthesia Risk discussed: Yes Anesthesia Plan: Verified ASA Class: III Anesthesia Type: General w/block
--- NOTE | 2022-06-08 14:52 | P.PNANES_ITS ---
[facility] Anesthesia Record Part I Anesthesia Record I Intake, IV Amount: 900 Estimated blood loss (mL): 5 Urine output (mL): 0 Blood Pressure: 127/81 SaO2: 96 Pulse Rate: 129 Respiratory Rate: 30 Temperature: 97.8 F Patient is:: Awake Stable to PACU at:: 14:47
--- NOTE | 2022-06-08 15:00 | XR_ITS ---
FINAL REPORT CLINICAL HISTORY: MD order POST OPERATIVE EXAM DONE IN PACU WITH PORTABLE X-RAY MACHINE. FINDINGS: Left ankle Four views were obtained. Splint obscures some of the detail. There are presumed postoperative changes. Soft tissue air is seen anteriorly. IMPRESSION: Presumed postoperative changes with soft tissue air. Reviewed, Interpreted and Dictated by Nba Ramirez III, MD Transcribed by Yary Rangel Authenticated and [facility]
--- NOTE | 2022-06-08 15:06 | EXP.OP.NOTE ---
Date of procedure: 06/08/22 Pre-op Diagnosis:: Left ankle soft tissue mass Left ankle lipoma Left ankle instability Tenosynovitis left ankle Nondisplaced fracture of the medial malleolus left tibia, sequela Loose body left ankle Deltoid ligament tear left ankle Morbid obesity Post-op Diagnosis:: Same Procedure performed:: 1. Left ankle soft tissue mass removal (>5cm 36239) 2. Left posterior tibial tenosynovectomy (90989) 3. Left peroneus longus tendon debridement and synovectomy tendon 4. Left medial malleolus tibia ankle fracture/bone spur excision (50626) 5. Left deltoid ligament repair (98659) 6. Left modified Brostrum ankle ligament stabilization (42098) 7. Left ankle arthrotomy (58158) 8. Stress imaging 9. Application of amniotic graft Surgeon:: Moni Hill DPM MANAGER ENGINE:: Jonah Padilla Anesthesia: GETA and regional (Left popliteal nerve block) Estimated blood loss (mL): 30 Clinical Note:: Patient is a 52-year-old female with chronic pain to the left ankle.? The patient has tried immobilization, modification of shoe gear, strapping, inserts, ice, elevation, and NSAIDs. She has also tried ankle bracing and home physical therapy. After a long discussion with the patient in regards to the conservative versus surgical treatment for the soft tissue mass and ankle instability, the patient has elected to proceed with surgery because they have failed conservative treatment and continue to have pain and worsening symptoms affecting daily activities.? The patient has been instructed on the planned procedure, all risk versus benefits of the procedure discussed.? These include but are not limited to: bleeding, infection, nerve and blood vessel damage, need for further surgery, delay in healing of soft tissue or bone, tendon re-rupture, failure of bones to heal, non-union, mal-union, failure of the implant, prolonged pain and recovery, CRPS/RSD, DVT and anesthetic complications. No guarantees were given. All questions fully answered. The patient verbalized understanding and agreed to proceed with surgery. Written consent was obtained. Operative findings:: Left ankle instability noticed with increased anterior drawer and talar tilt. Large lipoma noted to the anterior ankle joint. Soft tissue mass extended from the tibialis anterior to over the lateral ankle and is approximately 6 cm round. There is also some abnormal soft tissue within the ankle joint which appeared to be both lipoma and synovitic in nature. Significant synovitis noted to the ankle joint.?Posterior tibial tendon was intact with synovitis noted. Peroneus longus had synovitis around it. The peroneus brevis tendon was flattened with no distinct tear. There was some impaction with posttraumatic arthritis at the medial aspect of the tibial plafond consistent with old fracture. There was a piece of avulsion fracture nonunion noted to the medial malleolus with a loose body in the medial ankle gutter which was removed. No evidence of osteomyelitis or deep infection noted. Partial tear noted to the deltoid ligament. Partial tear noted to both the ATFL and CFL. Modifier: This case took approximately 1 hr longer than normal due to previous fracture and trauma history, extensive synovitis, large body habitus morbid obesity requiring extensive dissection and debridement. Operative note:: On this date and time patient was deemed an appropriate surgical candidate. Pre-op regional popliteal nerve block performed by anesthesia. With informed consent signed, the patient was taken to the operating theater. Patient positioned supine. General anesthesia induced. Tourniquet applied to left thigh.? IV antibiotics infused.?The left lower extremity was prepped and draped in normal sterile fashion. Left ankle soft tissue mass excision: An incision was mapped out over the anterior ankle. Standard dissection with care to maintain surgical hemostasis. Soft tissue mass was encountered. Sharp and blunt dissection techniques used t
--- NOTE | 2022-06-08 15:28 | SUR.PHASEI ---
1526- detailed report called to yvette guerrero in post op. 1528- pt left in stable condition with yvette guerrero in post op, dressings C.D.I, all vitals stable at this time.
--- NOTE | 2022-06-09 07:55 | EXP.ANES.II ---
[facility] Anesthesia Record Part II Anesthesia Record Part II Discharge Time: 15:27 Destination: Surgical Day Care (OP Surgery) PACU nurse assessment reviewed?: Yes Patient Condition:: Good Anesthesia Complications:: None Swallowing reflex intact?: Yes Cyanosis?: No Blood Pressure: 148/73 Pulse Rate: 90 Temperature: 97.9 F Mental Status: Alert & Oriented Pain level:: 0 Nausea and/or vomitting:: None Intake, IV Amount: 0
[2022-06-09 07:56] VITALS: BP 148/73; PULSE 90; TEMP 36.6
== END 2022-06-08 16:20 | disposition home or self-care (01) ==
PROVIDERS: PCP Family Medicine; Visit Provider Podiatrist
PROC: (CPT 27695; principal; 2022-06-08 12:15)
DX: M77.52 Other enthesopathy of left foot and ankle (principal); M25.372 Other instability, left ankle; D17.24 Benign lipomatous neoplasm of skin and subcutaneous tissue of left leg; M25.572 Pain in left ankle and joints of left foot; G89.29 Other chronic pain; M65.9 Synovitis and tenosynovitis, unspecified; S93.422A Sprain of deltoid ligament of left ankle, initial encounter; G43.909 Migraine, unspecified, not intractable, without status migrainosus; E03.9 Hypothyroidism, unspecified; Z79.899 Other long term (current) drug therapy; I25.10 Atherosclerotic heart disease of native coronary artery without angina pectoris; I10 Essential (primary) hypertension; M24.072 Loose body in left ankle
CPT/HCPCS: 27695; 27626; 27634; 27640; 27687; 73600; 73610; 76000; 96374; C1762; J2405; Q4211

== ENCOUNTER → 2022-06-16 06:23 | Outpatient (CLI) | payer MEDICARE, SELFPAY | PROVIDERS: Visit Provider Podiatrist | DX: Z79.899 Other long term (current) drug therapy (principal) ==

== ENCOUNTER 2022-06-16 12:27 | Outpatient (RCR) | payer MEDICARE, SELFPAY | END 2022-06-16 13:50 | disposition home or self-care (01) | LOC: PT 12:27 | PROVIDERS: Visit Provider Podiatrist | DX: M25.572 Pain in left ankle and joints of left foot (principal); D17.24 Benign lipomatous neoplasm of skin and subcutaneous tissue of left leg | CPT/HCPCS: 87070; 87077; 87205 ==

== ENCOUNTER → 2022-06-30 10:49 | Outpatient (CLI) | payer MEDICARE, SELFPAY ==
[2022-06-30 11:12] LABS: Basophils # 0.1 K/mm3 (0-0.2); Basophils % 1.5 % (0.1-2.0); Eosinophils # 0.4 K/mm3 (0.0-0.4); Eosinophils % 4.6 % (0.1-12.0); Hematocrit 43.2 % (37.0-47.0); Lymphocytes # 1.7 K/mm3 (0.7-4.5); Lymphocytes % 21.3 % (10-50); Mean Corpuscular HGB Conc 32.4 g/dL (31.8-35.4); Mean Corpuscular Hemoglobin 29.2 pg (27.0-31.2); Mean Corpuscular Volume 90.3 fl (81-99); Mean Platelet Volume 7.8 fl (7.4-10.4); Monocytes # 0.8 K/mm3 (0.1-1.0); Monocytes % 9.3 % (1.7-9.3); Neutrophils # 5.1 K/mm3 (1.8-7.8); Neutrophils % 63.2 % (37.0-80.0); Platelet Count 543 K/mm3 (142-424); Red Blood Count 4.78 M/mm3 (4.20-5.40); Red Cell Distribution Width 14.5 % (11.5-17.5); White Blood Count 8.1 K/mm3 (4.8-10.8)
[2022-06-30 11:34] LABS: Alanine Aminotransferase 37 U/L (12-78); Albumin Level 4.3 g/dl (3.5-5.0); Albumin/Globulin Ratio 1.4 (1.1-1.8); Alkaline Phosphatase 99 U/L (38-126); Anion Gap 16.6 mEq/L (5-15); Aspartate Amino Transferase 40 U/L (14-36); Bilirubin,Total 0.6 mg/dl (0.2-1.3); Blood Urea Nitrogen 19 mg/dl (7-17); Calcium 9.9 mg/dl (8.4-10.2); Carbon Dioxide 24 mmol/L (22.0-30.0); Chloride 101 mmol/L (98-107); Estimated Glomerular Filt Rate 47 ml/min (>60); GFR (African American) 57 ML/MIN (>60); Glucose 122 mg/dl (74-100); Potassium 3.6 mmoL/L (3.5-5.1); Sodium 138 mmol/L (136-145); Total Protein,Serum 7.3 g/dl (6.3-8.2)
[2022-06-30 11:39] LABS: C-Reactive Protein 26.6 mg/L (0-4)
[2022-06-30 13:02] LABS: Erythrocyte Sedimentation Rate 80 mm/hr (0-30)
== END ==
PROVIDERS: PCP Family Medicine; Visit Provider Podiatrist
DX: Z98.890 Other specified postprocedural states (principal); G43.009 Migraine without aura, not intractable, without status migrainosus; T81.49XA Infection following a procedure, other surgical site, initial encounter; B96.5 Pseudomonas (aeruginosa) (mallei) (pseudomallei) as the cause of diseases classified elsewhere
CPT/HCPCS: 36415; 80053; 85025; 85651; 86140; 87070; 87186; 87205

== ENCOUNTER → 2022-07-01 15:52 | Outpatient (CLI) | payer MEDICARE, SELFPAY | PROVIDERS: Visit Provider Podiatrist | DX: G43.909 Migraine, unspecified, not intractable, without status migrainosus (principal) ==

== ENCOUNTER → 2022-07-04 06:01 | Outpatient (CLI) | payer MEDICARE, SELFPAY | PROVIDERS: Visit Provider Podiatrist | DX: Z79.899 Other long term (current) drug therapy (principal); S91.002A Unspecified open wound, left ankle, initial encounter | CPT/HCPCS: 87070; 87205 ==

== ENCOUNTER → 2022-07-12 15:15 | Outpatient (CLI) | payer MEDICARE, SELFPAY ==
[2022-07-12 18:21] LABS: Basophils # 0.3 K/mm3 (0-0.2); Basophils % 3.6 % (0.1-2.0); Eosinophils # 0.5 K/mm3 (0.0-0.4); Eosinophils % 6.4 % (0.1-12.0); Hematocrit 52.2 % (37.0-47.0); Hemoglobin 13.6 g/dL (12.2-16.2); Lymphocytes # 1.8 K/mm3 (0.7-4.5); Lymphocytes % 25.7 % (10-50); Mean Corpuscular HGB Conc 26.2 g/dL (31.8-35.4); Mean Corpuscular Hemoglobin 28.6 pg (27.0-31.2); Mean Corpuscular Volume 109.4 fl (81-99); Mean Platelet Volume 22.4 fl (7.4-10.4); Monocytes # 0.6 K/mm3 (0.1-1.0); Monocytes % 8.1 % (1.7-9.3); Neutrophils # 4.2 K/mm3 (1.8-7.8); Neutrophils % 59.8 % (37.0-80.0); Platelet Count 306 K/mm3 (142-424); Red Blood Count 4.77 M/mm3 (4.20-5.40); Red Cell Distribution Width 20.2 % (11.5-17.5); White Blood Count 7.1 K/mm3 (4.8-10.8)
[2022-07-12 19:34] LABS: Erythrocyte Sedimentation Rate 77 mm/hr (0-30)
[2022-07-12 19:37] LABS: Alanine Aminotransferase 23 U/L (12-78); Albumin Level 4.1 g/dl (3.5-5.0); Albumin/Globulin Ratio 1.5 (1.1-1.8); Alkaline Phosphatase 104 U/L (38-126); Anion Gap 17.4 mEq/L (5-15); Aspartate Amino Transferase 38 U/L (14-36); Bilirubin,Total 0.5 mg/dl (0.2-1.3); Blood Urea Nitrogen 14 mg/dl (7-17); Calcium 9.2 mg/dl (8.4-10.2); Carbon Dioxide 27 mmol/L (22.0-30.0); Chloride 98 mmol/L (98-107); Estimated Glomerular Filt Rate 58 ml/min (>60); GFR (African American) 70 ML/MIN (>60); Globulin 2.8 g/dL (1.3-3.2); Glucose 91 mg/dl (74-100); Potassium 4.4 mmoL/L (3.5-5.1); Sodium 138 mmol/L (136-145); Total Protein,Serum 6.9 g/dl (6.3-8.2)
[2022-07-12 19:44] LABS: C-Reactive Protein 26.8 mg/L (0-4)
== END ==
PROVIDERS: PCP Family Medicine; Visit Provider Podiatrist
DX: S91.002A Unspecified open wound, left ankle, initial encounter (principal); G43.009 Migraine without aura, not intractable, without status migrainosus
CPT/HCPCS: 36415; 80053; 85025; 85651; 86140

== ENCOUNTER 2022-07-15 15:07 | Outpatient (CLI) | payer MEDICARE, SELFPAY ==
[2022-07-15 15:15] VITALS: BP 147/101; PULSE 99; RESP 20; TEMP 36.9; O2SAT 95
[2022-07-15 15:37] VITALS: BP 142/99; PULSE 98; RESP 20; TEMP 36.9; O2SAT 95
== END 2022-07-15 15:43 | disposition home or self-care (01) ==
LOC: INF 15:09
PROVIDERS: PCP Family Medicine; Visit Provider Family Medicine
DX: G43.911 Migraine, unspecified, intractable, with status migrainosus (principal); S91.002D Unspecified open wound, left ankle, subsequent encounter
CPT/HCPCS: 96372; 97140; 97597

== ENCOUNTER → 2022-07-26 16:35 | Outpatient (CLI) | payer MEDICARE, SELFPAY ==
[2022-07-26 17:00] LABS: Basophils # 0.1 K/mm3 (0-0.2); Eosinophils # 0.4 K/mm3 (0.0-0.4); Eosinophils % 7.7 % (0.1-12.0); Hematocrit 40.9 % (37.0-47.0); Hemoglobin 13.4 g/dL (12.2-16.2); Lymphocytes # 1.8 K/mm3 (0.7-4.5); Lymphocytes % 30.5 % (10-50); Mean Corpuscular HGB Conc 32.8 g/dL (31.8-35.4); Mean Corpuscular Hemoglobin 29.6 pg (27.0-31.2); Mean Corpuscular Volume 90.2 fl (81-99); Mean Platelet Volume 7.9 fl (7.4-10.4); Monocytes # 0.4 K/mm3 (0.1-1.0); Monocytes % 6.9 % (1.7-9.3); Neutrophils # 3.1 K/mm3 (1.8-7.8); Neutrophils % 53.9 % (37.0-80.0); Platelet Count 394 K/mm3 (142-424); Red Blood Count 4.53 M/mm3 (4.20-5.40); Red Cell Distribution Width 14.4 % (11.5-17.5); White Blood Count 5.8 K/mm3 (4.8-10.8)
[2022-07-26 18:21] LABS: Alanine Aminotransferase 31 U/L (12-78); Albumin Level 4.1 g/dl (3.5-5.0); Albumin/Globulin Ratio 1.5 (1.1-1.8); Alkaline Phosphatase 101 U/L (38-126); Anion Gap 17.5 mEq/L (5-15); Aspartate Amino Transferase 39 U/L (14-36); Bilirubin,Total 0.6 mg/dl (0.2-1.3); Blood Urea Nitrogen 14 mg/dl (7-17); Calcium 9.2 mg/dl (8.4-10.2); Carbon Dioxide 25 mmol/L (22.0-30.0); Chloride 100 mmol/L (98-107); Estimated Glomerular Filt Rate 65 ml/min (>60); GFR (African American) 79 ML/MIN (>60); Globulin 2.8 g/dL (1.3-3.2); Glucose 114 mg/dl (74-100); Potassium 3.5 mmoL/L (3.5-5.1); Sodium 139 mmol/L (136-145); Total Protein,Serum 6.9 g/dl (6.3-8.2)
[2022-07-26 18:27] LABS: C-Reactive Protein 30.2 mg/L (0-4)
[2022-07-26 19:01] LABS: Erythrocyte Sedimentation Rate 67 mm/hr (0-30)
== END ==
PROVIDERS: PCP Family Medicine; Visit Provider Nurse Practitioner Family
DX: S91.002A Unspecified open wound, left ankle, initial encounter (principal); G43.009 Migraine without aura, not intractable, without status migrainosus
CPT/HCPCS: 36415; 80053; 85025; 85651; 86140

== ENCOUNTER → 2022-08-09 09:41 | Outpatient (CLI) | payer MEDICARE, SELFPAY ==
--- NOTE | 2022-08-09 10:06 | XR_ITS ---
FINAL REPORT CLINICAL HISTORY: Left ankle pain FINDINGS: 06/08/2022 Three views were obtained. There is no acute fracture or dislocation. The previously noted overlying bandage has been removed. There is a well corticated os ossific density inferior to the medial malleolus, may be due to old trauma. There is diffuse soft tissue swelling about the ankle. There is a moderate plantar spur. IMPRESSION: No acute process. Reviewed, Interpreted and Dictated by Enrique Joya MD Transcribed by Yary Rangel Authenticated and [facility]
[2022-08-09 10:40] LABS: Basophils # 0.1 K/mm3 (0-0.2); Basophils % 1.6 % (0.1-2.0); Eosinophils # 0.3 K/mm3 (0.0-0.4); Eosinophils % 4.5 % (0.1-12.0); Hematocrit 40.7 % (37.0-47.0); Lymphocytes # 1.7 K/mm3 (0.7-4.5); Lymphocytes % 23.9 % (10-50); Mean Corpuscular HGB Conc 31.9 g/dL (31.8-35.4); Mean Corpuscular Hemoglobin 29.4 pg (27.0-31.2); Mean Corpuscular Volume 92.1 fl (81-99); Monocytes # 0.6 K/mm3 (0.1-1.0); Monocytes % 8.1 % (1.7-9.3); Neutrophils # 4.5 K/mm3 (1.8-7.8); Neutrophils % 61.9 % (37.0-80.0); Platelet Count 367 K/mm3 (142-424); Red Blood Count 4.42 M/mm3 (4.20-5.40); Red Cell Distribution Width 14.7 % (11.5-17.5); White Blood Count 7.3 K/mm3 (4.8-10.8)
[2022-08-09 11:01] LABS: Alanine Aminotransferase 25 U/L (12-78); Albumin Level 4.3 g/dl (3.5-5.0); Albumin/Globulin Ratio 1.7 (1.1-1.8); Alkaline Phosphatase 91 U/L (38-126); Anion Gap 16.2 mEq/L (5-15); Aspartate Amino Transferase 31 U/L (14-36); Bilirubin,Total 0.8 mg/dl (0.2-1.3); Blood Urea Nitrogen 17 mg/dl (7-17); Calcium 9.7 mg/dl (8.4-10.2); Carbon Dioxide 29 mmol/L (22.0-30.0); Chloride 97 mmol/L (98-107); Estimated Glomerular Filt Rate 47 ml/min (>60); GFR (African American) 57 ML/MIN (>60); Globulin 2.6 g/dL (1.3-3.2); Glucose 117 mg/dl (74-100); Potassium 3.2 mmoL/L (3.5-5.1); Sodium 139 mmol/L (136-145); Total Protein,Serum 6.9 g/dl (6.3-8.2)
[2022-08-09 11:43] LABS: Erythrocyte Sedimentation Rate 75 mm/hr (0-30)
== END ==
PROVIDERS: PCP Family Medicine; Visit Provider Nurse Practitioner Family
DX: Z98.890 Other specified postprocedural states (principal); G43.009 Migraine without aura, not intractable, without status migrainosus; S91.002D Unspecified open wound, left ankle, subsequent encounter; T81.31XD Disruption of external operation (surgical) wound, not elsewhere classified, subsequent encounter; B95.7 Other staphylococcus as the cause of diseases classified elsewhere
CPT/HCPCS: 36415; 73610; 80053; 85025; 85651; 86140; 87070; 87077; 87186; 87205

== ENCOUNTER 2022-08-12 09:15 | Outpatient (CLI) | payer MEDICARE, SELFPAY ==
[2022-08-12 09:32] VITALS: BP 157/99; PULSE 77; RESP 16; TEMP 36.6; O2SAT 97
[2022-08-12 09:50] VITALS: BP 151/89; PULSE 84; RESP 16; TEMP 36.6; O2SAT 97
== END 2022-08-12 09:50 | disposition home or self-care (01) ==
LOC: INF 09:16
PROVIDERS: PCP Family Medicine; Visit Provider Family Medicine
DX: G43.911 Migraine, unspecified, intractable, with status migrainosus (principal)
CPT/HCPCS: 96372

== ENCOUNTER 2022-08-19 15:30 | Outpatient (RCR) | payer MEDICARE, SELFPAY ==
--- NOTE | 2022-07-07 09:30 | HMH.PTOPWND ---
Rehab Outpt Wound Evaluation Rehab OP Wound Evaluation Start: 07/07/22 07:51 Freq: Status: Active Protocol: Document 07/07/22 08:58 PHOOSVALDO (Rec: 07/07/22 09:29 PHORNE [id number]) E-signed By Brayden Marie PT Subjective/History History History Pt is 52 yowf who presents with L ankle wounds after surgery performed 06/08/2022. She underwent L ankle lipoma removal with tendon and ligament repairs complicated by poor wound healing and post -op infection. She has also had considerable pain in the L ankle prior to and after surgery. She has PMH of anxiety, depression, OA, Breast CA, thyroid CA, uterine CA, chemo, XRT, HL, HTN, CAD, hypothyroid, TRISTAN, kidney stones, migraines, and sleep apnea. Subjective Subjective Currently she reports 9/10 pain in the L ankle despite pain medication (although shows little outward signs of significant pain.) 3/4 TTP along lateral ankle noted this date. 2+ pitting edema noted in the dorsal L foot. Wound Eval Wound Left Lateral Ankle Wound Type post-op Is This a Chronic Wound Yes Wound Length (cm) 8.3 Wound Width (cm) 14.2 Wound Depth (cm) 0.4 Wound Bed Appearance Beefy Red,Yellow Percentage Granulated (%) 25 Percentage of Slough (%) 75 Wound Margins Description Well Defined Undermining Position 12 o'clock Undermining Length (cm) 1.0 Tunneling Position 2 o'clock Tunneling Depth (cm) 3.0 Surrounding Tissue Appearance [place] Edema Type Pitting Edema Degree 2+ Query Text:1+ Trace, Barely Detectable, Rebound 15-30 seconds 2+ Moderate, Slight Indentation, Rebound 10-20 seconds 3+ Deep, Deeper Indentation, Rebound > 30 seconds 4+ Very Deep, Rebound > 60 seconds Drainage Description Serosanguineous Drainage Amount Moderate Wound Topical Solution/Irrigant Saline Irrigant Primary Dressing Silver Dressing Comment [facility]
--- NOTE | 2022-08-12 08:49 | HMH.RHREAS ---
Rehab Reassessment Rehab OP Re-assessment Start: 08/12/22 08:37 Freq: Status: Active Protocol: Document 08/12/22 08:45 JASE (Rec: 08/12/22 08:49 PHOOSVALDO [id number]) E-signed By Brayden Marie, PT Rehab Re-assessment Subjective Subjective Pt continues to c/o increased sensitivity to light touch or pressure on the lateral L ankle. Pain 03/11. Objective Objective Notes All wounds of L ankle appear more healthy this date with less slough in the wound bed, increased red granulation tissue, and less hyperkeratosis of the wound perimeter. Continues to have moderate drainage with mild odor after wound cleansing. L Lateral Ankle: L= 2.2 cm, W= 4.0 cm, D= 0.5 cm, Tunnel @ 12 o'clock= 2.5 cm. L Anterior Ankle: L= 5.2 cm, W = 3.2 cm, D= 0.5 cm L Medial Ankle: L= 0.6 cm, W= 0.5 cm, D= 0.4 cm. Assessment Progress Assessment Progressing as Expected Assessment Notes Pt has shown significant healing with overall decrease in wound area. Much higher level of granulation tissue in the wound bed and decreasing edema overall. Pain remains high and pt is very sensitive to even light touch in certain areas. Needs further wound care and debridement. Patient goals met ST,2,3,4,5 Goals Not Met LT,2,3,4,5,6,7,8,9 Revised Goals none Plan Plan Continue per initial POC. Frequency of Therapy 1-2 x/wk Duration of therapy 4 wks Time and Billing Re-Eval Time 15 Re-Eval Billing Units 1 PHYSICIAN CERTIFICATION: I certify the specified therapy services for Roseline Peraza are required, authorized, and reviewed every 30 days.
== END 2022-08-19 15:35 | disposition home or self-care (01) ==
LOC: PT 15:30
PROVIDERS: Visit Provider Podiatrist
DX: S90.522A Blister (nonthermal), left ankle, initial encounter (principal); T81.49XA Infection following a procedure, other surgical site, initial encounter
CPT/HCPCS: 97140; 97163; 97164; 97597; 97598

== ENCOUNTER → 2022-08-29 15:12 | Outpatient (CLI) | payer MEDICARE, SELFPAY ==
[2022-08-29 16:51] LABS: Alanine Aminotransferase 30 U/L (12-78); Albumin Level 4.3 g/dl (3.5-5.0); Albumin/Globulin Ratio 1.6 (1.1-1.8); Alkaline Phosphatase 82 U/L (38-126); Anion Gap 18.3 mEq/L (5-15); Aspartate Amino Transferase 37 U/L (14-36); Bilirubin,Total 0.5 mg/dl (0.2-1.3); Blood Urea Nitrogen 14 mg/dl (7-17); Calcium 9.8 mg/dl (8.4-10.2); Carbon Dioxide 30 mmol/L (22.0-30.0); Chloride 97 mmol/L (98-107); Estimated Glomerular Filt Rate 58 ml/min (>60); GFR (African American) 70 ML/MIN (>60); Globulin 2.7 g/dL (1.3-3.2); Glucose 97 mg/dl (74-100); Potassium 3.3 mmoL/L (3.5-5.1); Sodium 142 mmol/L (136-145)
[2022-08-29 16:57] LABS: C-Reactive Protein 16.8 mg/L (0-4)
[2022-08-29 17:06] LABS: Erythrocyte Sedimentation Rate 51 mm/hr (0-30)
[2022-08-29 17:25] LABS: Basophils # 0.1 K/mm3 (0-0.2); Basophils % 1.8 % (0.1-2.0); Eosinophils # 0.3 K/mm3 (0.0-0.4); Eosinophils % 5.4 % (0.1-12.0); Hematocrit 40.9 % (37.0-47.0); Lymphocytes # 1.5 K/mm3 (0.7-4.5); Lymphocytes % 23.9 % (10-50); Mean Corpuscular HGB Conc 31.7 g/dL (31.8-35.4); Mean Corpuscular Hemoglobin 29.3 pg (27.0-31.2); Mean Corpuscular Volume 92.4 fl (81-99); Mean Platelet Volume 8.6 fl (7.4-10.4); Monocytes # 0.7 K/mm3 (0.1-1.0); Monocytes % 10.7 % (1.7-9.3); Neutrophils # 3.7 K/mm3 (1.8-7.8); Neutrophils % 58.2 % (37.0-80.0); Platelet Count 351 K/mm3 (142-424); Red Blood Count 4.43 M/mm3 (4.20-5.40); Red Cell Distribution Width 14.5 % (11.5-17.5); White Blood Count 6.3 K/mm3 (4.8-10.8)
[2022-08-29 19:16] LABS: Hemoglobin A1C 5.3 % (4.0-6.0)
== END ==
PROVIDERS: PCP Family Medicine; Visit Provider Podiatrist
DX: S91.002D Unspecified open wound, left ankle, subsequent encounter (principal); T81.31XD Disruption of external operation (surgical) wound, not elsewhere classified, subsequent encounter; R73.03 Prediabetes
CPT/HCPCS: 36415; 80053; 83036; 85025; 85651; 86140

== ENCOUNTER 2022-08-31 08:10 | Day surgery (SDC) | payer MEDICARE, SELFPAY ==
[2022-08-31] VITALS (11 sets, daily range): BP systolic 133–169; BP diastolic 71–98; PULSE 76–115; RESP 16–18; TEMP 36.5–36.8; O2SAT 95–98; BMI 23.3
--- NOTE | 2022-08-31 08:49 | ECG_ITS ---
APPROVED REPORT Exam: Resting ECG HR:96 bpm ECG Measurements Heart Rate 96 AXES [place] 172 P 39 QRSd 89 QRS 7 QT 358 T 47 QTc 411 Conclusion SINUS RHYTHM NONSPECIFIC ST & T-WAVE ABNORMALITY BORDERLINE ECG UNCONFIRMED REPORT Electronically signed by : James Mansfield MD 08/31/2022 13:11:12
--- NOTE | 2022-08-31 08:57 | P.PN_ITS ---
PFSH PFS Medical History Anxiety and depression Arthritis Breast cancer CAD (coronary artery disease) Cancer History of chemotherapy History of radiation therapy Hyperlipidemia Hypertension Hypothyroidism Kidney stone Migraine Sleep apnea Thyroid cancer Thyroid disease Uterine cancer Surgical History H/O arthroscopy of right knee History of colonoscopy History of foot surgery History of hysterectomy History of knee surgery History of lumpectomy History of lumpectomy of left breast History of sinus surgery History of thyroidectomy History of total hysterectomy Hx of tonsillectomy Family History (Updated 08/31/22 @ 08:53 by Glory Gong RN) Other Family history of cancer Social History (Updated 08/31/22 @ 08:55 by Glory Gong RN) Smoking Status: Never smoker second hand exposure: No alcohol intake: current substance use type: denies use current occupational status: unemployed and disabled Travel in the last 8 weeks: None household members: none housing: apartment lives independently: Yes marital status: single number of children: 0 education level: high school current occupational exposures/hazards: No caffeine: Yes special sheldon needs: No agree to transfusion: No do you feel safe at home: Yes victim of physical abuse: No victim of emotional abuse: No victim of sexual abuse: No would you like helpful sources: No [facility] Anesthesia Checklist Patient Identification Patient Identification: Arm Band and Verbal (Name & ) Structural Data Admitted From: Home Planned Operative Procedure/s: Wound debridement Consent for Planned Operative Procedure(s) Verified: Yes NPO Status Verified Time NPO: 00:00 Chart Verification Results Verified: CBC and BMP Additional verifications Anesthesia Reactions: No Hx Blood Transfusions: No Blood Transfusion Reaction: No Airway Assessment C-Spine Mobility Assessed: Yes TMJ Mobility Assessed: Yes Dentition: Good Dentition Neurological Assessment Level of Consciousness: Awake Hx Seizures: No Numbness or tingling in extremities: No Anesthesia Plan Anesthesia Risk discussed: Yes Anesthesia Plan: Verified ASA Class: III Anesthesia Type: MAC w/Block
--- NOTE | 2022-08-31 10:26 | EXP.OP.NOTE ---
Date of procedure: 08/31/22 Pre-op Diagnosis:: Left ankle open wound Post-op Diagnosis:: Same Procedure performed:: Left ankle wound debridement x4 Application of wound graft Surgeon:: Moni Hill DPM ASSISTED LIVING COORDINATOR:: Jonah Padilla Anesthesia: MAC and regional (L pop block) Estimated blood loss (mL): 5 Clinical Note:: Patient is a 52-year-old female who had surgery 06/08/2022 for soft tissue mass removal.? Patient had a reaction to the STRATAFIX suture.? She also developed postop wound dehiscence and cellulitis. She has been on various antibiotics for MRSA and Pseudomonas infection. The infection has improved, clinically resolved.? She has been going to [facility] wound care clinic as well as having weekly podiatry visits.? Although there has been improvement, patient has failed conservative treatment, including multiple debridements, various wound dressings, off-loading, immobilization. The recent x-rays are negative for underlying bone infection. Any prior skin/soft tissue infection resolved with oral antibiotics. We discussed surgery. All risks and benefits were discussed including but not limited to: damage to blood vessels and nerves, bleeding, infection, wound complications, need for further surgery, implant/graft failure, need for removal of implant/graft, allergic reaction, prolonged or permanent swelling of the extremity, prolonged or permanent pain or deformity, CRPS/RSD, DVT/PE, and anesthetic complications including . Patient understands if wound/graft gets infected, it could lead to prolonged oral or IV antibiotics or increased risk of osteomyelitis, which could lead to possible loss of digits, partial foot or even BKA. No guarantees were given. All questions fully answered. The patient verbalized understanding and agreed to proceed with surgery. Consent was obtained. Saw PCP, Dr Juarez 08/12/22. Necessary labs and pre-op testing ordered: CBC, CMP, ESR, CRP, EKG. Patient is to be NWB in short fracture boot, with DME. eRx given for Doxy 100mg BID x10d (09/01-09/11/22), Oxy 10mg prn severe pain. Follow up in one week with Podiatry for skin check and wound care. Operative findings:: Left ankle wounds x4. 15' blade, forceps, curette used to sharply excisionally debride wounds x4. No ascending cellulitis or drainage noted. Post debridement the medial ankle measures: 0.4 x 0.3 x 0.2cm, 100% granular, extended into/including subq. The anterior ankle wound had some skin bridging noted and was two separate wounds. Anterior central proximal, post measures: 1.5 x 0.6 x 0.1cm, 100% granular tissue, into/including subq. Anterior central distal, post measures: 2.1 x 1.2 x 0.2cm, 100% granular tissue, into/including subq. Lateral: Post measures: 2.2 x 1.6 x 2.1cm with tracking noted superiorly into/including deep fascia, 100% granular. Operative note:: On this date and time patient was deemed an appropriate surgical candidate. Anesthesia gave left regional nerve block. With informed consent signed, the patient was taken to the operating theater room. The patient was positioned supine. MAC anesthesia was induced. No tourniquet used. IV Vanco, Cefepime given. Left ankle wound debridement x4: The left extremity was prepped and draped in normal sterile fashion. Attention was directed to the medial aspect of the left ankle over medial malleolus where an ulcer was noted. Wounds also noted to the central/anterior ankle and lateral ankle. See op findings for measurements. The skin edges and wounds were sharply excisionally debrided with 15' blade, forceps and curette. Post debridement, there was some bleeding was noted. Granular base was noted. No purulence or signs of infection noted. Next 1L of gentamicin irrigation was used to flush the wound. The wound was reexplored and no further signs of infection noted. Left foot application of wound graft: The morcellized graft was soaked in saline and was packed into the tracking lateral wound. The rest of the gr
--- NOTE | 2022-08-31 11:02 | SUR.PHASEII ---
pt IV vanc noted to have only had approx 100ml out. Vivek Rossi RN flushed iv with no issue. van cont. to infuse per dial-a-flow.
--- NOTE | 2022-08-31 12:36 | SUR.PHASEII ---
spoke with dr. norris regarding antibiotic and patient wanting to leave. stated that patient had cefepime before the vanc in the OR and has had half the Vanc so she is ok with patient leaving now.
== END 2022-08-31 12:45 | disposition home or self-care (01) ==
PROVIDERS: PCP Family Medicine; Visit Provider Podiatrist
PROC: (CPT 11042; principal; 2022-08-31 09:45)
DX: T81.31XA Disruption of external operation (surgical) wound, not elsewhere classified, initial encounter (principal); T85.692A Other mechanical complication of permanent sutures, initial encounter; Y82.8 Other medical devices associated with adverse incidents; L03.116 Cellulitis of left lower limb; B95.61 Methicillin susceptible Staphylococcus aureus infection as the cause of diseases classified elsewhere
CPT/HCPCS: 11042; C5271; 93005; 96374; J0692; Q4100

== ENCOUNTER 2022-09-13 16:15 | Outpatient (CLI) | payer MEDICARE, SELFPAY ==
[2022-09-13 16:30] VITALS: BP 145/94; PULSE 81; RESP 18; TEMP 36.3; O2SAT 98
[2022-09-13 16:52] VITALS: BP 140/90; PULSE 84; RESP 18; O2SAT 98
== END 2022-09-13 16:56 | disposition home or self-care (01) ==
LOC: INF 16:16
PROVIDERS: PCP Family Medicine; Visit Provider Family Medicine
DX: G43.911 Migraine, unspecified, intractable, with status migrainosus (principal)
CPT/HCPCS: 96372

== ENCOUNTER → 2022-09-13 17:10 | Outpatient (CLI) | payer MEDICARE, SELFPAY | LOC: LAB.DROPOF 17:10 | PROVIDERS: Visit Provider Podiatrist | DX: S91.002A Unspecified open wound, left ankle, initial encounter (principal) | CPT/HCPCS: 87070; 87205; 96372 ==

== ENCOUNTER → 2022-09-30 15:33 | Outpatient (CLI) | payer MEDICARE, SELFPAY ==
[2022-09-30 17:29] LABS: T4 (Thyroxine) 7.3 ug/dl (5.53-11.0)
[2022-10-02 08:17] LABS: Triiodothyronine (T3) Total 118 ng/dL (71-180)
== END ==
PROVIDERS: PCP Family Medicine; Visit Provider Family Medicine
DX: E03.9 Hypothyroidism, unspecified (principal)
CPT/HCPCS: 36415; 84436; 84480

== ENCOUNTER 2022-12-01 12:35 | Outpatient (CLI) | payer MEDICARE, SELFPAY ==
[2022-12-01 12:56] VITALS: BP 147/87; PULSE 81; RESP 18; TEMP 36.6; O2SAT 98
== END 2022-12-01 13:26 | disposition home or self-care (01) ==
LOC: INF 12:36
PROVIDERS: PCP Family Medicine; Visit Provider Family Medicine
DX: G43.911 Migraine, unspecified, intractable, with status migrainosus (principal)
CPT/HCPCS: 96372

== ENCOUNTER 2022-12-14 10:00 | Outpatient (RCR) | payer MEDICARE, SELFPAY ==
--- NOTE | 2022-11-07 12:03 | HMH.PTOPWND ---
Rehab Outpt Wound Evaluation Rehab OP Wound Evaluation Start: 11/07/22 11:28 Freq: Status: Active Protocol: Document 11/07/22 11:28 JASE (Rec: 11/07/22 12:03 [email or web address] [id number]) E-signed By Brayden Marie, PT Subjective/History History History This is the initial PT eval for Roseline Peraza 52 yowf who presents with chronic L LE edema x ~ 5 mos after ORIF of the L ankle with difficulty incision healing. She has continued c/o increased pain as well. She reports edema is decreased with propping of the L LE. She has hx of HTN, Migraines, Breast ca, thyroid ca, and uterine ca and TRISTAN. Subjective Subjective Pt currently c/o 8/10 pain. No tenderness to palpation at this time. Dry skin and mild erythema also noted. Lymphedema Eval Classification of Lymphedema Secondary Lymphedema Yes Post-Surgical Lymphedema Yes Stemmer's sign Stemmer's Sign yes Stage of Lymphedema Lymphedema stages Stage II (Pitting edema, increased fibrosis w/ decreased pitting) Skin Changes Dry Skin Yes Redness Yes Wounds Yes Discoloration of Skin Yes Other Changes Yes Pain Scale Pain Scale (0-10) 8 Radiation Therapy Has received radiation therapy yes Affected Extremities Areas Affected by Lymphedema/Edema Left Lower Extremity Manual Lymphatic Drainage Treatment Area MLD Treatment Area Left Lower Extremity Wound Problems/Impairments Impairments Problems/Impairmments Palpation Tenderness,Impaired Range of Motion,Impaired Strength,Impaired Recreational Activities,Increased Edema, Lymphedema Present,Wound Care Needs,Subjective C/O Pain, Impaired Self Care/Self Management Prognosis Rehab Potential Good Clinical Impression Consistent with Diagnosis Yes Short Term Goals Number of Weeks 2 Decrease Edema Yes Decrease Subjective C/O Pain Yes: 6/10 Patient to Understand Lymphedema Yes Treatment and Exercises 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
--- NOTE | 2022-12-14 11:36 | HMH.RHREAS ---
Rehab Reassessment Rehab OP Re-assessment Start: 12/14/22 08:17 Freq: Status: Active Protocol: Document 12/14/22 11:23 JASE (Rec: 12/14/22 11:35 PHORMAXWELL [id number]) E-signed By Brayden Marie, PT Rehab Re-assessment Subjective Subjective Pt reports feeling much less pain overall in the L LE. It swelled up yesterday because I was up on it a lot, though. Objective Objective Notes Circumferential Measurements: L LE is 338.8 cm total which is -3.7 cm since initial eval. Pain: 4/10 in L lower leg. Assessment Progress Assessment Progressing as Expected Assessment Notes Pt has shown moderate improvement in L LE edema and significant improvement in L LE pain. Improving ambulation steadily, as well. She continues to need skilled rehab services to further reach alf goals. Patient goals met ST,2,3 Goals Not Met LT,2,3,4,5 Revised Goals none Plan Plan Continue per initial POC. Frequency of Therapy 2 x/wk Duration of therapy 4 wks Time and Billing Re-Eval Time 14 Re-Eval Billing Units 1 PHYSICIAN CERTIFICATION: I certify the specified therapy services for Roseline Peraza are required, authorized, and reviewed every 30 days.
== END 2022-12-14 10:05 | disposition home or self-care (01) ==
LOC: PT 10:00
PROVIDERS: PCP Family Medicine; Visit Provider Podiatrist
DX: I89.0 Lymphedema, not elsewhere classified (principal)
CPT/HCPCS: 97110; 97140; 97162; 97164; 97760

== ENCOUNTER 2023-02-07 15:47 | Outpatient (CLI) | payer MEDICARE, SELFPAY ==
[2023-02-07 15:56] VITALS: BP 143/95; PULSE 96; RESP 20; TEMP 36.6; O2SAT 96
== END 2023-02-07 16:13 | disposition home or self-care (01) ==
LOC: INF 15:48
PROVIDERS: PCP Family Medicine; Visit Provider Family Medicine
DX: G43.911 Migraine, unspecified, intractable, with status migrainosus (principal)
CPT/HCPCS: 96372

== ENCOUNTER → 2023-04-07 12:42 | Outpatient (CLI) | payer MEDICARE, SELFPAY | LOC: RT 12:44 | PROVIDERS: PCP Family Medicine; Visit Provider Family Medicine | DX: R00.2 Palpitations (principal) | CPT/HCPCS: 93306 ==

== ENCOUNTER 2023-05-04 11:52 | Outpatient (CLI) | payer MEDICARE, SELFPAY ==
[2023-05-04 12:06] VITALS: BP 135/97; PULSE 85; RESP 16; TEMP 36.3; O2SAT 97
--- NOTE | 2023-05-04 12:20 | XR_ITS ---
FINAL REPORT CLINICAL HISTORY: PAIN WITHOUT INJURY, lateral pain FINDINGS: Right knee Three views were obtained. There is no acute fracture or dislocation. There are mild and moderate degenerative changes. Small joint effusion is identified. IMPRESSION: Degenerative changes and small joint effusion. Reviewed, Interpreted and Dictated by Nba Ramirez III, MD Transcribed by Yary Rangel Authenticated and [facility]
== END 2023-05-04 12:28 | disposition home or self-care (01) ==
LOC: INF 11:54
PROVIDERS: PCP Family Medicine; Visit Provider Family Medicine
DX: G43.911 Migraine, unspecified, intractable, with status migrainosus (principal); M25.561 Pain in right knee
CPT/HCPCS: 73562; 96372

== ENCOUNTER → 2023-05-24 15:12 | Outpatient (CLI) | payer MEDICARE, SELFPAY ==
[2023-05-24 16:27] LABS: Blood Urea Nitrogen 20 mg/dl (7-17); Estimated Glomerular Filt Rate 47 ml/min (>60); GFR (African American) 56 ML/MIN (>60)
== END ==
PROVIDERS: Physician Assistant; PCP Family Medicine; Visit Provider Nurse Practitioner
DX: Z01.812 Encounter for preprocedural laboratory examination (principal)
CPT/HCPCS: 36415; 82565; 84520

== ENCOUNTER 2023-05-25 08:25 | Outpatient (CLI) | payer MEDICARE, SELFPAY ==
[2023-05-25 09:18] VITALS: BP 148/87; PULSE 87; RESP 18; TEMP 36.7; O2SAT 95
[2023-05-25 10:40] VITALS: BP 129/94; PULSE 68; RESP 18
--- NOTE | 2023-05-25 10:40 | PC.NURSE ---
Procedure started, VSS, no C/O.
[2023-05-25 10:49] VITALS: BP 128/74; PULSE 67; RESP 18
[2023-05-25 10:55] VITALS: BP 125/65; PULSE 59; RESP 17; O2SAT 94
--- NOTE | 2023-05-25 10:59 | PC.NURSE ---
Procedure complete, VSS. Fernando 0.8mg SL given per standing order at 1043. Pt stable, does C/O BROOKE.
[2023-05-25 11:05] VITALS: BP 120/73; PULSE 54; RESP 17; O2SAT 95
== END 2023-05-25 11:14 | disposition home or self-care (01) ==
LOC: RAD 08:26
PROVIDERS: PCP Family Medicine; Visit Provider Nurse Practitioner
DX: E66.01 Morbid (severe) obesity due to excess calories (principal); R00.0 Tachycardia, unspecified; R06.00 Dyspnea, unspecified; R07.9 Chest pain, unspecified; Z68.41 Body mass index [BMI] 40.0-44.9, adult; R55 Syncope and collapse
CPT/HCPCS: 75574; Q9967

== ENCOUNTER → 2023-06-22 14:52 | Outpatient (CLI) | payer MEDICARE, SELFPAY ==
[2023-06-22 17:07] LABS: Chloride 104 mmol/L (98-107); Potassium 4.7 mmoL/L (3.5-5.1); Sodium 140 mmol/L (136-145)
[2023-06-22 17:10] LABS: Anion Gap 15.7 mEq/L (5-15); Blood Urea Nitrogen 26 mg/dl (7-17); Calcium 9.6 mg/dl (8.4-10.2); Carbon Dioxide 25 mmol/L (22.0-30.0); Estimated Glomerular Filt Rate 43 ml/min (>60); GFR (African American) 51 ML/MIN (>60); Glucose 84 mg/dl (74-100)
== END ==
PROVIDERS: PCP Family Medicine; Visit Provider Nurse Practitioner
DX: E66.01 Morbid (severe) obesity due to excess calories (principal); R06.00 Dyspnea, unspecified; R07.9 Chest pain, unspecified; R55 Syncope and collapse; Z68.41 Body mass index [BMI] 40.0-44.9, adult
CPT/HCPCS: 36415; 80048

== ENCOUNTER 2023-06-29 10:28 | Outpatient (CLI) | payer MEDICARE, SELFPAY ==
[2023-06-29 10:40] VITALS: BP 144/92; PULSE 78; RESP 16; TEMP 36.6; O2SAT 96
[2023-06-29 10:55] VITALS: BP 138/85; PULSE 72; RESP 16; TEMP 36.6; O2SAT 96
== END 2023-06-29 10:55 | disposition home or self-care (01) ==
LOC: INF 10:30
PROVIDERS: PCP Family Medicine; Visit Provider Family Medicine
DX: G43.911 Migraine, unspecified, intractable, with status migrainosus (principal)
CPT/HCPCS: 96372

== ENCOUNTER 2023-08-03 11:18 | Outpatient (CLI) | payer MEDICARE, SELFPAY ==
[2023-08-03 11:33] VITALS: BP 158/103; PULSE 81; RESP 17; O2SAT 95
== END 2023-08-03 12:05 | disposition home or self-care (01) ==
LOC: INF 11:20
PROVIDERS: PCP Family Medicine; Visit Provider Family Medicine
DX: G43.911 Migraine, unspecified, intractable, with status migrainosus (principal)
CPT/HCPCS: 96372

== ENCOUNTER 2023-09-07 12:15 | Outpatient (CLI) | payer MEDICARE, SELFPAY ==
[2023-09-07 12:30] VITALS: BP 141/82; PULSE 78; RESP 18; TEMP 36.6; O2SAT 94
[2023-09-07 13:00] VITALS: BP 138/78; PULSE 76; RESP 18; O2SAT 95
== END 2023-09-07 13:00 | disposition home or self-care (01) ==
LOC: INF 12:17
PROVIDERS: PCP Family Medicine; Visit Provider Family Medicine
DX: G43.011 Migraine without aura, intractable, with status migrainosus (principal)
CPT/HCPCS: 96372

== ENCOUNTER 2023-11-07 14:36 | Outpatient (CLI) | payer MEDICARE, SELFPAY ==
[2023-11-07 14:50] VITALS: BP 137/95; PULSE 82; RESP 16; TEMP 36.6; O2SAT 98
[2023-11-07] MEDS: MORPHINE 2MG/ML SYRINGE 2 MG (14:50)
[2023-11-07] MEDS: PROMETHAZINE HCL 25MG/ML 1ML VIAL 25 MG (14:51)
== END 2023-11-07 15:14 | disposition home or self-care (01) ==
LOC: INF 14:37
PROVIDERS: PCP Family Medicine; Visit Provider Family Medicine
DX: G43.011 Migraine without aura, intractable, with status migrainosus (principal)
CPT/HCPCS: 96372

== ENCOUNTER 2023-11-22 10:14 | Day surgery (SDC) | payer MEDICARE, SELFPAY ==
[2023-11-22] MEDS: LACTATED RINGERS 1000ML 1,000 ML 25 ML IV (10:39)
[2023-11-22 10:41] VITALS: BP 157/80; PULSE 110; RESP 18; TEMP 36.2; O2SAT 97; BMI 44.8
[2023-11-22 11:30] VITALS: O2SAT 96
--- NOTE | 2023-11-22 11:50 | HMH.SCOPE ---
Procedure: Date: 11/22/23 Patient Date of :: 1970 Procedure Performed:: Colonoscopy Indications:: The patient is a 53-year-old who presents for screening colonoscopy for colorectal cancer. Performing Provider:: Eh Vidal MD Referring Provider:: Steve Juarez MD Sedation:: See RN records Procedure:: After placing the patient in the left lateral decubitus position, the colonoscopy was gently inserted into the rectum and under direct visualization advanced to the cecum which was identified by transillumination in the right lower quadrant, identification of the ileocecal valve, appendiceal orifice, and cecal strap. Color, texture, mucosa, and anatomy of the colon were carefully examined with the scope. Findings:: The quality of the bowel preparation was good. The patient tolerated the procedure well. There was a small sessile polyp 4 mm in size in the descending colon. The polyp was removed by cold snare polypectomy. The polyp was not retrieved. There were 2 sessile polyps 3 and 4 mm in size in the rectum. The polyps were removed by cold snare polypectomy. Polyps were retrieved. The remaining colon appeared normal. There were internal hemorrhoids seen on retroflexion view of the rectum. Recommendations:: Await pathology results Repeat colonoscopy in 5 years for surveillance purposes Complications:: None Estimated blood obtained (mL): 0 Colonoscopy Component Colonoscopy Component Was a colonoscopy performed during today's procedure?: Yes Recommended follow up colonoscopy of at least 10 years?: Yes
[2023-11-22 11:51] VITALS: BP 149/91; PULSE 83; RESP 17; TEMP 37.1; O2SAT 99
[2023-11-22 12:01] VITALS: BP 167/87; PULSE 79; RESP 18; O2SAT 99
[2023-11-22 12:08] VITALS: BP 150/90; PULSE 79; RESP 18; O2SAT 98
--- NOTE | 2023-11-22 12:49 | P.PNANES_ITS ---
[facility] Disclaimer: The information contained in this section may have been updated after the patient was seen, as this information can be updated by other users. Medical History Anxiety and depression Arthritis Asthma Breast cancer CAD (coronary artery disease) Cancer Edema History of chemotherapy History of radiation therapy Hyperlipidemia Hypertension Hypothyroidism Kidney stone Migraine Osteoarthritis Sleep apnea Thyroid cancer Thyroid disease Uterine cancer Surgical History H/O arthroscopy of right knee History of colonoscopy History of foot surgery History of hysterectomy History of knee surgery History of lumpectomy Left History of lumpectomy of left breast History of sinus surgery History of thyroidectomy History of total hysterectomy Hx of tonsillectomy Family History Other Family history of cancer Social History Smoking Status: Never smoker second hand exposure: No alcohol intake: never substance use type: denies use current occupational status: unemployed and disabled Travel in the last 8 weeks: None household members: none housing: apartment lives independently: Yes marital status: single number of children: 0 education level: high school current occupational exposures/hazards: No caffeine: Yes special sheldon needs: No agree to transfusion: No do you feel safe at home: Yes victim of physical abuse: No victim of emotional abuse: No victim of sexual abuse: No would you like helpful sources: No [facility] Anesthesia Checklist Patient Identification Patient Identification: Arm Band and Family Structural Data Admitted From: Home Planned Operative Procedure/s: Colonoscopy Consent for Planned Operative Procedure(s) Verified: Yes Verified Documents: Surgical Consent and History and Physical NPO Status Verified Time NPO: 00:00 Additional verifications Patient : No Anesthesia Reactions: No Hx Blood Transfusions: No Blood Transfusion Reaction: No Cephalosporin Allergy: No Previous Colonoscopy: No Airway Assessment Mallampati Score:: Class II C-Spine Mobility Assessed: Yes TMJ Mobility Assessed: Yes Dentition: Good Dentition Neurological Assessment Level of Consciousness: Awake, Alert, Appropriate and Follows Commands Hx Seizures: No Numbness or tingling in extremities: No Anesthesia Plan Anesthesia Risk discussed: Yes ASA Class: III Anesthesia Type: MAC Preoperative Comments Pre-Operative Comments: Hypertension. History of Thyroidectomy.
== END 2023-11-22 12:15 | disposition home or self-care (01) ==
PROVIDERS: PCP Family Medicine; Visit Provider Internal Medicine
PROC: (CPT 45385; principal; 2023-11-22 11:30)
DX: Z12.11 Encounter for screening for malignant neoplasm of colon (principal); K64.8 Other hemorrhoids; K63.5 Polyp of colon
CPT/HCPCS: 45385; 88305

== ENCOUNTER 2024-03-21 16:55 | Outpatient (CLI) | payer MEDICARE, SELFPAY ==
[2024-03-21] MEDS: PROMETHAZINE HCL 25MG/ML 1ML VIAL 25 MG (17:16)
[2024-03-21] MEDS: MORPHINE 2MG/ML SYRINGE 2 MG (17:17)
--- NOTE | 2024-03-21 17:17 | PC.NURSE ---
I spoke with who is operations management professionals for to very order route because office had closed for the day and could not verify order. states pt is well known to the office and order route is IM. I did verify pt had a person to drive her home as well.
--- NOTE | 2024-03-21 17:24 | PC.NURSE ---
25mg phenergan given IM to left glut 2mg morphine given IM to right glut
== END 2024-03-21 17:25 | disposition home or self-care (01) ==
LOC: INF 16:56
PROVIDERS: PCP Family Medicine; Visit Provider Family Medicine
DX: G43.011 Migraine without aura, intractable, with status migrainosus (principal); Z79.891 Long term (current) use of opiate analgesic
CPT/HCPCS: 96374; 96372; 96375; G0463; J2270; J2550

== ENCOUNTER 2024-03-22 13:40 | Outpatient (CLI) | payer MEDICARE, SELFPAY ==
--- NOTE | 2024-03-22 13:47 | XR_ITS ---
FINAL REPORT CLINICAL HISTORY: SHOULDER PAIN rt pt states proximal humerus pain FINDINGS: Two views show no evidence of acute displaced fracture or dislocation of the visualized bony architecture. There is mild AC joint degenerative change. IMPRESSION: Mild AC joint degenerative change. Reviewed, Interpreted and Dictated by Josh Freire MD Transcribed by Yary Rangel Authenticated and [facility]
== END 2024-03-22 23:59 | disposition home or self-care (01) ==
LOC: RAD 13:41
PROVIDERS: PCP Family Medicine; Visit Provider Family Medicine
DX: M25.511 Pain in right shoulder (principal)
CPT/HCPCS: 73030

== ENCOUNTER 2024-05-14 10:51 | Outpatient (CLI) | payer MEDICARE, SELFPAY ==
--- OUTSIDE RECORDS SUMMARY | 2024-05-14 10:55 | XMS_ITS ---
Author Organization [facility] Address [address] [facility] [address] [facility] [address] [place] [id number] Care Team Providers Care Border Measurer And Cutter Name Role Phone Enmanuel Walton Primary Care Provider Ellen Juarez Unavailable [phone] REASON FOR REFERRAL Reason mild arthritic rodríguez es; needs to see PT Diagnosis 1 Right shoulder pain (M25.511) Referral Organization [facility] Referring Provider First Name Ellen Wilson Referring Provider Last Name Larry Referring Provider Speciality Family Pra ctice Referred Provider Specialty Physical The rapist General Notes Isabela Trevizo 03/28/20 10:08:14 AM > 04/08/2024 at 08:00am, Isabela Trevizo 03/28/2024 10:13:33 AM > pt informed; referral faxed Referral Priority Routine REASON FOR VISIT Test results Encounters Encounter Location Date Provider Diagnosis [facility] [address] [facility] [address] [place] [phone] 03/26/2024 Ellen Juarez Right shoulder pain M25.511 ASSESSMENTS Encounter Date Diagnosis Assessment Notes Treatment Notes Treatment Clinical Notes 03/26/2024 Right shoulder pain (ICD-10 - M25.511) PLAN OF TREATMENT Referrals Referral Date Details mild arthritic rodríguez es; needs to see PT Consultation Request Notes Referral Date Referring Provider Referred Provider Not es 03/28/2024 Ellen Juarez , mild arthr itic changes; needs to see PT
--- OUTSIDE RECORDS SUMMARY | 2024-05-14 10:55 | XMS_ITS ---
[facility] [address] [place] [id number] Care Team Providers Care Dough Mixer Helper Name Role Phone Enmanuel Walton Primary Care Provider Ellen Juarez [phone] ALLERGIES Allergen (clinical drug ingredient) Drug/Non Drug Allergy documented on EMR Reaction Allergy Type Onset Date Status nefazodone SERZONE (uncoded) Unknown Allergy A ctive butorphanol Butorphanol Tartrate Unknown Drug Allergy Active gabapentin Neurontin rash Drug Allergy Active Pseudoephedrine-gu aiFENesin rash Drug Allergy Active metoclopramide Reglan get sick, face swells Drug Allergy Active bupropion Wellbutrin XL Unknown Drug Allergy Act estephanie ketorolac Ketorolac rash Drug Allergy Active REASON FOR VISIT checkup with refills MEDICATIONS Medication SIG (Take, Route, Frequency, Duration) Notes Start Date End Date Status tiZANidine HCl 4 MG TAKE 1 TABLET BY MICAELA TWICE DAILY AT BEDTIME NEEDED for 10 Active Levothyroxine Sodium 125 MCG 1 tab(s) Orally once a day Active oxyCODONE HCl 5 MG 1 tab(s) orally thre e times a day as needed 03/21/2024 Active Triamterene-HCTZ 37.5-25 MG 1 tab(s) orally once a day Active Venlafaxine HCl ER 150 MG 1 capsule with food Orally Once a day Active Atorvastatin Calcium 20 MG 1 tab(s) At Bed Time Active Ibuprofen 800 MG 1 tab(s) orally 3 times a day Active Ventolin HFA 108 (90 Base) MCG/ACT 1 puff as needed Inhalation four times a day as needed 01/25/2024 Active Aspirin 81 MG 1 tab(s) orally once a day Active Maxalt-MICROCHIP SPECIALIST 10 MG 1 tab(s) orally once a day, may repeat Q2h x2 Active Spironolactone 25 MG 1 tablet Orally for 30 day(s) Not-Taking Vitamin D3 125 MCG (5000 UT) 1 cap(s) orally once a day 04/01/2014 Active B-12 1000 MCG 1 tab(s) orally once a day 04/01/2014 Active Promethazine HCl 25 MG TAKE 1 TABLET BY MOUTH EVERY 6 HOURS NEEDED for 6 Not-Taking Benzonatate 200 MG 1 capsule Orally Thr ee times a day prn 07/20/2023 Not-Taking Esomeprazole Magnesium 40 MG TAKE 1 CAPSULE BY MOUTH EVERY DAY for 90 days Active VITAL SIGNS Weight 247.8 lbs 05/14/2024 Blood pressure systolic 130 mm Hg 05/14/20 24 Blood pressure diastolic 86 mm Hg 024 Heart Rate 94 /min 05/14/2024 Height 65 in 05/14/2024 BMI 41.23 kg/m2 05/14/2024 Encounters Encounter Location Date Provider Diagnosis [facility] [address] [facility] [address] [place] [address], [place] [id number] 05/14/2024 Ellen Juarez Dyslipidemia E78.5 ; Hypothyroidism E03.9 ; Depressive disorder F32.9 and Intractable migraine with status migrainosus, unspecified migraine type G43.911 ASSESSMENTS Encounter Date Diagnosis Assessment Notes Treatment Notes Treatment Clinical Notes 05/14/2024 Dyslipidemia (ICD-10 - E78.5) 05/14/2024 Hypothyroidism (ICD-10 - E03.9) 05/14/2024 Depressive disorder (ICD-10 - F32.9) 05/14/2024 Intractable migraine with status migrainosus, unspecified migraine type (ICD-10 - G43.911) PLAN OF TREATMENT Medication Medication Name Sig Start Date Stop Date Notes Levothyroxine Sodium 125 MCG 1 tab(s) Orally once a day Triamterene-HCTZ 37.5-25 MG 1 tab(s) orally once a day Venlafaxine HCl ER 150 MG 1 capsule with food Orally Once a day Atorvastatin Calcium 20 MG 1 tab(s) At Bed Time Esomeprazole Magnesium 40 MG TAKE 1 CAPS ULE BY MOUTH EVERY DAY for 90 days Pending Test Test Name Order Date P-Comprehensive Metabolic Panel (CMP) P-Lipid Panel 05/14/2024 P-TSH 05/14/2024 History and Physical Notes * HPI (History of Present Illness) Category Sub-Category Detail Notes Neurology headache Pt c/o migraine for 3 to 4 days; much worse this morning HPI Patient is here today for a chec k up and refills today. Pt needs Levothyroxine, Atorvastatin, Triamterene-HCTZ, Venlafaxine and Esomeprazole
--- OUTSIDE RECORDS SUMMARY | 2024-05-14 10:55 | XMS_ITS ---
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 Name Role Phone Enmanuel Walton Primary Care Provider Ellen Juarez [phone] ALLERGIES Allergen (clinical drug ingredient) Drug/Non Drug [...] estephanie ketorolac Ketorolac rash Drug Allergy Active RESULTS Component Value Reference Range Notes X ray : Shoulder, right Reviewed date:03/26/2024 08:27:10 AM Interpretation: Performing Lab: Notes/Report: REASON FOR VISIT refills and migraine MEDICATIONS Medication SIG (Take, Route, Frequency, Duration) Notes Start Date End Date Status Esomeprazole Magnesium 40 MG TAKE 1 CAPSULE BY MOUTH EVERY DAY for 90 days Active Triamterene-HCTZ 37.5-25 MG 1 tab(s) orally once a day Active Levothyroxine Sodium 125 MCG 1 tab(s) Orally once a day Active Ibuprofen 800 MG 1 tab(s) orally 3 times a day Active Ventolin HFA 108 (90 Base) MCG/ACT 1 puff as needed Inhalation four times a day as needed 01/25/2024 Active oxyCODONE HCl 5 MG 1 tab(s) orally thre e times a day as needed 03/21/2024 Active Venlafaxine HCl ER 150 MG 1 capsule with food Orally Once a day Active Maxalt-RECOVERER 10 MG 1 tab(s) orally once a day, may repeat Q2h x2 Active Atorvastatin Calcium 20 MG 1 tab(s) At Bed Time Active Aspirin 81 MG 1 tab(s) orally once a day Active Vitamin D3 125 MCG (5000 UT) 1 cap(s) orally once a day 04/01/2014 Active Promethazine HCl 25 MG TAKE 1 TABLET BY MOUTH EVERY 6 HOURS NEEDED for 6 Not-Taking Benzonatate 200 MG 1 capsule Orally Thr ee times a day prn 07/20/2023 Not-Taking Spironolactone 25 MG 1 tablet Orally for 30 day(s) Not-Taking B-12 1000 MCG 1 tab(s) orally once a day 04/01/2014 Active tiZANidine HCl 4 MG TAKE 1 TABLET BY MICAELA TH TWICE DAILY AT BEDTIME NEEDED for 10 Active VITAL SIGNS Weight 258.2 lbs 03/21/2024 Blood pressure systolic 124 mm Hg 03/21/20 24 Blood pressure diastolic 86 mm Hg 024 Heart Rate 103 /min 03/21/2024 Height 65 in 03/21/2024 BMI 42.96 kg/m2 03/21/2024 Encounters Encounter Location Date Provider Diagnosis [facility], [place] [address] [id number] 03/21/2024 R Steve Juarez Intractable migraine without aura and with status migrainosus G43.011 and Right shoulder pain M25.511 ASSESSMENTS Encounter Date Diagnosis Assessment Notes Treatment Notes Treatment Clinical Notes 03/21/2024 Intractable migraine without aura and with status migrainosus (ICD-10 - G43.011) To [facility] outpt for Morphine 2mg and Phenergan 25 mg IM 03/21/2024 Right shoulder pain (ICD-10 - M25.511) Obtain x-ray. Will likely benefit from physical therapy after review of x-ray report. PLAN OF TREATMENT Medication Medication Name Sig Start Date Stop Date Notes oxyCODONE HCl 5 MG 1 tab(s) orally thre e times a day as needed 03/21/2024 Treatment Notes Assessment Notes Intractable migraine without aura and with status migrainosus To [facility] outpt for Morphine 2mg and Phenergan 25 mg IM Right shoulder pain Obtain x-ray. Dayday holden benefit from physical therapy after review of x-ray report. Next Appt Details Follow Up: via phone to repo rt test results, Reason: Progress Notes * Examination Category Sub-Category Detail Notes General Examination HEENT: sclera and c onjunctiva clear, PERRLA, TM's normal, translucent Heart: RSR Lungs: clear to auscultatio n Extremities: Right shoulder shows no deformity. There is subjective tenderness to palpation over the deltoid. Range of motion is limited with abduction to 90 degrees. Flexion and extension are normal. General Appearance: Appears mildly uncom fortable sitting in a darkened room Neck: supple, no meningism us History and Physical Notes * HPI (History of Present Illness) Category Sub-Category Detail Notes Neurology headache Pt c/o migraine headache constant for past 3 days HPI Patient is here today for refill of Oxycodone
[2024-05-14 11:20] VITALS: BP 145/98; PULSE 75; RESP 20; TEMP 36.2; O2SAT 95
[2024-05-14] MEDS: PROMETHAZINE HCL 25MG/ML 1ML VIAL 25 MG IM (11:20)
[2024-05-14] MEDS: MORPHINE 2MG/ML SYRINGE 2 MG IM (11:20)
== END 2024-05-14 11:40 | disposition home or self-care (01) ==
LOC: INF 10:52
PROVIDERS: PCP Family Medicine; Visit Provider Family Medicine
DX: Z79.899 Other long term (current) drug therapy (principal)
CPT/HCPCS: 96372; J2270; J2550

== ENCOUNTER 2024-06-10 15:00 | Outpatient (RCR) | payer MEDICARE, SELFPAY | END 2024-06-10 23:59 | disposition home or self-care (01) | LOC: OT 15:00 | PROVIDERS: Visit Provider Family Medicine | DX: M25.511 Pain in right shoulder (principal) | CPT/HCPCS: 97014; 97035; 97110; 97140; 97164; 97165; 97530; G0283 ==

== ENCOUNTER 2024-06-11 09:49 | Emergency (ER) | payer MEDICARE, SELFPAY ==
[2024-06-11] VITALS (14 sets, daily range): BP systolic 114–173; BP diastolic 74–99; PULSE 55–187; RESP 14–25; TEMP 36.6–36.7; O2SAT 94–99; BMI 41.5
--- NOTE | 2024-06-11 09:50 | ECG_ITS ---
APPROVED REPORT Exam: Resting ECG HR:181 bpm ECG Measurements Heart Rate 181 AXES QRSd 140 QRS 2 QT 272 T 89 QTc 367 Conclusion UNCERTAIN REGULAR RHYTHM LEFT BUNDLE BRANCH BLOCK [120+ ms QRS DURATION, 80+ ms Q/S IN V1/V2, 85+ ms R IN I/aVL/V5/V6] CRITICAL TEST RESULT UNCONFIRMED REPORT Electronically signed by : Inderjit Brownlee, 06/14/2024 23:46:39
--- NOTE | 2024-06-11 09:54 | PC.NURSE ---
Dr. Brownlee at [facility] for pt eval
--- NOTE | 2024-06-11 10:01 | PC.NURSE ---
Dr. Brownlee speaking with Dr. Barragan
[2024-06-11] MEDS: ADENOSINE 6MG/2ML VIAL 6 MG IV (10:05)
--- NOTE | 2024-06-11 10:07 | ECG_ITS ---
APPROVED REPORT Exam: Resting ECG HR:107 bpm ECG Measurements Heart Rate 107 AXES SD 185 P 40 QRSd 88 QRS 1 QT 272 T 53 QTc 335 Conclusion SINUS TACHYCARDIA WITH OCCASIONAL SUPRAVENTRICULAR PREMATURE COMPLEXES NONSPECIFIC ST & T-WAVE ABNORMALITY ABNORMAL RHYTHM ECG UNCONFIRMED REPORT Electronically signed by : Inderjit Brownlee, 06/14/2024 23:46:30
--- NOTE | 2024-06-11 10:10 | XR_ITS ---
FINAL REPORT CLINICAL HISTORY: dyspnea COMPARISON: 06/07/2022 FINDINGS: SINGLE-VIEW CHEST The heart size is normal. The mediastinum is normal. The lungs are clear. There is no pneumothorax. IMPRESSION: No acute cardiopulmonary process. Reviewed, Interpreted and Dictated by Nba Ramirez III, MD Transcribed by Yary Rangel Authenticated and [facility]
[2024-06-11] MEDS: LACTATED RINGERS 1000ML 1,000 ML 999 ML IV (10:15)
--- NOTE | 2024-06-11 10:15 | HMH.EDGENADL ---
Discharge Plan Disposition Patient Disposition: Home, Self-Care Prescriptions Prescriptions: New bisoprolol fumarate 5 mg tablet 5 mg PO DAILY Qty: 30 0RF No Action oxycodone 5 mg tablet 5 mg PO BID PRN (Reason: Pain) aspirin 81 mg tablet,delayed release (DR/EC) 81 mg PO DAILY promethazine 25 mg tablet 25 mg PO Q6H PRN (Reason: migraine headache) 30 Days Qty: 30 6RF Rx Instructions: Take one tablet as needed for headache. levothyroxine 112 mcg tablet 112 mcg PO DAILY Patient Comments: TAKE 1 TABLET BY MOUTH EVERY DAY ibuprofen 800 mg tablet 800 mg PO TID Patient Comments: TAKE 1 TABLET BY MOUTH THREE TIMES DAILY triamterene-hydrochlorothiazid 37.5-25 mg tablet 1 tab PO DAILY Patient Comments: TAKE 1 TABLET BY MOUTH EVERY DAY cholecalciferol (vitamin D3) 125 mcg (5,000 unit) capsule 125 mcg PO DAILY cyanocobalamin (vitamin B-12) 1,000 mcg capsule 1,000 mcg PO DAILY potassium citrate 99 mg capsule 99 mg PO DAILY esomeprazole magnesium 20 MG tablet,delayed release (DR/EC) 40 mg PO DAILY venlafaxine 150 MG capsule,extended release 24hr 150 mg PO BID rizatriptan 10 MG tablet 10 mg PO DAILY PRN (Reason: migraines) spironolactone [Aldactone] 25 mg tablet 25 mg PO DAILY Referrals Follow up/Referrals: Provider,Referral, MD [Referring] - See instructions Activity Restrictions/Add. Instructions Additional Instructions/Restrictions: Follow-up in 1 week with cardiology Clinical Impressions Clinical Impression: SVT (supraventricular tachycardia), Left bundle branch block (LBBB), Acute hypokalemia, COVID-19 Print Language Print Language: Hungarian Discharge ED Provider: Enmanuel Brownlee General Adult HPI General Chief complaint: Arrhythmia/Palpitations Stated complaint: chest pain Time Seen by Provider: 06/11/24 09:50 Mode of Arrival: Wheelchair Source of Information: Patient Limitations: No Limitations Description of Symptoms (Recalled from ER Triage Doc. by RN): Patient was being seen in ortho office this morning when she began to complain of left sided chest pain and that her heart was racing. Per office staff her heart rate was in the 180s. History of Present Illness HPI narrative: 54-year-old female sent from orthopedic office for tachycardia and chest pain. Patient states over the last few days she has had a cough but denies any other significant symptoms including shortness of breath chest pain etc. She was going to the orthopedic surgery office to be evaluated for possible steroid injection of her shoulder. She states about 20 minutes prior to arrival to the emergency department she started to feel nerves. She did feel as if her chest was bruised. No exertional symptoms has not had any syncopal episodes or near syncopal episodes. No history of any arrhythmias in the past. She has had a coronary CTA as well as an echo and a chemical stress test in the past all of which were unremarkable. No known history of heart failure coronary disease etc. Related Data Home Medications ?Medication ?Instructions ?Recorded ?Confirmed esomeprazole magnesium 20 mg 40 mg PO DAILY GERD 10/06/17 06/11/24 tablet,delayed release venlafaxine 150 mg 150 mg PO BID DEPRESSION 10/06/17 06/11/24 capsule,extended release 24 hr aspirin 81 mg tablet,delayed 81 mg PO DAILY heart health 10/29/18 06/11/24 release rizatriptan 10 mg tablet 10 mg PO DAILY PRN migraines 10/07/21 06/11/24 ibuprofen 800 mg tablet 800 mg PO TID Pain 04/13/22 06/11/24 levothyroxine 112 mcg tablet 112 mcg PO DAILY hypothyroidism 04/13/22 06/11/24 triamterene 37.5 1 tab PO DAILY blood pressure 10/06/22 06/11/24 mg-hydrochlorothiazide 25 mg tablet oxycodone 5 mg tablet 5 mg PO BID PRN Pain 11/28/22 06/11/24 cholecalciferol (vitamin D3) 125 125 mcg PO DAILY Supplement 06/22/23 06/11/24 mcg (5,000 unit) capsule cyanocobalamin (vitamin B-12) 1,000 mcg PO DAILY Supplement 06/22/23 06/11/24 1,000 mcg capsule potassium citrate 99 mg capsule 99 mg PO DAILY Supplement 06/22/23 06/11/24 spironolactone 25 mg tablet 25 mg PO DAILY Fluid 06/29/23 06/11/24 (Aldactone) Previous Rx's ?Medication ?Instructions ?Recorded promethazine 25 mg tablet 25 mg PO Q6H PRN migraine headache 12/24/18 30 days #30 tabs bisoprolol fumarate 5 mg tablet 5 mg PO DAILY #30 tabs 06/11/24 Allergies Allergy/AdvReac Type Severity Reaction Status Date / Time bupropion [BUPROPION] Allergy Unknown Unknown Verified 05/14/24 11:26 allergy reaction butorphanol [From STADOL] Allergy Unknown Unknown Verified 05/14/24 11:26 allergy reaction gabapentin [From NEURONTIN] Allergy Unknown Unknown Verified 05/14/24 11:26 allergy reaction hydromorphone [HYDROMORPHONE] Allergy Unknown Unknown Verified 05/14/24 11:26 allergy reaction ketorolac [From TORADOL] Allergy Unknown Unknown Verified 05/14/24 11:26 allergy reaction metoclopramide [From REGLAN] Allergy Unknown Unknown Verified 05/14/24 11:26 allergy reaction prochlorperazine Allergy Unknown Unknown Verified 05/14/24 11:26 [From COMPAZINE] allergy reaction adhesive Allergy Unknown Verified 05/14/24 11:26 allergy reaction peanut Allergy Unknown Verified 05/14/24 11:26 allergy reaction tomato Allergy Unknown Verified 05/14/24 11:26 allergy reaction PFSH PFSH Disclaimer: The information contained in this section may have been updated after the patient was seen, as this information can be updated by other users. Medical History (Updated 06/11/24 @ 13:30 by Enmanuel Brownlee MD) Edema Asthma Osteoarthritis Sleep apnea Uterine cancer Breast cancer Thyroid cancer Thyroid disease Hypothyroidism History of radiation therapy History of chemotherapy Arthritis Kidney stone Hyperlipidemia Hypertension CAD (coronary artery disease) Cancer Migraine Anxiety and depression Surgical History History of lumpectomy History of knee surgery History of foot surgery History of hysterectomy History of sinus surgery History of thyroidectomy History of total hysterectomy History of colonoscopy Hx of tonsillectomy H/O arthroscopy of right knee History of lumpectomy of left breast Family History Other Family history of cancer Social History (Updated 05/14/24 @ 11:29 by Smith Davis RN) Smoking Status: Never smoker second hand exposure: No alcohol intake: never substance use type: denies use current occupational status: unemployed and disabled Travel in the last 8 weeks: None household members: none housing: apartment lives independently: Yes marital status: single number of children: 0 education level: high school current occupational exposures/hazards: No caffeine: Yes special sheldon needs: No agree to transfusion: No do you feel safe at home: Yes victim of physical abuse: No victim of emotional abuse: No victim of sexual abuse: No would you like helpful sources: No ROS Obtained: Yes All systems reviewed & no additional complaints except as documented Physical Exam General General appearance: alert Respiratory Respiratory exam: Present normal lung sounds bilaterally and respiratory distress Cardiovascular Cardiovascular exam: Present other (Tachycardia regular heart rate 190) Neurological Exam Neurological exam: Present alert and oriented X3 Medical Decision Making Timothy Inquiry Pt receiving controlled substance: No Vital Signs: 06/11/24 09:49 06/11/24 09:55 06/11/24 10:02 Temperature 97.9 F Temperature Source Oral Pulse Rate 187 H 55 L Pulse Rate [Radial] 185 H Respiratory Rate 20 25 H 18 Blood Pressure 173/99 H 149/83 H Blood Pressure [Right Arm] 139/84 Blood Pressure Mean [Right Arm] 102 Blood Pressure Source [Right Arm] Automatic Cuff Blood Pressure Position [Right Arm] Sitting 02 Sat by Pulse Oximetry 99 95 99 Oxygen Delivery Method Room Air Room Air Room Air 06/11/24 10:07 06/11/24 10:10 06/11/24 10:30 Temperature Temperature Source Pulse Rate 117 H 104 H 99 H Pulse Rate [Radial] Respiratory Rate 21 21 17 Blood Pressure 117/76 114/74 143/85 H Blood Pressure [Right Arm] Blood Pressure Mean [Right Arm] Blood Pressure Source [Right Arm] Blood Pressure Position [Right Arm] 02 Sat by Pulse Oximetry 99 98 95 Oxygen Delivery Method Room Air Room Air Room Air 06/11/24 11:01 06/11/24 12:01 Temperature Temperature Source Pulse Rate 97 H 93 H Pulse Rate [Radial] Respiratory Rate 19 18 Blood Pressure 141/95 H 149/81 H Blood Pressure [Right Arm] Blood Pressure Mean [Right Arm] Blood Pressure Source [Right Arm] Blood Pressure Position [Right Arm] 02 Sat by Pulse Oximetry 99 98 Oxygen Delivery Method Room Air Lab Data Lab results reviewed: Yes I reviewed the patient's lab results. Lab Results 06/11/24 10:14: SARS-CoV-2 (PCR) Detected A, Influenza A Untype (PCR) Not detected, Influenza Type B (PCR) Not detected 06/11/24 : WBC 7.0, RBC 4.68, Hgb 14.2, Hct 44.0, MCV 94.1, MCH 30.3, MCHC 32.2, RDW 14.4, Plt Count 401, MPV 8.1, Neut % (Auto) 39.5, Lymph % (Auto) 43.5, Thayer % (Auto) 9.7 H, Eos % (Auto) 5.9, Baso % (Auto) 1.4, Neut # (Auto) 2.8, Lymph # (Auto) 3.1, Thayer # (Auto) 0.7, Eos # (Auto) 0.4, Baso # (Auto) 0.1, Sodium 141, Potassium 2.9 L*, Chloride 106, Carbon Dioxide 26, Anion Gap 11.9, BUN 19 H, Creatinine 1.20 H, Estimated Creat Clear 47, Estimated GFR 46 L, Est GFR ( Amer) 56 L, Glucose 148 H, Calcium 9.5, Magnesium 2.0, Total Bilirubin 0.7, AST 40 H, ALT 40, Alkaline Phosphatase 76, Troponin I < 0.01, Total Protein 8.0, Albumin 4.4, Globulin 3.6 H, Albumin/Globulin Ratio 1.2, TSH 2.02 06/11/24 Unknown 06/11/24 Unknown Orders (Tests/Meds): ED MEDICATIONS Generic Name Dose Route Start Last Admin Trade Name Freq PRN Reason Stop Dose Admin Potassium Chloride/Water 100 mls @ 100 mls/hr 06/11/24 11:00 06/11/24 13:47 Potassium Chloride 10meq/100ml Ivpb IV 06/11/24 13:59 100 mls/hr Q1H RYAN Administration Discontinued Medications Generic Name Dose Route Start Last Admin Trade Name Freq PRN Reason Stop Dose Admin Adenosine 6 mg 06/11/24 10:05 06/11/24 10:05 Adenosine 6mg/2ml Vial IV 06/11/24 10:06 6 mg ONCE ONE Administration Bisoprolol Fumarate 5 mg 06/11/24 11:07 06/11/24 11:18 Bisoprolol 5mg Tablet PO 06/11/24 11:08 5 mg ONCE ONE Administration Lactated Ringer's 1,000 mls @ 999 mls/hr 06/11/24 10:15 06/11/24 10:15 Lactated Ringer's 1000 Ml Bag IV 06/11/24 11:15 999 mls/hr .Q1H1M RYAN Administration Potassium Chloride 60 meq 06/11/24 10:50 06/11/24 10:56 Potassium Chloride 20meq Tab PO 06/11/24 10:51 60 meq ONCE ONE Administration ORDERS Category Date Time Status CXR --portable [XR chest portable] Stat Exams 06/11/24 10:10 Completed CBC w/Auto Diff [Complete Blood Count Auto Diff] Stat Lab 06/11/24 Completed CMP [Comprehensive Metabolic Panel] Stat Lab 06/11/24 Completed Magnesium Stat Lab 06/11/24 Completed Rapid PCR Covid and Flu A/B Stat Lab 06/11/24 10:14 Completed TSH [Thyroid Stimulating Hormone] Stat Lab 06/11/24 Completed Trop I [Troponin I] Stat Lab 06/11/24 Completed CA echo doppler complete Routine Y 06/11/24 11:12 Completed ECG Data Tracing #1: I reviewed this ECG and interpreted as documented below: Heart rate 181 SVT with apparent rhythm left bundle branch block which is new in comparison with old EKG compared to 2021 no acute ischemic changes noted no discernible P waves no evidence of V. tach Tracing #2: I reviewed this ECG and interpreted as documented below: Ventricular of 107 sinus tachycardia no acute ischemic changes noted normal axis no significant conduction abnormalities Medical Decision Narrative: 54-year-old female present today with above history physical. She was well-appearing and asymptomatic up until about 20 minutes ago while she was at the orthopedic office as stated above. EKG for my interpretation was consistent with SVT with aberrancy however she has no history of a left bundle branch block or other variant conducting rhythm in the past. This wide-complex tachycardia was treated as SVT with aberrancy after discussing the case with Dr. Barragan who agreed with the diagnosis. Patient was given 6 mg of IV adenosine with complete and successful chemical cardioversion. Given the fact that patient had some preceding viral symptoms and a little bit of chest discomfort will proceed with electrolyte evaluation infectious workup as well as evaluation for possible myocarditis in the setting of a viral infection. She still has some mild tachycardia IV fluids have been administered will reassess. She is feeling significantly better after her cardioversion. Chest x-ray performed appears interpreted as no acute cardiopulmonary emergency Labs remarkable for potassium of 2.9 extensive replacement including IV potassium and oral potassium were done in the emergency department patient was placed in ED observation status during this time she was evaluated and seen by cardiology who ordered an echo and this was performed and was unremarkable. Patient's remained asymptomatic. She was positive for COVID will not treat her with Paxlovid given duration of symptoms and her lack of significant comorbidities. She was also given bisoprolol and a prescription for this and advised to follow-up with cardiology in 1 week. Procedures Miscellaneous Procedure Procedure Performed: Chemical cardioversion Indication: SVT with aberrancy Patient was consented pads were placed and she was connected to cardiac rehabilitation specialist. Patient had a proximal IV that was placed. 6 mg of IV adenosine were administered with immediate push patient's arm was raised patient had spontaneous resolution of her SVT immediately going back into a sinus rhythm/sinus tachycardia. Heart rate was 110 after successful cardioversion. Patient tolerated procedure well. Critical Care Critical Care Time Critical Care Time: Yes Attestation: On 06/11/24, the high probability of a clinically significant, sudden or life threatening deterioration of the following system(s) required my full and direct attention, intervention and personal management. The time I documented below is in addition to time spent performing reported procedures but includes the following listed in this critical care notation. Total Time Total Critical Care Time: 35
--- NOTE | 2024-06-11 10:16 | PC.NURSE ---
pt arrived to ED with high heart rate, pt found to have SVT. pt moved to room 2. 0957 pads placed on pt 0957 blow in straw 0958 bear down with leg flip used 1005 adenosine 6mg given IV 1008 1L LR given
[2024-06-11 10:17] LABS: Influenza A, PCR Not Detected (NotDetected); Influenza B, PCR Not Detected (NotDetected)
--- NOTE | 2024-06-11 10:19 | PC.NURSE ---
pt had successful rhythm change after medication admin
[2024-06-11 10:23] LABS: Basophils # 0.1 K/mm3 (0-0.2); Basophils % 1.4 % (0.1-2.0); Eosinophils # 0.4 K/mm3 (0.0-0.4); Eosinophils % 5.9 % (0.1-12.0); Hemoglobin 14.2 g/dL (12.2-16.2); Lymphocytes # 3.1 K/mm3 (0.7-4.5); Lymphocytes % 43.5 % (10-50); Mean Corpuscular HGB Conc 32.2 g/dL (31.8-35.4); Mean Corpuscular Hemoglobin 30.3 pg (27.0-31.2); Mean Corpuscular Volume 94.1 fl (81-99); Mean Platelet Volume 8.1 fl (7.4-10.4); Monocytes # 0.7 K/mm3 (0.1-1.0); Monocytes % 9.7 % (1.7-9.3); Neutrophils # 2.8 K/mm3 (1.8-7.8); Neutrophils % 39.5 % (37.0-80.0); Platelet Count 401 K/mm3 (142-424); Red Blood Count 4.68 M/mm3 (4.20-5.40); Red Cell Distribution Width 14.4 % (11.5-17.5)
[2024-06-11 10:27] LABS: Albumin Level 4.4 g/dl (3.5-5.0); Chloride 106 mmol/L (98-107); Sodium 141 mmol/L (136-145)
[2024-06-11 10:30] LABS: Alanine Aminotransferase 40 U/L (12-78); Albumin/Globulin Ratio 1.2 (1.1-1.8); Alkaline Phosphatase 76 U/L (38-126); Anion Gap 11.9 mEq/L (5-15); Aspartate Amino Transferase 40 U/L (14-36); Bilirubin,Total 0.7 mg/dl (0.2-1.3); Blood Urea Nitrogen 19 mg/dl (7-17); Calcium 9.5 mg/dl (8.4-10.2); Carbon Dioxide 26 mmol/L (22.0-30.0); Creatinine Clearance Estimated 47 mL/min (50-200); Estimated Glomerular Filt Rate 46 ml/min (>60); GFR (African American) 56 ML/MIN (>60); Globulin 3.6 g/dL (1.3-3.2); Glucose 148 mg/dl (74-100)
[2024-06-11 10:45] LABS: Troponin I < 0.01 ng/ml (0.00-0.034)
[2024-06-11 10:46] LABS: Potassium 2.9 mmoL/L (3.5-5.1)
--- NOTE | 2024-06-11 10:52 | PC.NURSE ---
aware of potassium of 2.9
[2024-06-11] MEDS: POTASSIUM CHLORIDE 20MEQ TAB 60 MEQ PO (10:56)
[2024-06-11] MEDS: KCl 10mEq/100ml 100 ML 100 MEQ IV ×3 (10:56→13:47)
[2024-06-11 11:01] LABS: Thyroid Stimulating Hormone 2.02 uIU/mL (0.465-4.68)
--- NOTE | 2024-06-11 11:12 | CA_ITS ---
APPROVED REPORT EXAM: Comprehensive 2D, Doppler, and color-flow Echocardiogram Casting Wheel Operator: Milka Bustillo CRT Ht: 5 ft 5 in Wt: 250lbs BSA: 2.17 BP: 139/84 mmHg Indications: Chest Pain, Obesity, Palpitations, Fatigue, Hypertension/HDD, breast ca, chemo, radiation, SVT 2D Dimensions LA Volume 33.60 mL LA Volume Index 15.10 mL/m2 (M/F) 16-34 M-Mode Dimensions RVDd 2.63 cm (0.9-2.6) LA Diam 3.23 cm (1.9-4.0) LVDd 5.66 cm (3.5-5.7) LVDs 4.16 cm (3.5-5.7) IVSd 1.67 cm (0.6-1.1) PWd 0.57 cm (0.6-1.1) EF (Teich) 51.20% FS 26.50% EDV (Teich) 157.50 mL TAPSE 1.36 (<1.7) ESV (Teich) 76.80 mL LV Diastology MED A' 11.60 cm/s LAT A' 12.10 cm/s Aortic Valve AI PHT 330.00 ms AO Peak GR. 7.80 mmHg Pulmonary Valve PV Peak Velocity 72.0 (50-150 cm/s) Tricuspid Valve TR P. Velocity 217.00 cm/s RAP Estimate 10.00 mmHg RVSP 28.80 mmHg Left Ventricle The left ventricle is normal size. The left ventricular systolic function is normal. The left ventricular ejection fraction is within the normal range. There is normal left ventricular wall thickness. There is normal LV segmental wall motion. The left ventricular diastolic function is normal. LVEF is 55%. Right Ventricle The right ventricle is normal size. The right ventricular systolic function is normal. Atria The left atrium size is normal. The right atrium size is normal. There is no Doppler evidence of interatrial shunt. Aortic Valve The aortic valve opens well. There is no aortic valvular stenosis. Trace aortic regurgitation. Mitral Valve The mitral valve is normal in structure. No evidence of mitral valve stenosis. Trace mitral regurgitation. Tricuspid Valve The tricuspid valve leaflets are thin and pliable. Trace tricuspid regurgitation. There is insufficient TR jet to estimate RVSP. Pulmonic Valve The pulmonary valve is normal in structure. Trace pulmonic regurgitation. Great Vessels The aortic root is normal in size. The ascending aorta is not well visualized. IVC is normal in size and collapses >50% with inspiration. Pericardium There is no pericardial effusion. Other Information Study Quality: Fair Conclusion Normal biventricular systolic function. No significant valvular stenosis or regurgitation. Electronically signed by : Danni Sands MD 06/11/2024 12:49:41
--- NOTE | 2024-06-11 11:12 | P.CONCA_ITS ---
History of Present Illness History of Present Illness Consult date: 06/11/24 Requesting physician: Enmanuel Brownlee Consult reason: chest pain Chief complaint: chest pain Additional Medical History:: 1. Hypothyroidism, on replacement therapy A. Status post thyroidectomy 2. Hypertension A. Echo, 04/2023, EF 55-60% with no regional WMA. No significant valve disease. 3. Obesity 4. SVT with aberrancy, 06/11/2024 A. Converted with adenosine 5. CCTA, 2022, normal coronary arteries with coronary artery calcium score of 0 History of present illness: 54-year-old female sent from orthopedic office for tachycardia and chest pain. Patient states over the last few days she has had a cough but denies any other significant symptoms including shortness of breath chest pain etc. She was going to the orthopedic surgery office to be evaluated for possible steroid injection of her shoulder. She states about 20 minutes prior to arrival to the emergency department she started to feel nerves. She did feel as if her chest was bruised. No exertional symptoms has not had any syncopal episodes or near syncopal episodes. No history of any arrhythmias in the past. She has had a coronary CTA as well as an echo and a chemical stress test in the past all of which were unremarkable. No known history of heart failure coronary disease etc. Tracing #1: I reviewed this ECG and interpreted as documented below: Heart rate 181 SVT with apparent rhythm left bundle branch block which is new in comparison with old EKG compared to 2021 no acute ischemic changes noted no discernible P waves no evidence of V. tach Tracing #2: I reviewed this ECG and interpreted as documented below: Ventricular of 107 sinus tachycardia no acute ischemic changes noted normal axis no significant conduction abnormalities Medical Decision Narrative: 54-year-old female present today with above history physical. She was well- appearing and asymptomatic up until about 20 minutes ago while she was at the orthopedic office as stated above. EKG for my interpretation was consistent with SVT with aberrancy however she has no history of a left bundle branch block or other variant conducting rhythm in the past. This wide-complex tachycardia was treated as SVT with aberrancy after discussing the case with Dr. Barragan who agreed with the diagnosis. Patient was given 6 mg of IV adenosine with complete and successful chemical cardioversion. Given the fact that patient had some preceding viral symptoms and a little bit of chest discomfort will proceed with electrolyte evaluation infectious workup as well as evaluation for possible myocarditis in the setting of a viral infection. She still has some mild tachycardia IV fluids have been administered will reassess. She is feeling significantly better after her cardioversion. The above per Dr. Brwonlee Events as above confirmed with the patient. She denies any prior history of cardiac issues and in fact we have worked her up last year and noted to have normal coronary arteries on coronary CTA. She denies any prior history of palpitations, near-syncope or syncope. Potassium noted to be low here at 2.9. Patient is on triamterene/HCTZ daily for blood pressure and also takes touv-wdz-gpjyskj potassium but because she has difficulty swallowing prescription strength potassium. [facility] Disclaimer: The information contained in this section may have been updated after the patient was seen, as this information can be updated by other users. Medical History (Updated 06/11/24 @ 13:30 by Enmanuel Brownlee MD) Edema Asthma Osteoarthritis Sleep apnea Uterine cancer Breast cancer Thyroid cancer Thyroid disease Hypothyroidism History of radiation therapy History of chemotherapy Arthritis Kidney stone Hyperlipidemia Hypertension CAD (coronary artery disease) Cancer Migraine Anxiety and depression Surgical History History of lumpectomy History of knee surgery History of foot surgery History of hysterectomy History of sinus surgery History of thyroidectomy History of total hysterectomy History of colonoscopy Hx of tonsillectomy H/O arthroscopy of right knee History of lumpectomy of left breast Family History Other Family history of cancer Social History (Updated 05/14/24 @ 11:29 by Smith Davis, HELGA) Smoking Status: Never smoker second hand exposure: No alcohol intake: never substance use type: denies use current occupational status: unemployed and disabled Travel in the last 8 weeks: None household members: none housing: apartment lives independently: Yes marital status: single number of children: 0 education level: high school current occupational exposures/hazards: No caffeine: Yes special sheldon needs: No agree to transfusion: No do you feel safe at home: Yes victim of physical abuse: No victim of emotional abuse: No victim of sexual abuse: No would you like helpful sources: No Review of Systems Review of Systems Review of systems:: pertinent systems reviewed and negative unless documented below Constitutional Constitutional: Reports excessive sweating *Cardiovascular Cardiovascular: Reports dyspnea and Reports palpitations *Respiratory Respiratory: Reports dyspnea Endocrine Endocrine: Reports excessive sweating and Reports palpitations Exam Data for Last 24 hours Vital signs and Labs for Last 24 Hours: Temp Pulse Resp BP Pulse Ox O2 Del Method 97.9 F 97 H 19 141/95 H 99 Room Air 06/11/24 09:49 06/11/24 11:01 06/11/24 11:01 06/11/24 11:01 06/11/24 11:01 06/11/24 10:30 Laboratory Results - last 24 hr 06/11/24 : WBC 7.0, RBC 4.68, Hgb 14.2, Hct 44.0, MCV 94.1, MCH 30.3, MCHC 32.2, RDW 14.4, Plt Count 401, MPV 8.1, Neut % (Auto) 39.5, Lymph % (Auto) 43.5, Brantley % (Auto) 9.7 H, Eos % (Auto) 5.9, Baso % (Auto) 1.4, Neut # (Auto) 2.8, Lymph # (Auto) 3.1, Brantley # (Auto) 0.7, Eos # (Auto) 0.4, Baso # (Auto) 0.1, Sodium 141, Potassium 2.9 L*, Chloride 106, Carbon Dioxide 26, Anion Gap 11.9, BUN 19 H, Creatinine 1.20 H, Estimated Creat Clear 47, Estimated GFR 46 L, Est GFR ( Amer) 56 L, Glucose 148 H, Calcium 9.5, Magnesium 2.0, Total Bilirubin 0.7, AST 40 H, ALT 40, Alkaline Phosphatase 76, Troponin I < 0.01, Total Protein 8.0, Albumin 4.4, Globulin 3.6 H, Albumin/Globulin Ratio 1.2 I & O for Last 24 hours: Intake & Output 06/08/24 06/09/24 06/10/24 06/11/24 11:59 11:59 11:59 11:59 Weight 250 lb Constitutional Constitutional: no acute distress *Routine Respiratory Exam Respiratory: Present CTA bilaterally; Absent wheezes *Routine Cardiovascular Exam Cardiovascular: Present RRR and tachycardia; Absent murmur, gallop or rubs *Routine Extremities Exam Extremities: Present edema *Routine Neurological Exam Neurological: Present alert, oriented X3 and CN II-XII intact Meds Home Medications and Allergies Home Medications ?Medication ?Instructions ?Recorded ?Confirmed ?Type esomeprazole magnesium 20 mg 40 mg PO DAILY GERD 10/06/17 06/11/24 History tablet,delayed release venlafaxine 150 mg 150 mg PO BID DEPRESSION 10/06/17 06/11/24 History capsule,extended release 24 hr aspirin 81 mg tablet,delayed 81 mg PO DAILY heart health 10/29/18 06/11/24 History release promethazine 25 mg tablet 25 mg PO Q6H PRN migraine headache 12/24/18 06/11/24 Rx 30 days #30 tabs rizatriptan 10 mg tablet 10 mg PO DAILY PRN migraines 10/07/21 06/11/24 History ibuprofen 800 mg tablet 800 mg PO TID Pain 04/13/22 06/11/24 History levothyroxine 112 mcg tablet 112 mcg PO DAILY hypothyroidism 04/13/22 06/11/24 History triamterene 37.5 1 tab PO DAILY blood pressure 10/06/22 06/11/24 History mg-hydrochlorothiazide 25 mg tablet oxycodone 5 mg tablet 5 mg PO BID PRN Pain 11/28/22 06/11/24 History cholecalciferol (vitamin D3) 125 125 mcg PO DAILY Supplement 06/22/23 06/11/24 History mcg (5,000 unit) capsule cyanocobalamin (vitamin B-12) 1,000 mcg PO DAILY Supplement 06/22/23 06/11/24 History 1,000 mcg capsule potassium citrate 99 mg capsule 99 mg PO DAILY Supplement 06/22/23 06/11/24 History spironolactone 25 mg tablet 25 mg PO DAILY Fluid 06/29/23 06/11/24 History (Aldactone) bisoprolol fumarate 5 mg tablet 5 mg PO DAILY #30 tabs 06/11/24 Rx New Prescriptions to Start Prescriptions: bisoprolol fumarate Enmanuel Brownlee Allergies Allergy/AdvReac Type Severity Reaction Status Date / Time bupropion [BUPROPION] Allergy Unknown Unknown Verified 05/14/24 11:26 allergy reaction butorphanol [From STADOL] Allergy Unknown Unknown Verified 05/14/24 11:26 allergy reaction gabapentin [From NEURONTIN] Allergy Unknown Unknown Verified 05/14/24 11:26 allergy reaction hydromorphone [HYDROMORPHONE] Allergy Unknown Unknown Verified 05/14/24 11:26 allergy reaction ketorolac [From TORADOL] Allergy Unknown Unknown Verified 05/14/24 11:26 allergy reaction metoclopramide [From REGLAN] Allergy Unknown Unknown Verified 05/14/24 11:26 allergy reaction prochlorperazine Allergy Unknown Unknown Verified 05/14/24 11:26 [From COMPAZINE] allergy reaction adhesive Allergy Unknown Verified 05/14/24 11:26 allergy reaction peanut Allergy Unknown Verified 05/14/24 11:26 allergy reaction tomato Allergy Unknown Verified 05/14/24 11:26 allergy reaction Assessment and Plan *Assessment and plan (1) SVT (supraventricular tachycardia): Status: Acute Category: Medical Code(s): I47.10 - Supraventricular tachycardia, unspecified (2) Left bundle branch block (LBBB): Status: Acute Category: Medical Code(s): I44.7 - Left bundle-branch block, unspecified (3) Obesity: Status: Acute Qualifiers: Body mass index: BMI 40.0-44.9 Obesity classification: adult class 3 (BMI >= 40) Obesity type: unspecified obesity type Serious obesity comorbidity presence: with serious comorbidity Qualified Code(s): E66.01 - Morbid (severe) obesity due to excess calories; Z68.41 - Body mass index [BMI] 40.0-44.9, adult Category: Medical Code(s): E66.9 - Obesity, unspecified (4) Hypertension: Status: Acute Qualifiers: Hypertension type: primary hypertension Qualified Code(s): I10 - Essential (primary) hypertension Category: Medical Code(s): I10 - Essential (primary) hypertension (5) Hyperlipidemia: Status: Acute Qualifiers: Hyperlipidemia type: mixed hyperlipidemia Qualified Code(s): E78.2 - Mixed hyperlipidemia Category: Medical Code(s): E78.5 - Hyperlipidemia, unspecified Plan 1. SVT with aberrancy, resolved after IV adenosine -Start bisoprolol 5 mg daily -Obtain echocardiogram to reassess EF compared to last year -Consider outpatient referral to squaring machine operator for consideration of ablation 2. Hypokalemia with normal magnesium -Replacing the ER 3. Hypertension -Continue Maxide (which she uses also for her edema) 4. Hyperlipidemia -Continue atorvastatin Follow-up in our office in 1 week with BMP Add bisoprolol 5 mg daily to home medication regimen. Recommend increasing her kbhi-mfx-fjxsrwi potassium to 3 pills daily. She can continue spironolactone and Maxide for now but will reassess at follow- up in 1 week.
[2024-06-11] MEDS: BISOPROLOL 5MG TABLET 5 MG PO (11:18)
[2024-06-11 11:24] LABS: Coronavirus 19, PCR Detected (NotDetected)
== END 2024-06-11 14:48 | disposition home or self-care (01) ==
PROVIDERS: Emergency Provider Student in an Organized Health Care Education/Training Program; PCP Family Medicine
DX: U07.1 COVID-19 (principal); I47.10 Supraventricular tachycardia, unspecified; E87.6 Hypokalemia; I44.7 Left bundle-branch block, unspecified; R07.9 Chest pain, unspecified; I10 Essential (primary) hypertension; E78.5 Hyperlipidemia, unspecified; Z86.79 Personal history of other diseases of the circulatory system
CPT/HCPCS: 71045; 80053; 83735; 84443; 84484; 85025; 87636; 93005; 93306; 96365; 96366; 96375; 99291; J0153; J3480; J7120

== ENCOUNTER 2024-06-24 09:37 | Outpatient (CLI) | payer MEDICARE, SELFPAY ==
[2024-06-24 11:51] LABS: Anion Gap 8.6 mEq/L (5-15); Blood Urea Nitrogen 20 mg/dl (7-17); Calcium 9.3 mg/dl (8.4-10.2); Carbon Dioxide 26 mmol/L (22.0-30.0); Chloride 107 mmol/L (98-107); Chol/HDL Ratio 3.3 (1-3.5); Cholesterol 168 mg/dl (140-200); Estimated Glomerular Filt Rate 57 ml/min (>60); GFR (African American) 69 ML/MIN (>60); Glucose 96 mg/dl (74-100); HDL Cholesterol 51 mg/dl (40-60); Magnesium 1.7 mg/dl (1.6-2.3); Potassium 3.6 mmoL/L (3.5-5.1); Sodium 138 mmol/L (136-145); Triglycerides 191 mg/dl (30-150); VLDL Cholesterol 38 mg/dL (0-40)
[2024-06-24 12:03] LABS: Direct LDL Cholesterol 77.56 mg/dL (100-129)
== END 2024-06-24 23:59 | disposition home or self-care (01) ==
LOC: LAB 09:38
PROVIDERS: PCP Family Medicine; Visit Provider Physician Assistant
DX: E78.5 Hyperlipidemia, unspecified (principal); I10 Essential (primary) hypertension; E87.6 Hypokalemia; E78.2 Mixed hyperlipidemia; Z79.899 Other long term (current) drug therapy
CPT/HCPCS: 36415; 80048; 80061; 83735

== ENCOUNTER 2024-07-16 16:21 | Outpatient (CLI) | payer MEDICARE, SELFPAY ==
[2024-07-16] MEDS: MORPHINE 2MG/ML SYRINGE 2 MG IM (16:28)
[2024-07-16] MEDS: PROMETHAZINE HCL 25MG/ML 1ML VIAL 25 MG IM (16:30)
[2024-07-16 16:32] VITALS: BP 121/80; PULSE 73; RESP 16; TEMP 36.7; O2SAT 95
== END 2024-07-16 16:38 | disposition home or self-care (01) ==
LOC: INF 16:22
PROVIDERS: PCP Family Medicine; Visit Provider Family Medicine
DX: G43.001 Migraine without aura, not intractable, with status migrainosus (principal)
CPT/HCPCS: 96372; J2270; J2550

== ENCOUNTER 2024-07-25 11:46 | Outpatient (CLI) | payer MEDICARE, SELFPAY ==
[2024-07-25 12:05] VITALS: BP 112/74; PULSE 87; RESP 18; TEMP 36.6; O2SAT 94
[2024-07-25] MEDS: PROMETHAZINE HCL 25MG/ML 1ML VIAL 25 MG IM (12:05)
[2024-07-25] MEDS: MORPHINE 2MG/ML SYRINGE 2 MG IM (12:05)
== END 2024-07-25 12:16 | disposition home or self-care (01) ==
LOC: INF 11:47
PROVIDERS: PCP Family Medicine; Visit Provider Family Medicine
DX: G43.011 Migraine without aura, intractable, with status migrainosus (principal)
CPT/HCPCS: 96372; J2270; J2550

== ENCOUNTER 2024-09-10 14:30 | Outpatient (CLI) | payer MEDICARE, SELFPAY ==
[2024-09-10 14:39] VITALS: BP 145/89; PULSE 89; RESP 18; TEMP 36.7; O2SAT 97
[2024-09-10] MEDS: MORPHINE 2MG/ML SYRINGE 2 MG IM (14:43)
[2024-09-10] MEDS: PROMETHAZINE HCL 25MG/ML 1ML VIAL 25 MG IM (14:43)
== END 2024-09-10 14:45 | disposition home or self-care (01) ==
LOC: INF 14:31
PROVIDERS: PCP Family Medicine; Visit Provider Family Medicine
DX: R42 Dizziness and giddiness (principal)
CPT/HCPCS: 96372; J2270; J2550

== ENCOUNTER 2024-10-01 10:18 | Outpatient (CLI) | payer MEDICARE, SELFPAY ==
[2024-10-01 10:38] VITALS: BP 132/76; PULSE 68; RESP 18; TEMP 36.6; O2SAT 98
[2024-10-01] MEDS: MORPHINE 2MG/ML SYRINGE 2 MG IM (10:38)
[2024-10-01] MEDS: PROMETHAZINE HCL 25MG/ML 1ML VIAL 25 MG IM (10:39)
[2024-10-01 11:00] VITALS: BP 130/81; PULSE 69; RESP 18; O2SAT 98
== END 2024-10-01 11:00 | disposition home or self-care (01) ==
LOC: INF 10:19
PROVIDERS: PCP Family Medicine; Visit Provider Family Medicine
DX: G43.011 Migraine without aura, intractable, with status migrainosus (principal)
CPT/HCPCS: 96372; J2270; J2550

== ENCOUNTER 2024-12-17 11:18 | Outpatient (CLI) | payer MEDICARE, SELFPAY ==
[2024-12-17] MEDS: PROMETHAZINE HCL 25MG/ML 1ML VIAL 25 MG IM (11:37)
[2024-12-17] MEDS: MORPHINE 2MG/ML SYRINGE 2 MG IM (11:38)
[2024-12-17 11:39] VITALS: BP 108/63; PULSE 80; RESP 18; TEMP 36.4; O2SAT 98
== END 2024-12-17 12:07 | disposition home or self-care (01) ==
LOC: INF 11:19
PROVIDERS: PCP Family Medicine; Visit Provider Family Medicine
DX: G43.011 Migraine without aura, intractable, with status migrainosus (principal)
CPT/HCPCS: 96372; J2270; J2550

== ENCOUNTER 2025-03-06 11:52 | Outpatient (CLI) | payer MEDICARE, SELFPAY ==
--- OUTSIDE RECORDS SUMMARY | 2025-03-06 11:54 | XMS_ITS ---
Author Organization Unknown Problems Date Problem Result OnSetDate Icd10 SnomedCode Severity 11/26/2024 00:00:00 Essential hypertension with goal blood pressure less than 130\/80 I10 11/26/2024 00:00:00 Hypothyroidism (acquired) E03.9 11/26/2024 00:00:00 Acquired hypothyroidism E03.9 11/26/2024 00:00:00 History of breast cancer in adulthood Z85.3 11/27/2024 00:00:00 Pain of left breast N64.4 [id number] 12/10/2024 00:00:00 Chronic renal insufficiency N18.9
[2025-03-06 12:04] LABS: Anti-Centromere B Antibodies ND; Anti-Jo-1 ND; Antichromatin Antibodies ND; Antiscleroderma-70 Antibodies ND; RNP Antibodies ND; Sjogren's Anti-SS-A ND; Sjogren's Anti-SS-B ND
--- NOTE | 2025-03-06 12:13 | XR_ITS ---
FINAL REPORT CLINICAL HISTORY: arthritis pain COMPARISON: 05/15/2019 FINDINGS: AP, lateral and oblique views of the right hand were obtained. There is no acute fracture or dislocation. There is normal mineralization of the bones. Mild degenerative joint disease is unchanged from the prior exam. There is no evidence of bony erosion. The soft tissues are normal. IMPRESSION: Mild degenerative change without acute osseous abnormality of the right hand. Reviewed, Interpreted and Dictated by Ariana Bush MD Transcribed by Lolis Fernández Authenticated and [facility]
--- NOTE | 2025-03-06 12:13 | XR_ITS ---
FINAL REPORT CLINICAL HISTORY: arthritis pain COMPARISON: 05/04/2023 FINDINGS: AP, lateral and oblique views of the right knee were obtained. There is no acute osseous abnormality of the right knee. Degenerative joint disease is similar to the previous study. The soft tissues are normal. There is no joint effusion. IMPRESSION: Stable degenerative changes without acute osseous abnormality of the right knee. Reviewed, Interpreted and Dictated by Ariana Bush MD Transcribed by Lolis Fernández Authenticated and [facility]
--- NOTE | 2025-03-06 12:13 | XR_ITS ---
FINAL REPORT CLINICAL HISTORY: RHEUMATOID ARTHRITIS COMPARISON: 07/23/2021 FINDINGS: AP, lateral and oblique views of the left knee were obtained. There is no acute osseous abnormality of the left knee. There has been progression of mild tricompartmental degenerative joint disease since the previous exam. The soft tissues are normal. There is a small joint effusion. IMPRESSION: Progressed mild degenerative changes without acute osseous abnormality of the left knee. Small joint effusion. Reviewed, Interpreted and Dictated by Ariana Bush MD Transcribed by Lolis Fenrández Authenticated and [facility]
--- NOTE | 2025-03-06 12:13 | XR_ITS ---
FINAL REPORT CLINICAL HISTORY: arthritis pain COMPARISON: 05/15/2019 FINDINGS: AP, oblique, and lateral views of the left hand were obtained. There is no acute fracture of the left hand. There is normal mineralization of the bones. There has been progression of mild multi joint degenerative disease since the previous exam which is most pronounced at the 1st CMC joint. No bony erosions. The soft tissues are normal. IMPRESSION: Progressed mild degenerative changes without acute osseous abnormality of the left hand. Reviewed, Interpreted and Dictated by Ariana Bush MD Transcribed by Lolis Fernández Authenticated and . [facility]
[2025-03-06 12:48] LABS: Basophils # 0.1 K/mm3 (0-0.2); Eosinophils # 0.5 Kmm3 (0.0-0.4); Eosinophils % 4.9 % (0.1-12.0); Hematocrit 37.3 % (37.0-47.0); Hemoglobin 12.5 g/dL (12.2-16.2); Immature Granulocytes # 0.04 10^3uL; Immature Granulocytes % 0.4 %; Lymphocytes # 2.3 K/mm3 (0.7-4.5); Lymphocytes % 24.7 % (10-50); Mean Corpuscular HGB Conc 33.5 g/dL (31.8-35.4); Mean Corpuscular Hemoglobin 29.6 pg (27.0-31.2); Mean Corpuscular Volume 88.2 fl (81-99); Mean Platelet Volume 9.8 fl (7.4-10.4); Neutrophils # 5.3 K/mm3 (1.8-7.8); Nucleated Red Blood Cells # 0 10^3/uL; Nucleated Red Blood Cells % 0 %; Platelet Count 350 K/mm3 (142-424); Red Blood Count 4.23 M/mm3 (4.20-5.40); Red Cell Distribution Width 13.4 % (11.5-17.5); Red Cell Distribution Width-SD 43.4 fL; White Blood Count 9.2 K/mm3 (4.8-10.8)
[2025-03-06 13:29] LABS: Erythrocyte Sedimentation Rate 54 mm/hr (0-30)
[2025-03-06 13:36] LABS: Albumin Level 4.3 g/dl (3.5-5.0); Chloride 108 mmol/L (98-107); Sodium 140 mmol/L (136-145)
[2025-03-06 13:37] LABS: Potassium 4.3 mmoL/L (3.5-5.1)
[2025-03-06 13:39] LABS: Alanine Aminotransferase 25 U/L (12-78); Alkaline Phosphatase 81 U/L (38-126); Anion Gap 13.3 mEq/L (5-15); Aspartate Amino Transferase 24 U/L (14-36); Bilirubin,Total 0.7 mg/dl (0.2-1.3); Blood Urea Nitrogen 30 mg/dl (7-17); Carbon Dioxide 23 mmol/L (22.0-30.0); Estimated Glomerular Filt Rate 51 ml/min (>60); GFR (African American) 62 ML/MIN (>60)
[2025-03-06 13:40] LABS: Albumin/Globulin Ratio 1.5 (1.1-1.8); Calcium 9.7 mg/dl (8.4-10.2); Globulin 2.8 g/dL (1.3-3.2); Glucose 80 mg/dl (74-100); Total Protein,Serum 7.1 g/dl (6.3-8.2)
[2025-03-06 15:40] LABS: C-Reactive Protein 5.6 mg/L (0-4)
[2025-03-07 08:18] LABS: RA Latex Turbid. <10.0 IU/mL (<14.0)
[2025-03-07 17:56] LABS: Antinuclear Antibodies, IFA Negative (.)
[2025-03-08 23:08] LABS: QuantiFERON-TB Gold Plus Negative (Negative)
[2025-03-10 19:19] LABS: Anti-CCP Abs,IgG and IgA (RDL) < 20 Units (<20)
== END 2025-03-06 23:59 | disposition home or self-care (01) ==
LOC: RAD 11:53
PROVIDERS: PCP Family Medicine; Visit Provider Internal Medicine Rheumatology
DX: M17.0 Bilateral primary osteoarthritis of knee (principal); M19.042 Primary osteoarthritis, left hand; M19.041 Primary osteoarthritis, right hand; M25.462 Effusion, left knee
CPT/HCPCS: 36415; 73130; 73562; 80053; 85025; 85651; 86038; 86140; 86200; 86225; 86431; 86480

== ENCOUNTER 2025-04-15 15:25 | Outpatient (CLI) | payer MEDICARE, SELFPAY ==
--- OUTSIDE RECORDS SUMMARY | 2025-03-20 07:30 | XMS_ITS ---
Author Organization [facility] Address [address] [place] [phone] Care Team Providers Care Grades 1 6 Tutor Name Role Phone Enmanuel Walton Primary Care Provider Ellen Juarze [phone] Allergies Allergen (clinical drug ingredient) Drug/Non Drug [...] 59 Performing Lab: Notes/Report: Test performed by [facility] , [address], [place] [address] Ermias Ibarra MD, Ramp Agent CLIA: [id number] Sodium 143 135-145 mmol/L Potassium 4.6 3.5-5.3 [...] 72 Performing Lab: Notes/Report: Test performed by [email or web address] [address] [place] [address] , [address], [place] [address] Ermias Ibarra MD, Ramp Agent CLIA: [id number] Cholesterol 160 <200 mg/dL Triglycerides 94 <150 [...] Interpretation:1.62 Performing Lab: Notes/Report: Test performed by [facility] [address] [place] [address] , [address], [place] [address] Ermias Ibarra MD, Ramp Agent CLIA: [id number] TSH 1.62 0.43-5.25 mU/L REASON FOR VISIT [...] tab(s) o rally once a day Active Maxalt-DIRECTOR PROPERTY 10 MG 1 tab(s) orally once a [...] 6 tabs Orally weekly Active Vital Signs Weight 261.2 lbs 03/20/2025 Blood pressure systolic 120 mm Hg 03/20/20 25 Blood pressure diastolic 80 mm Hg 025 Heart Rate 80 /min 03/20/2025 Height 65 in 03/20/2025 BMI 43.46 kg/m2 03/20/2025 Encounters Encounter Location Date Provider Diagnosis [facility] [address] [place] [address] 36 [facility] [address] [place] [phone] 03/20/2025 Ellen Juarez Hypothyroidism E03.9 ; Dyslipidemia [...] Up: 3 Months, Reason: Provider Name:Ellen Shetty, 04/15/2025 02:45:00 PM, [address] [facility] 36 [facility], [address], [place], [phone], Progress Notes * MARIAELENA GRADYADOB:1970 ( 55 yo F)Acc No.[id number]:03/20/2025 Progress Notes Patient: DEXTER SAVAGE Provider: Ellen Juarez M.D. :1970 A ge:55 Y S ex:Female Date:03/20/2025 Address:[address], [facility] Pcp:Enmanuel Walton Subjective: * Chief Complaints: * [...] lood in urine. 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 * Surgical History: s inus surgery x2 (including Betancourt-Jeyson) , right foot surgery , left ankle surgery , breast bx , oral surgery/Dr. Fernandez- Uvulopalatoplasty (UPPP) and Radiofredquency thermal ablation of tongue 06/27/2008, biopsy of right breast 11/25/08, endometrial biopsy 07/30/09, hysterectomy abdominal 09/2009, left breast lumpectomy/ Dr. MAOSN 12/2009, C-scope/ Dr. Carrasco/ diminutive polyp 01/2010, [...] treatment 07/03-12/2005, [facility] migraine 07/07/07, [facility] ER, migraine 09/09/07, [facility] ER, migraine 09/13/08, H dehydration 06/09, [facility] ER migraine 07.09, [facility] ER migraine 08/31/08, stomach pain 10/18/08, ct scan [facility] on abdomen 10/22/08, [facility] ER migraine 12/18/08, [facility] ER-migraine/sunburn 02/09/09, [facility] ER-migraine , abdominal pain 04/09/2009, [facility] ER-fell off a stool 10/17/09, [facility] ER-migraine 05/19/10, [facility] ER-migraine 12-18-10, [facility] ER-pt fell 01/04/11, [facility] ER- Migraine 09/26/11, [facility] ER - Migraine 05/12/12, [facility] ER-migraine 09/13, [facility] ER-migraine 11/02/13, [facility]-ER migraine -2013, [facility]-ER migraine 10-19-14, [facility] ER-migraine 11/16, [facility] Er-Migraines 01-17-15, [facility] ER - Migraine , [facility] ER- Migraine 07/06/15, [facility] ER-Migraine 04/03/16, [facility]- ER- Migraine 05/03/16, [facility]-Chest pain 10/23/16, [facility] ER -Migraine 08/06/17, [facility] ER-Migraine 10/19, [facility] ER - mirgraine Nov 2017, [facility] ER- migraine 10/22. * Family [...] New since last visit: none. 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 Past smoking status: no, Smoking status: [...] tab(s) orally once a day , Taking Maxalt-DIRECTOR PROPERTY 10 MG Tablet Disintegrating 1 tab(s) orally [...] Creatinine 59 L >59 - mL/min/1.73m2 * LarryEllen sanchez 03/25/2025 02:45:32 PM EDT > See phone [...] T riglycerides 94 <150 - mg/dL * LraryEllen sanchez 03/25/2025 02:45:32 PM EDT > See phone [...] * Images: Billing Information: * Visit Code: 73491 Office Visit, Est Pt., Level 4. * Procedure Codes: G2211 Complex e/m visit add on. 1036F TOBACCO NON-USER. G8783 BP SCR PRFRM RCMDD DEFIND SCR INTVL. G8752 MOST RECENT SYSTOLIC BP < 140MM HG. G8754 MOST RECENT DIASTOLIC BP < 90MM HG. * Electronic signature of Ellen Juarez MD on 04/15/2025 at 03:29 PM EDT Sign off status: Pending * Provider: Ellen Juarez M.D. Date: 0 03/20/2025 Generated for Ashutosh terry/Lucia/Iselaitting on: 0 04/15/2025 03:29 PM EDT History and Physical Notes * [...]
--- OUTSIDE RECORDS SUMMARY | 2025-03-31 06:45 | XMS_ITS ---
[facility] Organization [facility] Address [address] [place] [phone] Care Team Providers Care Cardiovascular Surgical Tech Name Role Phone Enmanuel Walton Primary Care Provider [phone] Merary Sparrow Unavailable [phone] Allergies Allergen (clinical drug ingredient) Drug/Non Drug [...] orally 3 ti mes a day Active Maxalt-IT ACCOUNT MANAGER 10 MG 1 tab(s) orally once a day, may repeat Q2h x2 Active Triamterene-HCTZ 37.5-25 MG 1/2 tab(s) o rally once a day Active Ventolin HFA 108 (90 Base) MCG/ACT 1 puff as needed Inhalation four times a day as needed 01/25/2024 Active Promethazine HCl 25 MG 1 tablet as neede d Orally q6h prn Active Nystatin 800451 UNIT/GM 1 application Ex ternally 4 times [...] day as needed 03/20/2025 Active Vital Signs Weight 262.6 lbs 03/31/2025 Blood pressure systolic 120 mm Hg 03/31/20 25 Blood pressure diastolic 82 mm Hg 025 Heart Rate 87 /min 03/31/2025 Height 65 in 03/31/2025 BMI 43.69 kg/m2 03/31/2025 Encounters Encounter Location Date Provider Diagnosis [facility] [address] [place] [phone] 03/31/2025 Merary Sparrow Candidiasis of breas t [...] Sig Start Date Stop Date Notes Nystatin 923127 UNIT/GM 1 application Ex ternally 4 times a day; Duration: 14 days 03/31/2025 Treatment Notes Assessment Notes Candidiasis of breast Keep under the khoa ast dry as possible. Use cream up to 4 times a day. Wash bra every night to not reinfect with the yeast infection. Follw up as needed. Next Appt Details Follow Up: prn, Reason: Provider Name:Ellen Shetty, 04/15/2025 02:45:00 PM, [address], [address], [place], [phone], Progress Notes * MIKHAIL GRADYB:1970 ( 55 yo F)Acc No.[id number]:03/31/2025 Progress Notes Patient: DEXTER SAVAGE Provider: MODESTO Oh :1970 A ge:55 Y S ex:Female Date:03/31/2025 Address:[place], [id number] Pcp:Enmanuel Walton Subjective: * Chief Complaints: * [...] lood in urine. 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 migraine 07/07/07, [facility] ER, migraine 09/09/07, [facility] ER, migraine 09/13/08, H dehydration 06/09, [facility] ER migraine 10.08, [facility] ER migraine 08/31/08, stomach pain 10/18/08, ct scan [facility] on abdomen 10/22/08, [facility] ER migraine 12/18/08, [facility] ER-migraine/sunburn 02/09/09, [facility] ER-migraine , abdominal pain 04/09/2009, [facility] ER-fell off a stool 10/17/09, [facility] ER-migraine 05/19/10, [facility] ER-migraine 12-18-10, [facility] ER-pt fell 01/04/11, [facility] ER- Migraine 09/26/11, [facility] ER - Migraine 05/12/12, [facility] ER-migraine 09/13, [facility] ER-migraine 11/02/13, [facility] migraine -2013, [facility] migraine 10-19-14, [facility] ER-migraine 11/16, [facility] Er-Migraines 01-17-15, [facility] ER - Migraine , [facility] ER- Migraine 07/06/15, [facility] ER-Migraine 04/03/16, [facility] ER- Migraine 05/03/16, [facility]-Chest pain 10/23/16, [facility] ER -Migraine 08/06/17, [facility] ER-Migraine 10/19, [facility] ER - mirgraine Nov 2017, [facility] ER- migraine 10/22. * Family History: [...] New since last visit: none. 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 Past smoking status: no, Smoking status: [...] tab(s) orally once a day , Taking Maxalt-IT ACCOUNT MANAGER 10 MG Tablet Disintegrating 1 tab(s) orally [...] Temp: 98.0, BP: 120/82, HR: 87, Nurse: [facility], Ht: 65, BMI:43.69. * Examination: G [...] * Images: Billing Information: * Visit Code: 12952 Office Visit, Est Pt., Level 3. * Procedure Codes: G2211 Complex e/[place] on. 1036F TOBACCO NON-USER. G8783 BP SCR PRFRM RCMDD DEFIND SCR INTVL. G8752 MOST RECENT SYSTOLIC BP < 140MM HG. G8754 MOST RECENT DIASTOLIC BP < 90MM HG. * Electronic signature of Bonnie Sparrow APRN on 04/15/2025 at 03:29 PM EDT Sign off status: Pending * Provider: MODESTO Oh Date: 0 03/31/2025 Generated for Ashutosh terry/Lucia/Iselaitting on: 0 04/15/2025 [...]
--- OUTSIDE RECORDS SUMMARY | 2025-04-15 15:30 | XMS_ITS | Clinical Summary ---
Author Organization Healthcare Address [address] [place] [address] Care Team Providers Care Auto Design Detailer Name Role Phone Valentín Juarez MD Primary Care Provider [phone] Social History Tobacco Use Types Packs/Day Years Used Date Smoking Tobacco: Never Assessed Comments Unknown Sex and Gender Information Value Date Recorded Sex Assigned at Not on file Legal Sex Female 8:13 PM EDT Gender Identity Not on file Sexual Orientation Not on file Last Filed Vital Signs Vital Sign Reading Time Taken Comments Blood Pressure 149/74 04/07/2023 5:06 PM EDT Pulse 99 04/07/2023 5:06 PM EDT Temperature - - Respiratory Rate - - Oxygen Saturation - - Inhaled Oxygen Concentration - - Weight 110 kg (242 lb) 04/07/2023 5:06 PM EDT Height 165.1 cm (5' 5 ) 04/07/2023 5:06 PM EDT Body Mass Index 40.27 04/07/2023 5:06 PM EDT Plan of Treatment Health Maintenance Due Date Last Done Comments [facility]-Depression Screening 1970 [facility]-HIV Screening 1970 [facility]-Hepatitis C Screening 1970 [facility]-Medicare Annual Wellness (AWV) 1970 [facility]-/Child/Adol SDOH Screenings 1970 [facility]-Obesity Intervention 01/31/1974 [facility]- SDOH Screenings 01/31/1986 [facility]-Adult SDOH Screenings 01/31/1986 [facility]-DTaP,Tdap,and Td Vaccines (1 - Tdap) 01/31/1987 [facility]-Hepatitis B Vaccines (1 of 3 - 19+ 3-dose series) 01/31/1987 [facility]-Pap Smear 01/31/1989 [facility]-Cervical Cancer Screening 01/31/1998 [facility]-HPV/Cotest 01/31/1998 CT Colonography 01/31/2013 Colonoscopy 01/31/2013 FIT-DNA 01/31/2013 FIT 01/31/2013 FOBT 01/31/2013 Sigmoidoscopy 01/31/2013 [facility]-Colorectal Cancer Screening 01/31/2013 [facility]-Pneumococcal Vaccine: 50+ Years (1 of 1 - PCV) 01/31/2018 [facility]-Zoster Vaccines (1 of 2) 01/31/2018 [facility]-Breast Cancer Screening 08/12/202308/02, 08/12/2021, 03/30/2020, Additional history exists [id number] Vaccine (2023- season) 2024 [facility]-Influenza Vaccine (#1) 2025 HPV Vaccines Aged Out No longer eligi ble based on patient's age to complete this topic [facility]-HIB Vaccines Aged Out No longer e ligible based on patient's age to complete this topic [facility]-Hepatitis A Vaccines Aged Out No longer eligible based on patient's age to complete this topic [facility]-IPV Vaccines Aged Out No longer e ligible based on patient's age to complete this topic [facility]-Rotavirus Vaccines Aged Out No lo nger eligible based on patient's age to complete this topic Insurance [facility] MEDICARE Care Teams Auto Design Detailer Relationship Specialty Start Date End Date Valentín Juarez MD [address] [place] [address] [facility] - General 02/12/21
[2025-04-15] MEDS: PROMETHAZINE HCL 25MG/ML 1ML VIAL 25 MG (15:38)
[2025-04-15] MEDS: MORPHINE 2MG/ML SYRINGE 2 MG (15:39)
[2025-04-15 15:40] VITALS: BP 137/71; PULSE 71; RESP 18; TEMP 36.7; O2SAT 98
== END 2025-04-15 16:15 | disposition home or self-care (01) ==
LOC: INF 15:27
PROVIDERS: PCP Family Medicine; Visit Provider Family Medicine
DX: G43.011 Migraine without aura, intractable, with status migrainosus (principal)
CPT/HCPCS: 96372; J2270; J2550

== ENCOUNTER 2025-06-11 15:48 | Outpatient (CLI) | payer MEDICARE, SELFPAY ==
--- OUTSIDE RECORDS SUMMARY | 2025-03-20 07:30 | XMS_ITS ---
Author Organization [facility] Address [address] [place] [phone] Care Team Providers Care Product Operations Associate Name Role Phone Enmanuel Walton Primary Care Provider [phone] Ellen Juarez [phone] Allergies Allergen (clinical drug ingredient) Drug/Non Drug [...] 59 Performing Lab: Notes/Report: Test performed by [facility] , [address], [place] [address] Ermias Ibarra MD, Air Traffic Control Manager CLIA: [id number] Sodium 143 135-145 mmol/L Potassium 4.6 3.5-5.3 [...] 72 Performing Lab: Notes/Report: Test performed by [facility] [address] [employer] [address] [place] [address] , [address], [place] [address] Ermias Ibarra MD, Air Traffic Control Manager CLIA: [id number] Cholesterol 160 <200 mg/dL Triglycerides 94 <150 [...] Interpretation:1.62 Performing Lab: Notes/Report: Test performed by [facility] [address] [place] [address] , [address], [place] [address] Ermias Ibarra MD, Air Traffic Control Manager CLIA: [id number] TSH 1.62 0.43-5.25 mU/L REASON FOR VISIT [...] tab(s) o rally once a day Active Maxalt-LEATHER HEEL BREASTER 10 MG 1 tab(s) orally once a [...] 03/20/2025 Encounters Encounter Location Date [facility] [address] [phone] 03/20/2025 Ellen Juarez Hypothyroidism E03.9 ; Dyslipidemia [...] Up: 3 Months, Reason: Progress Notes * NAHOMI GRADY:1970 ( 55 yo F)Acc No.[id number]:03/20/2025 Progress Notes Patient: S DEXTER JENNINGS Provider: Ellen Juarez M.D. :1970 A ge:55 Y S ex:Female Date:03/20/2025 Address:[id number] Pcp:Enmanuel Walton Subjective: * Chief Complaints: * [...] lood in urine. 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 migraine 07/07/07, [facility] ER, migraine 09/09/07, [facility] ER, migraine 09/13/08, H dehydration 06/09, [facility] ER migraine ., [facility] ER migraine 08/31/08, stomach pain 10/18/08, ct scan [facility] on abdomen 10/22/08, [facility] ER migraine 12/18/08, [facility] ER-migraine/sunburn 02/09/09, [facility] ER-migraine , abdominal pain 04/09/2009, [facility] ER-fell off a stool 10/17/09, [facility] ER-migraine 05/19/10, [facility] ER-migraine 12-18-10, [facility] ER-pt fell 01/04/11, [facility] ER- Migraine 09/26/11, [facility] ER - Migraine 05/12/12, [facility] ER-migraine 09/13, [facility] ER-migraine 11/02/13, [facility]-ER migraine -2013, [facility]-ER migraine 10-19-14, [facility] ER-migraine 11/16, [facility] Er-Migraines 01-17-15, [facility] ER - Migraine 8, [facility] ER- Migraine 07/06/15, [facility] ER-Migraine 04/03/16, [facility]- ER- Migraine 05/03/16, [facility]-Chest pain 10/23/16, [facility] ER -Migraine 08/06/17, [facility] ER-Migraine 10/19, [facility] ER - mirgraine Nov 2017, [facility] ER- migraine 10/22. * Family History: F [...] New since last visit: none. 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 Past smoking status: no, Smoking status: [...] tab(s) orally once a day , Taking Maxalt-LEATHER HEEL BREASTER 10 MG Tablet Disintegrating 1 tab(s) orally [...] Creatinine 59 L >59 - mL/min/1.73m2 * Larry, R Steve 03/25/2025 02:45:32 PM EDT > See [...] * Images: Billing Information: * Visit Code: 51783 Office Visit, Est Pt., Level 4. * Procedure Codes: G2211 Complex e/m visit add on. 1036F TOBACCO NON-USER. G8783 BP SCR PRFRM RCMDD DEFIND SCR INTVL. G8752 MOST RECENT SYSTOLIC BP < 140MM HG. G8754 MOST RECENT DIASTOLIC BP < 90MM HG. * Electronic signature of Ellen Juarez MD on 06/11/2025 at 03:53 PM EDT Sign off status: Pending * Provider: Ellen Juarez M.D. Date: 0 03/20/2025 Generated for Printi ng/Fachemog/eTransmitting on: 0 06/11/2025 03:53 PM EDT History and Physical Notes * HPI (History [...]
--- OUTSIDE RECORDS SUMMARY | 2025-03-31 06:45 | XMS_ITS ---
Author Organization [facility] Address [address] [place] [phone] Care Team Providers Care Special Distribution Clerk Name Role Phone Enmanuel Walton Primary Care Provider Merary Sparrow Unavailable [phone] Allergies Allergen (clinical drug ingredient) Drug/Non Drug [...] orally 3 ti mes a day Active Maxalt-WORKDAY DIRECTOR 10 MG 1 tab(s) orally once a day, may repeat Q2h x2 Active Triamterene-HCTZ 37.5-25 MG 1/2 tab(s) o rally once a day Active Ventolin HFA 108 (90 Base) MCG/ACT 1 puff as needed Inhalation four times a day as needed 01/25/2024 Active Promethazine HCl 25 MG 1 tablet as neede d Orally q6h prn Active Nystatin 678349 UNIT/GM 1 application Ex ternally 4 times [...] 03/31/2025 Encounters Encounter Location Date Provider Diagnosis [facility] [address] [place] [phone] 03/31/2025 Merary Sparrow Candidiasis of breas t [...] Sig Start Date Stop Date Notes Nystatin 601999 UNIT/GM 1 application Ex ternally 4 times a day; Duration: 14 days 03/31/2025 Treatment Notes Assessment Notes Candidiasis of breast Keep under the khoa ast dry as possible. Use cream up to 4 times a day. Wash bra every night to not reinfect with the yeast infection. Follw up as needed. Next Appt Details Follow Up: prn, Reason: Progress Notes * MARIAELENA GRADYADOB:1970 ( 55 yo F)Acc No.[id number]:03/31/2025 Progress Notes Patient: DEXTER SAVAGE Provider: MODESTO Oh :1970 A ge:55 Y S ex:Female Date:03/31/2025 Address:[place], [id number] Pcp:Enmanuel Walton Subjective: * Chief Complaints: * [...] lood in urine. 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 Cáhvez 11/24/17, Foot Surgery 07/2022. * Hospitalization/Major Diagno stic Procedure: s stuart as above , for DHE treatment 07/03-12/2005, [facility] migraine 07/07/07, [facility] ER, migraine 09/09/07, [facility] ER, migraine 09/13/08, H dehydration 06/09, [facility] ER migraine 07.09, [facility] ER migraine 08/31/08, stomach pain 10/18/08, ct scan [facility] on abdomen 10/22/08, [facility] ER migraine 12/18/08, [facility] ER-migraine/sunburn 02/09/09, [facility] ER-migraine , abdominal pain 04/09/2009, [facility] ER-fell off a stool 10/17/09, [facility] ER-migraine 05/19/10, [facility] ER-migraine 12-18-10, [facility] ER-pt fell 01/04/11, [facility] ER- Migraine 09/26/11, [facility] ER - Migraine 05/12/12, [facility] ER-migraine 09/13, [facility] ER-migraine 11/02/13, [facility]-ER migraine , [facility]-ER migraine 10-19-14, [facility] ER-migraine 11/16, [facility] Er-Migraines 01-17-15, [facility] ER - Migraine , [facility] ER- Migraine 07/06/15, [facility] ER-Migraine 04/03/16, [facility]- ER- Migraine 05/03/16, [facility]-Chest pain 10/23/16, [facility] ER -Migraine 08/06/17, [facility] ER-Migraine 10/19, [facility] ER - mirgraine Nov 2017, [facility] ER- migraine 10/22. * Family History: [...] New since last visit: none. 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 Past smoking status: no, Smoking status: [...] tab(s) orally once a day , Taking Maxalt-WORKDAY DIRECTOR 10 MG Tablet Disintegrating 1 tab(s) orally [...] Temp: 98.0, BP: 120/82, HR: 87, Nurse: [facility], Ht: 65, BMI:43.69. * Examination: G eneral [...] * Images: Billing Information: * Visit Code: 84695 Office Visit, Est Pt., Level 3. * Procedure Codes: G2211 Complex e/[place]. 1036F TOBACCO NON-USER. G8783 BP SCR PRFRM RCMDD DEFIND SCR INTVL. G8752 MOST RECENT SYSTOLIC BP < 140MM HG. G8754 MOST RECENT DIASTOLIC BP < 90MM HG. * Electronic signature of Bonnie Sparrow APRN on 06/11/2025 at 03:52 PM EDT Sign off status: Pending * Provider: MODESTO Oh Date: 0 03/31/2025 Generated for Ashutosh terry/Lucia/Iselaitting on: 0 06/11/2025 03:52 PM EDT History and Physical Notes * [...]
--- OUTSIDE RECORDS SUMMARY | 2025-04-15 10:45 | XMS_ITS ---
Author Organization [facility] Address [address] [place] [phone] Care Team Providers Care Venetian Blind Washer Name Role Phone Enmanuel Walton Primary Care Provider Ellen Juarez [phone] Allergies Allergen (clinical drug ingredient) Drug/Non Drug [...] Bed Time; Duration: 90 days Active Nystatin 731776 UNIT/GM 1 application Ex ternally 4 times a day; Duration: 14 days 03/31/2025 Active oxyCODONE HCl 5 MG 1 tab(s) orally thre e times a day as needed Active Medrol 4 MG as directed Orally Active Promethazine HCl 25 MG 1 tablet as neede d Orally q6h prn Active Triamterene-HCTZ 37.5-25 MG 1/2 tab(s) o rally once a day Active Maxalt-COMMUNITY SERVICE AIDE 10 MG 1 tab(s) orally once a [...] Location Date Provider Diagnosis [facility] [address] [phone] 04/15/2025 Ellen Juarez Intractable migraine without aura and with status migrainosus G43.011 Assessments Encounter Date Diagnosis (ICD Code) Assessment Notes Treatment Notes Treatment Clinical Notes Section Notes 04/15/2025 Intractable migraine without aura and with status migrainosus (ICD-10 - G43.011) To [facility] outpt for Morphine 2mg and Phenergan [...] without aura and with status migrainosus To [facility] outpt for Morphine 2mg and Phenergan 25 mg IM Next Appt Details Follow Up: prn, Reason: Progress Notes * MIKHAIL GRADYB:1970 ( 55 yo F)Acc No.[id number]:04/15/2025 Progress Notes Patient: DEXTER SAVAGE Provider: Ellen Juarez M.D. :1970 A ge:55 Y S ex:Female Date:04/15/2025 Address:[place], [id number] Pcp:Enmanuel Walton Subjective: * Chief Complaints: * [...] lood in urine. 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 migraine 07/07/07, [facility] ER, migraine 09/09/07, [facility] ER, migraine 09/13/08, H dehydration 06/09, [facility] ER migraine 07.09, [facility] ER migraine 08/31/08, stomach pain 10/18/08, ct scan [facility] on abdomen 10/22/08, [facility] ER migraine 12/18/08, [facility] ER-migraine/sunburn 02/09/09, [facility] ER-migraine , abdominal pain 04/09/2009, [facility] ER-fell off a stool 10/17/09, [facility] ER-migraine 05/19/10, [facility] ER-migraine 12-18-10, [facility] ER-pt fell 01/04/11, [facility] ER- Migraine 09/26/11, [facility] ER - Migraine 05/12/12, [facility] ER-migraine 09/13, [facility] ER-migraine 11/02/13, [facility]-ER migraine -2013, [facility]-ER migraine 10-19-, [facility] ER-migraine 11/16, [facility] Er-Migraines --, [facility] ER - Migraine 8, [facility] ER- Migraine 07/06/15, [facility] ER-Migraine 04/03/16, [facility]- ER- Migraine 05/03/16, [facility]-Chest pain 10/23/16, [facility] ER -Migraine 08/06/17, [facility] ER-Migraine 10/19, [facility] ER - mirgraine Nov 2017, [facility] ER- migraine 10/22. * Family History: [...] New since last visit: none. 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 Past smoking status: no, Smoking status: [...] tab(s) orally once a day , Taking Maxalt-COMMUNITY SERVICE AIDE 10 MG Tablet Disintegrating 1 tab(s) orally [...] needed Orally q6h prn , Taking Nystatin 148224 UNIT/GM Cream 1 application Externally 4 times [...] * Images: Billing Information: * Visit Code: 57765 Office Visit, Est Pt., Level 3. * Procedure Codes: G2211 Complex e/m visit add on. 1036F TOBACCO NON-USER. G8783 BP SCR PRFRM RCMDD DEFIND SCR INTVL. G8752 MOST RECENT SYSTOLIC BP < 140MM HG. G8754 MOST RECENT DIASTOLIC BP < 90MM HG. * Electronic signature of Ellen Juarez MD on 06/11/2025 at 03:51 PM EDT Sign off status: Pending * Provider: Ellen Juarez M.D. Date: 0 04/15/2025 Generated for Maryi mara/Lucia/eTtheasmitting on: 0 06/11/2025 03:51 PM EDT History and Physical Notes * [...]
--- OUTSIDE RECORDS SUMMARY | 2025-05-20 05:00 | XMS_ITS ---
Author Organization [facility] Address [address] [place] [phone] Care Team Providers Care Telecommunication Systems Designer Name Role Phone Enmanuel Walton Primary Care Provider [phone] Ellen Juarez [phone] Allergies Allergen (clinical drug ingredient) Drug/Non Drug [...] tab(s) o rally once a day Active Maxalt-SENIOR SUPPLY CHAIN ANALYST 10 MG 1 tab(s) orally once a [...] W/U Status Risk Notes Problem Rheumatoid arthritis (34022190) Rheumatoid arthritis (M06.9) Active confirmed Vital Signs Blood pressure systolic 130 mm Hg 05/20/20 25 Blood pressure diastolic 78 mm Hg 025 Heart Rate 95 /min 05/20/2025 Height 65 in 05/20/2025 Weight 263.4 lbs 05/20/2025 BMI 43.83 kg/m2 05/20/2025 Encounters Encounter Location Date Provider Diagnosis [facility] [address] [place], [place] [phone] 05/20/2025 Ellen Juarez Chronic migraine wit hout [...] Up: 3 Months, Reason: Progress Notes * MIKHAIL GRADYB:1970 ( 55 yo F)Acc No.[id number]:05/20/2025 Progress Notes Patient: DEXTER SAVAGE Provider: Ellen Juarez M.D. :1970 A ge:55 Y S ex:Female Date:05/20/2025 Address:[place], [id number] Pcp:Enmanuel Walton Subjective: * Chief Complaints: * [...] lood in urine. 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 migraine 07/07/07, [facility] ER, migraine 09/09/07, [facility] ER, migraine 09/13/08, H dehydration 06/09, [facility] ER migraine 10.08, [facility] ER migraine 08/31/08, stomach pain 10/18/08, ct scan [facility] on abdomen 10/22/08, [facility] ER migraine 12/18/08, [facility] ER-migraine/sunburn 02/09/09, [facility] ER-migraine 61/, abdominal pain 04/09/2009, [facility] ER-fell off a stool 10/17/09, [facility] ER-migraine 05/19/10, [facility] ER-migraine 12-18-10, [facility] ER-pt fell 01/04/11, [facility] ER- Migraine 09/26/11, [facility] ER - Migraine 05/12/12, [facility] ER-migraine 09/13, [facility] ER-migraine 11/02/13, [facility]-ER migraine -2013, [facility]-ER migraine 10-19-14[facility] ER-migraine 11/16, [facility] Er-Migraines 01-17-15, [facility] ER - Migraine , [facility] ER- Migraine 07/06/15, [facility] ER-Migraine 04/03/16, [facility] ER- Migraine 05/03/16, [facility]-Chest pain 10/23/16, [facility] ER -Migraine 08/06/17, [facility] ER-Migraine 10/19, [facility] ER - mirgraine Nov 2017, [facility] ER- migraine 10/22. * Family [...] since last visit: none. 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 Past smoking status: no, Smoking status: Does [...] tab(s) orally once a day , Taking Maxalt-SENIOR SUPPLY CHAIN ANALYST 10 MG Tablet Disintegrating 1 tab(s) orally [...] * Images: Billing Information: * Visit Code: 90255 Office Visit, Est Pt., Level 3. * [...] Pending * Provider: Ellen Juarez M.D. Date: 05/20/2025 Generated for Ashutosh terry/Lucia/Syed on: 0 06/11/2025 03:51 PM EDT History and Physical Notes * Examination Category [...]
--- OUTSIDE RECORDS SUMMARY | 2025-05-23 10:01 | XMS_ITS | Encounter Summary ---
Author Organization [facility] Address [address] [place] [address] Care Team Providers Care Area Intelligence Technician Name Role Phone Valentín Juarez MD Primary Care Provider Reason for Referral * Invasive Procedures (Routine) - Pending Review Specialty Diagnoses / Procedures Referred By Yadira mcmillan Referred To Contact Diagnoses Wide-complex tachycardia Procedures EP/CRM Study Esequiel Norris PA-C [address] [address] Phone: tel: fax: Referral ID Status Reason Start Date Expiration Date V isits Requested Visits Authorized Pending Review 04/10/2025 07/10/2026 1 1 Reason for Visit * Auth/Cert (Routine) Specialty Diagnoses / Procedures Referred By Yadira mcmillan Referred To Contact Diagnoses Wide-complex tachycardia SVT Procedures CT COMPRE EP EVAL R ATR VNTRC PACG&REC HIS BNDL REC EP/CRM Study +/- SVT ablation; hold bisoprolol 5 days prior Referral ID Status Reason Start Date Expiration Date Visits Re quested Visits Authorized [id number] 1 1 Encounter Details Date Type Department Care Team (Late st Contact Info) Description 05/23/2025 10:01 AM EDT - 05/24/2025 9:01 AM EDT Hospital Encounter 6A [address] [place] [address] John Villafana MD [address] [facility] [address] [place] [address] Esequiel Norris PA-C [address] [facility] [address] [place] [address] Wide-complex tachycardia Discharge Disposition: Home or Self [...] 11:27 AM EDT Dalila Jimenez RN * [place] Suicide Severity Rating Scale (Screener/Recent Self-Report) Question Answer Date of Assessment Author 6. Suicidal Behavior (Lifetime) No 05/23/2025 11:27 AM EDT Alma Rosa Huntley RN documented as of this encounter Discharge Summaries * Mario Sellres MD - 05/24/2025 7:11 AM EDT Cardiology [...] MG tablet 6 tabs Orally weekly nystatin [id number] UNIT/GM cream Commonly known as: MYCOSTATIN 1 [...] sent through Care Everywhere. * Cardiac Ablation (Uruguayan) * Femoral Site Care (Uruguayan) documented in this encounter Medications at Time of Discharge aspirin 81 MG chewable tablet Chew 1 tablet Daily. atorvastatin (LIPITOR) 40 MG tablet Take 1 tablet by mouth Daily. esomeprazole (NexIUM) 40 MG capsule Take 1 [...] 2.5 MG tablet 6 tabs Orally weekly oxyCODONE (ROXICODONE) 5 MG immediate release tablet [...] capsule Take 1 capsule by mouth Daily. ALBUTEROL IN Inhale 2 puffs as needed. bisoprolol (ZEBeta) 5 MG tablet Take 1 tablet by mouth Daily. 07/12/2024 nystatin (MYCOSTATIN) [id number] UNIT/GM cream 1 Application Every 6 (Six) Hours. 03/31/2025 documented as of this encounter H&P Notes * Esequiel Norris PA-C - 05/23/2025 11:18 AM EDT Pre-cardiac Ablation History and Physical [facility] Patient: Roseline Peraza : 1970 PCP: Valentín Juarez MD PHONE: [phone] DATE: 05/23/2025 ID: Roseline Peraza is a 55 y.o. female from [place] CC: palpitations Problem List: SVT OSH ER [...] tablet 6 tabs Orally weekly nystatin (MYCOSTATIN) [id number] UNIT/GM cream 1 Application, Every 6 Hours [...] 05/23/2025 No results found for: TSH , [id number] , [id number] , THYROIDAB Tele: NSR IMPRESSION: Ms. Peraza [...] for our final DATE OF PROCEDURE: 06/30/21 CROP DUSTER HELPER/PIN BALL MACHINE MECHANIC: John Villafana MD PROCEDURE(S) PERFORMED: 1. Diagnostic [...] sheaths and catheters were inserted: 1. A 7-Turkmen, Decanav catheter was advanced via a 7-Turkmen sheath in the left femoral vein to the coronary sinus for left atrial recording and pacing. 2. A 6-Turkmen, Diag catheter was advanced via 6-Turkmen sheath in the right femoral vein to the high right atrium 3. A 6-Turkmen, Diag catheter was advanced via 6-Turkmen sheath in the right femoral vein to the RV septum 4. A 6 Turkmen, CRD2 catheter was advanced via 6- Turkmen Sheath int he left femoral vein to the His bundle 5. An ST-SF, Biosense Elizabeth ablation catheter was advanced via 8-Turkmen sheath in the right femoral vein to the right atrial septum for mapping and ablation. A diagnostic electrophysiology study was then performed. The patient arrived in the clinical electrophysiology laboratory in normal sinus rhythm with a ventricular rate of 110 beats per minute. The CT interval was measured at 194 milliseconds with [...] was used to ensure there were no CT prolongation during ablation. Ablation was performed with [...] * Telemetry Scan (05/23/2025 11:36 AM EDT) [facility] Onbase ECG ORDERABLES Final Result * (ABNORMAL) Basic Metabolic Panel (05/23/2025 11:00 AM EDT) Glucose 96 65 - 99 mg/dL 05/23/2025 11:32 AM EDT LABORATORY BUN 24.7(H) 6.0 - 20.0 mg/dL 05/23/2025 11:32 AM EDT LABORATORY Creatinine 0.91 0.57 - 1.00 mg/dL 05/23/2025 11:32 AM EDT LABORATORY Sodium 141 136 - 145 mmol/L 05/23/2025 11:32 AM EDT LABORATORY Potassium 3.5 3.5 - 5.2 mmol/L 05/23/2025 11:32 AM EDT LABORATORY Chloride 107 98 - 107 mmol/L 05/23/2025 11:32 AM EDT LABORATORY CO2 22.7 22.0 - 29.0 mmol/L 05/23/2025 11:32 AM EDT LABORATORY Calcium 8.9 8.6 - 10.5 mg/dL 05/23/2025 11:32 AM EDT LABORATORY BUN/Creatinine Ratio 27.1(H) 7.0 - 25.0 05/23/2025 11:32 AM EDT LABORATORY Anion Gap 11.3 5.0 - 15.0 mmol/L 05/23/2025 11:32 AM EDT LABORATORY eGFR 73.7 >60.0 mL/min/1.7 3 05/23/2025 11:32 AM EDT LABORATORY Blood Line / Unknown 05/23/2025 11 :00 AM EDT 05/23/2025 11:10 AM EDT [facility] LABORATORY - 05/23/2025 11:32 AM EDT GFR [...] PA-C LAB BLOOD ORDERABLES Final R esult LABORATORY
[address] [place] [address], * (ABNORMAL) CBC (No Diff) (05/23/2025 11:00 AM EDT) WBC 7.65 3.40 - 10.80 10*3/mm3 05/23/2025 11:16 AM EDT LABORATORY RBC 3.89 3.77 - 5.28 10*6/mm3 05/23/2025 11:16 AM EDT LABORATORY Hemoglobin 11.5(L) 12.0 - 15.9 g/dL 05/23/2025 11:16 AM EDT LABORATORY Hematocrit 35.2 34.0 - 46.6 % 05/23/2025 11:16 AM EDT LABORATORY MCV 90.5 79.0 - 97.0 fL 05/23/2025 11:16 AM EDT LABORATORY MCH 29.6 26.6 - 33.0 pg 05/23/2025 11:16 AM EDT LABORATORY MCHC 32.7 31.5 - 35.7 g/dL 05/23/2025 11:16 AM EDT LABORATORY RDW 15.1 12.3 - 15.4 % 05/23/2025 11:16 AM EDT LABORATORY RDW-SD 49.6 37.0 - 54.0 fl 05/23/2025 11:16 AM EDT LABORATORY MPV 9.7 6.0 - 12.0 fL 05/23/2025 11:16 AM EDT LABORATORY Platelets 291 140 - 450 10*3/mm3 05/23/2025 11:16 AM EDT LABORATORY Blood Line / Unknown 05/23/2025 11 :00 AM EDT 05/23/2025 11:10 AM EDT Esequiel Norris PA-C LAB BLOOD ORDERABLES Final R esult LABORATORY
[address] [place] [address], documented in this encounter Visit Diagnoses Diagnosis [...] tablet 100 mcg 100 mcg, Oral, Every Applications Chemist, First dose on Mon05/24/25 at 0600, Take [...] tablet 100 mcg 100 mcg, Oral, Every Applications Chemist, First dose on Mon05/24/25 at 0600, Take [...] patient refuses or patient unable to swallow. ([facility]) documented in this encounter Care Teams Area Intelligence Technician Relationship Specialty Start Date End Date Valentín Juarez MD [address] [facility] [address] [facility] [address] [place] [id number] PCP - General Family Medicine 06/14/16 documented as of this encounter
--- OUTSIDE RECORDS SUMMARY | 2025-05-23 12:10 | XMS_ITS | Encounter Summary ---
Author Organization [facility] Address [address] [place] [address] Care Team Providers Care Rn Emergency Name Role Phone Valentín Juarez MD Primary Care Provider Reason for Visit * Auth/Cert (Routine) Specialty Diagnoses / Procedures Referred By Yadira t Referred To Contact Diagnoses Wide-complex tachycardia SVT Procedures OR COMPRE EP EVAL R ATR VNTRC PACG&REC HIS BNDL REC EP/CRM Study +/- SVT ablation; hold bisoprolol 5 days prior Referral ID Status Reason Start Date Expiration Date Visits Re quested Visits Authorized [id number] 1 1 Encounter Details Date Type Department Care Team (Late st Contact Info) Description 05/23/2025 12:10 PM EDT - 05/23/2025 2:10 PM EDT Surgery [facility] [address] [place] [id number] John Villafana MD [address] [facility] [address] [place] [address] EP/CRM Study +/- SVT ablation; hold bisoprolol 5 days prior [91834 (CPT )] Social History Tobacco Use Types Packs/Day Years [...] Sign Reading Time Taken Comments Blood Pressure 165/84 05/23/2025 10:33 AM EDT Pulse 96 05/23/2025 10:33 AM EDT Temperature 36.3 C (97.4 F) 05/23/2025 10:30 AM EDT Respiratory Rate 18 05/23/2025 10:30 AM EDT Oxygen Saturation 94% 05/23/2025 10:33 AM EDT Inhaled Oxygen Concentration - - [...] No Risk Indicated 05/23/2025 11:27 AM EDT Single Dalila magallon RN * Orange Suicide Severity Rating Scale (Screener/Recent Self-Report) Question [...] MG tablet 6 tabs Orally weekly nystatin 864418 UNIT/GM cream Commonly known as: MYCOSTATIN 1 [...] sent through Care Everywhere. * Cardiac Ablation (Citizen Of [place]) * Femoral Site Care (Citizen Of [place]) documented in this encounter Medications at Time [...] tablet by mouth Daily. 07/12/2024 nystatin (MYCOSTATIN) 042443 UNIT/GM cream 1 Application Every 6 (Six) Hours. 03/31/2025 documented as of this encounter H&P Notes * Esequiel Norris PA-C - 05/23/2025 11:18 AM EDT Pre-cardiac Ablation History and Physical [facility] Patient: Roseline Peraza : 1970 PCP: Valentín Juarez MD PHONE: [phone] DATE: 05/23/2025 ID: Roseline Peraza is a 55 y.o. female from [place] CC: palpitations Problem List: SVT OSH ER [...] tablet 6 tabs Orally weekly nystatin (MYCOSTATIN) 030632 UNIT/GM cream 1 Application, Every 6 Hours [...] 05/23/2025 No results found for: TSH , [id number] , [id number] , THYROIDAB Tele: NSR IMPRESSION: Ms. Peraza [...] for our final DATE OF PROCEDURE: 06/30/21 AGRICULTURAL ENGINEERING TECHNICIANS/INGOT CASTER: John Villafana MD PROCEDURE(S) PERFORMED: 1. Diagnostic [...] sheaths and catheters were inserted: 1. A 7-[place] Citizen, Decanav catheter was advanced via a 7-[place] Citizen sheath in the left femoral vein to the coronary sinus for left atrial recording and pacing. 2. A 6-[place] Citizen, Diag catheter was advanced via 6-[place] Citizen sheath in the right femoral vein to the high right atrium 3. A 6-[place] Citizen, Diag catheter was advanced via 6-[place] Citizen sheath in the right femoral vein to the RV septum 4. A 6 [place] Citizen, CRD2 catheter was advanced via 6- [place] Citizen Sheath int he left femoral vein to the His bundle 5. An ST-SF, Biosense Elizabeth ablation catheter was advanced via 8-[place] Citizen sheath in the right femoral vein to the right atrial septum for mapping and ablation. A diagnostic electrophysiology study was then performed. The patient arrived in the clinical electrophysiology laboratory in normal sinus rhythm with a ventricular rate of 110 beats per minute. The [place] interval was measured at 194 milliseconds with [...] was used to ensure there were no OR prolongation during ablation. Ablation was performed with [...] will be discharged to home this afternoon us Esequiel Norris PA-C CV ELECTROPHYSIOLOGY ORDERAB LES Final Result * Telemetry Scan (05/23/2025 11:36 AM EDT) [facility] ECG ORDERABLES Final Result * (ABNORMAL) Basic Metabolic Panel (05/23/2025 11:00 AM EDT) Glucose 96 65 - 99 mg/dL 05/23/2025 11:32 AM EDT [facility] BUN 24.7(H) 6.0 - 20.0 mg/dL 05/23/2025 11:32 AM EDT [facility] Creatinine 0.91 0.57 - 1.00 mg/dL 05/23/2025 11:32 AM EDT [facility] Sodium 141 136 - 145 mmol/L 05/23/2025 11:32 AM EDT [facility] Potassium 3.5 3.5 - 5.2 mmol/L 05/23/2025 11:32 AM EDT [facility] Chloride 107 98 - 107 mmol/L 05/23/2025 11:32 AM EDT [facility] CO2 22.7 22.0 - 29.0 mmol/L 05/23/2025 11:32 AM EDT [facility] Calcium 8.9 8.6 - 10.5 mg/dL 05/23/2025 11:32 AM EDT [facility] BUN/Creatinine Ratio 27.1(H) 7.0 - 25.0 05/23/2025 11:32 AM EDT [facility] Anion Gap 11.3 5.0 - 15.0 mmol/L 05/23/2025 11:32 AM EDT [facility] eGFR 73.7 >60.0 mL/min/1.7 3 05/23/2025 11:32 AM EDT [facility] Blood Line / Unknown 05/23/2025 11 :00 AM EDT 05/23/2025 11:10 AM EDT Narrative [facility] - 05/23/2025 11:32 AM EDT GFR [...] PA-C LAB BLOOD ORDERABLES Final R esult [facility]
[address] [place] [address], * (ABNORMAL) CBC (No Diff) (05/23/2025 11:00 AM EDT) WBC 7.65 3.40 - 10.80 10*3/mm3 05/23/2025 11:16 AM EDT [facility] RBC 3.89 3.77 - 5.28 10*6/mm3 05/23/2025 11:16 AM EDT [facility] Hemoglobin 11.5(L) 12.0 - 15.9 g/dL 05/23/2025 11:16 AM EDT [facility] Hematocrit 35.2 34.0 - 46.6 % 05/23/2025 11:16 AM EDT [facility] MCV 90.5 79.0 - 97.0 fL 05/23/2025 11:16 AM EDT [facility] MCH 29.6 26.6 - 33.0 pg 05/23/2025 11:16 AM EDT [facility] MCHC 32.7 31.5 - 35.7 g/dL 05/23/2025 11:16 AM EDT [facility] RDW 15.1 12.3 - 15.4 % 05/23/2025 11:16 AM EDT [facility] RDW-SD 49.6 37.0 - 54.0 fl 05/23/2025 11:16 AM EDT [facility] MPV 9.7 6.0 - 12.0 fL 05/23/2025 11:16 AM EDT [facility] Platelets 291 140 - 450 10*3/mm3 05/23/2025 11:16 AM EDT [facility] Blood Line / Unknown 05/23/2025 11 :00 AM EDT 05/23/2025 11:10 AM EDT Esequiel Norris PA-C LAB BLOOD ORDERABLES Final R esult [facility]
[address] [place] [address], documented in this encounter Visit Diagnoses Diagnosis Wide-complex tachycardia- Primary Paroxysmal ventricular tachycardia Wide-complex tachycardia Paroxysmal ventricular tachycardia documented in [...] 05/23/2025 8:09 PM E DT 0.1 mg diphenhydrAMINE (BENADRYL) injection Code / Trauma / Sedation Medication, Starting on Mon05/23/25 at 1718 Given 05/23/2025 5:18 PM EDT 25 mg etomidate (AMIDATE) injection Code / Trauma / Sedation Medication, Starting on Mon05/23/25 at 1709 Given 05/23/2025 5:40 PM EDT 10 mg Given 05/23/2025 5:09 PM EDT 8 mg fentaNYL citrate (PF) (SUBLIMAZE) injection Code / Trauma / Sedation Medication, Starting on Mon05/23/25 at 1706 Given 05/23/2025 6:09 PM EDT 25 mcg Given 05/23/2025 6:00 PM EDT 50 mcg Given 05/23/2025 5:43 PM EDT 50 mcg heparin (porcine) injection Code / Trauma / Sedation Medication, Starting on Mon05/23/25 at 1718 Given 05/23/2025 5:18 PM EDT 5,000 Units isoproterenol (ISUPREL) infusion 200 mcg/100 mL 0.9% NS infusion Code / Trauma / Sedation Continuous Med, Starting on Mon05/23/25 at 1747 Rate/Dose Change 05/23/2025 5:58 PM EDT 5 mcg/min 150 mL/hr Rate/Dose Change 05/23/2025 5:52 PM EDT 2 mcg/min 60 mL/h r New Bag 05/23/2025 5:47 PM EDT 1 mcg/min 30 mL/hr labetalol (NORMODYNE,TRANDATE) injection Code / Trauma / Sedation Medication, Starting on Mon05/23/25 at 1811 Given 05/23/2025 6:11 PM EDT 10 mg levothyroxine (SYNTHROID, LEVOTHROID) tablet 100 mcg 100 mcg, Oral, Every Wallpaper Consultant, First dose on Mon05/24/25 at 0600, Take on empty stomach. Given 05/24/2025 5:32 AM EDT 100 mcg lidocaine (XYLOCAINE) 1 % injection Code / Trauma / Sedation Medication, Starting on Mon05/23/25 at 1707 Given 05/23/2025 5:07 PM EDT 10 mL Gr oin Right lidocaine (XYLOCAINE) 1 % injection Code / Trauma / Sedation Medication, Starting on Mon05/23/25 at 1713 Given 05/23/2025 5:13 PM EDT 10 mL Gr oin Left midazolam (VERSED) injection Code / Trauma / Sedation Medication, Starting on Mon05/23/25 at 1706 Given 05/23/2025 6:00 PM EDT 1 mg Given 05/23/2025 5:43 PM EDT 1 mg Given 05/23/2025 5:32 PM EDT 1 mg ondansetron (ZOFRAN) injection Code / Trauma / Sedation Medication, Starting on Mon05/23/25 at 1735 Given 05/23/2025 5:35 PM EDT 4 mg oxyCODONE (ROXICODONE) immediate release tablet 5 mg [...] 2010 (Given - Provider: Carla Velazquez RN) 830 (Given - Provider: Sara Villalpando RN) atorvastatin (LIPITOR) tablet 40 mg 40 [...] 830 (Given - Provider: Sara Villalpando RN) cloNIDine (CATAPRES) tablet 0.1 mg (COMPLETED) [...] tablet 100 mcg 100 mcg, Oral, Every Wallpaper Consultant, First dose on Mon05/24/25 at 0600, Take on empty stomach. 05 (Given - Provid er: Carla Velazquez RN) [...] whole; do not crush, split, or chew. 830 (Given - Provid er: Sara Villalpando RN) [...] at 1706 1706 (Given - Provider: Malina Ambrzi RN)1713 (Given - Provider: Malina Ambriz RN)1720 [...] patient refuses or patient unable to swallow. ([facility]) documented in this encounter Care Teams Rn Emergency Relationship Specialty Start Date End Date Valentín Juarez MD [address] [facility] [address] [place] [address] PCP - General Family Medicine 06/14/16 documented as of this encounter
--- OUTSIDE RECORDS SUMMARY | 2025-06-03 07:30 | XMS_ITS ---
Author Organization [facility] Address [address] [place] [phone] Care Team Providers Care Electrocardiograph Technician Name Role Phone Enmanuel Walton Primary Care Provider [phone] Merary Sparrow Unavailable [phone] Allergies Allergen (clinical drug ingredient) Drug/Non Drug [...] 1 tab(s) orally once a day Active Maxalt-DRIVER EDUCATION ROAD INSTRUCTOR 10 MG 1 tab(s) orally once a [...] 06/03/2025 Encounters Encounter Location Date Provider Diagnosis [facility] [address] [facility] [address] [place], [place] [phone] 06/03/2025 Merary Sparrow Encounter for examination and [...] Follow Up: prn, Reason: Progress Notes * NAHOMI GRADY:1970 ( 55 yo F)Acc No.[id number]:06/03/2025 Progress Notes Patient: S DEXTER JENNINGS Provider: MODESTO Oh :1970 A ge:55 Y S ex:Female Date:06/03/2025 Address:[place], [id number] Pcp:Enmanuel Walton Subjective: * Chief Complaints: * [...] requent urination. ? 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, Chronic Migraine, s/p Botox injections, Asthma, BI-Polar, Thyroid Cancer, Uterine cancer, breast cancer, Dx: January 2010, 10/04/11 CT of sinuses, minimal changes left max sinus, Kidney stone, Allergy injections, [facility], Declines [...] migraine 07/07/07, [facility] ER, migraine 09/09/07, [facility] ER, migraine 09/13/08, H dehydration 06/09, [facility] ER migraine 10.08, [facility] ER migraine 08/31/08, stomach pain 10/18/08, ct scan [facility] on abdomen 10/22/08, [facility] ER migraine 12/18/08, [facility] ER-migraine/sunburn 02/09/09, [facility] ER-migraine /, abdominal pain 04/09/2009, [facility] ER-fell off a stool 10/17/09, [facility] ER-migraine 05/19/10, [facility] ER-migraine 12-18-10, [facility] ER-pt fell 01/04/11, [facility] ER- Migraine 09/26/11, [facility] ER - Migraine 05/12/12, [facility] ER-migraine 09/13, [facility] ER-migraine 11/02/13, [facility]-ER migraine -2013, [facility]-ER migraine 10-19-14, [facility] ER-migraine 11/16, [facility] Er-Migraines 01-17-15, [facility] ER - Migraine , [facility] ER- Migraine 07/06/15, [facility] ER-Migraine 04/03/16, [facility]- ER- Migraine 05/03/16, [facility]-Chest pain 10/23/16, [facility] ER -Migraine 08/06/17, [facility] ER-Migraine 10/19, [facility] ER - mirgraine Nov 2017, [facility] ER- migraine 10/22, EP study [...] New since last visit: none. 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 Past smoking status: no, Smoking status: [...] tab(s) orally once a day , Taking Maxalt-DRIVER EDUCATION ROAD INSTRUCTOR 10 MG Tablet Disintegrating 1 tab(s) orally [...] :post procedure exam Plan: * Treatment: * Follow Up: p rn * Images: Billing Information: * Visit Code: 04639 Office Visit, Est Pt., Level 3. * Procedure Codes: * Electronic signature of Bonnie Sparrow APRN on 06/11/2025 at 03:53 PM EDT Sign off status: Pending * Provider: MODESTO Oh Date: 06/03/2025 Generated for Ashutosh terry/Lucia/eTransmitting on: 06/11/2025 03:53 PM EDT History and Physical [...]
--- OUTSIDE RECORDS SUMMARY | 2025-06-11 15:51 | XMS_ITS | Clinical Summary ---
Author Organization Healthcare Address [address] [place] [address] Care Team Providers Care Batch Blender Name Role Phone Valentín Juarez MD Primary Care Provider [phone] Social History Tobacco Use Types Packs/Day Years [...] Screening 1970 [facility]-Medicare Annual Wellness (AWV) 1970 [facility]-Infant/Child/Adol SDOH Screenings 1970 [facility]-Obesity Intervention 01/31/1974 [facility]- [...] Screening 08/12/202308/02, 08/12/2021, 03/30/2020, Additional history exists [id number] Vaccine ( season) 2025 [facility]-Influenza Vaccine (#1) 2025 HPV Vaccines Aged [...] patient's age to complete this topic Insurance [facility] MEDIC[facility] Care Teams Batch Blender Relationship Specialty Start Date End Date Valentín Juarez MD [address] [place] [address] [facility] - General 02/12/21
--- OUTSIDE RECORDS SUMMARY | 2025-06-11 15:52 | XMS_ITS | Encounter Summary ---
Author Organization [facility] Address [address] [place] [address] Care Team Providers Care Manager Merchandise Name Role Phone Valentín Juarez MD Primary Care Provider Encounter Details Date Type Department Care Team (Late st Contact Info) Description 11/14/2011 Conversion Encounter [facility] HISTORICAL CONV [address] [facility] [place] [address] Interface, See Report Social History Tobacco Use Types Packs/Day Years Used Date Smoking Tobacco: Never Assessed Comments Unknown Sex and Gender Information Value Date Recorded Sex Assigned at Female 05/20/2025 11:51 PM EDT Legal Sex Female 1:05 PM EDT Gender Identity Not on file Sexual Orientation Not on file documented as of this encounter H&P Notes * Interface, See Report - 11/14/2011 10:12 AM EST OFFICE NOTE ROSELINE GRADY : 1970 DATE OF VISIT: 11/14/2011 PROBLEMS: 1. Stage I breast cancer, less than 0.1 cm primary invasive ductal, ER/LA positive, HER-2 positive, node-negative with a family history of malignancy. Opted out of prophylactic surgeries and has had lumpectomy and radiation. Started Herceptin in March 2010, but upon further review and discussions with Yary Munoz, [facility], it was decided that given her a small primary, node-negative disease that the risks of cardiac toxicity cumulatively probably outweighed any adjuvant benefit and hence we stopped further therapy with Herceptin. She has been on her Arimidex since March 2010. 2. History of Mj's thyroiditis with papillary carcinoma and a small focus with subsequent completion near-total thyroidectomy and no need of adjuvant therapy according to Dr. Tomás Plummer's assessment. 3. History of TRISTAN/BSO that apparently had some malignant cells though I do not have that pathology in hand. SUBJECTIVE: Other than for severe hot flashes since her hysterectomy and on Arimidex, she is otherwise doing well and feeling well. REVIEW OF SYSTEMS: Ten-point review of systems is otherwise negative. SOCIAL HISTORY: Unchanged from 11/12/2010. ROSELINE GRADY : 1970 DATE OF VISIT: 11/14/2011 PHYSICAL EXAMINATION: VITAL SIGNS: Reveals her to be afebrile with a blood pressure 149/96, otherwise normal vital signs. HEENT: No oropharyngeal lesions. CHEST: Left breast scar is thick and dense in the tail of the left breast region, but not any change management director time. No dominant masses. BREASTS: Bilateral breast exam revealed no worrisome masses. HEENT: No oropharyngeal lesions. LUNGS: Clear. HEART: Regular rhythm. ABDOMEN: No organomegaly, mass or tenderness. EXTREMITIES: No cyanosis, clubbing, or cords. NEUROLOGIC: No focal motor or sensory deficits. ASSESSMENT AND PLAN: 1. Stage I, less than 0.1 invasive ductal carcinoma ER/LA positive, HER-2 positive: We will continue her Arimidex. We will get her mammogram again in March and the left breast mammogram in September was BI-RADS III. We will continue the Arimidex until at least March 2015. Rodney Hill M.D.* OSMIN/rxdrs Doc. ID: [id number] Rev. #0 cc: Page 2 of 2 [facility] Page 1 of 2 Authenticated by RODNEY HILL M.D. On 11/15/2011 02:16:34 PM documented in this encounter Plan of Treatment Not on file documented as of this encounter Visit Diagnoses Not on filedocumented in this encounter Care Teams Manager Merchandise Relationship Specialty Start Date End Date Valentín Juarez MD [address] [place] [facility] [address] [facility] [address] [place] [address] PCP - General Family Medicine 06/14/16 documented as of this encounter
--- OUTSIDE RECORDS SUMMARY | 2025-06-11 15:52 | XMS_ITS | Clinical Summary ---
Author Organization [facility] Address [address] [place] [address] Care Team Providers Care Hazardous Substances Engineer Name Role Phone Valentín Juarez MD Primary Care Provider Allergies Active Allergy Reactions Criticality Noted Date Comments Prochlorperazine Edisylate Swelling 6 Hydromorphone Mental Status Change 05/23/2025 Ketorolac Shortness Of Breath High 04/01/2025 Gabapentin 06/07/2016 Pseudoephedrine-Guaifenesin Rash Low 04/01/20 25 Metoclopramide Swelling 06/07/2016 Nefazodone Shortness Of Breath High 06/07/2016 Butorphanol Shortness Of Breath High 06/07/2016 Ketorolac Tromethamine Shortness Of Breath High 03/2016 Bupropion Rash Low 06/07/2016 Medications levothyroxine (SYNTHROID, LEVOTHROID) 100 MCG tablet Take 1 tablet by mouth Daily. 110 MG DAILY 0 6 Active oxyCODONE (ROXICODONE) 5 MG immediate release tablet Take 1 tablet by mouth 3 (Three) Times a Day. 0 6 Active venlafaxine XR (EFFEXOR-XR) 150 MG 24 hr capsule Take 1 capsule by mouth Daily. 0 6 Active esomeprazole (NexIUM) 40 MG capsule Take 1 capsule by mouth Every Morning Before Breakfast. Active ALBUTEROL IN Inhale 2 puffs as needed. Active promethazine (PHENERGAN) 50 MG tablet Take 0.5 tablets by mouth As Needed for Nausea or Vomiting. Active potassium chloride (MICRO-K) 10 MEQ CR capsule Take 1 capsule by mouth Daily. with food 4 Active bisoprolol (ZEBeta) 5 MG tablet Take 1 tablet by mouth Daily. 4 Active ibuprofen (ADVIL,MOTRIN) 800 MG tablet Take 1 tablet by mouth As Needed for Mild Pain. Active vitamin B-12 (CYANOCOBALAMIN ) 1000 MCG tablet Take 1 tablet by mouth Daily. Active vitamin D3 125 MCG (5000 UT) capsule capsule Take 1 capsule by mouth Daily. Active aspirin 81 MG chewable tablet Chew 1 tablet Daily. Active atorvastatin (LIPITOR) 40 MG tablet Take 1 tablet by mouth Daily. Active nystatin (MYCOSTATIN) 254566 UNIT/GM cream 1 Application Every 6 (Six) Hours. 5 Active methotrexate 2.5 MG tablet 6 tabs Orally weekly Active folic acid (FOLVITE) 1 MG tablet Take 1 tablet by mouth Daily. 5 Active Active Problems Problem Noted Date Diagnosed Date SVT (supraventricular tachycardia) 05/23/2025 Wide-complex tachycardia 04/01/2025 Essential hypertension 04/01/2025 Screening mammogram, encounter for 03/07/2017 Left-sided chest wall pain 06/28/2016 Left axillary pain 06/28/2016 Breast pain, left 06/14/2016 Malignant neoplasm of upper- outer quadrant of left female breast 06/14/2016 History of breast cancer 06/07/2016 Overview (06/07/2016): Images from the original note were not included. History of Mj thyroiditis 06/07/2016 Overview (06/07/2016): Images from the original note were not included. Encounters Date Type Department Care Team Description 05/23/2025 12:10 PM EDT - 05/23/2025 2:10 PM EDT Surgery [facility] [address] [place] [address] John Villafana MD EP/CRM Study +/- SVT ablation; hold bisoprolol 5 days prior [74045 (CPT )] 05/23/2025 10:01 AM EDT - 05/24/2025 9:01 AM EDT Hospital Encounter [facility] [address]A [address] [place] [address] John Villafana MD Wilhelmus, Kurt, PA-C Wide-complex tachycardia Discharge Disposition: Home or Self Care 05/23/2025 Travel 04/14/2025 Prep for Surgery [facility] [address] [place] [address] Esequiel Norris PA-C 04/01/2025 1:30 PM EDT Office Visit [facility] [address] [place] [address] Esequiel Norris PA-C Wide-complex tachycardia (Primary Dx); Essential hypertension 04/01/2025 Travel from Last 3 Months Family History Medical History Relation Name Comments Hypertension Father Ovarian cancer Maternal Grandmother great Breast cancer Neg Hx Relation Name Status Comments Father Alive Maternal Grandmother great Mother Alive Social History Tobacco Use Types Packs/Day Years Used Date Smoking Tobacco: Never Smokeless Tobacco: Never Tobacco Cessation:Counseling Given: No Alcohol Use Standard Drinks/Week Comments No 0 [...] Mass Index 43.8 05/23/2025 10:48 AM EDT Plan of Treatment Health Maintenance Due Date Last Done Comments Annual Gynecologic Pelvic an d Breast Exam 1968 TDAP/TD VACCINES (1 - Tdap) 01/31/1987 COLOGUARD 01/31/2013 COLON CANCER SCREENING 5 YEA R SIGMOIDOSCOPY 01/31/2013 COLONOSCOPY 01/31/2013 COLORECTAL CANCER SCREENING 01/31/2013 CT COLONOGRAPHY 01/31/2013 FECAL OCCULT BLOOD TEST 01/31/2013 FIT Testing (1 year) 01/31/2013 ANNUAL WELLNESS VISIT 03/07/2017 HEPATITIS C SCREENING 03/07/2017 Pneumococcal Vaccine 50+ (1 of 1 - PCV) 01/31/2018 ZOSTER VACCINE (1 of 2) 01/31/2018 COVID-19 Vaccine (1 - 2023-2 5 season) 2025 INFLUENZA VACCINE 07/02/2025 MAMMOGRAM 01/15/2027 01/15/2025, 11/30, 10/18/2023, Additional history exists Procedures Procedure Name Priority Date/Time Associated Diagnosis Comments EP STUDY Routine 05/23/2025 6:11 PM EDT Wide-complex tachycardia SCANNED - TELEMETRY 05/23/2025 1 1:36 AM EDT BASIC METABOLIC PANEL STAT 05/23/2025 11:00 AM EDT CBC (NO DIFF) STAT 05/23/2025 11:00 AM EDT MAMMO DIAGNOSTIC DIGITAL TOMOSYNTHESIS LEFT W CAD Routine 01/15/2025 8:49 AM EDT Abnormal mammogram from Last 3 Months or Most Recently Relevant to Health Maintenance Results * EP STUDY (05/23/2025 6:11 PM EDT) Anatomical Region Laterality Modality X-Ray Angiograph y Narrative 05/23/2025 6:37 PM EDT 1. Successful radiofrequency ablation of typical AVNRT Procedure Narrative 30 everything looks good but worried about bleeding over there so you obviously like a lot okay 2020 here for quite well for our final DATE OF PROCEDURE: 06/30/21 FISHER DIVER NET/RECYCLE COORDINATOR: John Villafana MD PROCEDURE(S) PERFORMED: 1. Diagnostic [...] sheaths and catheters were inserted: 1. A 7-American, Decanav catheter was advanced via a 7-American sheath in the left femoral vein to the coronary sinus for left atrial recording and pacing. 2. A 6-American, Diag catheter was advanced via 6-American sheath in the right femoral vein to the high right atrium 3. A 6-American, Diag catheter was advanced via 6-American sheath in the right femoral vein to the RV septum 4. A 6 American, CRD2 catheter was advanced via 6- American Sheath int he left femoral vein to the His bundle 5. An ST-SF, Biosense Elizabeth ablation catheter was advanced via 8-American sheath in the right femoral vein to the right atrial septum for mapping and ablation. A diagnostic electrophysiology study was then performed. The patient arrived in the clinical electrophysiology laboratory in normal sinus rhythm with a ventricular rate of 110 beats per minute. The UT interval was measured at 194 milliseconds with [...] was used to ensure there were no UT prolongation during ablation. Ablation was performed with [...] * Telemetry Scan (05/23/2025 11:36 AM EDT) [facility] ECG ORDERABLES Final Result * (ABNORMAL) CBC (No Diff) (05/23/2025 11:00 AM EDT) WBC 7.65 3.40 - 10.80 10*3/mm3 05/23/2025 11:16 AM EDT [facility] RBC 3.89 3.77 - 5.28 10*6/mm3 05/23/2025 11:16 AM EDT [facility] Hemoglobin 11.5(L) 12.0 - 15.9 g/dL 05/23/2025 11:16 AM EDT [facility] Hematocrit 35.2 34.0 - 46.6 % 05/23/2025 11:16 AM EDT [facility] MCV 90.5 79.0 - 97.0 fL 05/23/2025 11:16 AM EDT [facility] MCH 29.6 26.6 - 33.0 pg 05/23/2025 11:16 AM EDT [facility] MCHC 32.7 31.5 - 35.7 g/dL 05/23/2025 11:16 AM EDT [facility] RDW 15.1 12.3 - 15.4 % 05/23/2025 11:16 AM EDT [facility] RDW-SD 49.6 37.0 - 54.0 fl 05/23/2025 11:16 AM EDT [facility] MPV 9.7 6.0 - 12.0 fL 05/23/2025 11:16 AM EDT [facility] Platelets 291 140 - 450 10*3/mm3 05/23/2025 11:16 AM EDT [facility] Blood Line / Unknown 05/23/2025 11 :00 AM EDT 05/23/2025 11:10 AM EDT Esequiel Norris PA-C LAB BLOOD ORDERABLES Final R esult [facility]
[address] [place] [address], * (ABNORMAL) Basic Metabolic Panel (05/23/2025 11:00 AM EDT) Glucose 96 65 - 99 mg/dL 05/23/2025 11:32 AM EDT [facility] BUN 24.7(H) 6.0 - 20.0 mg/dL 05/23/2025 11:32 AM EDT [facility] Creatinine 0.91 0.57 - 1.00 mg/dL 05/23/2025 11:32 AM EDT [facility] Sodium 141 136 - 145 mmol/L 05/23/2025 11:32 AM EDT [facility] Potassium 3.5 3.5 - 5.2 mmol/L 05/23/2025 11:32 AM EDT [facility] Chloride 107 98 - 107 mmol/L 05/23/2025 11:32 AM EDT [facility] CO2 22.7 22.0 - 29.0 mmol/L 05/23/2025 11:32 AM EDT [facility] Calcium 8.9 8.6 - 10.5 mg/dL 05/23/2025 11:32 AM EDT [facility] BUN/Creatinine Ratio 27.1(H) 7.0 - 25.0 05/23/2025 11:32 AM EDT [facility] Anion Gap 11.3 5.0 - 15.0 mmol/L 05/23/2025 11:32 AM EDT [facility] eGFR 73.7 >60.0 mL/min/1.7 3 05/23/2025 11:32 AM EDT [facility] Blood Line / Unknown 05/23/2025 11 :00 AM EDT 05/23/2025 11:10 AM EDT [facility] - 05/23/2025 11:32 AM [...] PA-C LAB BLOOD ORDERABLES Final R esult [facility]
[address] [place] [address], * Mammo Diagnostic Digital Tomosynthesis Left With CAD (01/15/2025 8:49 AM EDT) Anatomical Region Laterality Modality Breast Left Mammography 01/15/2025 9:59 AM EDT Impressions 01/15/2025 10:04 AM EDT Interval decrease in prominence of focal nodular asymmetry which was recommended for stereotactic core biopsy in the left anterior lower outer quadrant. This supports this finding likely reflects posttraumatic change. As such, stereotactic core biopsy will not be performed. Noted was increased prominence of a focal nodular symmetry in the mid upper outer quadrant. This is felt to likely correlate to a cyst based on ultrasound imaging. RECOMMENDATION: Recommend a follow-up left breast diagnostic mammogram in 6 months. ACR BI-RADS CATEGORY: 3, PROBABLY BENIGN CAD was utilized. The standard false-negative rate of mammography is between 10% and 25%. Complex patterns or increased breast density will markedly elevate the false-negative rate of mammography. A letter, in lay terminology, with the results of this exam was given to the patient at the time of the visit. At our facility, a triangular marker is positioned over a palpable area of concern indicated by the patient. A [place] marker is placed over a visible skin lesion. A linear marker indicates a scar. _ Physician Order Diagnostic 6 Month follow up Mammogram with Breast Ultrasound if needed. Diagnosis: Abnormal Mammogram 01/15/2025 10:[address] Maty Brownlee MD on Narrative 01/15/2025 10:04 AM EDT LEFT DIAGNOSTIC MAMMOGRAM WITH TOMOSYNTHESIS AND A FOCUSED LEFT BREAST ULTRASOUND CLINICAL INDICATION: 54-year-old patient presents back today for possible stereotactic core biopsy of a focal nodular asymmetry in the left lower outer quadrant. This was felt to possibly reflect posttraumatic change and repeat imaging prior to the biopsy was recommended. The patient has no reported breast complaints. The patient is status post a previous left breast lumpectomy in 2009. TECHNIQUE: Low dose full field digital breast tomosynthesis imaging was performed consisting of bilateral CC and MLO views. In addition, a left ML view with tomosynthesis was performed. A focused left breast ultrasound was performed. COMPARISON: 12/11/2024, 10/18/2023, 08/12/2021, 03/30/2020, 01/16/2019 FINDINGS: There are scattered areas of fibroglandular density. Redemonstrated are lumpectomy changes in the posterior upper outer quadrant. These are stable in appearance. The recently noted focal asymmetry in the anterior lower outer quadrant has decreased in prominence. There is increased prominence of a focal nodular asymmetry in the mid upper outer quadrant. Ultrasound evaluation will be performed as this area was not imaged on the prior ultrasound done on 12/11/2024. Focused ultrasound imaging of the upper outer quadrant of the left breast demonstrates in the 1 o'clock position, 5 cm from the nipple a 0.5 cm cyst in the anterior one third of the breast. This is felt to correlate to the nodular asymmetry noted in the mid upper outer quadrant. Procedure Note Maty Brownlee MD - 01/27/2025 LEFT DIAGNOSTIC MAMMOGRAM WITH TOMOSYNTHESIS AND A FOCUSED LEFT BREAST ULTRASOUND CLINICAL INDICATION: 54-year-old patient presents back today for possible stereotactic core biopsy of a focal nodular asymmetry in the left lower outer quadrant. This was felt to possibly reflect posttraumatic change and repeat imaging prior to the biopsy was recommended. The patient has no reported breast complaints. The patient is status post a previous left breast lumpectomy in 2009. TECHNIQUE: Low dose full field digital breast tomosynthesis imaging was performed consisting of bilateral CC and MLO views. In addition, a left ML view with tomosynthesis was performed. A focused left breast ultrasound was performed. COMPARISON: 12/11/2024, 10/18/2023, 08/12/2021, 03/30/2020, 01/16/2019 FINDINGS: There are scattered areas of fibroglandular density. Redemonstrated are lumpectomy changes in the posterior upper outer quadrant. These are stable in appearance. The recently noted focal asymmetry in the anterior lower outer quadrant has decreased in prominence. There is increased prominence of a focal nodular asymmetry in the mid upper outer quadrant. Ultrasound evaluation will be performed as this area was not imaged on the prior ultrasound done on 12/11/2024. Focused ultrasound imaging of the upper outer quadrant of the left breast demonstrates in the 1 o'clock position, 5 cm from the nipple a 0.5 cm cyst in the anterior one third of the breast. This is felt to correlate to the nodular asymmetry noted in the mid upper outer quadrant. IMPRESSION: Interval decrease in prominence of focal nodular asymmetry which was recommended for stereotactic core biopsy in the left anterior lower outer quadrant. This supports this finding likely reflects posttraumatic change. As such, stereotactic core biopsy will not be performed. Noted was increased prominence of a focal nodular symmetry in the mid upper outer quadrant. This is felt to likely correlate to a cyst based on ultrasound imaging. RECOMMENDATION: Recommend a follow-up left breast diagnostic mammogram in 6 months. ACR BI-RADS CATEGORY: 3, PROBABLY BENIGN CAD was utilized. The standard false-negative rate of mammography is between 10% and 25%. Complex patterns or increased breast density will markedly elevate the false-negative rate of mammography. A letter, in lay terminology, with the results of this exam was given to the patient at the time of the visit. At our facility, a triangular marker is positioned over a palpable area of concern indicated by the patient. A [place] marker is placed over a visible skin lesion. A linear marker indicates a scar. _ Physician Order Diagnostic 6 Month follow up Mammogram with Breast Ultrasound if needed. Diagnosis: Abnormal Mammogram 01/15/2025 10:[address] Maty Brownlee MD on Maty Brownlee MD IMG MAMMOGRAPHY ORDERABLES Fin al Result from Last 3 Months or Most Recently Relevant to Health Maintenance Insurance [facility] MEDICARE ADVANTAGE PPO Advance Directives * CPR (Attempt to Resuscitate) (Latest Code Status on File) Date Activated Date Inactivated Comments 05/23/2025 7:40 PM 05/24/2025 11:11 AM Question Answer Comments Code Status (Patient has no pulse and is not breathing): CPR (Attempt to Resuscitate) Medical Interventions (Patie nt has pulse or is breathing): Full Support Care Teams Hazardous Substances Engineer Relationship Specialty Start Date End Date Valentín Juarez MD [address] [facility] [address] [facility] [address] [place] [address] PCP - General Family Medicine 06/14/16
--- OUTSIDE RECORDS SUMMARY | 2025-06-11 15:52 | XMS_ITS | Encounter Summary ---
Author Organization [facility] Address [address] [place] [address] Care Team Providers Care Skull Chopper Name Role Phone Valentín Juarez MD Primary Care Provider Encounter Details Date Type Department Care Team (Late st Contact Info) Description 05/14/2012 Conversion Encounter [facility] HISTORICAL CONV [address] [place] [address] Interface, See Report Social History Tobacco Use Types Packs/Day Years Used Date Smoking Tobacco: Never Assessed Comments Unknown Sex and Gender Information Value Date Recorded Sex Assigned at Female 05/20/2025 11:51 PM EDT Legal Sex Female 1:05 PM EDT Gender Identity Not on file Sexual Orientation Not on file documented as of this encounter H&P Notes * Interface, See Report - 05/14/2012 11:12 AM EDT Corey Holliday M.D. ' Yosef De La Torre M.D. ' Piotr Hill M.D. ' JACKIE Espinosa M.D. ' Cande Feliciano M.D. ' Lissy Rodrigues, AIRCRAFT ENGINE CYLINDER MECHANIC [address], [address] [place] [address] [employer] OFFICE NOTE ROSELINE GRADY : 1970 DATE OF VISIT: 05/14/2012 PROBLEM LIST: 1. Breast cancer: Stage I, less than 0.1 cm primary invasive ductal, ER/CA positive, HER-2 positive, node negative with family history of malignancy. Opted out of prophylactic surgeries and had lumpectomy and radiation, radiation completed 05/07/2010. Began Herceptin March 2010, but upon further review and after discussions with Dr. Yary Munoz at [facility] it was decided that given her small primary, node negative disease that the risk of cardiac toxicity cumulatively probably outweighed any adjuvant benefit from Herceptin and hence was stopped without any further therapy. Has been on Arimidex since March 2010. 2. History of Mj's thyroiditis with papillary carcinoma and a small focus with subsequent completion near-total thyroidectomy and no need for adjuvant therapy according to Dr. Tomás Plummer's assessment. 3. History of TRISTAN/BSO in September 2009. DATA: 03/06/2012 bilateral diagnostic mammogram BI-RADS II. SUBJECTIVE: Ms. Grady states overall she has been doing well since we saw her last. She has had surgery on her sinuses but had no complications from this. She also did have removal of a kidney stone, again without any further complications. Roseline states that she does continue to have hot flashes while on the Arimidex that do occur almost on a daily basis, but are not intolerable. She denies any unusual bony aches or pains. REVIEW OF SYSTEMS: Ten-point review of systems otherwise negative. SOCIAL HISTORY: Unchanged from 11/14/2011. ROSELINE GRADY : 1970 DATE OF VISIT: 05/14/2012 PHYSICAL EXAMINATION: GENERAL: Reveals Ms. Grady looks well today. She is pleasant and in no obvious distress. VITAL SIGNS: Her weight remains stable at 234 pounds. Blood pressure is elevated at 146/100. She is afebrile 97.5. Heart rate is 99. Respirations 16 and unlabored. HEENT: Oral mucosa is moist. NECK: Supple. LUNGS: Clear to auscultation bilaterally. BREASTS: Examination is benign bilaterally. There is a slight asymmetry to the breast with the right larger than the left. Left breast exam reveals noted radiation changes and firmness from lumpectomy bed scar in the left breast in the upper outer quadrant without any change from previous exam. Nipple is without retraction or discharge. Right breast exam benign with no unusual masses or nodules noted. Nipple is without retraction or discharge. There is no axillary lymphadenopathy bilaterally. HEART: Regular rate and rhythm. ABDOMEN: Soft and nontender. EXTREMITIES: No cyanosis, clubbing, or edema. NEUROLOGIC: Grossly nonfocal. ASSESSMENT AND PLAN: 1. Stage I breast cancer: We will continue on with her Arimidex until March 2015. I have given her a refill today for her Arimidex. She will be due again for repeat mammogram in March 2013. I will have Roseline return in six months for repeat routine follow-up and breast exam. Lissy Rodrigues APRN* SE/rxalw Doc. ID [id number] Rev. #0 cc: Rima George M.D.* Willa Almaguer M.D.* Tomás Plummer M.D.* Jese Walton M.D.* Jeb Juarez M.D.* Page 2 of 2 Page 1 of 2 Authenticated by LISSY RODRIGUES APRN On 05/15/2012 05:34:21 PM * Interface, See Report - 05/14/2012 11:12 AM EDT Corey Holliday M.D. ' Yosef De La Torre M.D. ' Piotr Hill M.D. ' JACKIE Espinosa M.D. ' Gatito Limon M.D. ' Cande Feliciano M.D. ' Lissy Rodrigues APRN [address], [address] [place] [address] [employer] OFFICE NOTE ROSELINE GRADY : 1970 DATE OF VISIT: 11/12/2012 CHIEF COMPLAINT: Breast pain. PROBLEM LIST: 1. Breast cancer: Stage I, less than 0.1 cm primary invasive ductal carcinoma, ER/CA positive, HER-2/eddie positive, node negative with family history of malignancy. Opted out of prophylactic surgeries and had lumpectomy and radiation. Radiation completed 05/07/2010. Began Herceptin March 2010, but upon further review and after discussion between Dr. Hill and Dr. Yary Munoz at [facility] it was decided that given her small primary, node negative disease that the risk of cardiac toxicity cumulatively probably outweighed any adjuvant benefit from Herceptin and hence was stopped without any further therapy. a. Has been on Arimidex since March 2010. 2. History of Mj's thyroiditis with papillary carcinoma and a small focus of subsequent completion near-total thyroidectomy and no need for adjuvant therapy according to Dr. Tomás Plummer's assessment. 3. History of TRISTAN/BSO September 2009. 4. Breast pain. SUBJECTIVE: Ms. Grady states that for approximately the past 3 to 4 weeks she has noticed breast pain. She states it is worse in her left breast on the outer quadrant around the site of her previous lumpectomy. The pain does radiate down to her nipple. She has had some yellow discharge from her left nipple last week. She rates the pain in the left breast 9 out of 10 in intensity and states it is a constant ache. She did have some pain medicine left over from a previous knee surgery that did give her some mild relief. She denies fevers or chills. Her right breast is slightly tender also. OFFICE NOTE ROSELINE GRADY : 1970 DATE OF VISIT: 11/12/2012 REVIEW OF SYSTEMS: Other than mentioned above, is negative for any specific ENT, ocular, pulmonologic, cardiovascular, gastrointestinal, genitourinary, musculoskeletal, neurologic, integumentary, or psychiatric complaints. SOCIAL HISTORY: Unchanged from 05/16/2012. PHYSICAL EXAMINATION: GENERAL: Reveals Ms. Grady to be very pleasant and in no obvious distress. VITAL SIGNS: Her weight is stable at 240 pounds. Blood pressure is 163/92. Pulse is 109. Temperature is 97.9. Respirations 18 and unlabored. HEENT: Normocephalic. Sclerae anicteric. Oral mucosa is moist. NECK: Supple. BREASTS: Exam bilaterally reveals left breast slightly erythemic. Breast tissue is soft without any obvious masses or nodules. There is dense tissue at the base of the lumpectomy bed. Nipple is without retraction or discharge. There is no dimpling of the skin. Right breast exam is benign. The breast tissue is soft with no unusual masses or nodules. Axillae are normal. Nipples without retraction or discharge and no skin dimpling. HEART: Regular rate and rhythm. ABDOMEN: Soft and nontender. EXTREMITIES: No cyanosis, clubbing, or edema. NEUROLOGIC: No focal motor or sensory deficits. COMPLETION: Per Dr. Piotr Hill: PHYSICAL EXAMINATION - continued: LUNGS: Clear to auscultation. NODES: All nonpalpable. The rest of the examination was done by my Nurse Practitioner and I have seen and agree. OFFICE NOTE ROSELINE GRADY : 1970 DATE OF VISIT: 11/12/2012 ASSESSMENT AND PLAN: 1. Breast cancer: In light of the tenderness in her breast we are going to move up the mammograms and we will call her those results. We will also treat her with Keflex and see if the breasts feel better. If they do not and the mammogram is negative then we asked her to call us and we want her to get back to the surgeons. Otherwise I will see her back in six months for routine examination. Lissy Rodrigues APRN* Piotr Hill M.D. /rxalw; LH/rxalw Doc. ID [id number] Rev. #1 cc: Rima George M.D.* Willa Almaguer M.D.* Tomás Plummer M.D.* Jese Walton M.D.* Jeb Juarez M.D.* Page 2 of 3 Page 1 of 3 Authenticated by LISSY RODRIGUES APRN On 11/15/2012 12:50:10 PM * Interface, See Report - 05/14/2012 11:12 AM EDT Corey Holliday M.D. ' Yosef De La Torre M.D. ' Piotr Hill M.D. ' JACKIE Espinosa M.D. ' Gatito Limon M.D. ' Cande Feliciano M.D. ' Lissy Rodrigues APRN [address] [place] [address], [place] [address] [place] [address] [employer] OFFICE NOTE ROSELINE GRADY : 1970 DATE OF VISIT: 05/28/2013 CHIEF COMPLAINT: Hot flashes. PROBLEM LIST: 1. Breast cancer: Stage I, less than 0.1 cm primary invasive ductal carcinoma, ER/CA positive, HER-2/eddie positive, node negative with family history of malignancy. Opted out of prophylactic surgeries and had lumpectomy and radiation. Radiation completed 05/07/2010. Began Herceptin March 2010, but upon further review and after discussion between Dr. Hill and Dr. Yary Munoz at [facility] it was decided that given her small primary, node negative disease that the risk of cardiac toxicity cumulatively probably outweighed any adjuvant benefit from Herceptin and hence was stopped without any further therapy. a. Has been on Arimidex since March 2010. 2. History of Mj's thyroiditis with papillary carcinoma and a small focus of subsequent completion near-total thyroidectomy and no need for adjuvant therapy according to Dr. Tomás Plummer's assessment. 3. History of TRISTAN/BSO September 2009. 4. Hot flashes. DATA: 05/17/2013 left diagnostic mammogram BI-RADS III with a six month recommended follow-up (patient due for bilateral mammogram in November 2013). SUBJECTIVE: Ms. rGady states that she has been having increasing hot flashes. She states that these occur throughout the day, but are bothersome at night and they are preventing her from sleeping. She reports she sleeps with ice packs and a fan without any relief. She is on Effexor for a history of depression and has been on this for some time and this has not helped with the hot flashes. Ms. Grady also states that she is becoming quite discouraged at her inability to lose weight. She states that she is exercising on a regular basis. She had been exercising daily, currently she does workout at the exercise facility at [facility] usually every other day. She also has a treadmill at home for which she tries to walk on for 30 to 45 minutes on days she is unable to make it to the hospital facility. She states that she does not feel that she overeats as her appetite is not great and usually only eats two meals a day. She denies excessive intake of sweets or carbohydrates and drinks mostly water with usually one soda per day at the most. This is causing her quite a bit of distress and adding to her depression. She continues to have some intermittent pain in her left breast and states that she occasionally will have discharge. She was seen by Dr. George in November with no usual findings and also has followed up with her mammogram a few weeks ago that was BI-RADS III. REVIEW OF SYSTEMS: Other than mentioned above, is negative for any other specific ENT, ocular, pulmonologic, cardiovascular, gastrointestinal, genitourinary, musculoskeletal, neurologic, integumentary, or psychiatric complaints. SOCIAL HISTORY: Unchanged. Ms. Grady has a supportive family. She does not smoke. MEDICATIONS: Medication reconciliation for the patient has been reviewed and confirmed in the EMR. PHYSICAL EXAMINATION: GENERAL: Reveals Ms. Grady to be very pleasant and in no obvious distress. VITAL SIGNS: Her weight today is 250 pounds, which is up 10 pounds from previous visit in November 2012. Blood pressure is 172/94. Heart rate 101. Respirations 18 and unlabored. Temperature is 97.5. HEENT: Normocephalic. Sclerae anicteric. Oral mucosa is moist without lesions. PHYSICAL EXAMINATION - continued: NECK: Supple with no lymphadenopathy. HEART: Regular rate and rhythm. BREASTS: Breast exam bilaterally reveals bilateral pendulous breasts with the right breast slightly larger than the left. Right breast tissue is soft with no abnormal masses or nodules. Skin is without dimpling. Nipple is without retraction or discharge. Left breast reveals firmness at the lumpectomy site around the 2:00 position. Tissue is otherwise without any other abnormal masses or nodules. Skin is without dimpling. Nipple is without retraction or discharge. Axillary exam is benign with no adenopathy bilaterally. ABDOMEN: Soft and nontender. EXTREMITIES: No cyanosis, clubbing, edema, or cords. NEUROLOGIC: No focal motor or sensory deficits. COMPLETION: Per Dr. Piotr Hill: PHYSICAL EXAMINATION - continued: NODES: All nonpalpable. LUNGS: Clear to auscultation. The rest of the physical examination was done by Lissy Rodrigues and I have seen and concur. ASSESSMENT AND PLAN: 1. Breast cancer: We will get her mammogram again prior to return in six months and current mammogram shows no obvious malignancy. She is having significant hot flashes and we will start her on gabapentin as Effexor thus far has not done much. ASSESSMENT AND PLAN - continued: 2. Health maintenance: We talked about her need for weight loss and she has already been trying very stridently. Unfortunately there has been no success. I counseled her for 15 minutes on a low-carb diet, increased exercise, and other eating habits that may energize her metabolism. Lissy Rodrigues, JACKIE* Piotr Hill M.D. /rxalw; OSMIN/rxalw Doc. ID [id number]; [id number] Rev. #0 cc: Rima George M.D.* Willa Almaguer M.D.* Tomás Plummer M.D.* Jese Walton M.D.* ROSELINE GRADY : 1970 DATE OF VISIT: 05/28/2013 Page 4 of 4 Page 1 of 4 DOCUMENT CODE :COSH: PHYSICIAN CODE :383: Authenticated by LISSY RODRIGUES APRN On 06/07/2013 06:21:56 PM Authenticated by PIOTR HILL M.D. On 06/13/2013 10:05:01 AM documented in this encounter Plan of Treatment Not on file documented as of this encounter Visit Diagnoses Not on filedocumented in this encounter Care Teams Skull Chopper Relationship Specialty Start Date End Date Valentín Juarez MD [address] [facility] [address] [facility] [address] [place] [address] PCP - General Family Medicine 06/14/16 documented as of this encounter
--- OUTSIDE RECORDS SUMMARY | 2025-06-11 15:53 | XMS_ITS | Encounter Summary ---
Author Organization [facility] Address [address] [place] [address] Care Team Providers Care Regulatory Lead Name Role Phone Valentín Juarez MD Primary Care Provider Encounter Details Date Type Department Care Team (Latest Contact Info) Description 05/23/2025 Travel Social History Tobacco Use Types Packs/Day Years [...] on file documented as of this encounter Functional Status * Question Answer [...] 11:27 AM EDT Dalila Jimenez RN * [place] Suicide Severity Rating Scale (Screener/Recent Self-Report) Question Answer Date of Assessment Author 6. Suicidal Behavior (Lifetime) No 05/23/2025 11:27 AM EDT Alma Rosa Huntley RN documented as of this encounter Plan of Treatment Not on file documented as of this encounter Visit Diagnoses Not on filedocumented in this encounter Care Teams Regulatory Lead Relationship Specialty Start Date End Date Valentín Juarez MD [address] [facility] [address] [place] [address] PCP - General Family Medicine 06/14/16 documented as of this encounter
--- OUTSIDE RECORDS SUMMARY | 2025-06-11 15:53 | XMS_ITS | Encounter Summary ---
Author Organization [facility] Address [address] [place] [address] Care Team Providers Care Construction Carpenter Name Role Phone Valentín Juarez MD Primary Care Provider Encounter Details Date Type Department Care Team (Late st Contact Info) Description 04/14/2025 Prep for Surgery [facility]ORT[facility]DERS ONLY [address] [place] [address] Esequiel Norris PA-C [address] [phone] Social History Tobacco Use Types Packs/Day Years Used Date Smoking Tobacco: Never Smokeless Tobacco: Never Alcohol Use Standard Drinks/Week Comments No 0 (1 standard drink = 0.6 oz pur e alcohol) PHQ-2 Answer Date Recorded Retired Total Score 0 05/05/2020 Comments No Sex and Gender Information Value Date Recorded Sex Assigned at Female 05/20/2025 11:51 PM EDT Legal Sex Female 1:05 PM EDT Gender Identity Not on file Sexual Orientation Not on file documented as of this encounter Plan of Treatment Not on file documented as of this encounter Visit Diagnoses Not on filedocumented in this encounter Care Teams Construction Carpenter Relationship Specialty Start Date End Date Valentín Juarez MD [address] [place] [address] [place] [address] PCP - General Family Medicine 06/14/16 documented as of this encounter
--- OUTSIDE RECORDS SUMMARY | 2025-06-11 15:53 | XMS_ITS ---
Author Organization [facility] Address [address] [place] [address] Care Team Providers Care Machine Package Sealer Name Role Phone Valentín Juarez MD Primary Care Provider Active Problems Problem Noted Date Diagnosed Date [...] from the original note were not included. Current Treatment and Therapy Plans No current plan information found. Past Treatment and Therapy Plans No past plan information found. Lifetime Dose Tracking * Chemical Lifetime Dose Automatic Entry Manual Entr y Cumulative Air Kerma 2 mGy 0 mGy 2 mGy
--- OUTSIDE RECORDS SUMMARY | 2025-06-11 15:53 | XMS_ITS | Patient Health Record ---
[facility] Organization [facility] Address [address] [place] [phone] Care Team Providers Care Buyer Assistant Name Role Phone Enmanuel Walton Primary Care Provider Ellen Juarez Unavailable [phone] Merary Sparrow Unavailable [phone] Allergies Allergen (clinical drug ingredient) Drug/Non Drug [...] 59 Performing Lab: Notes/Report: Test performed by [facility], [place] [facility] , [address], [place] [address] Ermias Ibarra MD, Rip/Mould Operator CLIA: [id number] Sodium 143 135-145 mmol/L Potassium 4.6 3.5-5.3 [...] 72 Performing Lab: Notes/Report: Test performed by [facility], [address] , [facility], [place] [address] Ermias Ibarra MD, Rip/Mould Operator CLIA: [id number] Cholesterol 160 <200 mg/dL Triglycerides 94 <150 [...] Interpretation:1.62 Performing Lab: Notes/Report: Test performed by [employer] [address] [place] [address] , [facility], [place] [address] Ermias Ibarra MD, Rip/Mould Operator CLIA: [id number] TSH 1.62 0.43-5.25 mU/L Glycohemoglobin A1c (in hous e) Reviewed date:10/03/2024 09:31:07 AM Interpretation:5.5% Performing Lab: Notes/Report: 5.5% glycohemoglobin 5.5% 5 - 6.5 % P-CBC With Platelet And Diff erential Reviewed date:10/03/2024 09:31:07 AM Interpretation:eosin 8.4 Performing Lab: Notes/Report: Test performed by [employer] [address] [place], [place] [address] [address] , [address], [place] [address] Ermias Ibarra MD, Rip/Mould Operator CLIA: [id number] WBC 9.1 3.8-11.5 K/uL Red Blood Cell Count (RBC) 4.01 3.60-5.30 M/mm 3 Hemoglobin (Hgb) 11.7 11.5-15.5 gm/dL Hematocrit (HCT) 36.7 35.2-46.4 % MCV 91.5 79.0-99.0 fL MCH 29.2 26.9-35.0 pg MCHC 31.9 30.4-34.8 g/dL RDW 45.5 38.6-53.8 fL Platelet Count 356 137-397 K/cumm Neutrophils Automated 51.9 41.0-77.0 % Lymphocytes Automated 27.9 14.0-48.0 % Monocytes Automated 10.6 4.0-13.0 % Eosinophils Automated 8.4 0.0-8.0 % Basophils Automated 1.0 0.0-1.5 % Immature Granulocyte Automated 0.2 0.0-1.0 % P-Comprehensive Metabolic Pa brad (CMP) Reviewed date:10/03/2024 09:31:07 AM Interpretation:bun 29, Cr 1.42, gfr 43 Performing Lab: Notes/Report: Test performed by [employer] [address] [place], [place] [address] [address] , [address], [place] [address] Ermias Ibarra MD, Rip/Mould Operator CLIA: [id number] Sodium 140 135-145 mmol/L Potassium 4.9 3.5-5.3 mmol/L Chloride 102 97-108 mmol/L CO2 24 22-32 mmol/L Glucose 96 65-99 mg/dL BUN 29 6-20 mg/dL Creatinine 1.42 0.50-1.00 mg/dL Calcium 9.8 8.6-10.4 mg/dL eGFR by Creatinine 43 >59 mL/min/1.73m2 Protein 7.2 6.0-8.3 g/dL Albumin 4.1 3.5-5.3 g/dL Alkaline Phosphatase 84 35-121 IU/L ALT (SGPT) 19 <5-47 IU/L AST (SGOT) 15 <5-40 IU/L Bilirubin, Total 0.3 <0.2-1.2 mg/dL A/G Ratio 1.3 1.1-2.5 P-Lipid Panel Reviewed date:10/03/2024 09:31:07 AM Interpretation:Normal Performing Lab: Notes/Report: Test performed by [employer] [address] [place] [address] [address], [place] [address] Ermias Ibarra MD, Rip/Mould Operator CLIA: [id number] Cholesterol 190 <200 mg/dL Triglycerides 121 <150 mg/dL HDL Cholesterol 64 >39 mg/dL Cholesterol / HDL Ratio 2.97 0.00-4.44 Ratio Non-HDL Cholesterol 126 <130 mg/dL LDL Cholesterol (Calculation) 102 <130 mg/dL LDL Cholesterol Levels* Less than 100 mg/dL Optimal 100 to 129 mg/dL Near Optimal/ Above Optimal 130 to 159 mg/dL Borderline High 160 to 189 mg/dL High 190 mg/dL and above Very High * Categories as recommended by the 2004 ATPIII guidelines LDL/HDL Ratio 1.6 <3.3 Ratio LDL Cholesterol Patient History Test Date: 05/14/2024 LDL Results: 164 Units: mg/dL % Change: - Test Date: 10/01/2024 LDL Results: 102 Units: mg/dL % Change: -37% P-TSH Reviewed date:10/03/2024 09:31:07 AM Interpretation:Normal Performing Lab: Notes/Report: Test performed by [facility] , [facility] C, [place] [address] Ermias Ibarra MD, Rip/Mould Operator CLIA: [id number] TSH 0.54 0.43-5.25 mU/L P-Vitamin D 25-Hydroxy Reviewed date:10/03/2024 09:31:07 AM Interpretation:Normal Performing Lab: Notes/Report: Test performed by [employer] [address] , [place] [address] Ermias Ibarra MD, Rip/Mould Operator CLIA: [id number] Vitamin D 25-Hydroxy 62.0 30.0-100.0 ng/mL Interpretation of Vitamin D 25 OH: < 20 ng/mL - Deficiency 20 - 29 ng/mL - Insufficiency 30 - 100 ng/mL - Sufficiency > 100 ng/mL - Super-therapeutic- toxicity may occur above this level. Clinical correlation required. RBC Morphology, Hematology Reviewed date:10/03/2024 09:31:07 AM Interpretation: Performing Lab: Notes/Report: Test performed by [employer] [address] , [place] [address] Ermias Ibarra MD, Rip/Mould Operator CLIA: [id number] Polychromasia Slight Microcytosis Slight Anisocytosis Slight Platelet Slide Review Normal P-Basic Metabolic Panel (BMP ) Reviewed date:12/02/2024 10:07:21 AM Interpretation:bun 26, Cr 1.08 Performing Lab: Notes/Report: Test performed by [employer] [address] , [address], [place] [id number] Ermias Ibarra MD, Rip/Mould Operator CLIA: [id number] Sodium 143 135-145 mmol/L Potassium 4.6 3.5-5.3 mmol/L Chloride 107 97-108 mmol/L CO2 25 22-32 mmol/L Glucose 89 65-99 mg/dL BUN 26 6-20 mg/dL Creatinine 1.08 0.50-1.00 mg/dL Calcium 9.5 8.6-10.4 mg/dL eGFR by Creatinine 60 >59 mL/min/1.73m2 Mammogram, Bilateral Diagnos tic Reviewed date:12/14/2024 05:16:49 PM Interpretation: Performing Lab: Notes/Report: Medications Medication SIG (Take, Route, Frequency, Duration) Notes Start Date End Date Status Bisoprolol Fumarate 5 MG 1 tablet Orally Once a day; Duration: 30 day(s) Active Levothyroxine Sodium 100 MCG 1 tab(s) Orally once a day; Duration: 90 days Active oxyCODONE HCl 5 MG 1 tab(s) orally thre e times a day as needed 05/20/2025 Active Esomeprazole Magnesium 40 MG take 1 capsule by mouth every day Orally Once a day; Duration: 90 days Active Azelastine HCl 0.05 % 1 drop into affect ed eye Ophthalmic Twice a day 05/20/2025 Active Aspirin 81 MG 1 tab(s) orally once a day Active Nystatin 844685 UNIT/GM APPLY 1 APPLICAT ION EXTERNALLY FOUR TIMES DAILY; Duration: 14 Active Maxalt-ELECTRICAL CHECKOUT MECHANIC 10 MG 1 tab(s) orally once a day, may repeat Q2h x2 Active Potassium Chloride ER 10 MEQ TAKE 1 CAPSULE BY MOUTH DAILY WITH FOOD; Duration: 90 Active Vitamin D3 125 MCG (5000 UT) 1 cap(s) orally once a day 04/01/2014 Active B-12 1000 MCG 1 tab(s) orally once a day 04/01/2014 Active Venlafaxine HCl ER 150 MG 1 capsule with food Orally Once a day; Duration: 90 days Active Triamterene-HCTZ 37.5-25 MG 1/2 tab(s) o rally once a day Active Atorvastatin Calcium 40 MG 1 tab(s) Oral ly At Bed Time; Duration: 90 days Active Promethazine HCl 25 MG 1 tablet as neede d Orally q6h prn Active Ibuprofen 800 MG 1 tab(s) orally 3 ti mes a day Active Ventolin HFA 108 (90 Base) MCG/ACT 1 puff as needed Inhalation four times a day as needed 01/25/2024 Active Immunizations Vaccine Route Administration Date Status Comme nts COVID 19 [place] IM Intramuscular 04/13/2005 Administered COVID 19 Pfizer IM Intramuscular 05/14/2005 Administered DT, 7 YEARS OR OLDER IM Intramuscular 06/15/2006 Administe red Hepatitis A (adult) IM Intramuscular 09/19/2018 Administer ed Hepatitis A (adult) IM Intramuscular 03/06/2019 Administer ed xFlu shot-36 months and older IM Intramuscular 09/13/2010 Administered xFluzone Intradermal (18-64yrs)-trivalent-medic are pts ID Intradermal 10/19/2012 Administered Morphine 10mg/ml IM Intramuscular 07/01/2005 Administered Morphine 10mg/ml IM Intramuscular 07/27/2005 Administered Morphine 10mg/ml IM Intramuscular 09/07/2005 Administered Morphine 10mg/ml IM Intramuscular 10/11/2005 Administered Morphine 10mg/ml IM Intramuscular 10/28/2005 Administered Morphine 10mg/ml IM Intramuscular 11/29/2005 Administered Morphine 10mg/ml IM Intramuscular 12/26/2005 Administered Morphine 10mg/ml IM Intramuscular 01/03/2006 Administered Morphine 10mg/ml IM Intramuscular 01/16/2006 Administered Morphine 10mg/ml IM Intramuscular 02/13/2006 Administered Morphine 10mg/ml IM Intramuscular 02/28/2006 Administered Morphine 10mg/ml IM Intramuscular 03/27/2006 Administered Morphine 10mg/ml IM Intramuscular 03/28/2006 Administered Morphine 10mg/ml IM Intramuscular 04/17/2006 Administered Morphine 10mg/ml IM Intramuscular 05/02/2006 Administered Morphine 10mg/ml IM Intramuscular 05/16/2006 Administered Morphine 10mg/ml IM Intramuscular 05/30/2006 Administered Morphine 10mg/ml IM Intramuscular 06/09/2006 Administered Morphine 10mg/ml IM Intramuscular 06/22/2006 Administered Morphine 10mg/ml IM Intramuscular 07/01/2006 Administered Morphine 10mg/ml IM Intramuscular 07/21/2006 Administered Morphine 10mg/ml IM Intramuscular 08/04/2006 Administered Morphine 10mg/ml IM Intramuscular 08/18/2006 Administered Morphine 10mg/ml IM Intramuscular 09/21/2006 Administered Morphine 10mg/ml IM Intramuscular 07/12/2007 Administered Morphine 10mg/ml IM Intramuscular 08/14/2007 Administered Morphine 10mg/ml IM Intramuscular 09/12/2007 Administered Morphine 10mg/ml IM Intramuscular 10/09/2007 Administered Morphine 10mg/ml IM Intramuscular 11/09/2007 Administered Morphine 10mg/ml IM Intramuscular 11/29/2007 Administered Problems Problem Type SNOMED Code ICD Code Onset Dates Problem Status W/U Status Risk Notes Problem Hypothyroidism (67652162) Hypothyroidism (acquired) (E03.9) Active confirmed Problem Chronic renal insufficiency (402467409) Chronic renal insufficiency (N18.9) Active confirmed Problem Morbid obesity (919707356) Morbid obesity (E66.01) Active confirmed Problem Osteopenia (167893751) Osteopenia (M85.80) Active confirmed Problem Personal history of primary malignant neoplasm of breast (695048274) History of breast cancer (Z85.3) Active confirmed Problem Raised antinuclear antibody (238011460) Positive DARLINE (antinuclear antibody) (R76.8) Active confirmed Problem Basal cell carcinoma (8076318) Basal cell carcinoma (C44.91) Active confirmed Problem Severe depressed bipolar I disorder without psychotic features (38337977) Bipolar disorder, current episode depressed, severe, without psychotic features (F31.4) Active confirmed Problem Chronic intractable migraine without aura (096957105714742) Chronic migraine without aura, intractable, with status migrainosus (G43.711) Active confirmed Problem Chronic pain syndrome (355843764) Chronic pain syndrome (G89.4) Active confirmed Problem Chronic migraine (984110878) Chronic migraine (G43.709) Active confirmed Problem Depressive disorder (03595298) Depressive disorder (F32.9) Active confirmed Problem Gastroesophageal reflux disease without esophagitis (663100529) Gastroesophageal reflux disease without esophagitis (K21.9) Active confirmed Problem Acquired hypothyroidism (069095379) Acquired hypothyroidism (E03.9) Active confirmed Problem Hypothyroidism (05892619) Hypothyroidism (E03.9) Active confirmed Problem Headache (40266979) Periodic hea dache syndrome, 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) Active confirmed Problem Rheumatoid arthritis (14338859) Rheumatoid arthritis (M06.9) Active confirmed Problem Osteoarthritis of knee (608767722) Primary osteoarthritis of right knee (M17.11) Active confirmed Problem Calcaneal spur of left foot (055529532092937) Calcaneal spur of left foot (M77.32) Active confirmed Problem Body mass index 40+ - morbidly obese (473533697) BMI 40.0-44.9, adult (Z68.41) Active confirmed Problem Postoperative hypothyroidism (97215003) Postoperative hypothyroidism (E89.0) Active confirmed Problem Nephrolithiasis (14914281) Nephrolithiasis (N20.0) Active confirmed Problem Migraine variant with headache (disorder) (916648262) Migraine headache (G43.909) Active confirmed Problem Refractory migraine without aura (151225382) Intractable migraine without aura and with status migrainosus (G43.011) Active confirmed Problem Dyslipidemia (837752640) Dyslipidemia (E78.5) Active confirmed Problem Essential hypertension (27196737) Essential hypertension with goal blood pressure less than 130\/80 (I10) Active confirmed Problem Mj's thyroiditis (56208001) 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) Active confirmed Problem Pain of left breast (3001839792) Pain of left breast (N64.4) Active confirmed Problem Refractory migraine (869289565) Intractable migraine with status migrainosus, unspecified migraine type (G43.911) Active confirmed Problem History of malignant neoplasm of thyroid (548236782) History of thyroid cancer (Z85.850) Active confirmed Problem Personal history of primary malignant neoplasm of breast (784941936) History of breast cancer in adulthood (Z85.3) Active confirmed Problem Basal cell carcinoma (BCC) of skin of breast, unspecified laterality (C44.511) Active confirmed Vital Signs Heart Rate 89 /min 06/03/2025 Blood pressure diastolic 70 mm Hg 06/03/2025 Height 65 in 06/03/2025 Blood pressure systolic 132 mm Hg 06/03/2025 Weight 264 lbs 06/03/2025 BMI 43.93 kg/m2 06/03/2025 Encounters Encounter Location Date Provider Diagnosis [facility] [facility] [address] [place] [id number] 07/16/2024 R Steve Larry Intractable migraine without aura and with status migrainosus G43.011 and Dyslipidemia E78.5 [facility] [facility] [address] [place] [id number] 07/25/2024 R Steve Larry Intractable migraine without aura and with status migrainosus G43.011 [facility] [facility] [address] [place] [id number] 09/10/2024 R Steve Larry Intractable migraine without aura and with status migrainosus G43.011 [facility] [facility] [address] [place] [id number] 10/01/2024 R Steve Larry Adult general medica l examination Z00.00 ; Fatigue R53.83 ; Postoperative hypothyroidism E89.0 ; Dyslipidemia E78.5 ; Intractable migraine without aura and with status migrainosus G43.011 ; Screening for diabetes mellitus Z13.1 ; Depressive disorder F32.9 ; Osteopenia M85.80 ; Gastroesophageal reflux disease without esophagitis K21.9 ; History of breast cancer Z85.3 ; Mj's thyroiditis E06.3 ; History of thyroid cancer Z85.850 and BMI 40.0-44.9, adult Z68.41 [facility] [id number] 11/26/2024 Merary Mcphersonond Essential hypertensi on with goal blood pressure less than 130\/80 I10 ; Hypothyroidism (acquired) E03.9 ; Headache R51 ; Hypokalemia E87.6 ; Bipolar disorder, current episode depressed, severe, without psychotic features F31.4 ; Dyslipidemia E78.5 ; Acquired hypothyroidism E03.9 ; Gastroesophageal reflux disease without esophagitis K21.9 ; Renal insufficiency N28.9 ; Breast screening Z12.31 and History of breast cancer in adulthood Z85.3 [facility] [address] [id number] 12/10/2024 R Steve Larry Migraine headache G43.909 ; Chronic renal insufficiency N18.9 and Leg edema R60.0 [facility] [address] [id number] 12/17/2024 R Steve Larry Intractable migraine without aura and with status migrainosus G43.011 [facility] [address] [id number] 02/04/2025 R Steve Larry Migraine headache G43.909 ; BMI 40.0-44.9, adult Z68.41 and Morbid obesity E66.01 [facility] [address] [id number] 03/20/2025 R Steve Larry Hypothyroidism E03.9 ; Dyslipidemia E78.5 and Migraine headache G43.909 [facility] [address] [id number] 03/31/2025 Merary Sparrow Candidiasis of breas t B37.89 [facility] [address] [facility] [address] [place], [place] [id number] 04/15/2025 R Steve Larry Intractable migraine without aura and with status migrainosus G43.011 [facility] [address] [facility] [address] [place], [place] [id number] 05/20/2025 R Steve Larry Chronic migraine wit hout aura, intractable, with status migrainosus G43.711 ; Conjunctivitis H10.9 and Rheumatoid arthritis M06.9 [facility] [address] [facility] [address] [place], [place] [id number] 06/03/2025 Merary Sparrow Encounter for examination and observation for other specified reasons Z04.89 [facility] [address] [facility] [address] [place], [place] [id number] 10/03/2024 R Steve Larry [facility] [address] [facility] [address] [place], [place] [id number] 11/26/2024 Merary Sparrow [facility] [address] [place], [place] [id number] 12/02/2024 Merary Sparrow [facility] [address] [facility] [address] [place], [place] [id number] 03/25/2025 R Steve Larry [facility] [address] [facility] [address] [place], [place] [id number] 06/05/2025 Enmanuel Walton Assessments Encounter Date Diagnosis (ICD Code) Assessment Notes Treatment Notes Treatment Clinical Notes Section Notes 07/16/2024 Intractable migraine without aura and with status migrainosus (ICD-10 - G43.011) To [facility] outpt for Morphine 2mg and Phenergan 25 mg IM 07/16/2024 Dyslipidemia (ICD-10 - E78.5) 07/25/2024 Intractable migraine without aura and with status migrainosus (ICD-10 - G43.011) To [facility] outpt for Morphine 2mg and Phenergan 25 mg IM 09/10/2024 Intractable migraine without aura and with status migrainosus (ICD-10 - G43.011) To [facility] outpt for Morphine 2mg and Phenergan 25 mg IM 10/01/2024 Fatigue (ICD-10 - R53.83) 10/01/2024 Adult general medical examination (ICD-10 - Z00.00) Patient instructed to return to office Annually for Annual Wellness Visits to include annual screenings of Pain assessment, Functional Ability assessment, Cognitive Ability assessment, Fall Risk assessment, Depression screening and Bladder control screening. 11/26/2024 Hypothyroidism (acquired) (ICD-10 - E03.9) 11/26/2024 Essential hypertension with goal blood pressure less than 130\/80 (ICD-10 - I10) 12/10/2024 Chronic renal insufficiency (ICD-10 - N18.9) --improved 12/10/2024 Migraine headache (ICD-10 - G43.909) 12/17/2024 Intractable migraine without aura and with status migrainosus (ICD-10 - G43.011) To [facility] outpt for Morphine 2mg and Phenergan 25 mg IM 02/04/2025 BMI 40.0-44.9, adult (ICD-10 - Z68.41) 02/04/2025 Migraine headache (ICD-10 - G43.909) 03/20/2025 Hypothyroidism (ICD-10 - E03.9) 03/20/2025 Dyslipidemia (ICD-10 - E78.5) 03/31/2025 Candidiasis of breast (ICD-10 - B37.89) Keep under the breast dry as possible. Use cream up to 4 times a day. Wash bra every night to not reinfect with the yeast infection. Follw up as needed. 04/15/2025 Intractable migraine without aura and with status migrainosus (ICD-10 - G43.011) To [facility] outpt for Morphine 2mg and Phenergan 25 mg IM 05/20/2025 Conjunctivitis (ICD-10 - H10.9) 05/20/2025 Chronic migraine without aura, intractable, with status migrainosus (ICD-10 - G43.711) 06/03/2025 Encounter for examination and observation for other specified reasons (ICD-10 - Z04.89) to continue with care of groin procedure sites as per cardioogy; has FU sade in 5 weeks with them which she will keep 05/20/2025 Rheumatoid arthritis (ICD-10 - M06.9) 03/20/2025 Migraine headache (ICD-10 - G43.909) 02/04/2025 Morbid obesity (ICD-10 - E66.01) 12/10/2024 Leg edema (ICD-10 - R60.0) 11/26/2024 Headache (ICD-10 - R51) 10/01/2024 Postoperative hypothyroidism (ICD-10 - E89.0) 10/01/2024 Dyslipidemia (ICD-10 - E78.5) 11/26/2024 Hypokalemia (ICD-10 - E87.6) 11/26/2024 Bipolar disorder, current episode depressed, severe, without psychotic features (ICD-10 - F31.4) 10/01/2024 Intractable migraine without aura and with status migrainosus (ICD-10 - G43.011) To [facility] outpt for Morphine 2mg and Phenergan 25 mg IM 10/01/2024 Screening for diabetes mellitus (ICD-10 - Z13.1) 11/26/2024 Dyslipidemia (ICD-10 - E78.5) 11/26/2024 Acquired hypothyroidism (ICD-10 - E03.9) 10/01/2024 Depressive disorder (ICD-10 - F32.9) 10/01/2024 Osteopenia (ICD-10 - M85.80) 11/26/2024 Gastroesophageal reflux disease without esophagitis (ICD-10 - K21.9) 10/01/2024 Gastroesophageal reflux disease without esophagitis (ICD-10 - K21.9) 11/26/2024 Renal insufficiency (ICD-10 - N28.9) 11/26/2024 Breast screening (ICD-10 - Z12.31) 10/01/2024 History of breast cancer (ICD-10 - Z85.3) 10/01/2024 Mj's thyroiditis (ICD-10 - E06.3) 11/26/2024 History of breast cancer in adulthood (ICD-10 - Z85.3) 10/01/2024 History of thyroid cancer (ICD-10 - Z85.850) 10/01/2024 BMI 40.0-44.9, adult (ICD-10 - Z68.41) Plan Of Treatment Pending Test Test Name Order Date Mammogram 10/01/2024 H-TSH 08/30/2021 H-Lipid Panel 08/30/2021 H-CMP 08/30/2021 H-CMP 11/08/2021 H-T4 free 08/30/2021 Insurance Providers Payer Name Payer Address Payer Phone Subscriber Number Group Number Insured Name Patient Relationship to Insured Coverage Start Date Coverage End Date [employer] (MEDICAR E) [address] [address] [place] [phone] [id number] DEXTER GRADY Self - patient is the insured Medications Administered Medication Instructions Date of Administration Dosage Notes celestone 09/16/2011 Depo- Medrol 40 mg/ml 05/21/2014 1 mL Dexamethasone 11/04/2005 1 mL Dexamethasone 11/21/2005 0.5 mL Dexamethasone 12/16/2005 1 mL Dexamethasone 04/10/2006 Dexamethasone 09/13/2006 1 mL Dexamethasone 11/08/2017 1 mL Morphine 12/28/2007 4 mg Morphine 01/08/2008 2 mg Morphine 01/25/2008 2 mg Morphine 02/13/2008 2 mg Morphine 03/11/2008 2 mg Morphine 03/25/2008 2 mg Morphine 04/18/2008 2 mg Morphine 05/09/2008 2 mg Morphine 05/30/2008 4 mg Morphine 06/20/2008 4 mg Morphine 07/15/2008 4 mg Morphine 08/13/2008 2 mg Morphine 09/03/2008 2 mg Morphine 10/03/2008 2MG Morphine 10/22/2008 2 mg Morphine 11/03/2008 4 mg Morphine 11/14/2008 2 mg Morphine 12/03/2008 2 mg Morphine 01/28/2009 2 mg Morphine 02/10/2009 2 mg Morphine 03/16/2009 2 mg Morphine 03/18/[address] Toribio Morphine 04/13/2009 4 mg Morphine 05/14/2009 5 mg Morphine 05/29/2009 5 mg Morphine 06/10/2009 5 mg Morphine 06/24/2009 2 mg Morphine 07/20/2009 2 mg Morphine 07/30/2009 2 mg Morphine 08/13/2009 2 mg Morphine 09/01/2009 2 mg Morphine 10/01/2009 2 mg Morphine 10/21/2009 2MG Morphine 11/13/2009 3 mg Morphine 12/04/2009 4 mg Morphine 12/17/2009 2 mg Morphine 01/13/2010 2 mg Morphine 01/20/2010 2 mg Morphine 02/02/2010 2 mg Morphine 02/05/2010 5 mg Morphine 02/11/2010 2MG Morphine 03/16/2010 2 mg Morphine 04/01/2010 3 mg Morphine 05/13/2010 2 mg Morphine 05/20/2010 3 mg Morphine 05/28/2010 3 mg Morphine 06/11/2010 2 mg Morphine 06/22/2010 2 mg Morphine 06/23/2010 4 mg Morphine 06/28/2010 4 mg Morphine 07/14/2010 Morphine 07/23/2010 4 mg Morphine 08/02/2010 2 mg Morphine 08/11/2010 3 mg Morphine 08/13/2010 3 mg Morphine 08/23/2010 3 mg Morphine 09/01/2010 3 mL Morphine 09/20/2010 2 mg Morphine 09/27/2010 2 mg Morphine 10/13/2010 2 mg Morphine 10/21/2010 2 mg Morphine 11/03/2010 2 mL Morphine 11/17/2010 2 mg Morphine 11/23/2010 2 mg Morphine 12/06/2010 2 mg Morphine 12/10/2010 2 mg Morphine 01/05/2011 2 mg Morphine 01/12/2011 2 mg Morphine 02/15/2011 2 mg Morphine 02/22/2011 2 mg Morphine 03/09/2011 2 mg Morphine 03/14/2011 2 mg Morphine 03/30/2011 2 mg Morphine 04/08/2011 2 mg Morphine 04/13/2011 Morphine 04/26/2011 Morphine 04/27/2011 Morphine 05/02/2011 Morphine 05/11/2011 Morphine 05/17/2011 Morphine 06/11/2011 2 mL Morphine 06/14/2011 Morphine 06/15/2011 Morphine 06/23/2011 2 mg Morphine 07/04/2011 Morphine 07/12/2011 2 mg Morphine 07/22/2011 Morphine 07/25/2011 Morphine 08/03/2011 3mg mL Morphine 08/09/2011 Morphine 08/20/2011 2 mg Morphine 08/31/2011 1 mg Morphine 09/12/2011 2 mg Morphine 09/30/2011 2 mg Morphine 10/24/2011 2 mg Morphine 11/01/2011 2 mg Morphine 11/03/2011 2 mg Morphine 03/07/2012 Morphine 03/23/2012 2 mg Morphine 04/13/2012 2 mg Morphine 04/23/2012 Morphine 04/25/2012 Morphine 05/18/2012 Morphine 05/29/2012 Morphine 06/08/2012 Morphine 06/12/2012 Morphine 06/29/2012 Morphine 07/18/2012 Morphine 07/31/2012 Morphine 08/24/2012 2 mg Morphine 08/28/2012 Morphine 09/17/2012 Morphine 10/05/2012 Morphine 10/15/2012 Morphine 10/19/2012 Morphine 11/07/2012 2 mg Morphine 12/11/2012 2 mg Morphine 12/19/2012 Morphine 01/18/2013 2 mg Morphine 01/28/2013 Morphine 03/01/2013 Morphine 03/11/2013 2 mg Morphine 03/14/2013 2 mg Morphine 04/09/2013 2 mg Morphine 05/06/2013 2 mg Morphine 05/24/2013 2 mg Morphine 06/13/2013 2 mg Morphine 06/19/2013 Morphine 07/23/2013 2 mg Morphine 08/08/2013 2 mg Morphine 08/23/2013 2 mg Morphine 09/04/2013 2 mg Reported to [facility] 10/04/2013 2 [facility] 10/18/2013 2 mg Rep[facility] to [facility] Morphine 10/29/2013 2 mg Rep[facility] to [facility] Morphine 11/19/2013 2 mg Reported to [facility] Morphine 11/20/2013 [facility] Morphine 12/13/2013 1 mg Morphine 01/17/2014 2 mg Reported to [facility] Morphine 01/17/2014 Reported by CR Morphine 02/07/2014 2 mg Reported, cr 02-07-14 Morphine 02/11/2014 2 mg Morphine 02/28/2014 2 mg injection reported-FW Morphine 03/18/2014 2 mg Morphine 04/18/2014 2 mg Morphine 05/16/2014 2 mg Morphine 05/29/2014 2 mg Morphine 06/06/2014 2 mg Morphine 06/30/2014 2 mg Morphine 07/04/2014 2 mg Morphine 07/28/2014 2 mg Shot reported Morphine 08/12/2014 .2 mg Morphine 08/15/2014 2 mg shot reported- FW Morphine 09/05/2014 2 mg reported to [facility] 09/04/14 Morphine 09/15/2014 2 mg Documented/Rec orde d on [facility] Morphine 10/10/2014 2 mg reported to [facility] Morphine 10/17/2014 2 mg reported to [facility] Morphine 11/11/2014 2 mg Morphine 11/25/2014 2 mg Morphine 11/27/2014 2 mg Morphine 12/24/2014 2 mg Morphine 01/02/2015 2 mg Morphine 01/16/2015 2 mg Morphine 02/13/2015 2 mg Morphine 02/20/2015 2 mg Morphine 03/12/2015 2 mg Reported per A G Morphine 03/20/2015 2 mg Morphine 05/01/2015 2 mg Morphine 05/25/2015 2 mg Morphine 07/03/2015 2 mg Morphine 07/06/2015 2 mg Morphine 08/07/2015 2 mg Morphine 09/10/2015 2 mg Morphine 09/16/2015 2 mg Morphine 11/05/2015 2 mg Morphine 11/10/2015 2 mg Morphine 12/04/2015 2 mg Morphine 12/22/2015 2 mg Morphine 01/15/2016 2 mg Morphine 02/19/2016 2 mg Morphine 04/22/2016 2 mg Morphine 04/29/2016 2 mg Morphine 05/26/2016 2 mg Morphine 06/24/2016 2 mg Morphine 07/04/2016 2 mg Morphine 07/06/2016 0.2 mg Morphine 07/14/2016 2 mg Morphine 08/04/2016 2 mg Morphine 08/19/2016 2 mg Morphine 09/02/2016 2 mg Morphine 09/08/2016 2 mg Morphine 09/28/2016 2 mg Morphine 10/26/2016 2 mg Morphine 11/18/2016 2 mg Morphine 11/21/2016 2 mg Morphine 01/05/2017 2 mg Morphine 02/02/2017 2 mg Morphine 02/23/2017 2 mg Morphine 03/23/2017 2 mg Morphine 04/11/2017 2 mg Morphine 05/11/2017 2 mg Morphine 06/15/2017 2 mg Morphine 06/26/2017 2 mg Morphine 07/19/2017 2 mg Morphine 07/28/2017 2 mg Morphine 08/29/2017 2 mg Morphine 09/18/2017 2 mg Morphine 09/29/2017 2 mg Morphine 10/30/2017 2 mg Phenergan 12.5 mgs. IM 04/13/2005 25 mg. Phenergan 12.5 mgs. IM 07/01/2005 25 mg Phenergan 12.5 mgs. IM 09/07/2005 25 mg Phenergan 12.5 mgs. IM 01/16/2006 25 mg Phenergan 12.5 mgs. IM 05/16/2006 25 mg Phenergan 12.5 mgs. IM 07/21/2006 25 mg Phenergan 12.5 mgs. IM 08/04/2006 25 mg Phenergan 12.5 mgs. IM 08/18/2006 25 mg Phenergan 12.5 mgs. IM 09/21/2006 25 mg Phenergan 12.5 mgs. IM 01/28/2009 12.5 mg Phenergan 12.5 mgs. IM 02/27/2013 12.5 Phenergan 12.5 mgs. IM 03/11/2013 Phenergan 12.5 mgs. IM 04/09/2013 12.5 Phenergan 12.5 mgs. IM 05/06/2013 12.5 mg Phenergan 12.5 mgs. IM 03/12/2015 1 mL Phenergan 12.5 mgs. IM 05/25/2015 12.5 mg Phenergan 12.5 mgs. IM 08/07/2015 12.5 mg Phenergan 12.5 mgs. IM 05/26/2016 12.5 mg Phenergan 12.5 mgs. IM 07/06/2016 12.5 mg Sh ot reported Phenergan 12.5 mgs. IM 10/26/2016 12.5 mL Phenergan 12.5 mgs. IM 09/18/2017 12.5 mg Phenergan 12.5 mgs. IM 02/20/2018 12.5 mg phenergan 25 mg/ml 05/14/2005 1 mL phenergan 25 mg/ml 07/27/2005 0.5 mL phenergan 25 mg/ml 10/11/2005 1 mL phenergan 25 mg/ml 10/28/2005 1 mL phenergan 25 mg/ml 11/29/2005 25 mg phenergan 25 mg/ml 12/26/2005 25 mg phenergan 25 mg/ml 01/03/2006 25 mg phenergan 25 mg/ml 02/28/2006 phenergan 25 mg/ml 03/27/2006 25 mg phenergan 25 mg/ml 03/28/2006 25 mg phenergan 25 mg/ml 04/17/2006 25 mg phenergan 25 mg/ml 05/02/2006 phenergan 25 mg/ml 05/30/2006 25 mg phenergan 25 mg/ml 06/09/2006 25MG phenergan 25 mg/ml 06/22/2006 25MG phenergan 25 mg/ml 07/01/2006 phenergan 25 mg/ml 09/13/2006 1 mL phenergan 25 mg/ml 07/12/2007 25 mg phenergan 25 mg/ml 07/31/2007 25 mg phenergan 25 mg/ml 08/14/2007 25 mg phenergan 25 mg/ml 09/12/2007 25MG phenergan 25 mg/ml 10/09/2007 25MG phenergan 25 mg/ml 11/09/2007 25 mg phenergan 25 mg/ml 11/29/2007 25MG phenergan 25 mg/ml 12/28/2007 25 mg phenergan 25 mg/ml 01/08/2008 25 mg phenergan 25 mg/ml 01/25/2008 25 mg phenergan 25 mg/ml 02/13/2008 25 mg phenergan 25 mg/ml 03/11/2008 25 mg phenergan 25 mg/ml 03/25/2008 25 mg phenergan 25 mg/ml 04/18/2008 1 mL phenergan 25 mg/ml 05/09/2008 1 mL phenergan 25 mg/ml 05/30/2008 25 mg phenergan 25 mg/ml 06/20/2008 1 mL phenergan 25 mg/ml 07/15/2008 25 mg phenergan 25 mg/ml 08/13/2008 25 mg phenergan 25 mg/ml 09/03/2008 25 mg phenergan 25 mg/ml 10/03/2008 25MG phenergan 25 mg/ml 10/22/2008 25 mg phenergan 25 mg/ml 11/03/2008 25 mg phenergan 25 mg/ml 11/14/2008 25 mg phenergan 25 mg/ml 12/03/2008 25 mg phenergan 25 mg/ml 02/10/2009 1/2 ml phenergan 25 mg/ml 03/16/2009 25 mg phenergan 25 mg/ml 03/18/2009 25 phenergan 25 mg/ml 04/13/2009 25 mg phenergan 25 mg/ml 05/14/2009 25 mg phenergan 25 mg/ml 05/29/2009 25 mg phenergan 25 mg/ml 06/10/2009 25 mg phenergan 25 mg/ml 06/24/2009 25 mg phenergan 25 mg/ml 07/20/2009 25 mg phenergan 25 mg/ml 07/30/2009 25 mg phenergan 25 mg/ml 08/13/2009 1.0 mL phenergan 25 mg/ml 09/01/2009 25 mg phenergan 25 mg/ml 10/01/2009 25 mg phenergan 25 mg/ml 10/21/2009 25MG phenergan 25 mg/ml 11/13/2009 25 mg phenergan 25 mg/ml 12/04/2009 25 mg phenergan 25 mg/ml 12/17/2009 25 mg phenergan 25 mg/ml 01/13/2010 25 mg phenergan 25 mg/ml 01/20/2010 25 mg phenergan 25 mg/ml 02/02/2010 25 mg phenergan 25 mg/ml 02/05/2010 25 mg phenergan 25 mg/ml 02/11/2010 phenergan 25 mg/ml 02/24/2010 25 mg phenergan 25 mg/ml 03/16/2010 25 mg phenergan 25 mg/ml 04/01/2010 25 mg phenergan 25 mg/ml 05/13/2010 phenergan 25 mg/ml 05/20/2010 1 mL phenergan 25 mg/ml 05/28/2010 1 mL phenergan 25 mg/ml 06/11/2010 25 mg phenergan 25 mg/ml 06/22/2010 phenergan 25 mg/ml 06/23/2010 1 mL phenergan 25 mg/ml 07/14/2010 1 mL phenergan 25 mg/ml 07/23/2010 25 mg phenergan 25 mg/ml 08/02/2010 25 mg phenergan 25 mg/ml 08/11/2010 25 mg phenergan 25 mg/ml 08/13/2010 25 mg phenergan 25 mg/ml 08/23/2010 1 mL phenergan 25 mg/ml 09/01/2010 0.25 mL phenergan 25 mg/ml 09/20/2010 1 mL phenergan 25 mg/ml 09/27/2010 25 mg phenergan 25 mg/ml 10/13/2010 25 mg phenergan 25 mg/ml 10/21/2010 25 mg phenergan 25 mg/ml 11/03/2010 1 mL phenergan 25 mg/ml 11/17/2010 1 mL phenergan 25 mg/ml 11/23/2010 phenergan 25 mg/ml 12/06/2010 25 mg phenergan 25 mg/ml 12/10/2010 25 mg phenergan 25 mg/ml 01/05/2011 25 mg phenergan 25 mg/ml 01/12/2011 25 mg phenergan 25 mg/ml 02/22/2011 1 mL phenergan 25 mg/ml 03/09/2011 25 mg phenergan 25 mg/ml 03/14/2011 25 mg phenergan 25 mg/ml 03/30/2011 25 mg phenergan 25 mg/ml 04/08/2011 25 mg phenergan 25 mg/ml 04/13/2011 1 mL phenergan 25 mg/ml 04/26/2011 phenergan 25 mg/ml 04/27/2011 phenergan 25 mg/ml 05/02/2011 phenergan 25 mg/ml 05/11/2011 1 mL phenergan 25 mg/ml 05/17/2011 phenergan 25 mg/ml 06/11/2011 1 mL phenergan 25 mg/ml 06/14/2011 phenergan 25 mg/ml 06/15/2011 phenergan 25 mg/ml 06/23/2011 25 mg phenergan 25 mg/ml 07/04/2011 phenergan 25 mg/ml 07/12/2011 1 mL phenergan 25 mg/ml 07/22/2011 phenergan 25 mg/ml 07/25/2011 phenergan 25 mg/ml 08/03/2011 25mg mg phenergan 25 mg/ml 08/09/2011 1 mL phenergan 25 mg/ml 08/20/2011 1 mL phenergan 25 mg/ml 08/31/2011 1 mL phenergan 25 mg/ml 09/12/2011 25 mg phenergan 25 mg/ml 09/30/2011 1 mL phenergan 25 mg/ml 10/24/2011 phenergan 25 mg/ml 11/01/2011 1 mL phenergan 25 mg/ml 11/03/2011 1 mL phenergan 25 mg/ml 11/19/2011 1.0 phenergan 25 mg/ml 11/30/2011 phenergan 25 mg/ml 01/10/2012 25 mg/ml phenergan 25 mg/ml 03/07/2012 phenergan 25 mg/ml 03/23/2012 phenergan 25 mg/ml 04/13/2012 25 mg phenergan 25 mg/ml 04/23/2012 25 mL phenergan 25 mg/ml 04/25/2012 phenergan 25 mg/ml 05/08/2012 phenergan 25 mg/ml 05/18/2012 1 mL phenergan 25 mg/ml 05/29/2012 phenergan 25 mg/ml 06/08/2012 1 mL phenergan 25 mg/ml 06/12/2012 phenergan 25 mg/ml 06/29/2012 phenergan 25 mg/ml 07/05/2012 phenergan 25 mg/ml 07/18/2012 phenergan 25 mg/ml 07/31/2012 phenergan 25 mg/ml 08/24/2012 25 mg phenergan 25 mg/ml 08/28/2012 0.5 mL phenergan 25 mg/ml 09/17/2012 1 mL phenergan 25 mg/ml 10/05/2012 phenergan 25 mg/ml 10/15/2012 .25 mL phenergan 25 mg/ml 10/19/2012 phenergan 25 mg/ml 11/07/2012 25 mg phenergan 25 mg/ml 11/13/2012 phenergan 25 mg/ml 12/11/2012 25 mg phenergan 25 mg/ml 12/19/2012 1 mL phenergan 25 mg/ml 01/18/2013 25 mg phenergan 25 mg/ml 01/28/2013 phenergan 25 mg/ml 02/13/2013 phenergan 25 mg/ml 03/01/2013 25 mg phenergan 25 mg/ml 03/14/2013 25 mg phenergan 25 mg/ml 04/03/2013 1 mL phenergan 25 mg/ml 05/24/2013 25 mg phenergan 25 mg/ml 06/13/2013 1 mL phenergan 25 mg/ml 06/19/2013 phenergan 25 mg/ml 07/23/2013 25 mg phenergan 25 mg/ml 08/08/2013 1 mL phenergan 25 mg/ml 08/23/2013 25 mg phenergan 25 mg/ml 09/04/2013 25 mg phenergan 25 mg/ml 10/04/2013 25 mg phenergan 25 mg/ml 10/16/2013 1 mL phenergan 25 mg/ml 10/18/2013 25 mg phenergan 25 mg/ml 10/29/2013 25 mg phenergan 25 mg/ml 11/19/2013 25 mg phenergan 25 mg/ml 11/20/2013 1 mL phenergan 25 mg/ml 12/13/2013 25 mg phenergan 25 mg/ml 01/17/2014 25 mg phenergan 25 mg/ml 01/17/2014 25 mg phenergan 25 mg/ml 02/07/2014 1 mL phenergan 25 mg/ml 02/11/2014 25 mg Shot h as been reported FW phenergan 25 mg/ml 02/28/2014 25 mg phenergan 25 mg/ml 03/18/2014 1 mL phenergan 25 mg/ml 04/18/2014 25 mg phenergan 25 mg/ml 05/16/2014 25 mg phenergan 25 mg/ml 05/29/2014 1 mL phenergan 25 mg/ml 06/06/2014 25 mg phenergan 25 mg/ml 06/30/2014 1 mL phenergan 25 mg/ml 07/04/2014 25 mg phenergan 25 mg/ml 07/28/2014 25 mg phenergan 25 mg/ml 08/12/2014 25 mg phenergan 25 mg/ml 08/15/2014 25 mg phenergan 25 mg/ml 09/05/2014 25 mg phenergan 25 mg/ml 09/15/2014 25 mg phenergan 25 mg/ml 10/10/2014 25 mg phenergan 25 mg/ml 10/17/2014 25 mg phenergan 25 mg/ml 11/11/2014 1 uL phenergan 25 mg/ml 11/25/2014 25 mg phenergan 25 mg/ml 11/27/2014 25 mg phenergan 25 mg/ml 12/24/2014 1 mL phenergan 25 mg/ml 01/02/2015 25 mg phenergan 25 mg/ml 01/16/2015 1 mL phenergan 25 mg/ml 02/13/2015 1 mL phenergan 25 mg/ml 02/20/2015 25 mg phenergan 25 mg/ml 03/20/2015 25 mg phenergan 25 mg/ml 05/01/2015 25 mg phenergan 25 mg/ml 07/03/2015 25 mg phenergan 25 mg/ml 07/06/2015 25 mg phenergan 25 mg/ml 09/10/2015 25 mg phenergan 25 mg/ml 09/16/2015 25 mg phenergan 25 mg/ml 11/05/2015 1 mL phenergan 25 mg/ml 11/10/2015 25 mg phenergan 25 mg/ml 12/04/2015 25 mg phenergan 25 mg/ml 12/22/2015 25 mg phenergan 25 mg/ml 01/15/2016 25 mg phenergan 25 mg/ml 02/19/2016 1 mL phenergan 25 mg/ml 04/22/2016 25 mg 25 mg Im phenergan 25 mg/ml 04/29/2016 25 mg phenergan 25 mg/ml 06/24/2016 25 mg phenergan 25 mg/ml 07/04/2016 1 mL phenergan 25 mg/ml 07/14/2016 25 mg phenergan 25 mg/ml 08/04/2016 0.25 mL phenergan 25 mg/ml 08/19/2016 25 mL phenergan 25 mg/ml 09/02/2016 1 phenergan 25 mg/ml 09/08/2016 25 mg phenergan 25 mg/ml 09/28/2016 1 mL phenergan 25 mg/ml 11/18/2016 1 mL phenergan 25 mg/ml 11/21/2016 phenergan 25 mg/ml 01/05/2017 25 mg phenergan 25 mg/ml 02/02/2017 25 mg phenergan 25 mg/ml 02/23/2017 25 mg phenergan 25 mg/ml 03/23/2017 25 mg phenergan 25 mg/ml 04/11/2017 25 mg phenergan 25 mg/ml 05/11/2017 25 mg phenergan 25 mg/ml 06/15/2017 25 mg phenergan 25 mg/ml 06/26/2017 25 mg phenergan 25 mg/ml 07/19/2017 phenergan 25 mg/ml 07/28/2017 25 mg phenergan 25 mg/ml 08/29/2017 25 mg phenergan 25 mg/ml 09/29/2017 25 mg phenergan 25 mg/ml 10/30/2017 25 mg phenergan 25 mg/ml 11/08/2017 phenergan 25 mg/ml 11/30/2017 25 mg phenergan 25 mg/ml 12/27/2017 25 mg phenergan 25 mg/ml 11/28/2018 1 mL phenergan 50mg/ml 02/13/2006 0.5 mL phenergan 50mg/ml 02/15/2011 1/2 ml Vistaril 50 mg 06/01/2006 50 mg Medical (General) History Medical History History ICD Code MVP Chronic Migraine, s/p Botox injections Asthma BI-Polar Thyroid Cancer uterine cancer breast cancer, Dx: January 2010 10/04/11 CT of sinuses, minimal changes le ft max sinus Kidney stone Allergy injections Follows at [facility] for her annual mammogram Declines flu shot - 07/2023 SVT Surgical History Surgery Date(Month/Year) sinus surgery x2 (including Betancourt-Jeyson ) right foot surgery left ankle surgery breast bx oral surgery/Dr. Laron Schroeder lopalatoplasty (UPPP) and [employer] thermal ablation of tongue 06/27/2008 biopsy of right breast 11/25/08 endometrial biopsy 07/30/09 hysterectomy abdominal 09/2009 left breast lumpectomy/ Dr. MASON 12/2009 C-scope/ Dr. Carrasco/ diminutive polyp 01/31 010 port taken out 05-11-10 biopsy (left breast) 10-11-10 two teeth removed 11/21/10 kidney stone removed 02-21-12 Sinus Surgery 03/13/[address] Vargas 09-10-12 tooth removed 03/2015 Thyroidectomy, Ca of thyroid, Dr. Plummer Upper thoracic epidural injection by Dr. 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 migraine 07/07/07 for DHE treatment 07/03-12/2005 same as above [facility] ER- Migraine 09/26/11 EP study with ablation of AVNRT 05/23-05/03 [facility] ER-migraine 10/22 [facility] ER - mirgraine Nov 2017 [facility] ER-Migraine 10/19 [facility] ER -Migraine 08/06/17 [facility]-Chest pain 10/23/16 [facility]- ER- Migraine 05/03/16 [facility] ER-Migraine 04/03/16 [facility] ER- Migraine 07/06/15 [facility] ER - Migraine [facility] Er-Migraines 01-17-15 [facility] ER-migraine 11/16 [facility]-ER migraine 10-19-14 [facility]-ER migraine -2013 [facility] ER-migraine 11/02/13 [facility] ER-migraine 09/13 [facility] ER - Migraine 05/12/12 [facility] ER-pt fell 01/04/11 [facility] ER-migraine 12-18-10 [facility] ER-migraine 05/19/10 [facility] ER-fell off a stool 10/17/09 abdominal pain 04/09/2009 [facility] ER-migraine / [facility] ER-migraine/sunburn 02/09/09 [facility] ER migraine 12/18/08 ct scan [facility] on abdomen 10/22/08
[2025-06-11 17:25] LABS: Hematocrit 36.2 % (37.0-47.0); Hemoglobin 11.7 g/dL (12.2-16.2); Immature Granulocytes % 0.3 %; Mean Corpuscular HGB Conc 32.3 g/dL (31.8-35.4); Mean Corpuscular Hemoglobin 29.6 pg (27.0-31.2); Mean Corpuscular Volume 91.6 fl (81-99); Nucleated Red Blood Cells % 0 %; Platelet Count 349 K/mm3 (142-424); Red Blood Count 3.95 M/mm3 (4.20-5.40); Red Cell Distribution Width-SD 49.9 fL; White Blood Count 7.8 K/mm3 (4.8-10.8)
[2025-06-11 18:27] LABS: Alanine Aminotransferase 25 U/L (12-78); Albumin Level 4.1 g/dl (3.5-5.0); Albumin/Globulin Ratio 1.6 (1.1-1.8); Alkaline Phosphatase 78 U/L (38-126); Anion Gap 12.9 mEq/L (5-15); Aspartate Amino Transferase 27 U/L (14-36); Bilirubin,Total 0.5 mg/dl (0.2-1.3); Blood Urea Nitrogen 26 mg/dl (7-17); Calcium 9.3 mg/dl (8.4-10.2); Carbon Dioxide 25 mmol/L (22.0-30.0); Chloride 106 mmol/L (98-107); Creatinine,Serum 1.00 mg/dl (0.52-1.04); Estimated Glomerular Filt Rate 57 ml/min (>60); GFR (African American) 69 ML/MIN (>60); Globulin 2.6 g/dL (1.3-3.2); Glucose 112 mg/dl (74-100); Potassium 4.9 mmoL/L (3.5-5.1); Sodium 139 mmol/L (136-145); Total Protein,Serum 6.7 g/dl (6.3-8.2)
[2025-06-11 18:32] LABS: C-Reactive Protein 5.9 mg/L (0-4)
== END 2025-06-11 23:59 | disposition home or self-care (01) ==
LOC: LAB 15:49
PROVIDERS: PCP Family Medicine; Visit Provider Internal Medicine Rheumatology
DX: M79.10 Myalgia, unspecified site (principal); M17.0 Bilateral primary osteoarthritis of knee; M06.89 Other specified rheumatoid arthritis, multiple sites; Z79.899 Other long term (current) drug therapy
CPT/HCPCS: 36415; 80053; 85025; 85651; 86140

== ENCOUNTER 2025-06-17 12:03 | Outpatient (CLI) | payer MEDICARE, SELFPAY ==
--- OUTSIDE RECORDS SUMMARY | 2025-03-31 06:45 | XMS_ITS ---
[facility] Address [address] [place] [phone] Care Team Providers Care Resource Technician Name Role Phone Enmanuel Walton Primary Care Provider [phone] Merary Sparrow Unavailable [phone] Allergies Allergen (clinical drug ingredient) Drug/Non Drug [...] orally 3 ti mes a day Active Maxalt-AIRPLANE RIGGER 10 MG 1 tab(s) orally once a day, may repeat Q2h x2 Active Triamterene-HCTZ 37.5-25 MG 1/2 tab(s) o rally once a day Active Ventolin HFA 108 (90 Base) MCG/ACT 1 puff as needed Inhalation four times a day as needed 01/25/2024 Active Promethazine HCl 25 MG 1 tablet as neede d Orally q6h prn Active Nystatin 484380 UNIT/GM 1 application Ex ternally 4 times [...] 03/31/2025 Encounters Encounter Location Date Provider Diagnosis [facility] [address] [place] [phone] 03/31/2025 Merary Sparrow Candidiasis of breas t [...] Sig Start Date Stop Date Notes Nystatin 191219 UNIT/GM 1 application Ex ternally 4 times a day; Duration: 14 days 03/31/2025 Treatment Notes Assessment Notes Candidiasis of breast Keep under the khoa ast dry as possible. Use cream up to 4 times a day. Wash bra every night to not reinfect with the yeast infection. Follw up as needed. Next Appt Details Follow Up: prn, Reason: Provider Name:Ellen Shetty, 06/17/2025 11:15:00 AM, [address], [address], [place], [phone], Progress Notes * MIKHAIL GRADYB:1970 ( 55 yo F)Acc No.[id number]:03/31/2025 Progress Notes Patient: DEXTER SAVAGE Provider: MODESTO Oh :1970 A ge:55 Y S ex:Female Date:03/31/2025 Address:[facility] [id number] Pcp:Enmanuel Walton Subjective: * Chief Complaints: * [...] lood in urine. 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 migraine 07/07/07, [facility] ER, migraine 09/09/07, [facility] ER, migraine 09/13/08, H dehydration 06/09, [facility] ER migraine 10.08, [facility] ER migraine 08/31/08, stomach pain 10/18/08, ct scan [facility] on abdomen 10/22/08, [facility] ER migraine 12/18/08, [facility] ER-migraine/sunburn 02/09/09, [facility] ER-migraine , abdominal pain 04/09/2009, [facility] ER-fell off a stool 10/17/09, [facility] ER-migraine 05/19/10, [facility] ER-migraine 12-18-10, [facility] ER-pt fell 01/04/11, [facility] ER- Migraine 09/26/11, [facility] ER - Migraine 05/12/12, [facility] ER-migraine 09/13, [facility] ER-migraine 11/02/13, [facility]-ER migraine -2013, [facility]-ER migraine 10-19-14, [facility] ER-migraine 11/16, [facility] Er-Migraines 01-17-15, [facility] ER - Migraine , [facility] ER- Migraine 07/06/15, [facility] ER-Migraine 04/03/16, [facility]- ER- Migraine 05/03/16, [facility]-Chest pain 10/23/16, [facility] ER -Migraine 08/06/17, [facility] ER-Migraine 10/19, [facility] ER - mirgraine Nov 2017, [facility] ER- migraine 10/22. * Family History: F [...] New since last visit: none. 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 Past smoking status: no, Smoking status: [...] tab(s) orally once a day , Taking Maxalt-AIRPLANE RIGGER 10 MG Tablet Disintegrating 1 tab(s) orally [...] Temp: 98.0, BP: 120/82, HR: 87, Nurse: [facility], Ht: 65, BMI:43.69. * Examination: G eneral [...] * Images: Billing Information: * Visit Code: 27285 Office Visit, Est Pt., Level 3. * Procedure Codes: G2211 Complex e/[place] on. 1036F TOBACCO NON-USER. G8783 BP SCR PRFRM RCMDD DEFIND SCR INTVL. G8752 MOST RECENT SYSTOLIC BP < 140MM HG. G8754 MOST RECENT DIASTOLIC BP < 90MM HG. * Electronic signature of Bonnie Sparrow APRN on 06/17/2025 at 12:08 PM EDT Sign off status: Pending * Provider: MODESTO Oh Date: 0 03/31/2025 Generated for Ashutosh terry/Lucia/Iselaitting on: 0 06/17/2025 12:08 PM EDT History and Physical Notes * [...]
--- OUTSIDE RECORDS SUMMARY | 2025-04-15 10:45 | XMS_ITS ---
Author Organization [facility] Address [address] [facility] [address] [place] [phone] Care Team Providers Care Photographer Apprentice Name Role Phone Enmanuel Walton Primary Care Provider Ellen Juarez [phone] Allergies Allergen (clinical drug ingredient) Drug/Non Drug [...] Bed Time; Duration: 90 days Active Nystatin 052556 UNIT/GM 1 application Ex ternally 4 times a day; Duration: 14 days 03/31/2025 Active oxyCODONE HCl 5 MG 1 tab(s) orally thre e times a day as needed Active Medrol 4 MG as directed Orally Active Promethazine HCl 25 MG 1 tablet as neede d Orally q6h prn Active Triamterene-HCTZ 37.5-25 MG 1/2 tab(s) o rally once a day Active Maxalt-FUNCTIONAL TESTER 10 MG 1 tab(s) orally once a [...] Encounter Location Date Provider Diagnosis [facility] [address] [phone] 04/15/2025 Ellen Juarez Intractable migraine without aura and with status migrainosus G43.011 Assessments Encounter Date Diagnosis (ICD Code) Assessment Notes Treatment Notes Treatment Clinical Notes Section Notes 04/15/2025 Intractable migraine without aura and with status migrainosus (ICD-10 - G43.011) To [facility] outpt for Morphine 2mg and Phenergan [...] without aura and with status migrainosus To [facility] outpt for Morphine 2mg and Phenergan 25 mg IM Next Appt Details Follow Up: prn, Reason: Provider Name:Ellen Cisnerosariannajignesh kawme, 06/17/2025 11:15:00 AM, [address], [address], [place], [phone], Progress Notes * MIKHAIL GRADYB:1970 ( 55 yo F)Acc No.[id number]:04/15/2025 Progress Notes Patient: DEXTER SAVAGE Provider: Ellen Juarez M.D. :1970 A ge:55 Y S ex:Female Date:04/15/2025 Address:[address] [place], [place] [address], [id number] Pcp:Enmanuel Walton Subjective: * Chief Complaints: * [...] lood in urine. 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, [facility] ER, migraine 09/09/07, [facility] ER, migraine 09/13/08, H dehydration 06/09, [facility] ER migraine 07.09, [facility] ER migraine 08/31/08, stomach pain 10/18/08, ct scan [facility] on abdomen 10/22/08, [facility] ER migraine 12/18/08, [facility] ER-migraine/sunburn 02/09/09, [facility] ER-migraine 6102/07, abdominal pain 04/09/2009, [facility] ER-fell off a stool 10/17/09, [facility] ER-migraine 05/19/10, [facility] ER-migraine 12-18-10, [facility] ER-pt fell 01/04/11, [facility] ER- Migraine 09/26/11, [facility] ER - Migraine 05/12/12, [facility] ER-migraine 09/13, [facility] ER-migraine 11/02/13, [facility]-ER migraine -2013, [facility]-ER migraine 10-19-14, [facility] ER-migraine 11/16, [facility] Er-Migraines 01-17-15, [facility] ER - Migraine 8, [facility] ER- Migraine 07/06/15, [facility] ER-Migraine 04/03/16, [facility]- ER- Migraine 05/03/16, [facility]-Chest pain 10/23/16, [facility] ER -Migraine 08/06/17, [facility] ER-Migraine 10/19, [facility] ER - mirgraine Nov 2017, [facility] ER- migraine 10/22. * Family History: [...] tab(s) orally once a day , Taking Maxalt-FUNCTIONAL TESTER 10 MG Tablet Disintegrating 1 tab(s) orally [...] needed Orally q6h prn , Taking Nystatin 290441 UNIT/GM Cream 1 application Externally 4 times [...] * Images: Billing Information: * Visit Code: 62354 Office Visit, Est Pt., Level 3. * Procedure Codes: G2211 Complex e/m visit add on. 1036F TOBACCO NON-USER. G8783 BP SCR PRFRM RCMDD DEFIND SCR INTVL. G8752 MOST RECENT SYSTOLIC BP < 140MM HG. G8754 MOST RECENT DIASTOLIC BP < 90MM HG. * Electronic signature of Ellen uJarez MD on 06/17/2025 at 12:06 PM EDT Sign off status: Pending * Provider: Ellen Juarez M.D. Date: 04/15/2025 Generated for Ashutosh terry/Lucia/eTransmitting on: 06/17/2025 12:06 PM EDT History and Physical Notes * HPI (History of Present Illness) Category Sub-Category Detail Notes Category Not es Neurology headache Pt here for a mi diallo. Pt states its been going on for [...]
--- OUTSIDE RECORDS SUMMARY | 2025-05-20 05:00 | XMS_ITS ---
[facility] Address [address] [place] [id number] Care Team Providers Care Plant Protection Guard Name Role Phone Enmanuel Walton Primary Care Provider Ellen Juarez [phone] Allergies Allergen (clinical drug ingredient) Drug/Non Drug [...] tab(s) o rally once a day Active Maxalt-SETTLEMENT PROCESSOR 10 MG 1 tab(s) orally once a [...] W/U Status Risk Notes Problem Rheumatoid arthritis (02416037) Rheumatoid arthritis (M06.9) Active confirmed Vital Signs Blood pressure systolic 130 mm Hg 05/20/20 25 Blood pressure diastolic 78 mm Hg 025 Heart Rate 95 /min 05/20/2025 Height 65 in 05/20/2025 Weight 263.4 lbs 05/20/2025 BMI 43.83 kg/m2 05/20/2025 Encounters Encounter Location Date Provider Diagnosis [facility] [address] [facility] [address] [place], [place] [id number] 05/20/2025 Ellen Juarez Chronic migraine wit hout [...] 3 Months, Reason: Provider Name:Ellen Wilson Annjignesh puente, 06/17/2025 11:15:00 AM, [address] [facility] [address], [place], [place], [phone], Progress Notes * MIKHAIL GRADYB:1970 ( 55 yo F)Acc No.[id number]:05/20/2025 Progress Notes Patient: DEXTER SAVAGE Provider: Ellen Juarez M.D. :1970 A ge:55 Y S ex:Female Date:05/20/2025 Address:[address] [place], [place] [phone] Pcp:Enmanuel Walton Subjective: * Chief Complaints: * [...] lood in urine. 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 migraine 07/07/07, [facility] ER, migraine 09/09/07, [facility] ER, migraine 09/13/08, H dehydration 06/09, [facility] ER migraine 10., [facility] ER migraine 08/31/08, stomach pain 10/18/08, ct scan [facility] on abdomen 10/22/08, [facility] ER migraine 12/18/08, [facility] ER-migraine/sunburn 02/09/09, [facility] ER-migraine /, abdominal pain 04/09/2009, [facility] ER-fell off a stool 10/17/09, [facility] ER-migraine 05/19/10, [facility] ER-migraine 12-18-10, [facility] ER-pt fell 01/04/11, [facility] ER- Migraine 09/26/11, [facility] ER - Migraine 05/12/12, [facility] ER-migraine 09/13, [facility] ER-migraine 11/02/13, [facility]-ER migraine -2013, [facility]-ER migraine -, [facility] ER-migraine 11/16, [facility] Er-Migraines -, [facility] ER - Migraine 8, [facility] ER- Migraine 07/06/15, [facility] ER-Migraine 04/03/16, [facility]- ER- Migraine 05/03/16, [facility]-Chest pain 10/23/16, [facility] ER -Migraine 08/06/17, [facility] ER-Migraine 10/19, [facility] ER - mirgraine Nov 2017, [facility] ER- migraine 10/22. * Family History: [...] New since last visit: none. 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 Past smoking status: no, Smoking status: [...] tab(s) orally once a day , Taking Maxalt-SETTLEMENT PROCESSOR 10 MG Tablet Disintegrating 1 tab(s) orally [...] * Images: Billing Information: * Visit Code: 10918 Office Visit, Est Pt., Level 3. * Procedure Codes: G2211 Complex e/[place] on. 1036F TOBACCO NON-USER. G8783 BP SCR PRFRM RCMDD DEFIND SCR INTVL. G8752 MOST RECENT SYSTOLIC BP < 140MM HG. G8754 MOST RECENT DIASTOLIC BP < 90MM HG. * Electronic signature of Ellen Juarez MD on 06/17/2025 at 12:06 PM EDT Sign off status: Pending * Provider: Ellen Juarez M.D. Date: 0 05/20/2025 Generated for Ashutosh terry/Lucia/eTransmitting on: 0 06/17/2025 12:06 PM EDT History and Physical [...]
--- OUTSIDE RECORDS SUMMARY | 2025-05-23 10:01 | XMS_ITS | Encounter Summary ---
Author Organization [facility] Address [address] [place] [address] Care Team Providers Care Emanations Analysis Technician Name Role Phone Valentín Juarez MD Primary Care Provider Reason for Referral * Invasive Procedures (Routine) - Pending Review Specialty Diagnoses / Procedures Referred By Yadira mcmillan Referred To Contact Diagnoses Wide-complex tachycardia Procedures EP/CRM Study Esequiel Norris PA-C [address] [address] Phone: tel: fax: Referral ID Status Reason Start Date Expiration Date V isits Requested Visits Authorized Pending Review 04/10/2025 07/10/2026 1 1 Reason for Visit * Auth/Cert (Routine) Specialty Diagnoses / Procedures Referred By Yadira mcmillan Referred To Contact Diagnoses Wide-complex tachycardia SVT Procedures WV COMPRE EP EVAL R ATR VNTRC PACG&REC HIS BNDL REC EP/CRM Study +/- SVT ablation; hold bisoprolol 5 days prior Referral ID Status Reason Start Date Expiration Date Visits Re quested Visits Authorized [id number] 1 1 Encounter Details Date Type Department Care Team (Late st Contact Info) Description 05/23/2025 10:01 AM EDT - 05/24/2025 9:01 AM EDT Hospital Encounter [facility] [address] [address] [place] [address] John Villafana MD [address] [facility] [address] [place] [address] Esequiel Norris PA-C 17[address] [facility] [address] [place] [address] Wide-complex tachycardia Discharge Disposition: Home or Self Care Social History Tobacco Use Types Packs/Day Years Used Date Smoking Tobacco: Never Smokeless Tobacco: Never Alcohol Use Standard Drinks/Week Comments No 0 (1 standard drink = 0.6 oz pur e alcohol) AUDIT-C Answer Date Recorded Q1: How often do you have a drink containing alcohol? Never 05/23/2025 Q2: How many drinks containi ng alcohol do you have on a typical day when you are drinking? Patient does not drink Q3: How often do you have si x or more drinks on one occasion? Never 05/23/2025 PHQ-2 Answer Date Recorded Retired Total Score 0 05/05/2020 Abuse Screen Answer Date Recorded Feels Unsafe at Home or Work/School no 05/23/2025 Feels Threatened by Someone no 05/03 Does Anyone Try to Keep You From Having Contact with Others or Doing Things Outside Your Home? no 05/23/2025 Physical Signs of Abuse Present no 05/23/2025 Housing Stability Answer Date Recorded Current Living Arrangements home 05/03 Potentially Unsafe Housing Conditions Not on tyler e 05/23/2025 Disabilities Answer Date Recorded Difficulty Concentrating, Remembering or Making Decisions no 05/23/2025 Difficulty Managing Errands Independently no 05/23/2025 Comments No Sex and Gender Information Value Date Recorded Sex Assigned at Female 05/20/2025 11:51 PM EDT Legal Sex Female 1:05 PM EDT Gender Identity Not on file Sexual Orientation Not on file documented as of this encounter Last Filed Vital Signs Vital Sign Reading Time Taken Comments Blood Pressure 110/88 05/24/2025 8:30 AM EDT Pulse 64 05/24/2025 8:30 AM EDT Temperature 36.6 C (97.9 F) 05/24/2025 8:30 AM EDT Respiratory Rate 18 05/24/2025 8:30 AM EDT Oxygen Saturation 97% 05/24/2025 8:30 AM EDT Inhaled Oxygen Concentration - - Weight 119 kg (263 lb 3.2 oz) 05/23/2025 10:48 A M EDT Height 165.1 cm (5' 5 ) 05/23/2025 10:48 AM EDT Body Mass Index 43.8 05/23/2025 10:48 AM EDT documented in this encounter Functional Status * Question Answer Date of Assessment Author 1. Wish to be (Past 1 Month) No 05/23/2025 11:21 AM EDT Alma Rosa Huntley RN 2. Non-Specific Active Suicidal Thoughts (Past 1 Month) No 05/23/2025 11:21 AM EDT Alma Rosa Huntley RN * Calculated C-SSRS Risk Score (Lifetime/Recent) Answer Date of Assessment Author No Risk Indicated 05/23/2025 11:27 AM EDT Dalila Jimenez RN * [place] Suicide Severity Rating Scale (Screener/Recent Self-Report) Question Answer Date of Assessment Author 6. Suicidal Behavior (Lifetime) No 05/23/2025 11:27 AM EDT Alma Rosa Huntley RN documented as of this encounter Discharge Summaries * Mario Sellers MD - 05/24/2025 7:11 AM EDT Cardiology Discharge Note Patient Name: Roseline Peraza Date of Admission: 05/23/2025 Date of Discharge: 05/24/2025 Discharge Diagnosis: SVT with near syncope status post ablation Problem List: Wide-complex tachycardia SVT (supraventricular tachycardia) Presenting Problem/History of Present Illness: Wide-complex tachycardia [R00.0] SVT (supraventricular tachycardia) [I47.10] Palpitation Hospital Course: Patient is a 55 y.o. female presented with palpitations. She had a couple episodes and had near syncope with it. 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 Patient is complaining of some mild soreness in her groins but no hematoma or bleeding. She wants to go home. No chest pain or shortness of breath.. Physical Exam: Temp: [97.4 ??F (36.3 ??C)-98.6 ??F (37 ??C)] 98.6 ??F (37 ??C) Heart Rate: [57-128] 57 Resp: [16-19] 16 BP: (102-242)/(61-107) 103/61 Neurologic: Patient's personal symmetrical his upper extremities Psych: Pleasant affect Procedures Performed: EP study with ablation of AVNRT Consults: Consults No orders found for last 30 day(s). Condition on Discharge: Improved Discharge Disposition: Home Discharge Medications: Discharge Medications Continue These Medications Instructions Start Date ALBUTEROL IN 2 puffs, As Needed aspirin 81 MG chewable tablet 81 mg, Daily atorvastatin 40 MG tablet Commonly known as: LIPITOR 40 mg, Daily bisoprolol 5 MG tablet Commonly known as: ZEBeta 1 tablet, Daily esomeprazole 40 MG capsule Commonly known as: nexIUM 40 mg, Every Morning Before Breakfast folic acid 1 MG tablet Commonly known as: FOLVITE 1 tablet, Daily ibuprofen 800 MG tablet Commonly known as: ADVIL,MOTRIN 800 mg, As Needed levothyroxine 100 MCG tablet Commonly known as: SYNTHROID, LEVOTHROID 1 tablet, Daily methotrexate 2.5 MG tablet 6 tabs Orally weekly nystatin [id number] UNIT/GM cream Commonly known as: MYCOSTATIN 1 Application, Every 6 Hours Scheduled oxyCODONE 5 MG immediate release tablet Commonly known as: ROXICODONE 1 tablet, 3 Times Daily potassium chloride 10 MEQ CR capsule Commonly known as: MICRO-K 10 mEq, Daily promethazine 50 MG tablet Commonly known as: PHENERGAN 25 mg, As Needed venlafaxine XR 150 MG 24 hr capsule Commonly known as: EFFEXOR-XR 150 mg, Daily vitamin B-12 1000 MCG tablet Commonly known as: CYANOCOBALAMIN 1,000 mcg, Daily vitamin D3 125 MCG (5000 UT) capsule capsule 5,000 Units, Daily Discharge Diet: Regular diet Activity at Discharge: Do not drive until Monday Follow-up Appointments: Dr. Villafana in 6 weeks Time: 15 Mario Sellers MD, 05/24/2025 - 07:11 EDT documented in this encounter Discharge Instructions * Discharge Instructions* Sara Villalpando RN - 05/24/2025 8:07 AM EDT Do not drive until Monday Follow-up Appointments: Dr. Villafana in 6 weeks, PCP 1 week * Attachments The following attachments cannot be sent through Care Everywhere. * Cardiac Ablation (Bahraini) * Femoral Site Care (Bahraini) documented in this encounter Medications at Time of Discharge ALBUTEROL IN Inhale 2 puffs as needed. aspirin 81 MG chewable tablet Chew 1 tablet Daily. atorvastatin (LIPITOR) 40 MG tablet Take 1 tablet by mouth Daily. bisoprolol (ZEBeta) 5 MG tablet Take 1 tablet by mouth Daily. 07/12/2024 esomeprazole (NexIUM) 40 MG capsule Take 1 capsule by mouth Every Morning Before Breakfast. folic acid (FOLVITE) 1 MG tablet Take 1 tablet by mouth Daily. 03/03/2025 ibuprofen (ADVIL,MOTRIN) 800 MG tablet Take 1 tablet by mouth As Needed for Mild Pain. levothyroxine (SYNTHROID, LEVOTHROID) 100 MCG tablet Take 1 tablet by mouth Daily. 110 MG DAILY 0 04/12/2016 methotrexate 2.5 MG tablet 6 tabs Orally weekly nystatin (MYCOSTATIN) [id number] UNIT/GM cream 1 Application Every 6 (Six) Hours. 03/31/2025 oxyCODONE (ROXICODONE) 5 MG immediate release tablet Take 1 tablet by mouth 3 (Three) Times a Day. 0 05/06/2016 potassium chloride (MICRO-K) 10 MEQ CR capsule Take 1 capsule by mouth Daily. with food 08/13/2024 promethazine (PHENERGAN) 50 MG tablet Take 0.5 tablets by mouth As Needed for Nausea or Vomiting. venlafaxine XR (EFFEXOR-XR) 150 MG 24 hr capsule Take 1 capsule by mouth Daily. 0 06/01/2016 vitamin B-12 (CYANOCOBALAMIN) 1000 MCG tablet Take 1 tablet by mouth Daily. vitamin D3 125 MCG (5000 UT) capsule capsule Take 1 capsule by mouth Daily. documented as of this encounter H&P Notes * Esequiel Norris PA-C - 05/23/2025 11:18 AM EDT Pre-cardiac Ablation History and Physical [facility] Patient: Roseline Peraza : 1970 PCP: Valentín Juarez MD PHONE: [phone] DATE: 05/23/2025 ID: Roseline Peraza is a 55 y.o. female from [place] CC: palpitations Problem List: SVT OSH ER visit for hypokalemia and SVT requiring adenosine TTE 06/2024: LVEF 55%, no significant VHD 9-day monitor some short runs of atrial tachycardia otherwise no arrhythmias Chest pain Coronary CTA 05/2023 at : Normal coronaries with a calcium score of 0 Hypertension Sleep apnea BMI >30 Hypothyroidism Breast cancer S/p lumpectomy and left breast Hysterectomy Thyroidectomy BRIEF HPI: Ms. Peraza is a 55 y/o female with a history of wide complex tachycardia that was terminated with asingle dose of adenosine. This happened while patient was suffering from acute COVID19 infection and hypokalemia. She had a repeat episode consisting of 20 to 30 minutes of debilitating near syncopal symptoms, diaphoresis, palpitations and sustained tachycardia. This resolved spontaneously. No further episodes since seeing our office in early April Allergies: Allergies Allergen Reactions Ketorolac Shortness Of Breath Serzone [Nefazodone] Shortness Of Breath Stadol [Butorphanol] Shortness Of Breath Toradol [Ketorolac Tromethamine] Shortness Of Breath Compazine [Prochlorperazine Edisylate] Swelling Dilaudid [Hydromorphone] Mental Status Change Neurontin [Gabapentin] Reglan [Metoclopramide] Swelling Pseudoephedrine-Guaifenesin Rash Wellbutrin [Bupropion] Rash MEDICATIONS: Current Outpatient Medications Medication Instructions ALBUTEROL IN 2 puffs, As Needed aspirin 81 mg, Daily atorvastatin (LIPITOR) 40 mg, Daily bisoprolol (ZEBeta) 5 MG tablet 1 tablet, Daily esomeprazole (NEXIUM) 40 mg, Every Morning Before Breakfast folic acid (FOLVITE) 1 MG tablet 1 tablet, Daily ibuprofen (ADVIL,MOTRIN) 800 mg, As Needed levothyroxine (SYNTHROID, LEVOTHROID) 100 MCG tablet 1 tablet, Daily methotrexate 2.5 MG tablet 6 tabs Orally weekly nystatin (MYCOSTATIN) [id number] UNIT/GM cream 1 Application, Every 6 Hours Scheduled oxyCODONE (ROXICODONE) 5 MG immediate release tablet 1 tablet, 3 Times Daily potassium chloride (MICRO-K) 10 MEQ CR capsule 10 mEq, Daily promethazine (PHENERGAN) 25 mg, As Needed venlafaxine XR (EFFEXOR-XR) 150 mg, Daily vitamin B-12 (CYANOCOBALAMIN) 1,000 mcg, Daily vitamin D3 5,000 Units, Daily Past medical & surgical history, social and family history reviewed in the electronic medical record. ROS: Pertinent positives listed in the HPI and problem list above. All others reviewed and negative. Physical Exam: BP 165/84 (BP Location: Left arm, Patient Position: Lying) Pulse 96 Temp 97.4 ??F (36.3 ??C) (Temporal) Resp 18 Ht 165.1 cm (65 ) Wt 119 kg (263 lb 3.2 oz) LMP (LMP Unknown) Comment: hysterectomy at 38 SpO2 94% BMI 43.80 kg/m?? Constitutional: Well-appearing 55 y.o. y/o adult in no acute distress Heart: Regular rhythm and normal rate, no murmurs, rubs or gallops Lungs: Clear to auscultation bilaterally, no wheezes, rhales or rhonchi, nonlabored respirations Extremities: No gross deformities, no edema, clubbing, or cyanosis. Pulses: Neuro: Psych: Radial and dorsalis pedis pulses palpable and equal bilaterally. No gross focal deficits Mood and behavior appropriate for situation Labs and Diagnostic Data: No radiology results for the last 7 days Lab Results Component Value Date GLUCOSE 86 06/28/2016 BUN 25 (H) 06/28/2016 CREATININE 0.80 06/28/2016 NA 140 06/28/2016 K 4.6 06/28/2016 CL 103 06/28/2016 CALCIUM 10.1 06/28/2016 PROTEINTOT 7.7 06/28/2016 ALBUMIN 4.50 06/28/2016 ALT 18 06/28/2016 AST 15 06/28/2016 ALKPHOS 66 06/28/2016 BILITOT 0.5 06/28/2016 GLOB 3.2 06/28/2016 AGRATIO 1.4 06/28/2016 BCR 31.3 (H) 06/28/2016 ANIONGAP 6.0 06/28/2016 Lab Results Component Value Date WBC 7.65 05/23/2025 HGB 11.5 (L) 05/23/2025 HCT 35.2 05/23/2025 MCV 90.5 05/23/2025 PLT 291 05/23/2025 No results found for: TSH , G1SHVKN , H4LZQEJ , THYROIDAB Tele: NSR IMPRESSION: Ms. Peraza is a 55 y/o female with a history of two separate sustained SVT events one terminated with adenosine who presents for EP study with probable SVT ablation LD bisoprolol 6 days ago PLAN: Procedure to perform: EPS +/- SVT ablation. Risks, benefits and alternatives to the procedure explained to the patient and she understands and wishes to proceed. Electronically signed by Esequiel Norris PA-C, 05/23/25, 11:28 AM EDT. Cosigned by John Villafana MD at 05/23/2025 1:31 PM EDT Associated attestation - John Villafana MD - 05/23/2025 1:31 PM EDT I have reviewed this documentation and agree. documented in this encounter Nursing Notes * Sara Villalpando RN - 05/24/2025 8:57 AM EDT Goal Outcome Evaluation: Outcome Evaluation: Pt d/c documented in this encounter Plan of Treatment Not on file documented as of this encounter Procedures Procedure Name Priority Date/Time Associated Diagnosis Comments EP STUDY Routine 05/23/2025 6:11 PM EDT Wide-complex tachycardia SCANNED - TELEMETRY 05/23/2025 1 1:36 AM EDT CBC (NO DIFF) STAT 05/23/2025 11:00 AM EDT BASIC METABOLIC PANEL STAT 05/23/2025 11:00 AM EDT documented in this encounter Results * EP STUDY (05/23/2025 6:11 PM EDT) Anatomical Region Laterality Modality X-Ray Angiograph y Narrative 05/23/2025 6:37 PM EDT 1. Successful radiofrequency ablation of typical AVNRT Procedure Narrative 30 everything looks good but worried about bleeding over there so you obviously like a lot okay 2020 here for quite well for our final DATE OF PROCEDURE: 06/30/21 LABORER [employer]/COMMISSIONING MANAGER: John Villafana MD PROCEDURE(S) PERFORMED: 1. 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 2. Induction of arrhythmia on drug therapy 3. Ultrasound-guided vascular access INDICATIONS FOR PROCDEDURE: Patient is a pleasant 55 with a history of SVT. She had wide-complex tachycardia that terminate with adenosine. I do not have an EKG of this. After discussion of options like proceed with EP study and catheter ablation. MEDICATION(S) GIVEN TO PATIENT DURING THIS PROCEDURE: I directed the nurse, Malina Ambriz, to administer sedation. Total doses are as follows: Versed 7 mg, fentanyl 350 mcg, etomidate 18 mg, isoproterenol up to 5 mcg/min. Sedation start time was 1706, end time 1810 DESCRIPTION(S) OF THE PROCEDURE: The patient was brought to the cardiovascular laboratory in a fasting, non-sedated state. The risks and benefits of conscious sedation, diagnostic electrophysiology study, and possible radiofrequency ablation were explained to the patient and written, informed consent was obtained. The patient was then prepped and draped in the usual sterile fashion. Access through the right femoral vein was then achieved x 3 using the modified Seldinger technique, and the following sheaths and catheters were inserted: 1. A 7-Nepalese, Decanav catheter was advanced via a 7-Nepalese sheath in the left femoral vein to the coronary sinus for left atrial recording and pacing. 2. A 6-Nepalese, Diag catheter was advanced via 6-Nepalese sheath in the right femoral vein to the high right atrium 3. A 6-Nepalese, Diag catheter was advanced via 6-Nepalese sheath in the right femoral vein to the RV septum 4. A 6 Nepalese, CRD2 catheter was advanced via 6- Nepalese Sheath int he left femoral vein to the His bundle 5. An ST-SF, Biosense Elizabeth ablation catheter was advanced via 8-Nepalese sheath in the right femoral vein to the right atrial septum for mapping and ablation. A diagnostic electrophysiology study was then performed. The patient arrived in the clinical electrophysiology laboratory in normal sinus rhythm with a ventricular rate of 110 beats per minute. The WV interval was measured at 194 milliseconds with a QRS width measured at 78 milliseconds and the QT interval was measured at 367 milliseconds. The HV interval was measured at 52 milliseconds. Right ventricular decremental pacing was then performed with a VA block point measured at 280 milliseconds. Retrograde atrial activation was concentric. Ventricular effective refractory period was 400/200 ms. VA effective refractory period was less than this. Retrograde activation seem to be dependent on the retrograde His bundle activation, suggesting retrograde AV adrianna conduction. Right ventricular extrastimuli testing and burst pacing failed to induce any arrhythmias. Atrial decremental pacing was then performed with an A-V block point measured at 310 milliseconds. Atrial tach refractory rate was 400/200 ms. There was a consistent jump with single echo. With double extrastimuli sustained SVT was inducible. SVT had a cycle length of 340 ms. The VA time measured from the His Bundle signal was approximately 60 milliseconds. Tachycardia was terminated by both right atrial and right ventricular pacing. Overdrive pacing revealed a VAV response, excluding atrial tachycardia. A septal VA time of less than 70 ms excluded orthodromic reentry. The post pacing interval from right ventricular pacing was 520 ms, 180 ms longer than the tachycardia cycle length. This stim to A interval minus VA interval was 140 ms. Together, this confirmed typical AV adrianna reentry. A His bundle cloud of the right atrium was then performed using a 3-dimensional mapping system. Radiofrequency ablation was then performed in the typical slow pathway region. Electrogram characteristics at this site showed a small atrial signal and a large ventricular signal. Eventually accelerated junctional beats were observed and atrial pacing was used to ensure there were no WV prolongation during ablation. Ablation was performed with an irrigated catheter at 30 W with durations up to 45 seconds per application. Post-radiofrequency ablation, both on and off isoproterenol, no inducible supraventricular tachycardia was present. Only single echoes were seen. Isoproterenol was given at doses from 1 to 5 mcg/min to look for other arrhythmias. AV adrianna block point on isoproterenol was 280 ms. No additional arrhythmias were induced. No AV node reentry was induced after the 20-minute waiting period. The sheaths and catheters were then removed, and hemostasis was achieved with Vascade device and manual pressure. The patient tolerated the procedure without difficulty and was transferred to their room in a stable condition. COMPLICATIONS: None. FINAL IMPRESSIONS: 1. Successful radiofrequency ablation of typical AVNRT RECOMMENDATION(S): 1. The patient will be monitored on telemetry. 2. If stable, the patient will be discharged to home this afternoon Esequiel Norris PA-C CV ELECTROPHYSIOLOGY ORDERAB LES Final Result * Telemetry Scan (05/23/2025 11:36 AM EDT) [facility] Onbase ECG ORDERABLES Final Result * (ABNORMAL) Basic Metabolic Panel (05/23/2025 11:00 AM EDT) Glucose 96 65 - 99 mg/dL 05/23/2025 11:32 AM EDT [facility] BUN 24.7(H) 6.0 - 20.0 mg/dL 05/23/2025 11:32 AM EDT [facility] Creatinine 0.91 0.57 - 1.00 mg/dL 05/23/2025 11:32 AM EDT [facility] Sodium 141 136 - 145 mmol/L 05/23/2025 11:32 AM EDT [facility] Potassium 3.5 3.5 - 5.2 mmol/L 05/23/2025 11:32 AM EDT [facility] Chloride 107 98 - 107 mmol/L 05/23/2025 11:32 AM EDT [facility] CO2 22.7 22.0 - 29.0 mmol/L 05/23/2025 11:32 AM EDT [facility] Calcium 8.9 8.6 - 10.5 mg/dL 05/23/2025 11:32 AM EDT [facility] BUN/Creatinine Ratio 27.1(H) 7.0 - 25.0 05/23/2025 11:32 AM EDT [facility] Anion Gap 11.3 5.0 - 15.0 mmol/L 05/23/2025 11:32 AM EDT [facility] eGFR 73.7 >60.0 mL/min/1.7 3 05/23/2025 11:32 AM EDT [facility] Blood Line / Unknown 05/23/2025 11 :00 AM EDT 05/23/2025 11:10 AM EDT [facility] - 05/23/2025 11:32 AM EDT GFR Categories in Chronic Kidney Disease (CKD) GFR Category GFR (mL/min/1.73) Interpretation G1 90 or greater Normal or high (1) G2 60-89 Mild decrease (1) G3a 45-59 Mild to moderate decrease G3b 30-44 Moderate to severe decrease G4 15-29 Severe decrease G5 14 or less Kidney failure (1)In the absence of evidence of kidney disease, neither GFR category G1 or G2 fulfill the criteria for CKD. eGFR calculation 2020 CKD-EPI creatinine equation, which does not include race as a factor Esequiel Norris PA-C LAB BLOOD ORDERABLES Final R esult [facility]
[address] [place] [address], * (ABNORMAL) CBC (No Diff) (05/23/2025 11:00 AM EDT) WBC 7.65 3.40 - 10.80 10*3/mm3 05/23/2025 11:16 AM EDT [facility] RBC 3.89 3.77 - 5.28 10*6/mm3 05/23/2025 11:16 AM EDT [facility] Hemoglobin 11.5(L) 12.0 - 15.9 g/dL 05/23/2025 11:16 AM EDT [facility] Hematocrit 35.2 34.0 - 46.6 % 05/23/2025 11:16 AM EDT [facility] MCV 90.5 79.0 - 97.0 fL 05/23/2025 11:16 AM EDT [facility] MCH 29.6 26.6 - 33.0 pg 05/23/2025 11:16 AM EDT [facility] MCHC 32.7 31.5 - 35.7 g/dL 05/23/2025 11:16 AM EDT [facility] RDW 15.1 12.3 - 15.4 % 05/23/2025 11:16 AM EDT [facility] RDW-SD 49.6 37.0 - 54.0 fl 05/23/2025 11:16 AM EDT [facility] MPV 9.7 6.0 - 12.0 fL 05/23/2025 11:16 AM EDT [facility] Platelets 291 140 - 450 10*3/mm3 05/23/2025 11:16 AM EDT [facility] Blood Line / Unknown 05/23/2025 11 :00 AM EDT 05/23/2025 11:10 AM EDT Esequiel Norris PA-C LAB BLOOD ORDERABLES Final R esult [facility]
[address] [place] [address], documented in this encounter Visit Diagnoses Diagnosis Wide-complex tachycardia- Primary Paroxysmal ventricular tachycardia SVT (supraventricular tachycardia) Other specified cardiac dysrhythmias Wide-complex tachycardia Paroxysmal ventricular tachycardia documented in this encounter Admitting Diagnoses Diagnosis Wide-complex tachycardia Paroxysmal ventricular tachycardia SVT (supraventricular tachycardia) Other specified cardiac dysrhythmias documented in this encounter Administered Medications Inactive Administered Medications - up to 3 most recent administrations Medication Order MAR Action Action Date Dose Rate Site aspirin chewable tablet 81 mg 81 mg, Oral, Daily, First dose on Mon05/23/25 at 1819, Herbal/drug interaction: Avoid use with ginkgo biloba. Based on patient request - if ordered for moderate or severe pain, provider allows for administration of a medication prescribed for a lower pain scale. Do not exceed 4 grams of aspirin in a 24 hr period. If given for pain, use the following pain scale: Mild Pain = Pain Score of 1-3, CPOT 1-2 Moderate Pain = Pain Score of 4-6, CPOT 3-4 Severe Pain = Pain Score of 7-10, CPOT 5-8 Given 05/24/2025 8:31 AM EDT 81 mg Given 05/23/2025 8:11 PM EDT 81 mg atorvastatin (LIPITOR) tablet 40 mg 40 mg, Oral, Nightly, First dose on Mon05/23/25 at 2100, Avoid grapefruit juice. Given 05/23/2025 8:09 PM EDT 40 mg bisoprolol (ZEBeta) tablet 5 mg 5 mg, Oral, Daily, First dose on Mon05/23/25 at 1930, Hold for SBP less than 100, DBP less than 60, or heart rate less than 50. If a dose is held, please contact the provider. Caution: Look alike/sound alike drug alert Given 05/24/2025 8:31 AM EDT 5 mg Given 05/23/2025 8:09 PM EDT 5 mg cloNIDine (CATAPRES) tablet 0.1 mg 0.1 mg, Oral, Once, On Mon05/23/25 at 1820, For 1 dose, Hold for SBP less than 100, DBP less than 60, or heart rate less than 50. If a dose is held, please contact the provider. Caution: Look alike/sound alike drug alert. Given 05/23/2025 8:09 PM E DT 0.1 mg levothyroxine (SYNTHROID, LEVOTHROID) tablet 100 mcg 100 mcg, Oral, Every Operations Analyst, First dose on Mon05/24/25 at 0600, Take on empty stomach. Given 05/24/2025 5:32 AM EDT 100 mcg oxyCODONE (ROXICODONE) immediate release tablet 5 mg 5 mg, Oral, 3 Times Daily, First dose on Mon05/23/25 at 2100, Based on patient request - if ordered for moderate or severe pain, provider allows for administration of a medication prescribed for a lower pain scale. (MARK) If given for pain, use the following pain scale: Mild Pain = Pain Score of 1-3, CPOT 1-2 Moderate Pain = Pain Score of 4-6, CPOT 3-4 Severe Pain = Pain Score of 7-10, CPOT 5-8 Given 05/24/2025 8:31 AM EDT 5 mg Given 05/23/2025 8:09 PM EDT 5 mg pantoprazole (PROTONIX) EC tablet 40 mg 40 mg, Oral, Daily, First dose on 05/24/25 at 0900, Swallow whole; do not crush, split, or chew. Given 05/24/2025 8:31 AM EDT 40 mg potassium chloride (MICRO-K/KLOR-CON) CR capsule 10 mEq, Oral, Daily, First dose on Mon05/23/25 at 1819, Do not crush or chew the capsules or tablets. The drug may not work as designed if the capsule or tablet is crushed or chewed. Swallow whole. Take with food. Given 05/24/2025 8:31 AM EDT 10 mEq Given 05/23/2025 8:09 PM EDT 10 mEq venlafaxine XR (EFFEXOR-XR) 24 hr capsule 150 mg 150 mg, Oral, Nightly, First dose on Mon05/23/25 at 2100, Do not crush or chew the capsules or tablets. The drug may not work as designed if the capsule or tablet is crushed or chewed. Swallow whole. Given 05/23/2025 8:09 PM EDT 150 mg documented in this encounter Active and Recently Administered Medications Times are shown in EDT. Scheduled Medication Order 05/22/2025 05/23/2025 05/24/2025 aspirin chewable tablet 81 mg 81 mg, Oral, Daily, First dose on Mon05/23/25 at 1819, Herbal/drug interaction: Avoid use with ginkgo biloba. Based on patient request - if ordered for moderate or severe pain, provider allows for administration of a medication prescribed for a lower pain scale. Do not exceed 4 grams of aspirin in a 24 hr period. If given for pain, use the following pain scale: Mild Pain = Pain Score of 1-3, CPOT 1-2 Moderate Pain = Pain Score of 4-6, CPOT 3-4 Severe Pain = Pain Score of 7-10, CPOT 5-8 2010 (Given - Provider: Carla Velazquez RN) 0831 (Given - Provider: Sara Villalpando, RN) atorvastatin (LIPITOR) tablet 40 mg 40 mg, Oral, Nightly, First dose on Mon05/23/25 at 2100, Avoid grapefruit juice. 2008 (Given - Provider: Carla Velazquez RN) bisoprolol (ZEBeta) tablet 5 mg 5 mg, Oral, Daily, First dose on Mon05/23/25 at 1930, Hold for SBP less than 100, DBP less than 60, or heart rate less than 50. If a dose is held, please contact the provider. Caution: Look alike/sound alike drug alert 2008 (Given - Provider: Carla Velazquez RN) 830 (Given - Provider: Sara Villalpando, RN) cloNIDine (CATAPRES) tablet 0.1 mg (COMPLETED) 0.1 mg, Oral, Once, On Mon05/23/25 at 1820, For 1 dose, Hold for SBP less than 100, DBP less than 60, or heart rate less than 50. If a dose is held, please contact the provider. Caution: Look alike/sound alike drug alert. 2008 (Given - Provider: Carla Velazquez RN) levothyroxine (SYNTHROID, LEVOTHROID) tablet 100 mcg 100 mcg, Oral, Every Operations Analyst, First dose on Mon05/24/25 at 0600, Take on empty stomach. 0532 (Given - Provid er: Carla Velazquez RN) oxyCODONE (ROXICODONE) immediate release tablet 5 mg 5 mg, Oral, 3 Times Daily, First dose on Mon05/23/25 at 2100, Based on patient request - if ordered for moderate or severe pain, provider allows for administration of a medication prescribed for a lower pain scale. (MARK) If given for pain, use the following pain scale: Mild Pain = Pain Score of 1-3, CPOT 1-2 Moderate Pain = Pain Score of 4-6, CPOT 3-4 Severe Pain = Pain Score of 7-10, CPOT 5-8 2008 (Given - Provider: Carla Velazquez RN) 830 (Given - Provider: Sara Villalpando, HELGA) pantoprazole (PROTONIX) EC tablet 40 mg 40 mg, Oral, Daily, First dose on Mon05/24/25 at 0900, Swallow whole; do not crush, split, or chew. 0831 (Given - Provid er: Sara Villalpando RN) potassium chloride (MICRO-K/KLOR-CON) CR capsule 10 mEq, Oral, Daily, First dose on Mon05/23/25 at 1819, Do not crush or chew the capsules or tablets. The drug may not work as designed if the capsule or tablet is crushed or chewed. Swallow whole. Take with food. 2008 (Given - Provider: Carla Velazquez RN) 830 (Given - Provider: Sara Villalpando RN) venlafaxine XR (EFFEXOR-XR) 24 hr capsule 150 mg 150 mg, Oral, Nightly, First dose on Mon05/23/25 at 2100, Do not crush or chew the capsules or tablets. The drug may not work as designed if the capsule or tablet is crushed or chewed. Swallow whole. 2008 (Given - Provider: Carla Velazquez RN) PRN Medication Order 05/22/2025 05/23/2025 05/24/2025 diphenhydrAMINE (BENADRYL) injection (CANCELED) Code / Trauma / Sedation Medication, Starting on Mon05/23/25 at 1718 1718 (Given - Provider: Malina Ambriz RN) etomidate (AMIDATE) injection (CANCELED) Code / Trauma / Sedation Medication, Starting on Mon05/23/25 at 1709 1709 (Given - Provider: Malina Ambriz RN)1740 (Given - Provider: Malina Ambriz RN) fentaNYL citrate (PF) (SUBLIMAZE) injection (CANCELED) Code / Trauma / Sedation Medication, Starting on Mon05/23/25 at 1706 1706 (Given - Provider: Malina Ambriz RN)1713 (Given - Provider: Malina Ambriz RN)1720 (Given - Provider: Malina Ambriz RN)1726 (Given - Provider: Malina Ambriz RN)1732 (Given - Provider: Malina Ambriz RN)1743 (Given - Provider: Malina Ambriz RN)1800 (Given - Provider: Malina Ambriz RN)1809 (Given - Provider: Malina Ambriz RN) heparin (porcine) injection (CANCELED) Code / Trauma / Sedation Medication, Starting on Mon05/23/25 at 1718 1718 (Given - Provider: Malina Ambriz RN) isoproterenol (ISUPREL) infusion 200 mcg/100 mL 0.9% NS infusion (CANCELED) Code / Trauma / Sedation Continuous Med, Starting on Mon05/23/25 at 1747 1747 (New Bag - Provider: Malina Ambriz RN)1752 (Rate/Dose Change - Provider: Malina Ambriz RN)1758 (Rate/Dose Change - Provider: Malina Ambriz RN)1800 (Stopped - Provider: Malina Ambriz RN) labetalol (NORMODYNE,TRANDATE) injection (CANCELED) Code / Trauma / Sedation Medication, Starting on Mon05/23/25 at 1811 1811 (Given - Provider: Malina Ambriz RN) lidocaine (XYLOCAINE) 1 % injection (CANCELED) Code / Trauma / Sedation Medication, Starting on Mon05/23/25 at 1707 1707 (Given - Provider: John Villafana MD) lidocaine (XYLOCAINE) 1 % injection (CANCELED) Code / Trauma / Sedation Medication, Starting on Mon05/23/25 at 1713 1713 (Given - Provider: John Villafana MD) midazolam (VERSED) injection (CANCELED) Code / Trauma / Sedation Medication, Starting on Mon05/23/25 at 1706 1706 (Given - Provider: Malina Ambriz RN)1713 (Given - Provider: Malina Ambriz RN)1720 (Given - Provider: Malina Ambriz RN)1726 (Given - Provider: Malina Ambriz RN)1732 (Given - Provider: Malina Ambriz RN)1743 (Given - Provider: Malina Ambriz RN)1800 (Given - Provider: Malina Ambriz RN) ondansetron (ZOFRAN) injection (CANCELED) Code / Trauma / Sedation Medication, Starting on Mon05/23/25 at 1735 1735 (Given - Provider: Malina Ambriz RN) promethazine (PHENERGAN) tablet 25 mg 25 mg, Oral, 3 Times Daily PRN, Nausea, Vomiting, Starting on Mon05/23/25 at 1858, If multiple N/V medications ordered, use in the following order: Ondansetron, Prochlorperazine, Promethazine. Use PO unless patient refuses or patient unable to swallow. ([facility]) documented in this encounter Care Teams Emanations Analysis Technician Relationship Specialty Start Date End Date Valentín Juarez MD [address] [facility] [address] [facility] [address] [place] [id number] PCP - General Family Medicine 06/14/16 documented as of this encounter
--- OUTSIDE RECORDS SUMMARY | 2025-05-23 12:10 | XMS_ITS | Encounter Summary ---
Author Organization [facility] Address [address] [place] [address] Care Team Providers Care Iron Launder Operator Name Role Phone Valentín Juarez MD Primary Care Provider Reason for Visit * Auth/Cert (Routine) Specialty Diagnoses / Procedures Referred By Yadira t Referred To Contact Diagnoses Wide-complex tachycardia SVT Procedures [place] COMPRE EP EVAL R ATR VNTRC PACG&REC HIS BNDL REC EP/CRM Study +/- SVT ablation; hold bisoprolol 5 days prior Referral ID Status Reason Start Date Expiration Date Visits Re quested Visits Authorized [id number] 1 1 Encounter Details Date Type Department Care Team (Late st Contact Info) Description 05/23/2025 12:10 PM EDT - 05/23/2025 2:10 PM EDT Surgery [facility] [address] [place] [id number] John Villafana MD [address] [facility] [address] [place] [address] EP/CRM Study +/- SVT ablation; hold bisoprolol 5 days prior [61684 (CPT )] Social History Tobacco Use Types [...] AM EDT Single Dalila magallon RN * [place] Suicide Severity Rating Scale (Screener/Recent Self-Report) Question [...] MG tablet 6 tabs Orally weekly nystatin 956679 UNIT/GM cream Commonly known as: MYCOSTATIN 1 [...] sent through Care Everywhere. * Cardiac Ablation ([place]) * Femoral Site Care ([place]ian) documented in this encounter Medications at Time [...] tablet 6 tabs Orally weekly nystatin (MYCOSTATIN) 237522 UNIT/GM cream 1 Application Every 6 (Six) [...] AM EDT Pre-cardiac Ablation History and Physical [facility] Patient: Roseline Peraza : 1970 PCP: Valentín Juarez MD PHONE: [phone] DATE: 05/23/2025 ID: Roseline Peraza is a 55 y.o. female from [place] CC: palpitations Problem List: SVT OSH ER [...] tablet 6 tabs Orally weekly nystatin (MYCOSTATIN) 672528 UNIT/GM cream 1 Application, Every 6 Hours [...] 05/23/2025 No results found for: TSH , [id number] , [id number] , THYROIDAB Tele: NSR IMPRESSION: Ms. Peraza [...] for our final DATE OF PROCEDURE: 06/30/21 REMOTE SENSING TECHNOLOGIST/CHOCOLATE COATER: John Villafana MD PROCEDURE(S) PERFORMED: 1. Diagnostic [...] sheaths and catheters were inserted: 1. A 7-[place], Decanav catheter was advanced via a 7-[place] sheath in the left femoral vein to the coronary sinus for left atrial recording and pacing. 2. A 6-[place]ian, Diag catheter was advanced via 6-[place] sheath in the right femoral vein to the high right atrium 3. A 6-[place]uneian, Diag catheter was advanced via 6-[place] sheath in the right femoral vein to the RV septum 4. A 6 [place], CRD2 catheter was advanced via 6- [place] Sheath int he left femoral vein to the His bundle 5. An ST-SF, Biosense Elizabeth ablation catheter was advanced via 8-[place] sheath in the right femoral vein to the right atrial septum for mapping and ablation. A diagnostic electrophysiology study was then performed. The patient arrived in the clinical electrophysiology laboratory in normal sinus rhythm with a ventricular rate of 110 beats per minute. The [place] interval was measured at 194 milliseconds with [...] was used to ensure there were no [place] prolongation during ablation. Ablation was performed with [...] * Telemetry Scan (05/23/2025 11:36 AM EDT) [facility] ECG ORDERABLES Final Result * (ABNORMAL) Basic Metabolic Panel (05/23/2025 11:00 AM EDT) Glucose 96 65 - 99 mg/dL 05/23/2025 11:32 AM EDT [facility] BUN 24.7(H) 6.0 - 20.0 mg/dL 05/23/2025 11:32 AM EDT [facility] Creatinine 0.91 0.57 - 1.00 mg/dL 05/23/2025 11:32 AM EDT [facility] Sodium 141 136 - 145 mmol/L 05/23/2025 11:32 AM EDT [facility] Potassium 3.5 3.5 - 5.2 mmol/L 05/23/2025 11:32 AM EDT [facility] Chloride 107 98 - 107 mmol/L 05/23/2025 11:32 AM EDT [facility] CO2 22.7 22.0 - 29.0 mmol/L 05/23/2025 11:32 AM EDT [facility] Calcium 8.9 8.6 - 10.5 mg/dL 05/23/2025 11:32 AM EDT [facility] BUN/Creatinine Ratio 27.1(H) 7.0 - 25.0 05/23/2025 11:32 AM EDT [facility] Anion Gap 11.3 5.0 - 15.0 mmol/L 05/23/2025 11:32 AM EDT [facility] eGFR 73.7 >60.0 mL/min/1.7 3 05/23/2025 11:32 AM EDT [facility] Blood Line / Unknown 05/23/2025 11 :00 AM EDT 05/23/2025 11:10 AM EDT Narrative [facility] - 05/23/2025 11:32 AM [...] PA-C LAB BLOOD ORDERABLES Final R esult [facility]
[address] [place] [address], * (ABNORMAL) CBC (No Diff) (05/23/2025 11:00 AM EDT) WBC 7.65 3.40 - 10.80 10*3/mm3 05/23/2025 11:16 AM EDT [facility] RBC 3.89 3.77 - 5.28 10*6/mm3 05/23/2025 11:16 AM EDT [facility] Hemoglobin 11.5(L) 12.0 - 15.9 g/dL 05/23/2025 11:16 AM EDT [facility] Hematocrit 35.2 34.0 - 46.6 % 05/23/2025 11:16 AM EDT [facility] MCV 90.5 79.0 - 97.0 fL 05/23/2025 11:16 AM EDT [facility] MCH 29.6 26.6 - 33.0 pg 05/23/2025 11:16 AM EDT [facility] MCHC 32.7 31.5 - 35.7 g/dL 05/23/2025 11:16 AM EDT [facility] RDW 15.1 12.3 - 15.4 % 05/23/2025 11:16 AM EDT [facility] RDW-SD 49.6 37.0 - 54.0 fl 05/23/2025 11:16 AM EDT [facility] MPV 9.7 6.0 - 12.0 fL 05/23/2025 11:16 AM EDT [facility] Platelets 291 140 - 450 10*3/mm3 05/23/2025 11:16 AM EDT [facility] Blood Line / Unknown 05/23/2025 11 :00 AM EDT 05/23/2025 11:10 AM EDT Esequiel Norris PA-C LAB BLOOD ORDERABLES Final R esult [facility]
[address] [place] [address], documented in this encounter Visit Diagnoses Diagnosis [...] tablet 100 mcg 100 mcg, Oral, Every Iphone Developer, First dose on Mon05/24/25 at 0600, Take [...] tablet 100 mcg 100 mcg, Oral, Every Iphone Developer, First dose on Mon05/24/25 at 0600, Take [...] patient refuses or patient unable to swallow. ([facility]) documented in this encounter Care Teams Iron Launder Operator Relationship Specialty Start Date End Date Valentín Juarez MD [address] [facility] [address] [place] [address] PCP - General Family Medicine 06/14/16 documented as of this encounter
--- OUTSIDE RECORDS SUMMARY | 2025-06-03 07:30 | XMS_ITS ---
Author Organization [facility] Address [address] [place] [phone] Care Team Providers Care Coin Box Inspector Name Role Phone Enmanuel Walton Primary Care Provider Merary Sparrow Unavailable [phone] Allergies Allergen (clinical drug ingredient) Drug/Non Drug [...] 1 tab(s) orally once a day Active Maxalt-MARKETING COMMUNICATIONS MANAGER 10 MG 1 tab(s) orally once [...] 06/03/2025 Encounters Encounter Location Date Provider Diagnosis [facility] [address] [place] [address] [address] [facility] [address] [place], [place] [phone] 06/03/2025 Merary Sparrow Encounter for examination and [...] Provider Name:Ellen Shetty, 06/17/2025 11:15:00 AM, [address] [facility] [address] [facility], [address], [place], [place], [phone], Progress Notes * MARIAELENA GRADYADOB:1970 ( 55 yo F)Acc No.[id number]:06/03/2025 Progress Notes Patient: DEXTER SAVAGE Provider: MODESTO Oh :1970 A ge:55 Y S ex:Female Date:06/03/2025 Address:[place], [id number] Pcp:Enmanuel Walton Subjective: * Chief Complaints: * [...] requent urination. ? 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 migraine 07/07/07, [facility] ER, migraine 09/09/07, [facility] ER, migraine 09/13/08, H dehydration 06/09, [facility] ER migraine ., [facility] ER migraine 08/31/08, stomach pain 10/18/08, ct scan [facility] on abdomen 10/22/08, [facility] ER migraine 12/18/08, [facility] ER-migraine/sunburn 02/09/09, [facility] ER-migraine 61/, abdominal pain 04/09/2009, [facility] ER-fell off a stool 10/17/09, [facility] ER-migraine 05/19/10, [facility] ER-migraine 12-18-10, [facility] ER-pt fell 01/04/11, [facility] ER- Migraine 09/26/11, [facility] ER - Migraine 05/12/12, [facility] ER-migraine 09/13, [facility] ER-migraine 11/02/13, [facility]-ER migraine -2013, [facility]-ER migraine 10-19-14, [facility] ER-migraine 11/16, [facility] Er-Migraines --, [facility] ER - Migraine , [facility] ER- Migraine 07/06/15, [facility] ER-Migraine 04/03/16, [facility]- ER- Migraine 05/03/16, [facility]-Chest pain 10/23/16, [facility] ER -Migraine 08/06/17, [facility] ER-Migraine 10/19, [facility] ER - mirgraine Nov 2017, [facility] ER- migraine 10/22, EP study [...] since last visit: none. 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 Past smoking status: no, Smoking status: Does [...] tab(s) orally once a day , Taking Maxalt-MARKETING COMMUNICATIONS MANAGER 10 MG Tablet Disintegrating 1 tab(s) [...] * Images: Billing Information: * Visit Code: 28205 Office Visit, Est Pt., Level 3. * Procedure Codes: G2211 Complex e/m visit add on. * Electronic signature of Bonnie Sparrow APRN on 06/17/2025 at 12:08 PM EDT Sign off status: Pending * Provider: MODESTO Oh Date: 0 06/03/2025 Generated for Ashutosh terry/Lucia/eTransmitting on: 0 06/17/2025 12:08 PM EDT History [...]
--- OUTSIDE RECORDS SUMMARY | 2025-06-17 12:07 | XMS_ITS | Encounter Summary ---
Author Organization [facility] Address [address] [place] [address] Care Team Providers Care Screw Eye Assembler Name Role Phone Valentín Juarez MD Primary Care Provider Encounter Details Date Type Department Care Team (Late st Contact Info) Description 05/14/2012 Conversion Encounter [facility]IST[facility] [address] [place] [address] Interface, See Report Social History [...] ' Cande Feliciano M.D. ' Lissy Rodrigues, EGG CRATER [address], [address] [place] [address] Local Eye Site OFFICE NOTE ROSELINE GRADY : 1970 DATE OF VISIT: 05/14/2012 PROBLEM LIST: 1. Breast cancer: Stage I, less than 0.1 cm primary invasive ductal, ER/ID positive, HER-2 positive, node negative with family history of malignancy. Opted out of prophylactic surgeries and had lumpectomy and radiation, radiation completed 05/07/2010. Began Herceptin March 2010, but upon further review and after discussions with Dr. Yary Munoz at [facility] it was decided that given her small [...] exam. Lissy Rodrigues APRN* SE/rxalw Doc. ID [id number] Rev. #0 cc: Rima George M.D.* Willa [...] Feliciano M.D. ' Lissy Rodrigues APRN [address], [address] [place] [address] Local Eye Site OFFICE NOTE ROSELINE GRADY : 1970 DATE OF VISIT: 11/12/2012 CHIEF COMPLAINT: Breast pain. PROBLEM LIST: 1. Breast cancer: Stage I, less than 0.1 cm primary invasive ductal carcinoma, ER/ID positive, HER-2/eddie positive, node negative with family history of malignancy. Opted out of prophylactic surgeries and had lumpectomy and radiation. Radiation completed 05/07/2010. Began Herceptin March 2010, but upon further review and after discussion between Dr. Hill and Dr. Yary Munoz at [facility] it was decided that given her small [...] Piotr Hill M.D. /rxalw; LH/rxalw Doc. ID [id number] Rev. #1 cc: Rima George M.D.* Willa Almaguer M.D.* Tomás Plummer M.D.* Jsee Walton M.D.* Jeb Juarez M.D.* Page 2 of 3 Page 1 of 3 Authenticated by LISSY RODRIGUES APRN On 11/15/2012 12:50:10 PM * Interface, See Report - 05/14/2012 11:12 AM EDT Corey Holliday M.D. ' Yosef De La Torre M.D. ' Piotr Hill M.D. ' JACKIE Espinosa M.D. ' Gatito Limon M.D. ' Cande Feliciano M.D. ' Lissy Rodrigues APRN [address] [place] [address], [place] [address] [place] [address] Local Eye Site OFFICE NOTE ROSELINE GRADY : 1970 DATE OF VISIT: 05/28/2013 CHIEF COMPLAINT: Hot flashes. PROBLEM LIST: 1. Breast cancer: Stage I, less than 0.1 cm primary invasive ductal carcinoma, ER/ID positive, HER-2/eddie positive, node negative with family history of malignancy. Opted out of prophylactic surgeries and had lumpectomy and radiation. Radiation completed 05/07/2010. Began Herceptin March 2010, but upon further review and after discussion between Dr. Hill and Dr. Yary Munoz at [facility] it was decided that given her small [...] bilateral mammogram in November 2013). SUBJECTIVE: Ms. Grady states that she has been having increasing [...] does workout at the exercise facility at [facility] usually every other day. She also has [...] Piotr Hill M.D. /rxalw; OSMIN/rxalw Doc. ID [id number]; [id number] Rev. #0 cc: Rima George M.D.* Willa [...] on filedocumented in this encounter Care Teams Screw Eye Assembler Relationship Specialty Start Date End Date Vlaentín Juarez MD [address] [facility] [address] [facility] [address] [place] [address] PCP - General Family Medicine 06/14/16 documented as of this encounter
--- OUTSIDE RECORDS SUMMARY | 2025-06-17 12:07 | XMS_ITS | Clinical Summary ---
Author Organization Healthcare Address [address] [place] [address] Care Team Providers Care Crepe Box Tender Name Role Phone Valentín Juarez MD Primary Care Provider [phone] Social History Tobacco Use Types Packs/Day Years [...] Screening 08/12/202308/02, 08/12/2021, 03/30/2020, Additional history exists [id number] Vaccine ( season) 2025 UKY-Influenza Vaccine (#1) [...] patient's age to complete this topic Insurance [facility] MEDICARE Care Teams Crepe Box Tender Relationship Specialty Start Date End Date Valentín Juarez MD [address] [place] [address] [facility] - General 02/12/21
--- OUTSIDE RECORDS SUMMARY | 2025-06-17 12:07 | XMS_ITS | Clinical Summary ---
Author Organization [facility] Address [address] [place] [address] Care Team Providers Care Event Marketing Coordinator Name Role Phone Valentín Juarez MD Primary [...] tablet by mouth Daily. Active nystatin (MYCOSTATIN) 241186 UNIT/GM cream 1 Application Every 6 (Six) [...] EDT - 05/23/2025 2:10 PM EDT Surgery [facility] [address] [place] [address] John Villafana MD EP/CRM Study +/- SVT ablation; hold bisoprolol 5 days prior [66918 (CPT )] 05/23/2025 10:01 AM EDT - 05/24/2025 9:01 AM EDT Hospital Encounter [facility] [address] [place] [address] John Villafana MD Wilhelmus, Kurt, PA-C Wide-complex tachycardia Discharge Disposition: Home or Self Care 05/23/2025 Travel 04/14/2025 Prep for Surgery [facility] [address] [place] [address] Esequiel Norris PA-C 04/01/2025 1:30 PM EDT Office Visit [facility] [address] [facility] [address] [place] [address] Esequiel Norris PA-C Wide-complex tachycardia [...] 01/31/2018 ZOSTER VACCINE (1 of 2) 01/31/2018 INFLUENZA VACCINE 05/02/2025 COVID-19 Vaccine (1 - 2023-2 5 season) 2025 MAMMOGRAM 01/15/2027 01/15/2025, 11/30, 10/18/2023, Additional history [...] for our final DATE OF PROCEDURE: 06/30/21 FISHING INSTRUCTOR/POSTING MACHINE OPERATOR: John Villafana MD PROCEDURE(S) PERFORMED: 1. Diagnostic [...] rate of 110 beats per minute. The SC interval was measured at 194 milliseconds with [...] was used to ensure there were no SC prolongation during ablation. Ablation was performed with [...] * Telemetry Scan (05/23/2025 11:36 AM EDT) [facility] ECG ORDERABLES Final Result * (ABNORMAL) CBC (No Diff) (05/23/2025 11:00 AM EDT) WBC 7.65 3.40 - 10.80 10*3/mm3 05/23/2025 11:16 AM EDT [facility] RBC 3.89 3.77 - 5.28 10*6/mm3 05/23/2025 11:16 AM EDT [facility] Hemoglobin 11.5(L) 12.0 - 15.9 g/dL 05/23/2025 11:16 AM EDT [facility] Hematocrit 35.2 34.0 - 46.6 % 05/23/2025 11:16 AM EDT [facility] MCV 90.5 79.0 - 97.0 fL 05/23/2025 11:16 AM EDT [facility] MCH 29.6 26.6 - 33.0 pg 05/23/2025 11:16 AM EDT [facility] MCHC 32.7 31.5 - 35.7 g/dL 05/23/2025 11:16 AM EDT [facility] RDW 15.1 12.3 - 15.4 % 05/23/2025 11:16 AM EDT [facility] RDW-SD 49.6 37.0 - 54.0 fl 05/23/2025 11:16 AM EDT [facility] MPV 9.7 6.0 - 12.0 fL 05/23/2025 11:16 AM EDT [facility] Platelets 291 140 - 450 10*3/mm3 05/23/2025 11:16 AM EDT [facility] Blood Line / Unknown 05/23/2025 11 :00 AM EDT 05/23/2025 11:10 AM EDT Esequiel Norris PA-C LAB BLOOD ORDERABLES Final R esult [facility]
[address] [place] [address], * (ABNORMAL) Basic Metabolic Panel (05/23/2025 11:00 AM EDT) Glucose 96 65 - 99 mg/dL 05/23/2025 11:32 AM EDT [facility] BUN 24.7(H) 6.0 - 20.0 mg/dL 05/23/2025 11:32 AM EDT [facility] Creatinine 0.91 0.57 - 1.00 mg/dL 05/23/2025 11:32 AM EDT [facility] Sodium 141 136 - 145 mmol/L 05/23/2025 11:32 AM EDT [facility] Potassium 3.5 3.5 - 5.2 mmol/L 05/23/2025 11:32 AM EDT [facility] Chloride 107 98 - 107 mmol/L 05/23/2025 11:32 AM EDT [facility] CO2 22.7 22.0 - 29.0 mmol/L 05/23/2025 11:32 AM EDT [facility] Calcium 8.9 8.6 - 10.5 mg/dL 05/23/2025 11:32 AM EDT [facility] BUN/Creatinine Ratio 27.1(H) 7.0 - 25.0 05/23/2025 11:32 AM EDT [facility] Anion Gap 11.3 5.0 - 15.0 mmol/L 05/23/2025 11:32 AM EDT [facility] eGFR 73.7 >60.0 mL/min/1.7 3 05/23/2025 11:32 AM EDT [facility] Blood Line / Unknown 05/23/2025 11 :00 AM EDT 05/23/2025 11:10 AM EDT [facility] - 05/23/2025 11:32 AM EDT GFR [...] BLOOD ORDERABLES Final R esult [facility]
[address] [place] [address], * Mammo Diagnostic Digital Tomosynthesis Left With [...] of concern indicated by the patient. A [place] marker is placed over a visible skin [...] of concern indicated by the patient. A [place] marker is placed over a visible skin lesion. A linear marker indicates a scar. _ Physician Order Diagnostic 6 Month follow up Mammogram with Breast Ultrasound if needed. Diagnosis: Abnormal Mammogram 01/15/2025 10:[address] Maty Brownlee MD on Maty Brownlee MD IMG MAMMOGRAPHY ORDERABLES Fin al Result from Last 3 Months or Most Recently Relevant to Health Maintenance Insurance [facility] MEDICARE ADVANTAGE PPO Advance Directives * CPR (Attempt to Resuscitate) (Latest Code Status on File) Date Activated Date Inactivated Comments 05/23/2025 7:40 PM 05/24/2025 11:11 AM Question Answer Comments Code Status (Patient has no pulse and is not breathing): CPR (Attempt to Resuscitate) Medical Interventions (Patie nt has pulse or is breathing): Full Support Care Teams Event Marketing Coordinator Relationship Specialty Start Date End Date Valentín Juarez MD [address] [facility] [place] [address] [facility] [address] [place] [address] PCP - General Family Medicine 06/14/16
--- OUTSIDE RECORDS SUMMARY | 2025-06-17 12:07 | XMS_ITS | Encounter Summary ---
Author Organization [facility] Address [address] [place] [address] Care Team Providers Care Customer Support Analyst Name Role Phone Valentín Juarez MD Primary Care Provider Encounter Details Date Type Department Care Team (Late st Contact Info) Description 11/14/2011 Conversion Encounter [facility] [address] [facility] [place] [address] Interface, See Report Social History [...] less than 0.1 cm primary invasive ductal, ER/AL positive, HER-2 positive, node-negative with a family history of malignancy. Opted out of prophylactic surgeries and has had lumpectomy and radiation. Started Herceptin in March 2010, but upon further review and discussions with Yary Munoz, [facility], it was decided that given her a [...] the left breast region, but not any tar heat exchanger cleaner time. No dominant masses. BREASTS: Bilateral breast exam revealed no worrisome masses. HEENT: No oropharyngeal lesions. LUNGS: Clear. HEART: Regular rhythm. ABDOMEN: No organomegaly, mass or tenderness. EXTREMITIES: No cyanosis, clubbing, or cords. NEUROLOGIC: No focal motor or sensory deficits. ASSESSMENT AND PLAN: 1. Stage I, less than 0.1 invasive ductal carcinoma ER/AL positive, HER-2 positive: We will continue her Arimidex. We will get her mammogram again in March and the left breast mammogram in September was BI-RADS III. We will continue the Arimidex until at least March 2015. Rodney Hill M.D.* OSMIN/rxdrs Doc. ID: [id number] Rev. #0 cc: Page 2 of 2 [facility] Page 1 of 2 Authenticated by RODNEY HILL M.D. On 11/15/2011 02:16:34 PM documented in this encounter Plan of Treatment Not on file documented as of this encounter Visit Diagnoses Not on filedocumented in this encounter Care Teams Customer Support Analyst Relationship Specialty Start Date End Date Valentín Juarez MD [address] [place] [facility] [address] [facility] [address] [place] [address] PCP - General Family Medicine 06/14/16 documented as of this encounter
--- OUTSIDE RECORDS SUMMARY | 2025-06-17 12:08 | XMS_ITS ---
Author Organization [facility] Address [address] [place] [address] Care Team Providers Care Supervising Nurse Name Role Phone Valentín Juarez MD Primary [...]
--- OUTSIDE RECORDS SUMMARY | 2025-06-17 12:08 | XMS_ITS | Patient Health Record ---
[facility] Organization [facility] Address [address] [place] [id number] Care Team Providers Care Applications Programmer Analyst Name Role Phone Enmanuel Walton Primary Care Provider Ellen Juarez Unavailable [phone] Merary Sparrow Unavailable [phone] Allergies Allergen (clinical drug ingredient) Drug/Non Drug [...] Active Results Component Value Reference Range Notes P-Vitamin D 25-Hydroxy Reviewed date:10/03/2024 09:31:07 AM Interpretation:Normal Performing Lab: Notes/Report: Test performed by [facility] [address] [place] [address] , [address], [place] [address] Ermias Ibarra MD, Ovens Supervisor CLIA: [id number] Vitamin D 25-Hydroxy 62.0 30.0-100.0 ng/mL Interpretation of Vitamin D 25 OH: < 20 ng/mL - Deficiency 20 - 29 ng/mL - Insufficiency 30 - 100 ng/mL - Sufficiency > 100 ng/mL - Super-therapeutic- toxicity may occur above this level. Clinical correlation required. P-TSH Reviewed date:10/03/2024 09:31:07 AM Interpretation:Normal Performing Lab: Notes/Report: Test performed by [facility] [address] [place] [address] Ligia Hernández C, [place] [address] Ermias Ibarra MD, Ovens Supervisor CLIA: [id number] TSH 0.54 0.43-5.25 mU/L P-Lipid Panel Reviewed date:10/03/2024 09:31:07 AM Interpretation:Normal Performing Lab: Notes/Report: Test performed by [facility] [address] [place] [address] Ligia Hernández C, [place] [address] Ermias Ibarra MD, Ovens Supervisor CLIA: [id number] Cholesterol 190 <200 mg/dL Triglycerides 121 <150 [...] Results: 102 Units: mg/dL % Change: -37% P-Comprehensive Metabolic Pa brad (CMP) Reviewed date:10/03/2024 09:31:07 AM Interpretation:bun 29, Cr 1.42, gfr 43 Performing Lab: Notes/Report: Test performed by [facility] [address] [place], [place] [address] [place] , [address], [place] [address] Ermias Ibarra MD, Ovens Supervisor CLIA: [id number] Sodium 140 135-145 mmol/L Potassium 4.9 3.5-5.3 [...] 0.3 <0.2-1.2 mg/dL A/G Ratio 1.3 1.1-2.5 P-CBC With Platelet And Diff erential Reviewed date:10/03/2024 09:31:07 AM Interpretation:eosin 8.4 Performing Lab: Notes/Report: Test performed by [facility] [address] [place], [place] [address] [place] , [address], [place] [address] Ermias Ibarra MD, Ovens Supervisor CLIA: [id number] WBC 9.1 3.8-11.5 K/uL Red Blood Cell [...] % Immature Granulocyte Automated 0.2 0.0-1.0 % Glycohemoglobin A1c (in hous e) Reviewed date:10/03/2024 09:31:07 AM Interpretation:5.5% Performing Lab: Notes/Report: 5.5% glycohemoglobin 5.5% 5 - 6.5 % P-Basic Metabolic Panel (BMP ) Reviewed date:12/02/2024 10:07:21 AM Interpretation:bun 26, Cr 1.08 Performing Lab: Notes/Report: Test performed by [facility] [address] [place] [address] , [address], [place] [id number] Ermias Ibarra MD, Ovens Supervisor CLIA: [id number] Sodium 143 135-145 mmol/L Potassium 4.6 3.5-5.3 mmol/L Chloride 107 97-108 mmol/L CO2 25 22-32 mmol/L Glucose 89 65-99 mg/dL BUN 26 6-20 mg/dL Creatinine 1.08 0.50-1.00 mg/dL Calcium 9.5 8.6-10.4 mg/dL eGFR by Creatinine 60 >59 mL/min/1.73m2 RBC Morphology, Hematology Reviewed date:10/03/2024 09:31:07 AM Interpretation: Performing Lab: Notes/Report: Test performed by [facility] [address] [place] [address] , [address], [place] [address] Ermias Ibarra MD, Ovens Supervisor CLIA: [id number] Polychromasia Slight Microcytosis Slight Anisocytosis Slight Platelet Slide Review Normal P-Comprehensive Metabolic Pa brad (CMP) Reviewed date:03/25/2025 02:45:41 PM Interpretation:GFR 59 Performing Lab: Notes/Report: Test performed by [facility] [address] [place] [address] , [address], [place] [address] Ermias Ibarra MD, Ovens Supervisor CLIA: [id number] Sodium 143 135-145 mmol/L Potassium 4.6 3.5-5.3 [...] 72 Performing Lab: Notes/Report: Test performed by Consult A Doctor [address] [place] [address] , [address], [place] [address] Ermias Ibarra MD, Ovens Supervisor CLIA: [id number] Cholesterol 160 <200 mg/dL Triglycerides 94 <150 [...] Interpretation:1.62 Performing Lab: Notes/Report: Test performed by [facility] [address] [place] [address] , [address], [place] [address] Ermias Ibarra MD, Ovens Supervisor NEY: [id number] TSH 1.62 0.43-5.25 mU/L Mammogram, Bilateral Diagnos tic Reviewed date:12/14/2024 05:16:49 PM Interpretation: Performing Lab: Notes/Report: Medications Medication SIG (Take, Route, Frequency, Duration) Notes Start Date End Date Status Ventolin HFA 108 (90 Base) MCG/ACT 1 puff as needed Inhalation four times a day as needed 01/25/2024 Active Venlafaxine HCl ER 150 MG 1 capsule with food Orally Once a day; Duration: 90 days Active Triamterene-HCTZ 37.5-25 MG 1/2 tab(s) o rally once a day Active Atorvastatin Calcium 40 MG 1 tab(s) Oral ly At Bed Time; Duration: 90 days Active Promethazine HCl 25 MG 1 tablet as neede d Orally q6h prn Active Levothyroxine Sodium 100 MCG 1 tab(s) [...] eye Ophthalmic Twice a day 05/20/2025 Active Bisoprolol Fumarate 5 MG 1 tablet Orally Once a day; Duration: 30 day(s) Active Potassium Chloride ER 10 MEQ TAKE 1 CAPSULE BY MOUTH DAILY WITH FOOD; Duration: 90 Active Vitamin D3 125 MCG (5000 UT) 1 cap(s) orally once a day 04/01/2014 Active Nystatin 849903 UNIT/GM APPLY 1 APPLICAT ION EXTERNALLY FOUR TIMES DAILY; Duration: 14 Active B-12 1000 MCG 1 tab(s) orally once a day 04/01/2014 Active Aspirin 81 MG 1 tab(s) orally once a day Active Maxalt-AUTOMOTIVE TEACHER 10 MG 1 tab(s) orally once a day, may repeat Q2h x2 Active Ibuprofen 800 MG 1 tab(s) orally 3 ti mes a day Active Immunizations Vaccine Route Administration Date Status [...] Status W/U Status Risk Notes Problem Hypothyroidism (16755968) Hypothyroidism (acquired) (E03.9) Active confirmed Problem Chronic renal insufficiency (415964945) Chronic renal insufficiency (N18.9) Active confirmed Problem Morbid obesity (988599405) Morbid obesity (E66.01) Active confirmed Problem Osteopenia (702837368) Osteopenia (M85.80) Active confirmed Problem Personal history of primary malignant neoplasm of breast (443506865) History of breast cancer (Z85.3) Active confirmed Problem Raised antinuclear antibody (588575832) Positive DARLINE (antinuclear antibody) (R76.8) Active confirmed Problem Basal cell carcinoma (7413073) Basal cell carcinoma (C44.91) Active confirmed Problem Severe depressed bipolar I disorder without psychotic features (86065051) Bipolar disorder, current episode depressed, severe, without psychotic features (F31.4) Active confirmed Problem Chronic intractable migraine without aura (524952957459415) Chronic migraine without aura, intractable, with status migrainosus (G43.711) Active confirmed Problem Chronic pain syndrome (191436544) Chronic pain syndrome (G89.4) Active confirmed Problem Chronic migraine (966655751) Chronic migraine (G43.709) Active confirmed Problem Depressive disorder (96482352) Depressive disorder (F32.9) Active confirmed Problem Gastroesophageal reflux disease without esophagitis (547529337) Gastroesophageal reflux disease without esophagitis (K21.9) Active confirmed Problem Acquired hypothyroidism (785693140) Acquired hypothyroidism (E03.9) Active confirmed Problem Hypothyroidism (82117124) Hypothyroidism (E03.9) Active confirmed Problem Headache (93642120) Periodic hea dache syndrome, 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) Active confirmed Problem Rheumatoid arthritis (59097138) Rheumatoid arthritis (M06.9) Active confirmed Problem Osteoarthritis of knee (936923739) Primary osteoarthritis of right knee (M17.11) Active confirmed Problem Calcaneal spur of left foot (892977280273333) Calcaneal spur of left foot (M77.32) Active confirmed Problem Body mass index 40+ - morbidly obese (202436584) BMI 40.0-44.9, adult (Z68.41) Active confirmed Problem Postoperative hypothyroidism (02015424) Postoperative hypothyroidism (E89.0) Active confirmed Problem Nephrolithiasis (66017862) Nephrolithiasis (N20.0) Active confirmed Problem Migraine variant with headache (disorder) (250824881) Migraine headache (G43.909) Active confirmed Problem Refractory migraine without aura (542488241) Intractable migraine without aura and with status migrainosus (G43.011) Active confirmed Problem Dyslipidemia (612418386) Dyslipidemia (E78.5) Active confirmed Problem Essential hypertension (44184438) Essential hypertension with goal blood pressure less than 130\/80 (I10) Active confirmed Problem Mj's thyroiditis (09160715) 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) Active confirmed Problem Pain of left breast (3499512503) Pain of left breast (N64.4) Active confirmed Problem Refractory migraine (916904059) Intractable migraine with status migrainosus, unspecified migraine type (G43.911) Active confirmed Problem History of malignant neoplasm of thyroid (577770882) History of thyroid cancer (Z85.850) Active confirmed Problem Personal history of primary malignant neoplasm of breast (076276206) History of breast cancer in adulthood (Z85.3) Active confirmed Problem Basal cell carcinoma (BCC) of skin of breast, unspecified laterality (C44.511) Active confirmed Vital Signs Heart Rate 78 /min 06/17/2025 Blood pressure diastolic 78 mm Hg 06/17/2025 Height 65 in 06/17/2025 Blood pressure systolic 132 mm Hg 06/17/2025 Weight 258.6 lbs 06/17/2025 BMI 43.03 kg/m2 06/17/2025 Encounters Encounter Location Date Provider Diagnosis [facility] [facility] [address] [place] [id number] 07/16/2024 R Steve Larry Intractable migraine without aura and with status migrainosus G43.011 and Dyslipidemia E78.5 [facility] [facility] [address] [place] [id number] 07/25/2024 R Steve Larry Intractable migraine without aura and with status migrainosus G43.011 [facility] [facility] [address] [place] [id number] 09/10/2024 R Steve Larry Intractable migraine without aura and with status migrainosus G43.011 [facility] [facility] [address] [place] [id number] 10/01/2024 R Steve Larry Adult general medica [...] cancer Z85.850 and BMI 40.0-44.9, adult Z68.41 [facility] [address] [id number] 11/26/2024 Merary Sparrow Essential hypertensi on with goal blood pressure less than 130\/80 I10 ; Hypothyroidism (acquired) E03.9 ; Headache R51 ; Hypokalemia E87.6 ; Bipolar disorder, current episode depressed, severe, without psychotic features F31.4 ; Dyslipidemia E78.5 ; Acquired hypothyroidism E03.9 ; Gastroesophageal reflux disease without esophagitis K21.9 ; Renal insufficiency N28.9 ; Breast screening Z12.31 and History of breast cancer in adulthood Z85.3 [facility] [address] [place] [id number] 12/10/2024 R Steve Larry Migraine headache G43.909 ; Chronic renal insufficiency N18.9 and Leg edema R60.0 [facility] [address] [id number] 12/17/2024 R Steve Larry Intractable migraine without aura and with status migrainosus G43.011 [facility] [address] [id number] 02/04/2025 R Steve Larry Migraine headache G43.909 ; BMI 40.0-44.9, adult Z68.41 and Morbid obesity E66.01 [facility] [address] [id number] 03/20/2025 R Steve Larry Hypothyroidism E03.9 ; Dyslipidemia E78.5 and Migraine headache G43.909 [facility] [address] [id number] 03/31/2025 Merary Sparrow Candidiasis of breas t B37.89 [facility] [address] [place], [place] [id number] 04/15/2025 R Steve Larry Intractable migraine without aura and with status migrainosus G43.011 [facility] [address] [place], [place] [id number] 05/20/2025 R Steve Larry Chronic migraine wit hout aura, intractable, with status migrainosus G43.711 ; Conjunctivitis H10.9 and Rheumatoid arthritis M06.9 [facility] [address] [place], [place] [id number] 06/03/2025 Merary Sparrow Encounter for examination and observation for other specified reasons Z04.89 [facility] [address] [place], [place] [id number] 06/17/2025 R Steve Larry Intractable migraine without aura and with status migrainosus G43.011 [facility] [address] [place], [place] [id number] 10/03/2024 R Steve Larry [facility] [address] [place], [place] [id number] 11/26/2024 Merarymaverick Mcphersonond [facility] [address] [place], [place] [id number] 12/02/2024 Merarymaverick Sparrow [facility] [address] [place] [id number] 03/25/2025 R Steve Larry [facility] [address] [place], [place] [id number] 06/05/2025 Enmanuel Walton Assessments Encounter Date Diagnosis (ICD Code) Assessment Notes Treatment Notes Treatment Clinical Notes Section Notes 07/16/2024 Intractable migraine without aura and with status migrainosus (ICD-10 - G43.011) To [facility] outpt for Morphine 2mg and Phenergan 25 mg IM 07/16/2024 Dyslipidemia (ICD-10 - E78.5) 07/25/2024 Intractable migraine without aura and with status migrainosus (ICD-10 - G43.011) To [facility] outpt for Morphine 2mg and Phenergan 25 mg IM 09/10/2024 Intractable migraine without aura and with status migrainosus (ICD-10 - G43.011) To [facility] outpt for Morphine 2mg and Phenergan 25 [...] with status migrainosus (ICD-10 - G43.011) To [facility] outpt for Morphine 2mg and Phenergan 25 [...] with status migrainosus (ICD-10 - G43.011) To [facility] outpt for Morphine 2mg and Phenergan 25 mg IM 05/20/2025 Conjunctivitis (ICD-10 - H10.9) 05/20/2025 Chronic migraine without aura, intractable, with status migrainosus (ICD-10 - G43.711) 06/03/2025 Encounter for examination and observation for other specified reasons (ICD-10 - Z04.89) to continue with care of groin procedure sites as per cardioogy; has FU sade in 5 weeks with them which she will keep 06/17/2025 Intractable migraine without aura and with status migrainosus (ICD-10 - G43.011) To [facility] outpt for Morphine 2mg and Phenergan 25 mg IM To [facility] outpt for Morphine 2mg and Phenergan 25 mg IM 05/20/2025 Rheumatoid arthritis (ICD-10 - M06.9) 03/20/2025 [...] with status migrainosus (ICD-10 - G43.011) To [facility] outpt for Morphine 2mg and Phenergan 25 [...] H-CMP 08/30/2021 H-CMP 11/08/2021 H-T4 free 08/30/2021 Next Appt Details Provider Name:Ellen Shetty, 06/17/2025 11:15:00 AM, [address] [facility] [address] [facility], [address], [place], [place], [id number], Insurance Providers Payer Name Payer Address Payer Phone Subscriber Number Group Number Insured Name Patient Relationship to Insured Coverage Start Date Coverage End Date [employer] (MEDICAR E) [address] [address] [place] [address] [phone] [id number] DEXTER GRADY Self - patient is the [...] mg Morphine 09/04/2013 2 mg Reported to sper Morphine 10/04/2013 2 mg Reported to sper Morphine 10/18/2013 2 mg Reported to [facility] Morphine 10/29/2013 2 mg Reported to [facility] Morphine 11/19/2013 2 mg Reported to [facility] Morphine 11/20/2013 reported to [facility] Morphine 12/13/2013 1 mg Morphine 01/17/2014 2 mg Reported to [facility] Morphine 01/17/2014 Reported by CR Morphine 02/07/2014 2 mg Reported, cr 5-9-14 Morphine 02/11/2014 2 mg Morphine 02/28/2014 2 mg injection reported-FW Morphine 03/18/2014 2 mg Morphine 04/18/2014 2 mg Morphine 05/16/2014 2 mg Morphine 05/29/2014 2 mg Morphine 06/06/2014 2 mg Morphine 06/30/2014 2 mg Morphine 07/04/2014 2 mg Morphine 07/28/2014 2 mg Shot reported Morphine 08/12/2014 .2 mg Morphine 08/15/2014 2 mg shot reported- FW Morphine 09/05/2014 2 mg reported to [facility] 09/04/14 Morphine 09/15/2014 2 mg Documented/Rec orde d on Timothy Morphine 10/10/2014 2 mg reported to [facility] [facility] MG Morphine 10/17/2014 2 mg reported to [facility] MG Morphine 11/11/2014 2 mg Morphine 11/25/2014 [...] sinus Kidney stone Allergy injections Follows at [facility] for her annual mammogram Declines flu shot - 07/2023 SVT Rheumatoid arthritis - Dr. Gomez Surgical History Surgery Date(Month/Year) sinus surgery x2 (including Betancourt-Jeyson ) right foot surgery left ankle surgery breast bx oral surgery/Dr. Fernandez- Uvu lopalatoplasty (UPPP) and Radiofredquency thermal ablation of [...] entry tachycardia 05/23/2025 Hospitalization History Reason Date(Month/Year) EP study with ablation of AVNRT 05/23-05/03 [facility] ER-migraine 10/22 [facility] ER - mirgraine Nov 2017 [facility] ER-Migraine 10/19 [facility] ER -Migraine 08/06/17 [facility]-Chest pain 10/23/16 [facility]- ER- Migraine 05/03/16 [facility] ER-Migraine 04/03/16 [facility] ER- Migraine 07/06/15 ct scan [facility] on abdomen 10/22/08 stomach pain 10/18/08 [facility] ER - Migraine 85 [facility] Er-Migraines 01-17-15 [facility] ER-migraine 11/16 [facility]-ER migraine 10-19-14 [facility]-ER migraine -2013 [facility] ER-migraine 11/02/13 [facility] ER-migraine 09/13 [facility] ER - Migraine 05/12/12 [facility] ER- Migraine 09/26/11 [facility] ER-pt fell 01/04/11 [facility] ER-migraine 12-18-10 [facility] ER-migraine 05/19/10 [facility] ER-fell off a stool 10/17/09 abdominal pain 04/09/2009 [facility] ER-migraine 615/09 [facility] ER-migraine/sunburn 02/09/09 [facility] ER migraine 12/18/08 [facility] ER migraine 08/31/08 [facility] ER migraine 10.08 H dehydration 06/09 [facility] ER, migraine 09/13/08 [facility] ER, migraine 09/09/07 [facility] migraine 07/07/07 for DHE treatment 07/03-12/2005 same as above
--- OUTSIDE RECORDS SUMMARY | 2025-06-17 12:08 | XMS_ITS | Encounter Summary ---
Author Organization [facility] Address [address] [place] [address] Care Team Providers Care Sales Representative Cash Registers Name Role Phone Valentín Juarez MD Primary [...] 11:27 AM EDT Dalila Jimenez RN * [place] Suicide Severity Rating Scale (Screener/Recent Self-Report) Question Answer Date of Assessment Author 6. Suicidal Behavior (Lifetime) No 05/23/2025 11:27 AM EDT Alma Rosa Huntley RN documented as of this encounter Plan of Treatment Not on file documented as of this encounter Visit Diagnoses Not on filedocumented in this encounter Care Teams Sales Representative Cash Registers Relationship Specialty Start Date End Date Valentín Juarez MD [address] [facility] [address] [place] [address] PCP - General Family Medicine 06/14/16 documented as of this encounter
[2025-06-17 12:10] VITALS: BP 124/60; PULSE 70; RESP 18; TEMP 36.6; O2SAT 96
[2025-06-17] MEDS: MORPHINE 2MG/ML SYRINGE 2 MG IM (12:10)
[2025-06-17] MEDS: PROMETHAZINE HCL 25MG/ML 1ML VIAL 25 MG IM (12:10)
[2025-06-17 12:40] VITALS: BP 120/59; PULSE 69; RESP 18; O2SAT 97
== END 2025-06-17 12:40 | disposition home or self-care (01) ==
LOC: INF 12:04
PROVIDERS: PCP Family Medicine; Visit Provider Family Medicine
DX: Z51.81 Encounter for therapeutic drug level monitoring (principal); Z79.899 Other long term (current) drug therapy; G43.011 Migraine without aura, intractable, with status migrainosus
CPT/HCPCS: 96372; C1713; J2270; J2550

== ENCOUNTER 2025-09-04 12:04 | Outpatient (CLI) | payer MEDICARE, SELFPAY ==
--- OUTSIDE RECORDS SUMMARY | 2024-12-24 04:30 | XMS_ITS ---
Author Organization [facility] Address [address] [facility] [address] [address] [facility] [address] [facility] [address] [place] [id number] Care Team Providers Care Service Control Operator Name Role Phone Enmanuel Walton Primary Care Provider Ellen Juarez [phone] Allergies Allergen (clinical drug ingredient) Drug/Non Drug Allergy [...] Drug Allergy Active REASON FOR VISIT checkup Encounters Encounter Location Date Provider Diagnosis [facility] [address] [facility] [address] [facility] [address] [place] [phone] 12/24/2024 Ellen Juarez Plan Of Treatment Next Appt Details Provider Name:Ellen Shetty, 09/04/2025 11:15:00 AM, [address], [address], [place], [phone], Progress Notes * Christiane GRADY:1970 ( 55 yo F)Acc No.[id number]:12/24/2024 Progress Notes Patient: Naresh Roseline JENNINGS Provider: Ellen Juarez M.D. :1970 A ge:54 Y S ex:Female Date:12/24/2024 Address:[place], [id number] Pcp:Enmanuel Walton Subjective: * Chief Complaints: * 1 . Checkup. * HPI: H PI: 54 year old female presents with c/o Patient is here today for?Pt is here today for a check up. * ROS: C ARDIOLOGY: Positive for f francinaresh with cardiology who RF cardiac med.?no C hest pain. D ERMATOLOGY: no R chaim. n o H letty. G ASTROENTEROLOGY: no N ausea. n o V omiting. n o D iarrhea.? U ROLOGY: no D ifficulty urinating. n o B lood in urine. 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 * Surgical History: s inus surgery x2 (including Betancourt-Jeyson) , right foot surgery , left ankle surgery , breast bx , oral surgery/Dr. Fernandez- Uvulopalatoplasty (UPPP) and Radiofredquency thermal ablation of tongue 06/27/2008, biopsy of right breast 11/25/08, endometrial biopsy 07/30/09, hysterectomy abdominal 09/2009, left breast lumpectomy/ Dr. MASON 12/2009, C-scope/ Dr. Carrasco/ diminutive polyp 01/2010, port taken out 05-11-10, biopsy (left breast) 10-11-10, two teeth removed 11/21/10, kidney stone removed 02-21-12, Sinus Surgery 03/13/12, right knee by Dr. Vargas 09-10-12, tooth removed 03/2015, Thyroidectomy, Ca of thyroid, Dr. Plummer , Upper thoracic epidural injection by Dr. Chávez 11/24/17, Foot Surgery 07/2022. * Hospitalization/Major Diagno stic Procedure: s stuart as above , for DHE treatment 07/03-12/2005, [facility] migraine 07/07/07, [facility] [place] [facility], migraine 09/09/07, [facility] [place] [facility], migraine 09/13/08, H dehydration 06/09, [facility] [place] [facility] migraine 10., [facility] [place] [facility] migraine 08/31/08, stomach pain 10/18/08, ct scan [facility] [place] on abdomen 10/22/08, [facility] [place] [facility] migraine 12/18/08, [facility] [place] ER-migraine/sunburn 02/09/09, [facility] [place] ER-migraine 6102/07, abdominal pain 04/09/2009, [facility] [place] ER-fell off a stool 10/17/09, [facility] [place] [facility]-migraine 05/19/10, [facility] [place] [facility]-migraine 12-18-10, [facility] [place] [facility]-pt fell 01/04/11, [facility] [place] [facility]- Migraine 09/26/11, [facility] [place] [facility] - Migraine 05/12/12, [facility] [place] [facility]-migraine 09/13, [facility] [place] [facility]-migraine 11/02/13, [facility] [place]-ER migraine , [facility] [place]-[facility] migraine 10-19-14, [facility] [place] [facility]-migraine 11/16, [facility] [place] Er-Migraines 01-17-15, [facility] [place] [facility] - Migraine , [facility] [place] [facility]- Migraine 07/06/15, [facility] [place] [facility]-Migraine 04/03/16, [facility] [place] ER- Migraine 05/03/16, [facility] [place]-Chest pain 10/23/16, [facility] [place] [facility] -Migraine 08/06/17, [facility] [place] [facility]-Migraine 10/19, [facility] [place] [facility] - mirgraine Nov 2017, [facility] [place] [facility]- migraine 10/22. * Family History: F ather: alive, diagnosed with Hypertension. M other: alive. P aternal Grand Father: . P aternal Grand Mother: . M aternal Grand Father: alive. M aternal Grand Mother: , diagnosed with Cancer. 1 brother(s) , 1 sister(s) - healthy. . * Social History: C URRENT TOBACCO USE S moking Status: Patient does NOT smoke. C affeine: no. Exercise: no. Home smoke detector use: yes. Marital Status: Single. New since last visit: none. 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 Past smoking status: no, Smoking status: Does not smoke. Occup. exposure: none. Recreational drug use: no. Alcohol: no. Sexually active: no.. Travel ouside [place]: no. * Allergies: W ellbutrin XL, SERZONE, Butorphanol Tartrate, Pseudoephedrine-guaiFENesin: rash, Reglan: get sick, face swells, Neurontin: rash, Ketorolac: rash - Allergy. Objective: * Vitals: Assessment: Plan: * Treatment: * Images: Billing Information: * Visit Code: * Procedure Codes: * Electronic signature of Ellen Juarez MD on 09/04/2025 at 12:12 PM EST Sign off status: Pending * Provider: Ellen Juarez M.D. Date: 0 12/24/2024 Generated for Ashutosh terry/Lucia/Syed on: 11/05/2024 12:12 PM EST History and Physical Notes * HPI (History of Present Illness) Category Sub-Category Detail Notes Category Not es HPI Patient is here today for Pt is here toda y for a check up
--- OUTSIDE RECORDS SUMMARY | 2025-02-04 10:00 | XMS_ITS ---
Author Organization [facility] Address [address] [place] [id number] Care Team Providers Care Negative Retoucher Name Role Phone Enmanuel Walton Primary Care Provider Ellen Juarez [phone] Allergies Allergen (clinical drug ingredient) Drug/Non Drug [...] rash Drug Allergy Active REASON FOR VISIT refills Medications Medication SIG (Take, Route, Frequency, Duration) Notes Start Date End Date Status Bisoprolol Fumarate 5 MG 1 tablet Orally Once a day; Duration: 30 day(s) Active Aspirin 81 MG 1 tab(s) orally once a day Active B-12 1000 MCG 1 tab(s) orally once a day 04/01/2014 Active Vitamin D3 125 MCG (5000 UT) 1 cap(s) or ally once a day 04/01/2014 Active Maxalt-GUM MACHINE OPERATOR 10 MG 1 tab(s) orally once a day, may repeat Q2h x2 Active oxyCODONE HCl 5 MG 1 tab(s) orally thre e times a day as needed 02/04/2025 Active Esomeprazole Magnesium 40 MG take 1 caps ule by mouth every day Orally Once a day; Duration: 90 days Active Levothyroxine Sodium 100 MCG 1 tab(s) Or ally once a day; Duration: 90 days Active Atorvastatin Calcium 40 MG 1 tab(s) Oral ly At Bed Time; Duration: 90 days Active Venlafaxine HCl ER 150 MG 1 capsule with food Orally Once a day; Duration: 90 days Active Promethazine HCl 25 MG 1 tablet as neede d Orally q6h prn Active Triamterene-HCTZ 37.5-25 MG 1/2 tab(s) o rally once a day Active Potassium Chloride ER 10 MEQ take 1 caps ule by mouth once daily with food Orally Once a day; Duration: 90 days Active Ventolin HFA 108 (90 Base) MCG/ACT 1 puff as needed Inhalation four times a day as needed 01/25/2024 Active Ibuprofen 800 MG 1 tab(s) orally 3 ti mes a day Active Problems Problem Type SNOMED Code ICD Code Onset Dates Problem Status W/U Status Risk Notes Problem Morbid obesity (796502950) Morbid obesity (E66.01) Active confirmed Vital Signs Blood pressure systolic 120 mm Hg 02/05/20 25 Blood pressure diastolic 80 mm Hg 025 Heart Rate 73 /min 02/04/2025 Height 65 in 02/04/2025 Weight 263.6 lbs 02/04/2025 BMI 43.86 kg/m2 02/04/2025 Encounters Encounter Location Date Provider Diagnosis [facility] [address] [id number] 02/04/2025 Ellen Juarez Migraine headache G43.909 ; BMI 40.0-44.9, adult Z68.41 and Morbid obesity E66.01 Assessments Encounter Date Diagnosis (ICD Code) Assessment Notes Treatment Notes Treatment Clinical Notes Section Notes 02/04/2025 Migraine headache (ICD-10 - G43.909) 02/04/2025 BMI 40.0-44.9, adult (ICD-10 - Z68.41) 02/04/2025 Morbid obesity (ICD-10 - E66.01) Plan Of Treatment Medication Medication Name Sig Start Date Stop Date Notes oxyCODONE HCl 5 MG 1 tab(s) orally thre e times a day as needed 02/04/2025 Next Appt Details Follow Up: 3 Months, Reason: Provider Name:Ellen Shetty, 09/04/2025 11:15:00 AM, [address], [place], [phone], Progress Notes * Christiane GRADY:1970 ( 55 yo F)Acc No.[id number]:02/04/2025 Progress Notes Patient: Roseline SAVAGE Provider: Ellen Juarez M.D. :1970 A ge:55 Y S ex:Female Date:02/04/2025 Address:[facility] [place], [id number] Pcp:Enmanuel Walton Subjective: * Chief Complaints: * 1 . Refills. * HPI: N eurology: She returns for follow-up on her migraine headaches. Since her last visit, her headaches have been managed with her home medication regimen. She is requesting a refill on her oxycodone. * ROS: D ERMATOLOGY: no R chaim. n o H letty. G ASTROENTEROLOGY: no N ausea. n o V omiting. n o D iarrhea.? U ROLOGY: no D ifficulty urinating. n o B lood in urine. 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 [place] migraine 07/07/07, [facility] ER, migraine 09/09/07, [facility] ER, migraine 09/13/08, H dehydration 06/09, [facility] ER migraine 07.09, [facility] ER migraine 08/31/08, stomach pain 10/18/08, ct scan [facility] on abdomen 10/22/08, [facility] ER migraine 12/18/08, [facility] ER-migraine/sunburn 02/09/09, [facility] ER-migraine , abdominal pain 04/09/2009, [facility] ER-fell off a stool 10/17/09, [facility] ER-migraine 05/19/10, [facility] ER-migraine 12-18-10, [facility] ER-pt fell 01/04/11, [facility] ER- Migraine 09/26/11, [facility] ER - Migraine 05/12/12, [facility] ER-migraine 09/13, [facility] ER-migraine 11/02/13, [facility]-ER migraine -2013, [facility]-ER migraine 10-19-14, [facility] ER-migraine 11/16, [facility] Er-Migraines 01-17-15, [facility] ER - Migraine , [facility] ER- Migraine 07/06/15, [facility] ER-Migraine 04/03/16, [facility]- ER- Migraine 05/03/16, [facility]-Chest pain 10/23/16, [facility] ER -Migraine 08/06/17, [facility] ER-Migraine 10/19, [facility] ER - mirgraine Nov 2017, [facility] ER- migraine 10/22. * Family History: F ather: alive, diagnosed with Hypertension. M other: alive. P aternal Grand Father: . P aternal Grand Mother: . M pippa Grand Father: alive. M ateemmanuelle Grand Mother: , diagnosed with Cancer. 1 brother(s) , 1 sister(s) - healthy. . * Social History: C URRENT TOBACCO USE S moking Status: Patient does NOT smoke. C affeine: no. Exercise: no. Home smoke detector use: yes. Marital Status: Single. New since last visit: none. 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 Past smoking status: no, Smoking status: Does not smoke. Occup. exposure: none. Recreational drug use: no. Alcohol: no. Sexually active: no.. Travel ouside [place]: no. * Medications: T aking Potassium Chloride ER 10 MEQ Capsule Extended Release take 1 capsule by mouth once daily with food Orally Once a day , Taking Venlafaxine HCl ER 150 MG Capsule Extended Release 24 Hour 1 capsule with food Orally Once a day , Taking Atorvastatin Calcium 40 MG Tablet 1 tab(s) Orally At Bed Time , Taking Levothyroxine Sodium 100 MCG Tablet 1 tab(s) Orally once a day , Taking Esomeprazole Magnesium 40 MG Capsule Delayed Release take 1 capsule by mouth every day Orally Once a day , Taking Bisoprolol Fumarate 5 MG Tablet 1 tablet Orally Once a day , Taking Vitamin D3 125 MCG (5000 UT) Capsule 1 cap(s) orally once a day , Taking B-12 1000 MCG Tablet 1 tab(s) orally once a day , Taking Aspirin 81 MG Tablet Delayed Release 1 tab(s) orally once a day , Taking Maxalt-GUM MACHINE OPERATOR 10 MG Tablet Disintegrating 1 tab(s) orally once a day, may repeat Q2h x2 , Taking Ibuprofen 800 MG Tablet 1 tab(s) orally 3 times a day , Taking Ventolin HFA 108 (90 Base) MCG/ACT Aerosol Solution 1 puff as needed Inhalation four times a day as needed , Taking Triamterene-HCTZ 37.5-25 MG Tablet 1/2 tab(s) orally once a day , Taking oxyCODONE HCl 5 MG Tablet 1 tab(s) orally three times a day as needed , Taking Promethazine HCl 25 MG Tablet 1 tablet as needed Orally q6h prn , Discontinued Medrol 4 MG Tablet Therapy Pack as directed Orally , Medication List reviewed and reconciled with the patient * Allergies: W ellbutrin XL, SERZONE, Butorphanol Tartrate, Pseudoephedrine-guaiFENesin: rash, Reglan: get sick, face swells, Neurontin: rash, Ketorolac: rash - Allergy. Objective: * Vitals: W t: 263.6, Temp: 98.0, BP: 120/80, HR: 73, Nurse: MARIO, Ht: 65, BMI:43.86. * Examination: G eneral Examination: General Appearance: N AD. H EENT: s clera and conjunctiva clear, PERRLA, TM's normal, translucent. H eart: R SR. L ungs: c lear to auscultation. N eurologic Exam: n ormal cranial nerves II-XII sensory & motor WNL, DTR 2 plus. Assessment: * Assessment: 1. B MT 40.0-44.9, adult - Z68.41 2 . M igraine headache - G43.909 ? 3 . M orbid obesity - E66.01 Plan: * Treatment: * Procedure Codes: G 2211 Complex e/m visit add on, 3074F SYST BP LT 130 MM HG, 3079F DIAST BP 80-89 MM HG * Follow Up: 3 Months * Images: Billing Information: * Visit Code: 74303 Office Visit, Est Pt., Level 3. * Procedure Codes: G2211 Complex e/m visit add on. 3074F SYST BP LT 130 MM HG. 3079F DIAST BP 80-89 MM HG. * Electronic signature of Ellen Juarez MD on 09/04/2025 at 12:13 PM EST Sign off status: Pending * Provider: Ellen Juarez M.D. Date: 0 02/04/2025 Generated for Ashutosh terry/Lucia/Iselaitting on: 1 11/05/2024 12:13 PM EST History and Physical Notes * HPI (History of Present Illness) Category Sub-Category Detail Notes Category Not es Neurology She returns for follow-up on her migraine headaches. Since her last visit, her headaches have been managed with her home medication regimen. She is requesting a refill on her oxycodone. Examination Category Sub-Category Detail Notes Category Not es General Examination HEENT: sclera and c onjunctiva clear, PERRLA, TM's normal, translucent Heart: RSR Lungs: clear to auscultatio n General Appearance: NAD Neurologic Exam: normal cranial nerve s II-XII sensory & motor WNL, DTR 2 plus
--- OUTSIDE RECORDS SUMMARY | 2025-03-31 05:45 | XMS_ITS ---
Author Organization [facility] Address [address] [place] [phone] Care Team Providers Care Refrigerated Cargo Clerk Name Role Phone Enmanuel Walton Primary Care Provider Merary Sparrow Unavailable [phone] Allergies Allergen (clinical drug ingredient) Drug/Non Drug [...] orally 3 ti mes a day Active Maxalt-NUTRITION THERAPIST 10 MG 1 tab(s) orally once a day, may repeat Q2h x2 Active Triamterene-HCTZ 37.5-25 MG 1/2 tab(s) o rally once a day Active Ventolin HFA 108 (90 Base) MCG/ACT 1 puff as needed Inhalation four times a day as needed 01/25/2024 Active Promethazine HCl 25 MG 1 tablet as neede d Orally q6h prn Active Nystatin 543087 UNIT/GM 1 application Ex ternally 4 times [...] 03/31/2025 Encounters Encounter Location Date Provider Diagnosis [facility] [address] [place] [phone] 03/31/2025 Merary Sparrow Candidiasis of breas t [...] Sig Start Date Stop Date Notes Nystatin 668783 UNIT/GM 1 application Ex ternally 4 times a day; Duration: 14 days 03/31/2025 Treatment Notes Assessment Notes Candidiasis of breast Keep under the khoa ast dry as possible. Use cream up to 4 times a day. Wash bra every night to not reinfect with the yeast infection. Follw up as needed. Next Appt Details Follow Up: prn, Reason: Provider Name:Ellen Shetty, 09/04/2025 11:15:00 AM, [address], [address], [place], [phone], Progress Notes * Baylee GRADYB:1970 ( 55 yo F)Acc No.[id number]:03/31/2025 Progress Notes Patient: Roseline SAVAGE Provider: MODESTO Oh :1970 A ge:55 Y S ex:Female Date:03/31/2025 Address:[place], [id number] Pcp:Enmanuel Walton Subjective: * Chief Complaints: * [...] lood in urine. 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 migraine 07/07/07, [facility] ER, migraine 09/09/07, [facility] ER, migraine 09/13/08, H dehydration 06/09, [facility] ER migraine 10.08, [facility] ER migraine 08/31/08, stomach pain 10/18/08, ct scan [facility] on abdomen 10/22/08, [facility] ER migraine 12/18/08, [facility] ER-migraine/sunburn 02/09/09, [facility] ER-migraine , abdominal pain 04/09/2009, [facility] ER-fell off a stool 10/17/09, [facility] ER-migraine 05/19/10, [facility] ER-migraine 12-18-10, [facility] ER-pt fell 01/04/11, [facility] ER- Migraine 09/26/11, [facility] ER - Migraine 05/12/12, [facility] ER-migraine 09/13, [facility] ER-migraine 11/02/13, [facility]-ER migraine -2013, [facility]-ER migraine 10-19-14, [facility] ER-migraine 11/16, [facility] Er-Migraines 01-17-15, [facility] ER - Migraine , [facility] ER- Migraine 07/06/15, [facility] ER-Migraine 04/03/16, [facility]- ER- Migraine 05/03/16, [facility]-Chest pain 10/23/16, [facility] ER -Migraine 08/06/17, [facility] ER-Migraine 10/19, [facility] ER - mirgraine Nov 2017, [facility] ER- migraine 10/22. * Family History: [...] New since last visit: none. 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 Past smoking status: no, Smoking status: Does [...] tab(s) orally once a day , Taking Maxalt-NUTRITION THERAPIST 10 MG Tablet Disintegrating 1 tab(s) orally [...] Temp: 98.0, BP: 120/82, HR: 87, Nurse: [facility], Ht: 65, BMI:43.69. * Examination: G [...] * Images: Billing Information: * Visit Code: 52741 Office Visit, Est Pt., Level 3. * Procedure Codes: G2211 Complex e/m visit add on. 1036F TOBACCO NON-USER. G8783 BP SCR PRFRM RCMDD DEFIND SCR INTVL. G8752 MOST RECENT SYSTOLIC BP < 140MM HG. G8754 MOST RECENT DIASTOLIC BP < 90MM HG. * Electronic signature of Bonnie Sparrow APRN on 09/04/2025 at 12:13 PM EST Sign off status: Pending * Provider: MODESTO Oh Date: 0 03/31/2025 Generated for Ashutosh terry/Lucia/Iselaitting on: 1 11/05/2024 [...]
--- OUTSIDE RECORDS SUMMARY | 2025-04-15 09:45 | XMS_ITS ---
Author Organization [facility] Address [address] [facility] [address] [place] [phone] Care Team Providers Care Surgical Device Sales Representative Name Role Phone Enmanuel Walton Primary Care Provider Ellen Juarez [phone] Allergies Allergen (clinical drug ingredient) Drug/Non Drug [...] Bed Time; Duration: 90 days Active Nystatin 927306 UNIT/GM 1 application Ex ternally 4 times a day; Duration: 14 days 03/31/2025 Active oxyCODONE HCl 5 MG 1 tab(s) orally thre e times a day as needed Active Medrol 4 MG as directed Orally Active Promethazine HCl 25 MG 1 tablet as neede d Orally q6h prn Active Triamterene-HCTZ 37.5-25 MG 1/2 tab(s) o rally once a day Active Maxalt-CONE FORMER 10 MG 1 tab(s) orally once a day, may repeat Q2h x2 Active Ibuprofen 800 MG 1 tab(s) orally 3 ti mes a day Active Ventolin HFA 108 (90 Base) MCG/ACT 1 puff as needed Inhalation four times a day as needed 01/25/2024 Active Vital Signs Blood pressure systolic 120 mm Hg 04/15/20 25 Blood pressure diastolic 78 mm Hg 025 Heart Rate 79 /min 04/15/2025 Height 65 in 04/15/2025 Weight 262.2 lbs 04/15/2025 BMI 43.63 kg/m2 04/15/2025 Encounters Encounter Location Date Provider Diagnosis [facility] [address] [phone] 04/15/2025 Ellen Juarez Intractable migraine without aura and with status migrainosus G43.011 Assessments Encounter Date Diagnosis (ICD Code) Assessment Notes Treatment Notes Treatment Clinical Notes Section Notes 04/15/2025 Intractable migraine without aura and with status migrainosus (ICD-10 - G43.011) To [facility] outpt for Morphine 2mg and Phenergan 25 [...] without aura and with status migrainosus To [facility] outpt for Morphine 2mg and Phenergan 25 mg IM Next Appt Details Follow Up: prn, Reason: Provider Name:Ellen Wilson Chay puente, 09/04/2025 11:15:00 AM, [address], [place], [phone], Progress Notes * Baylee GRADYB:1970 ( 55 yo F)Acc No.[id number]:04/15/2025 Progress Notes Patient: Roseline SAVAGE Provider: Ellen Juarez M.D. :1970 A ge:55 Y S ex:Female Date:04/15/2025 Address:[address] [place], [place] [address], [facility] Pcp:Enmanuel Walton Subjective: * Chief Complaints: * [...] lood in urine. 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 ER, migraine 09/09/07, [facility] ER, migraine 09/13/08, H dehydration 06/09, [facility] ER migraine 07.09, [facility] ER migraine 08/31/08, stomach pain 10/18/08, ct scan [facility] on abdomen 10/22/08, [facility] ER migraine 12/18/08, [facility] ER-migraine/sunburn 02/09/09, [facility] ER-migraine 6102/07, abdominal pain 04/09/2009, [facility] ER-fell off a stool 10/17/09, [facility] ER-migraine 05/19/10, [facility] ER-migraine 12-18-10, [facility] ER-pt fell 01/04/11, [facility] ER- Migraine 09/26/11, [facility] ER - Migraine 05/12/12, [facility] ER-migraine 09/13, [facility] ER-migraine 11/02/13, [facility]-ER migraine -2013, [facility]-ER migraine 10-19-14, [facility] ER-migraine 11/16, [facility] Er-Migraines 01-17-15, [facility] ER - Migraine 8, [facility] ER- Migraine 07/06/15, [facility] ER-Migraine 04/03/16, [facility]- ER- Migraine 05/03/16, [facility]-Chest pain 10/23/16, [facility] ER -Migraine 08/06/17, [facility] ER-Migraine 10/19, [facility] ER - mirgraine Nov 2017, [facility] ER- migraine 10/22. * Family History: F [...] since last visit: none. 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 Past smoking status: no, Smoking status: Does [...] tab(s) orally once a day , Taking Maxalt-CONE FORMER 10 MG Tablet Disintegrating 1 tab(s) orally [...] needed Orally q6h prn , Taking Nystatin 744426 UNIT/GM Cream 1 application Externally 4 times [...] * Images: Billing Information: * Visit Code: 05735 Office Visit, Est Pt., Level 3. * [...] Juarez M.D. Date: 0 04/15/2025 Generated for Maryi mara/Lucia/eTransmitting on: 1 11/05/2024 12:12 PM EST History and Physical Notes * HPI (History of Present Illness) Category Sub-Category Detail Notes Category Not es Neurology headache Pt here for a mi maricele. Pt states its been going on for [...]
--- OUTSIDE RECORDS SUMMARY | 2025-05-20 04:00 | XMS_ITS ---
Author Organization [facility] Address [address] [place] [id number] Care Team Providers Care Quality Tech Name Role Phone Enmanuel Walton Primary Care Provider [phone] Ellen Juarez [phone] Allergies Allergen (clinical drug ingredient) Drug/Non Drug [...] tab(s) o rally once a day Active Maxalt-LIMOUSINE AND HEARSE UPHOLSTERER 10 MG 1 tab(s) orally once a [...] W/U Status Risk Notes Problem Rheumatoid arthritis (08987499) Rheumatoid arthritis (M06.9) Active confirmed Vital Signs Blood pressure systolic 130 mm Hg 05/20/20 25 Blood pressure diastolic 78 mm Hg 025 Heart Rate 95 /min 05/20/2025 Height 65 in 05/20/2025 Weight 263.4 lbs 05/20/2025 BMI 43.83 kg/m2 05/20/2025 Encounters Encounter Location Date Provider Diagnosis [facility] [facility] [address] [place], [place] [phone] 05/20/2025 Ellen Juarez Chronic migraine wit hout [...] Follow Up: 3 Months, Reason: Provider Name:Ellen Wilson Annjignesh kwame, 09/04/2025 11:15:00 AM, [address] [facility] [address], [place], [place], [phone], Progress Notes * Baylee GRADYB:1970 ( 55 yo F)Acc No.[id number]:05/20/2025 Progress Notes Patient: Roseline SAVAGE Provider: Ellen Juarez M.D. :1970 A ge:55 Y S ex:Female Date:05/20/2025 Address:[address] [place], [place] [phone] Pcp:Enmanuel Walton Subjective: * Chief Complaints: * [...] lood in urine. 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 migraine 07/07/07, [facility] ER, migraine 09/09/07, [facility] ER, migraine 09/13/08, H dehydration 06/09, [facility] ER migraine 10., [facility] ER migraine 08/31/08, stomach pain 10/18/08, ct scan [facility] on abdomen 10/22/08, [facility] ER migraine 12/18/08, [facility] ER-migraine/sunburn 02/09/09, [facility] ER-migraine /, abdominal pain 04/09/2009, [facility] ER-fell off a stool 10/17/09, [facility] ER-migraine 05/19/10, [facility] ER-migraine 12-18-10, [facility] ER-pt fell 01/04/11, [facility] ER- Migraine 09/26/11, [facility] ER - Migraine 05/12/12, [facility] ER-migraine 09/13, [facility] ER-migraine 11/02/13, [facility]-ER migraine -2013, [facility]-ER migraine -, [facility] ER-migraine 11/16, [facility] Er-Migraines -, [facility] ER - Migraine 8, [facility] ER- Migraine 07/06/15, [facility] ER-Migraine 04/03/16, [facility]- ER- Migraine 05/03/16, [facility]-Chest pain 10/23/16, [facility] ER -Migraine 08/06/17, [facility] ER-Migraine 10/19, [facility] ER - mirgraine Nov 2017, [facility] ER- migraine 10/22. * Family History: [...] tab(s) orally once a day , Taking Maxalt-LIMOUSINE AND HEARSE UPHOLSTERER 10 MG Tablet Disintegrating 1 tab(s) orally [...] * Images: Billing Information: * Visit Code: 08994 Office Visit, Est Pt., Level 3. * Procedure Codes: G2211 Complex e/m visit add on. 1036F TOBACCO NON-USER. G8783 BP SCR PRFRM RCMDD DEFIND SCR INTVL. G8752 MOST RECENT SYSTOLIC BP < 140MM HG. G8754 MOST RECENT DIASTOLIC BP < 90MM HG. * Electronic signature of Ellen Juarez MD on 09/04/2025 at 12:11 PM EST Sign off status: Pending * Provider: Ellen Juarez M.D. Date: 0 05/20/2025 Generated for Ashutosh terry/Lucia/eTransmitting on: 1 11/05/2024 12:11 PM EST History and Physical Notes * Examination [...]
--- OUTSIDE RECORDS SUMMARY | 2025-06-03 06:30 | XMS_ITS ---
Author Organization [facility] Address [address] [place] [phone] Care Team Providers Care Telegraphic Instrument Supervisor Name Role Phone Enmanuel Walton Primary Care Provider Merary Sparrow Unavailable [phone] Allergies Allergen (clinical drug ingredient) Drug/Non Drug [...] 1 tab(s) orally once a day Active Maxalt-AUDIOVISUAL EQUIPMENT OPERATOR 10 MG 1 tab(s) orally once [...] 06/03/2025 Encounters Encounter Location Date Provider Diagnosis [facility] [address] [place] [address] [address] [facility] [address] [place], [place] [phone] 06/03/2025 Merary Sparrow Encounter for examination and [...] Provider Name:Ellen Shetty, 09/04/2025 11:15:00 AM, [address] [facility] [address] [facility], [address], [place], [place], [phone], Progress Notes * Leo GRADYaDOB:1970 ( 55 yo F)Acc No.[id number]:06/03/2025 Progress Notes Patient: Roseline SAVAGE Provider: MODESTO Oh :1970 A ge:55 Y S ex:Female Date:06/03/2025 Address:[id number] Pcp:Enmanuel Walton Subjective: * Chief Complaints: * [...] requent urination. ? 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 migraine 07/07/07, [facility] ER, migraine 09/09/07, [facility] ER, migraine 09/13/08, H dehydration 06/09, [facility] ER migraine ., [facility] ER migraine 08/31/08, stomach pain 10/18/08, ct scan [facility] on abdomen 10/22/08, [facility] ER migraine 12/18/08, [facility] ER-migraine/sunburn 02/09/09, [facility] ER-migraine 61/, abdominal pain 04/09/2009, [facility] ER-fell off a stool 10/17/09, [facility] ER-migraine 05/19/10, [facility] ER-migraine 12-18-10, [facility] ER-pt fell 01/04/11, [facility] ER- Migraine 09/26/11, [facility] ER - Migraine 05/12/12, [facility] ER-migraine 09/13, [facility] ER-migraine 11/02/13, [facility]-ER migraine -2013, [facility]-ER migraine 10-19-14, [facility] ER-migraine 11/16, [facility] Er-Migraines --, [facility] ER - Migraine , [facility] ER- Migraine 07/06/15, [facility] ER-Migraine 04/03/16, [facility]- ER- Migraine 05/03/16, [facility]-Chest pain 10/23/16, [facility] ER -Migraine 08/06/17, [facility] ER-Migraine 10/19, [facility] ER - mirgraine Nov 2017, [facility] ER- migraine 10/22, EP study [...] New since last visit: none. 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 Past smoking status: no, Smoking status: [...] tab(s) orally once a day , Taking Maxalt-AUDIOVISUAL EQUIPMENT OPERATOR 10 MG Tablet Disintegrating 1 tab(s) [...] * Images: Billing Information: * Visit Code: 13143 Office Visit, Est Pt., Level 3. * Procedure Codes: G2211 Complex e/m visit add on. * Electronic signature of Bonnie Sparrow APRN on 09/04/2025 at 12:13 PM EST Sign off status: Pending * Provider: MODESTO Oh Date: 0 06/03/2025 Generated for Ashutosh terry/Lucia/eTammonitting on: 1 11/05/2024 12:13 PM EST History [...]
--- OUTSIDE RECORDS SUMMARY | 2025-06-17 06:15 | XMS_ITS ---
Author Organization [facility] Address [address] [place] [id number] Care Team Providers Care Supervisor Border Department Name Role Phone Enmanuel Walton Primary Care Provider Ellen Juarez [phone] Allergies Allergen (clinical drug ingredient) Drug/Non Drug [...] DAILY WITH FOOD; Duration: 90 Active Nystatin 103142 UNIT/GM APPLY 1 APPLICAT ION EXTERNALLY FOUR TIMES DAILY; Duration: 14 Active Ventolin HFA 108 (90 Base) MCG/ACT 1 puff as needed Inhalation four times a day as needed 01/25/2024 Active Triamterene-HCTZ 37.5-25 MG 1/2 tab(s) o rally once a day Active Aspirin 81 MG 1 tab(s) orally once a day Active Maxalt-PATCH FINISHER 10 MG 1 tab(s) orally once a [...] 06/17/2025 Encounters Encounter Location Date Provider Diagnosis A-Davy [facility] [address] [id number] 06/17/2025 Ellen Juarez Intractable migraine without aura and with status migrainosus G43.011 Assessments Encounter Date Diagnosis (ICD Code) Assessment Notes Treatment Notes Treatment Clinical Notes Section Notes 06/17/2025 Intractable migraine without aura and with status migrainosus (ICD-10 - G43.011) To [facility] outpt for Morphine 2mg and Phenergan 25 mg IM To [facility] outpt for Morphine 2mg and Phenergan 25 mg IM Plan Of Treatment Medication Medication Name Sig Start Date Stop Date Notes oxyCODONE HCl 5 MG 1 tab(s) orally thre e times a day as needed Treatment Notes Assessment Notes Intractable migraine without aura and with status migrainosus To [facility] outpt for Morphine 2mg and Phenergan 25 mg IM To [facility] outpt for Morphine 2mg and Phenergan 25 mg IM Next Appt Details Follow Up: prn, Reason: Provider Name:Ellen Cartwright et, 09/04/2025 11:15:00 AM, [address], [address], [place], [id number], Progress Notes * Baylee GRADYB:1970 ( 55 yo F)Acc No.[id number]:06/17/2025 Progress Notes Patient: Roseline SAVAGE Provider: Ellen Juarez M.D. :1970 A ge:55 Y S ex:Female Date:06/17/2025 Address:[facility] [place], [facility] Pcp:Enmanuel Walton Subjective: * Chief Complaints: * [...] neurology consultation notes. 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, Chronic Migraine, s/p Botox injections, Asthma, BI-Polar, Thyroid Cancer, Uterine cancer, breast cancer, Dx: January 2010, 10/04/11 CT of sinuses, minimal changes left max sinus, Kidney stone, Allergy injections, Follows at [facility] for her annual mammogram, Declines [...] ER migraine 07/07/07, H ER, migraine 09/09/07, [facility] ER, migraine 09/13/08, H dehydration 06/09, [facility] ER migraine ., [facility] ER migraine 08/31/08, stomach pain 10/18/08, ct scan [facility] on abdomen 10/22/08, [facility] ER migraine 12/18/08, [facility] ER-migraine/sunburn 02/09/09, [facility] ER-migraine /, abdominal pain 04/09/2009, [facility] ER-fell off a stool 10/17/09, [facility] ER-migraine 05/19/10, [facility] ER-migraine 12-18-10, [facility] ER-pt fell 01/04/11, [facility] ER- Migraine 09/26/11, [facility] ER - Migraine 05/12/12, [facility] ER-migraine 09/13, [facility] ER-migraine 11/02/13, [facility]-ER migraine -2013, [facility]-ER migraine 10-19-, [facility] ER-migraine 11/16, [facility] Er-Migraines 01-17-15, [facility] ER - Migraine , [facility] ER- Migraine 07/06/15, [facility] ER-Migraine 04/03/16, [facility]- ER- Migraine 05/03/16, [facility]-Chest pain 10/23/16, [facility] ER -Migraine 08/06/17, [facility] ER-Migraine 10/19, [facility] ER - mirgraine Nov 2017, [facility] ER- migraine 10/22, EP study with ablation of AVNRT 05/23-05/24/2025. * Family History: F ather: alive, diagnosed with Hypertension. M other: alive. P aternal Grand Father: . P aternal Grand Mother: . M ateemmanuelle Grand Father: alive. M ateemmanuelle Grand Mother: , diagnosed with Cancer. 1 brother(s) , 1 sister(s) - healthy. . * Social History: C URRENT TOBACCO USE S moking Status: Patient does NOT smoke. C affeine: no. Exercise: no. Home smoke detector use: yes. Marital Status: Single. New since last visit: none. 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 Past smoking status: no, Smoking status: [...] tab(s) orally once a day , Taking Maxalt-PATCH FINISHER 10 MG Tablet Disintegrating 1 tab(s) orally [...] MOUTH DAILY WITH FOOD , Taking Nystatin 445688 UNIT/GM Cream APPLY 1 APPLICATION EXTERNALLY FOUR [...] * Images: Billing Information: * Visit Code: 49973 Office Visit, Est Pt., Level 3. * [...] M.D. Date: 0 06/17/2025 Generated for Ashutosh terry/Lucia/eTransmitting on: 1 11/05/2024 12:13 PM EST History [...]
--- OUTSIDE RECORDS SUMMARY | 2025-07-08 08:15 | XMS_ITS | Encounter Summary ---
[facility] Address [address] [place] [address] Care Team Providers Care Acid Plant Helper Name Role Phone Valentín Juarez MD Primary Care Provider Reason for Visit * Reason Comments Paroxysmal SVT (supraventric ular tachycardia) Patient complains of heaviness in the chest Encounter Details Date Type Department Care Team (Late st Contact Info) Description 07/08/2025 9:15 AM EDT Office Visit [facility] [address] [facility] [address] [place] [address] Esequiel Norris PA-C [address] [place] [address] [address] [place] [address] SVT (supraventricular tachycardia) (Primary Dx); Essential hypertension [...] were not included. Cardiac Electrophysiology Outpatient Note [facility] Office Visit Roseline Peraza [id number] 07/08/2025 Primary Care Physician: Valentín Juarez MD [...] 5 days prior; Surgeon: John Villafana MD;Location: [facility] EP INVASIVE LOCATION; Service: Cardiovascular; Laterality: N/A; [...] PROTIME No results found for: TSH , [id number] , P9TSBFP , THYROIDAB I personally viewed and interpreted [...] or concerns. Esequiel Norris PA-C Cardiac Electrophysiology [facility] documented in this encounter Plan of Treatment Upcoming Encounters Date Type Department Care Team (Late st Contact Info) Description 07/21/2026 11:15 AM EDT Office Visit [facility] [address] [facility] [address] [place] [address] John Villafana MD [address] [place] [address] [address] [place] [address] documented as of this encounter Procedures Procedure [...] were not included. Cardiac Electrophysiology Outpatient Note [facility] Office Visit Roseline Peraza [id number] 07/08/2025 Primary Care Physician: Valentín Juarez MD [...] 5 days prior;Surgeon: John Villafana MD; Location: [facility] EP INVASIVE LOCATION;Service: Cardiovascular; Laterality: N/A; OTHER [...] PROTIME No results found for: TSH , X9QRHNB , I7WFIYQ , THYROIDAB I personally viewed and interpreted [...] questions orconcerns. Esequiel Norris PA-C Cardiac Electrophysiology [facility] Esequiel Norris PA-C ECG ORDERABLES Final Result documented in this encounter Visit Diagnoses Diagnosis SVT (supraventricular tachycardia)- Primary Other specified cardiac dysrhythmias Essential hypertension Unspecified essential hypertension documented in this encounter Care Teams Acid Plant Helper Relationship Specialty Start Date End Date Valentín Juarez MD [facility] [address] [facility] [address] [place] [address] PCP - General Family Medicine 06/14/16 documented as of this encounter
--- OUTSIDE RECORDS SUMMARY | 2025-07-17 10:30 | XMS_ITS ---
Author Organization [facility] Address [address] [place] [id number] Care Team Providers Care Antique Refinisher Name Role Phone Enmanuel Walton Primary Care Provider [phone] Ellen Juarez [phone] Allergies Allergen (clinical drug ingredient) Drug/Non Drug [...] rash Drug Allergy Active REASON FOR VISIT check up Medications Medication SIG (Take, Route, Frequency, Duration) Notes Start Date End Date Status Nystatin 997222 UNIT/GM APPLY 1 APPLICAT ION EXTERNALLY FOUR TIMES DAILY; Duration: 14 Active Potassium Chloride ER 10 MEQ TAKE 1 CAPSULE BY MOUTH DAILY WITH FOOD; Duration: 90 Active Esomeprazole Magnesium 40 MG take 1 capsule by mouth every day Orally Once a day; Duration: 90 days Active Promethazine HCl 25 MG 1 tablet as neede d Orally q6h prn Active oxyCODONE HCl 5 MG 1 tab(s) orally thre e times a day as needed 07/17/2025 Active Triamterene-HCTZ 37.5-25 MG 1/2 tab(s) o rally once a day Active Ventolin HFA 108 (90 Base) MCG/ACT 1 puff as needed Inhalation four times a day as needed 01/25/2024 Active Azelastine HCl 0.05 % 1 drop into affect ed eye Ophthalmic Twice a day 05/20/2025 Active Ibuprofen 800 MG 1 tab(s) orally 3 ti mes a day Active Maxalt-POWER PLANT SUPERVISOR 10 MG 1 tab(s) orally once a day, may repeat Q2h x2 Active Bisoprolol Fumarate 2.5 MG 1 tablet Oral ly Once a day; Duration: 30 days Active Levothyroxine Sodium 100 MCG 1 tab(s) Orally once a day; Duration: 90 days Active B-12 1000 MCG 1 tab(s) orally once a day 04/01/2014 Active Vitamin D3 125 MCG (5000 UT) 1 cap(s) orally once a day 04/01/2014 Active Aspirin 81 MG 1 tab(s) orally once a day Active Venlafaxine HCl ER 150 MG 1 capsule with food Orally Once a day; Duration: 90 days Active Atorvastatin Calcium 40 MG 1 tab(s) Oral ly At Bed Time; Duration: 90 days Active Vital Signs Blood pressure systolic 130 mm Hg 07/17/20 25 Blood pressure diastolic 76 mm Hg 025 Heart Rate 78 /min 07/17/2025 Height 65 in 07/17/2025 Weight 258.8 lbs 07/17/2025 BMI 43.06 kg/m2 07/17/2025 Encounters Encounter Location Date Provider Diagnosis [facility] [address] [place] [id number] 07/17/2025 Ellen Juarez Bipolar disorder, current episode depressed, severe, without psychotic features F31.4 ; Periodic headache syndrome, not intractable G43.C0 and Rheumatoid arthritis M06.9 Assessments Encounter Date Diagnosis (ICD Code) Assessment Notes Treatment Notes Treatment Clinical Notes Section Notes 07/17/2025 Bipolar disorder, current episode depressed, severe, without psychotic features (ICD-10 - F31.4) 07/17/2025 Periodic headache syndrome, not intractable (ICD-10 - G43.C0) 07/17/2025 Rheumatoid arthritis (ICD-10 - M06.9) Plan Of Treatment Medication Medication Name Sig Start Date Stop Date Notes Promethazine HCl 25 MG 1 tablet as neede d Orally q6h prn oxyCODONE HCl 5 MG 1 tab(s) orally thre e times a day as needed 07/17/2025 Venlafaxine HCl ER 150 MG 1 capsule with food Orally Once a day; Duration: 90 days Next Appt Details Follow Up: 3 Months, Reason: Provider Name:Ellen Steve Annjignesh kwame, 09/04/2025 11:15:00 AM, [address], [address], [place], [id number], Progress Notes * Baylee GRADYB:1970 ( 55 yo F)Acc No.[id number]:07/17/2025 Progress Notes Patient: Roseline SAVAGE Provider: Ellen Juarez M.D. :1970 A ge:55 Y S ex:Female Date:07/17/2025 Address:[facility] [address], [facility] Pcp:Enmanuel Walton Subjective: * Chief Complaints: * 1 . Check up. * HPI: C ardiology: 55 year old female presents with c/o Dyslipidemia. E ndocrinology: c/o Hypothyroidism P t here to f/u on hypothyroidism and dyslipidemia. Pt sts she is doing well and has no concerns at this time. Pt sts she does need refills on her medications. * ROS: D ERMATOLOGY: no R chaim. n o H letty. G ASTROENTEROLOGY: no N ausea. n o V omiting. n o D iarrhea.? U ROLOGY: no B lood in urine. n o F requent urination. ? 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 migraine 07/07/07, [facility] ER, migraine 09/09/07, [facility] ER, migraine 09/13/08, H dehydration 06/09, [facility] ER migraine 10.08, [facility] ER migraine 08/31/08, stomach pain 10/18/08, ct scan [facility] on abdomen 10/22/08, [facility] ER migraine 12/18/08, [facility] ER-migraine/sunburn 02/09/09, [facility] ER-migraine /, abdominal pain 04/09/2009, [facility] ER-fell off a stool 10/17/09, [facility] ER-migraine 05/19/10, [facility] ER-migraine 12-18-10, [facility] ER-pt fell 01/04/11, [facility] ER- Migraine 09/26/11, [facility] ER - Migraine 05/12/12, [facility] ER-migraine 09/13, [facility] ER-migraine 11/02/13, [facility]-ER migraine -2013, [facility]-ER migraine -, [facility] ER-migraine 11/16, [facility] Er-Migraines -, [facility] ER - Migraine , [facility] ER- Migraine 07/06/15, [facility] ER-Migraine 04/03/16, [facility]- ER- Migraine 05/03/16, [facility]-Chest pain 10/23/16, [facility] ER -Migraine 08/06/17, [facility] ER-Migraine 10/19, [facility] ER - mirgraine Nov 2017, [facility] ER- migraine 10/22, EP study with [...] New since last visit: none. 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 Past smoking status: no, Smoking status: [...] tab(s) Orally once a day , Taking Bisoprolol Fumarate 2.5 MG Tablet 1 tablet Orally Once a day , Taking Vitamin D3 125 MCG (5000 UT) Capsule 1 cap(s) orally once a day , Taking B-12 1000 MCG Tablet 1 tab(s) orally once a day , Taking Aspirin 81 MG Tablet Delayed Release 1 tab(s) orally once a day , Taking Maxalt-POWER PLANT SUPERVISOR 10 MG Tablet Disintegrating 1 tab(s) [...] as needed Orally q6h prn , Taking Azelastine HCl 0.05 % Solution 1 drop into affected eye Ophthalmic Twice a day , Taking Potassium Chloride ER 10 MEQ Capsule Extended Release TAKE 1 CAPSULE BY MOUTH DAILY WITH FOOD , Taking Nystatin 393093 UNIT/GM Cream APPLY 1 APPLICATION EXTERNALLY FOUR TIMES DAILY , Taking oxyCODONE HCl 5 MG Tablet 1 tab(s) orally three times a day as needed , Taking Esomeprazole Magnesium 40 MG Capsule Delayed Release take 1 capsule by mouth every day Orally Once a day , Medication List reviewed and reconciled with the patient * Allergies: W ellbutrin XL, SERZONE, Butorphanol Tartrate, Pseudoephedrine-guaiFENesin: rash, Reglan: get sick, face swells, Neurontin: rash, Ketorolac: rash - Allergy. Objective: * Vitals: W t: 258.8, Temp: 97.7, BP: 130/76, HR: 78, Nurse: avril, Ht: 65, BMI:43.06. * Examination: G eneral Examination: General Appearance: [...] o leg edema. Assessment: * Assessment: 1. B ipolar disorder, current episode depressed, severe, without psychotic features - F31.4 (Primary) 2 . P eriodic headache syndrome, not intractable - G43.C0 ?3. R heumatoid arthritis - M06.9 Plan: * Treatment: 2. R heumatoid arthritis Refill oxyCODONE HCl Tablet, 5 MG, 1 tab(s), orally, three times a day as needed, 90, Refills 0.? 3. O thers Refill Promethazine HCl Tablet, 25 MG, 1 tablet as needed, Orally, q6h prn, 24. * Procedure Codes: G 2211 Complex e/m visit add on, 3075F SYST BP GE 130 - 139MM HG, 3078F DIAST BP < 80 MM HG * Follow Up: 3 Months * Images: Brunoing Information: * Visit Code: 73506 Office Visit, Est Pt., Level 3. * Procedure Codes: G2211 Complex e/m visit add on. 3075F SYST BP GE 130 - 139MM HG. 3078F DIAST BP < 80 MM HG. * Electronic signature of Ellen Juarez MD on 09/04/2025 at 12:11 PM EST Sign off status: Pending * Provider: Ellen Juarez M.D. Date: 1 Generated for Ashutosh terry/Lucia/eTransmitting on: 1 11/05/2024 12:11 PM EST History and Physical Notes * HPI (History of Present Illness) Category Sub-Category Detail Notes Category Not es Endocrinology Hypothyroidism Pt here to f/u o n hypothyroidism and dyslipidemia. Pt sts she is doing well and has no concerns at this time. Pt sts she does need refills on her medications Cardiology Dyslipidemia Examination Category Sub-Category Detail Notes Category Not [...]
--- OUTSIDE RECORDS SUMMARY | 2025-09-04 12:13 | XMS_ITS | Encounter Summary ---
Author Organization [facility] Address [address] [place] [address] Care Team Providers Care State Editor Name Role Phone Valentín Juarez MD Primary Care Provider Encounter Details Date Type Department Care Team (Late st Contact Info) Description 05/14/2012 Conversion Encounter [facility] HISTOR[facility] CONV [address] [place] [address] Interface, See Report Social History [...] ' Cande Feliciano M.D. ' Lissy Rodrigues, MACHINE SKIVER [address] [facility], [address] [place] [address] RegisterPatient OFFICE NOTE ROSELINE GRADY : 1970 DATE OF VISIT: 05/14/2012 PROBLEM LIST: 1. Breast cancer: Stage I, less than 0.1 cm primary invasive ductal, ER/NH positive, HER-2 positive, node negative with family history of malignancy. Opted out of prophylactic surgeries and had lumpectomy and radiation, radiation completed 05/07/2010. Began Herceptin March 2010, but upon further review and after discussions with Dr. Yary Munoz at [facility] it was decided that given her [...] exam. Lissy Rodrigues APRN* SE/rxalw Doc. ID [id number] Rev. #0 cc: Rima George M.D.* Willa [...] Feliciano M.D. ' Lissy Rodrigues APRN [address] [facility], [address] [place] [address] RegisterPatient OFFICE NOTE ROSELINE GRADY : 1970 DATE OF VISIT: 11/12/2012 CHIEF COMPLAINT: Breast pain. PROBLEM LIST: 1. Breast cancer: Stage I, less than 0.1 cm primary invasive ductal carcinoma, ER/NH positive, HER-2/eddie positive, node negative with family history of malignancy. Opted out of prophylactic surgeries and had lumpectomy and radiation. Radiation completed 05/07/2010. Began Herceptin March 2010, but upon further review and after discussion between Dr. Hill and Dr. Yary Munoz at [facility] it was decided that given her [...] Piotr Hill M.D. /rxalw; LH/rxalw Doc. ID [id number] Rev. #1 cc: Rima George M.D.* Willa [...] Cande Feliciano M.D. ' Lissy Rodrigues APRN [address] [place] [address], [place] [address] [place] [address] RegisterPatient OFFICE NOTE ROSELINE GRADY : 1970 DATE OF VISIT: 05/28/2013 CHIEF COMPLAINT: Hot flashes. PROBLEM LIST: 1. Breast cancer: Stage I, less than 0.1 cm primary invasive ductal carcinoma, ER/NH positive, HER-2/eddie positive, node negative with family history of malignancy. Opted out of prophylactic surgeries and had lumpectomy and radiation. Radiation completed 05/07/2010. Began Herceptin March 2010, but upon further review and after discussion between Dr. Hill and Dr. Yary Munoz at [facility] it was decided that given her [...] does workout at the exercise facility at [facility] usually every other day. She also [...] Piotr Hill M.D. /rxalw; OSMIN/rxalw Doc. ID [id number]; [id number] Rev. #0 cc: Rima George M.D.* Willa [...] Description 07/21/2026 11:15 AM EDT Office Visit [facility] C[facility]Y [address] [facility] [address] [place] [address] [place] [address] [place] [address] [address] [place] [address] documented as of this encounter Visit Diagnoses Not on filedocumented in this encounter Care Teams State Editor Relationship Specialty Start Date End Date Valentín Juarez MD [address] [facility] [address] [facility] [address] [place] [address] PCP - General Family Medicine 06/14/16 documented as of this encounter
--- OUTSIDE RECORDS SUMMARY | 2025-09-04 12:13 | XMS_ITS | Clinical Summary ---
Author Organization [facility] Address [address] [place] [address] Care Team Providers Care Car Rental Service Attendant Name Role Phone Valentín Juarez MD Primary Care Provider [phone] Social History Tobacco Use Types Packs/Day Years [...] Screening 08/12/202308/02, 08/12/2021, 03/30/2020, Additional history exists [id number] Vaccine (2024- season) 2025 UKY-Influenza Vaccine (#1) 2025 HPV [...] patient's age to complete this topic Insurance [facility] MEDIC[facility] Care Teams Car Rental Service Attendant Relationship Specialty Start Date End Date Valentín Juarez MD [address] [place] [address] [facility] - General 02/12/21
--- OUTSIDE RECORDS SUMMARY | 2025-09-04 12:13 | XMS_ITS | Encounter Summary ---
Author Organization [facility] Address [address] [place] [address] Care Team Providers Care Field Worker Name Role Phone Valentín Juarez MD Primary Care Provider Encounter Details Date Type Department Care Team (Late st Contact Info) Description 11/14/[address] [facility] [address] [facility] [place] [address] Interface, See Report Social History [...] less than 0.1 cm primary invasive ductal, ER/MS positive, HER-2 positive, node-negative with a family history of malignancy. Opted out of prophylactic surgeries and has had lumpectomy and radiation. Started Herceptin in March 2010, but upon further review and discussions with Yary Munoz, [facility], it was decided that given her [...] breast region, but not any change management lead time. No dominant masses. BREASTS: Bilateral breast exam revealed no worrisome masses. HEENT: No oropharyngeal lesions. LUNGS: Clear. HEART: Regular rhythm. ABDOMEN: No organomegaly, mass or tenderness. EXTREMITIES: No cyanosis, clubbing, or cords. NEUROLOGIC: No focal motor or sensory deficits. ASSESSMENT AND PLAN: 1. Stage I, less than 0.1 invasive ductal carcinoma ER/MS positive, HER-2 positive: We will continue her Arimidex. We will get her mammogram again in March and the left breast mammogram in September was BI-RADS III. We will continue the Arimidex until at least March 2015. Rodney Hill M.D.* OSMIN/rxdrs Doc. ID: [id number] Rev. #0 cc: Page 2 of 2 [facility] Page 1 of 2 Authenticated by RODNEY HILL M.D. On 11/15/2011 02:16:34 PM documented in this encounter Plan of Treatment Upcoming Encounters Date Type Department Care Team (Late st Contact Info) Description 07/21/2026 11:15 AM EDT Office Visit [facility] C[facility]IOLOG[facility] [address] [facility] [address] [place] [address] John Villafana MD [address] [facility] [address] [place] [address] documented as of this encounter Visit Diagnoses Not on filedocumented in this encounter Care Teams Field Worker Relationship Specialty Start Date End Date Valentín Juarez MD [address] [facility] [address] [place] [address] PCP - General Family Medicine 06/14/16 documented as of this encounter
--- OUTSIDE RECORDS SUMMARY | 2025-09-04 12:13 | XMS_ITS | Clinical Summary ---
Author Organization [facility] Address [address] [place] [address] Care Team Providers Care Cargo Surveyor Name Role Phone Valentín Juarez MD Primary [...] mouth Daily. 110 MG DAILY 0 04/12/2016 Active oxyCODONE (ROXICODONE) 5 MG immediate release tablet Take 1 tablet by mouth 3 (Three) Times a Day. 0 05/06/2016 Active venlafaxine XR (EFFEXOR-XR) 150 MG 24 hr capsule Take 1 capsule by mouth Daily. 0 06/01/2016 Active esomeprazole (NexIUM) 40 MG capsule Take 1 capsule by mouth Every Morning Before Breakfast. Active ALBUTEROL IN Inhale 2 puffs as needed. Active promethazine (PHENERGAN) 50 MG tablet Take 0.5 tablets by mouth As Needed for Nausea or Vomiting. Active potassium chloride (MICRO-K) 10 MEQ CR capsule Take 1 capsule by mouth Daily. with food 08/13/2024 Active ibuprofen (ADVIL,MOTRIN) 800 MG tablet Take [...] Take 1 tablet by mouth Daily. Active bisoprolol (ZEBeta) 5 MG tablet Take 0.5 tablets by mouth Daily. 45 tablet 3 07/08/2025 Active Active Problems Problem Noted Date Diagnosed [...] Encounters Date Type Department Care Team Description 07/08/2025 9:15 AM EDT Office Visit [facility] [address] [facility] [address] [place] [id number] Esequiel Norris PA-C SVT (supraventricular tachycardia) (Primary Dx); Essential hypertension 07/08/2025 Travel from Last 3 Months Family History [...] Pulse 73 07/08/2025 9:00 AM EDT Temperature 36.6 C (97.9 F) 05/24/2025 8:30 AM EDT Respiratory Rate 18 05/24/2025 8:30 AM EDT Oxygen Saturation 97% 07/08/2025 9:00 AM EDT Inhaled Oxygen Concentration - - Weight 118 kg (260 lb 14.4 oz) 07/08/2025 9:00 A M EDT Height 165.1 cm (5' 5 ) 07/08/2025 9:00 AM EDT Body Mass Index 43.42 07/08/2025 9:00 AM EDT Plan of Treatment Upcoming Encounters Date Type Department Care Team (Late st Contact Info) Description 07/21/2026 11:15 AM EDT Office Visit [facility] [address] [facility] [address] [place] [address] John Villafana MD [address] [facility] [address] [place] [id number] Health Maintenance Due Date Last Done Comments Annual Gynecologic Pelvic an d Breast Exam 1970 COLOGUARD 01/31/2013 COLON CANCER SCREENING 5 YEA R SIGMOIDOSCOPY 01/31/2013 COLONOSCOPY 01/31/2013 COLORECTAL CANCER SCREENING 01/31/2013 CT COLONOGRAPHY 01/31/2013 FECAL OCCULT BLOOD TEST 01/31/2013 FIT Testing (1 year) 01/31/2013 ANNUAL WELLNESS VISIT 03/07/2017 HEPATITIS C SCREENING 03/07/2017 Pneumococcal Vaccine 50+ (1 of 1 - PCV) 01/31/2018 ZOSTER VACCINE (1 of 2) 01/31/2018 INFLUENZA VACCINE 05/02/2025 MAMMOGRAM 01/15/2027 01/15/2025, 11/30, 10/18/2023, Additional history exists TDAP/TD VACCINES (2 - Td or Tdap) 10/27/2027 018 Procedures Procedure Name Priority Date/Time Associated Diagnosis Comments ECG 12-LEAD Routine 07/08/2025 SVT (supraventricular tachycardia) MAMMO DIAGNOSTIC DIGITAL TOMOSYNTHESIS LEFT W CAD Routine 01/15/2025 8:49 AM EDT Abnormal mammogram from Last 3 Months or Most Recently Relevant to Health Maintenance Results * ECG 12-LEAD (07/08/2025) Narrative 07/08/2025 [...] were not included. Cardiac Electrophysiology Outpatient Note [facility] Office Visit Roseline Peraza [id number] 07/08/2025 Primary Care Physician: Valentín Juarez MD [...] 5 days prior;Surgeon: John Villafana MD; Location: [facility] LOCATION;Service: Cardiovascular; Laterality: N/A; OTHER SURGICAL [...] PROTIME No results found for: TSH , W7BVLOH , V9OWCGT , THYROIDAB I personally viewed and interpreted [...] questions orconcerns. Esequiel Norris PA-C Cardiac Electrophysiology [facility] us Esequiel Norris PA-C ECG ORDERABLES Final Result * Mammo Diagnostic Digital Tomosynthesis Left With [...] of concern indicated by the patient. A [place]ai[place] marker is placed over a visible skin [...] of concern indicated by the patient. A [place] marker is placed over a visible skin lesion. A linear marker indicates a scar. _ Physician Order Diagnostic 6 Month follow up Mammogram with Breast Ultrasound if needed. Diagnosis: Abnormal Mammogram 01/15/2025 10:[address] Maty Brwonlee MD on Maty Brownlee MD IM MAMMOGRAPHY ORDERABLES Fin al Result from Last 3 Months or Most Recently Relevant to Health Maintenance Insurance [facility] MEDICARE ADVANTAGE PPO Advance Directives * CPR (Attempt to Resuscitate) (Latest Code Status on File) Date Activated Date Inactivated Comments 05/23/2025 7:40 PM 05/24/2025 11:11 AM Question Answer Comments Code Status (Patient has no pulse and is not breathing): CPR (Attempt to Resuscitate) Medical Interventions (Patie nt has pulse or is breathing): Full Support Care Teams Cargo Surveyor Relationship Specialty Start Date End Date Valentín Juarez MD [address] [facility] [address] [place] [id number] PCP - General Family Medicine 06/14/16
--- OUTSIDE RECORDS SUMMARY | 2025-09-04 12:13 | XMS_ITS | Encounter Summary ---
Author Organization [facility] Address [address] [place] [address] Care Team Providers Care Manager Pulmonary Name Role Phone Valentín Juarez MD Primary Care Provider Encounter Details Date Type Department Care Team (Latest Contact Info) Description 07/08/2025 Travel Social History Tobacco Use Types Packs/Day [...] as of this encounter Plan of Treatment Upcoming Encounters Date Type Department Care Team (Late st Contact Info) Description 07/21/2026 11:15 AM EDT Office Visit [facility] C[facility] [address] [facility] [address] [place] [phone] John Villafana MD [address] [facility] [address] [place] [address] documented as of this encounter Visit Diagnoses Not on filedocumented in this encounter Care Teams Manager Pulmonary Relationship Specialty Start Date End Date Valentín Juarez MD [address] [facility] [address] [facility] [address] PCP - General Family Medicine 06/14/16 documented as of this encounter
--- OUTSIDE RECORDS SUMMARY | 2025-09-04 12:14 | XMS_ITS | Patient Health Record ---
Author Organization [facility] Address [address] [place] [id number] Care Team Providers Care Rework Operator Name Role Phone Enmanuel Walton Primary Care Provider [phone] Ellen Juarez Unavailable [phone] Merary Sparrow Unavailable [phone] Allergies Allergen (clinical drug ingredient) Drug/Non Drug [...] Active Results Component Value Reference Range Notes P-Basic Metabolic Panel (BMP ) Reviewed date:12/02/2024 10:07:21 AM Interpretation:bun 26, Cr 1.08 Performing Lab: Notes/Report: Test performed by [facility], [facility] , [address], [place] [address] Ermias Ibarra MD, Digital Circuit Designer CLIA: [id number] Sodium 143 135-145 mmol/L Potassium 4.6 3.5-5.3 mmol/L Chloride 107 97-108 mmol/L CO2 25 22-32 mmol/L Glucose 89 65-99 mg/dL BUN 26 6-20 mg/dL Creatinine 1.08 0.50-1.00 mg/dL Calcium 9.5 8.6-10.4 mg/dL eGFR by Creatinine 60 >59 mL/min/1.73m2 Mammogram, Bilateral Diagnos tic Reviewed date:12/14/2024 05:16:49 PM Interpretation: Performing Lab: Notes/Report: Glycohemoglobin A1c (in hous e) Reviewed date:10/03/2024 09:31:07 AM Interpretation:5.5% Performing Lab: Notes/Report: 5.5% glycohemoglobin 5.5% 5 - 6.5 % P-CBC With Platelet And Diff erential Reviewed date:10/03/2024 09:31:07 AM Interpretation:eosin 8.4 Performing Lab: Notes/Report: Test performed by [facility] [address] [place] [address] , [address], [place] [address] Ermias Ibarra MD, Digital Circuit Designer CLIA: [id number] WBC 9.1 3.8-11.5 K/uL Red Blood Cell [...] 43 Performing Lab: Notes/Report: Test performed by [facility] [address] [place] [address] , [address], [place] [address] Ermias Ibarra MD, Digital Circuit Designer CLIA: [id number] Sodium 140 135-145 mmol/L Potassium 4.9 3.5-5.3 [...] Interpretation:Normal Performing Lab: Notes/Report: Test performed by [facility], [address] , [address], [place] [address] Ermias Ibarra MD, Digital Circuit Designer CLIA: [id number] Cholesterol 190 <200 mg/dL Triglycerides 121 <150 [...] Interpretation:Normal Performing Lab: Notes/Report: Test performed by [facility] [address] [place] [address] , [place] [address] Ermias Ibarra MD, Digital Circuit Designer CLIA: [id number] TSH 0.54 0.43-5.25 mU/L P-Vitamin D 25-Hydroxy Reviewed date:10/03/2024 09:31:07 AM Interpretation:Normal Performing Lab: Notes/Report: Test performed by [facility] [address] [place] [address] , [place] [address] Ermias Ibarra MD, Digital Circuit Designer CLIA: [id number] Vitamin D 25-Hydroxy 62.0 30.0-100.0 ng/mL Interpretation of Vitamin D 25 OH: < 20 ng/mL - Deficiency 20 - 29 ng/mL - Insufficiency 30 - 100 ng/mL - Sufficiency > 100 ng/mL - Super-therapeutic- toxicity may occur above this level. Clinical correlation required. RBC Morphology, Hematology Reviewed date:10/03/2024 09:31:07 AM Interpretation: Performing Lab: Notes/Report: Test performed by [facility] [address] [place], [place] [address] [address] , [place] [address] Ermias Ibarra MD, Digital Circuit Designer CLIA: [id number] Polychromasia Slight Microcytosis Slight Anisocytosis Slight Platelet Slide Review Normal P-Comprehensive Metabolic Pa brad (CMP) Reviewed date:03/25/2025 02:45:41 PM Interpretation:GFR 59 Performing Lab: Notes/Report: Test performed by [facility] [address] [place] [address] , [address], [place] [address] Ermias Ibarra MD, Digital Circuit Designer CLIA: [id number] Sodium 143 135-145 mmol/L Potassium 4.6 3.5-5.3 [...] 72 Performing Lab: Notes/Report: Test performed by [facility] [address] [place] [address] , [address], [place] [address] Ermias Ibarra MD, Digital Circuit Designer CLIA: [id number] Cholesterol 160 <200 mg/dL Triglycerides 94 <150 [...] Interpretation:1.62 Performing Lab: Notes/Report: Test performed by [facility], [address] , [place] , [place] [address] Ermias Ibarra MD, Digital Circuit Designer CLIA: [id number] TSH 1.62 0.43-5.25 mU/L Medications Medication SIG (Take, Route, Frequency, Duration) Notes Start Date End Date Status oxyCODONE HCl 5 MG 1 tab(s) orally thre e times a day as needed Active Potassium Chloride ER 10 MEQ TAKE 1 CAPSULE BY MOUTH DAILY WITH FOOD; Duration: 90 Active Bisoprolol Fumarate 2.5 MG 1 tablet Oral ly Once a day; Duration: 30 days Active Vitamin D3 125 MCG (5000 UT) 1 cap(s) orally once a day 04/01/2014 Active B-12 1000 MCG 1 tab(s) orally once a day 04/01/2014 Active Aspirin 81 MG 1 tab(s) orally once a day Active Maxalt-POTTERY DECORATOR 10 MG 1 tab(s) orally once a day, may repeat Q2h x2 Active Ibuprofen 800 MG 1 tab(s) orally 3 times a day Not-Taking Ventolin HFA 108 (90 Base) MCG/ACT 1 puff as needed Inhalation four times a day as needed 01/25/2024 Active Promethazine HCl 25 MG 1 tablet as neede d Orally q6h prn Active Triamterene-HCTZ 37.5-25 MG 1/2 tab(s) orally once a day Active Venlafaxine HCl ER 150 MG 1 capsule with food Orally Once a day; Duration: 90 days Active Azelastine HCl 0.05 % 1 drop into affect ed eye Ophthalmic Twice a day 05/20/2025 Active Atorvastatin Calcium 40 MG 1 tab(s) Oral ly At Bed Time; Duration: 90 days Active Esomeprazole Magnesium 40 MG take 1 capsule by mouth every day Orally Once a day; Duration: 90 days Active Levothyroxine Sodium 100 MCG 1 tab(s) Orally once a day; Duration: 90 days Active Immunizations Vaccine Route Administration Date Status [...] Intramuscular 11/29/2005 Administered Morphine 10mg/ml IM Intramuscular 07/12/2007 Administered Morphine 10mg/ml IM Intramuscular 08/14/2007 Administered Morphine 10mg/ml IM Intramuscular 09/12/2007 Administered Morphine 10mg/ml IM Intramuscular 10/09/2007 Administered Morphine 10mg/ml IM Intramuscular 11/09/2007 Administered Morphine 10mg/ml IM Intramuscular 11/29/2007 Administered Morphine 10mg/ml IM Intramuscular 06/22/2006 Administered Morphine 10mg/ml IM Intramuscular 07/01/2006 Administered Morphine 10mg/ml IM Intramuscular 07/21/2006 Administered Morphine 10mg/ml IM Intramuscular 08/04/2006 Administered Morphine 10mg/ml IM Intramuscular 08/18/2006 Administered Morphine 10mg/ml IM Intramuscular 09/21/2006 Administered Morphine 10mg/ml IM Intramuscular 03/28/2006 Administered Morphine 10mg/ml IM Intramuscular 04/17/2006 Administered Morphine 10mg/ml IM Intramuscular 05/02/2006 Administered Morphine 10mg/ml IM Intramuscular 05/16/2006 Administered Morphine 10mg/ml IM Intramuscular 05/30/2006 Administered Morphine 10mg/ml IM Intramuscular 06/09/2006 Administered Morphine 10mg/ml IM Intramuscular 12/26/2005 Administered Morphine 10mg/ml IM Intramuscular 01/03/2006 Administered Morphine 10mg/ml IM Intramuscular 01/16/2006 Administered Morphine 10mg/ml IM Intramuscular 02/13/2006 Administered Morphine 10mg/ml IM Intramuscular 02/28/2006 Administered Morphine 10mg/ml IM Intramuscular 03/27/2006 Administered Problems Problem Type SNOMED Code ICD Code Onset Dates Problem Status W/U Status Risk Notes Problem Hypothyroidism (33536272) Hypothyroidism (acquired) (E03.9) Active confirmed Problem Chronic renal insufficiency (907429623) Chronic renal insufficiency (N18.9) Active confirmed Problem Morbid obesity (566304953) Morbid obesity (E66.01) Active confirmed Problem Osteopenia (050166799) Osteopenia (M85.80) Active confirmed Problem Personal history of primary malignant neoplasm of breast (976842705) History of breast cancer (Z85.3) Active confirmed Problem Raised antinuclear antibody (909528266) Positive DARLINE (antinuclear antibody) (R76.8) Active confirmed Problem Basal cell carcinoma (1668899) Basal cell carcinoma (C44.91) Active confirmed Problem Severe depressed bipolar I disorder without psychotic features (02073922) Bipolar disorder, current episode depressed, severe, without psychotic features (F31.4) Active confirmed Problem Chronic intractable migraine without aura (622737492675406) Chronic migraine without aura, intractable, with status migrainosus (G43.711) Active confirmed Problem Chronic pain syndrome (187802305) Chronic pain syndrome (G89.4) Active confirmed Problem Chronic migraine (324637035) Chronic migraine (G43.709) Active confirmed Problem Depressive disorder (65044799) Depressive disorder (F32.9) Active confirmed Problem Gastroesophageal reflux disease without esophagitis (635621709) Gastroesophageal reflux disease without esophagitis (K21.9) Active confirmed Problem Acquired hypothyroidism (652026287) Acquired hypothyroidism (E03.9) Active confirmed Problem Hypothyroidism (23522635) Hypothyroidism (E03.9) Active confirmed Problem Headache (84278735) Periodic hea dache syndrome, 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) Active confirmed Problem Rheumatoid arthritis (09990305) Rheumatoid arthritis (M06.9) Active confirmed Problem Osteoarthritis of knee (030310549) Primary osteoarthritis of right knee (M17.11) Active confirmed Problem Calcaneal spur of left foot (620088351291389) Calcaneal spur of left foot (M77.32) Active confirmed Problem Body mass index 40+ - morbidly obese (735209812) BMI 40.0-44.9, adult (Z68.41) Active confirmed Problem Postoperative hypothyroidism (49096425) Postoperative hypothyroidism (E89.0) Active confirmed Problem Nephrolithiasis (79114897) Nephrolithiasis (N20.0) Active confirmed Problem Migraine variant with headache (disorder) (514446670) Migraine headache (G43.909) Active confirmed Problem Refractory migraine without aura (903860618) Intractable migraine without aura and with status migrainosus (G43.011) Active confirmed Problem Dyslipidemia (266132521) Dyslipidemia (E78.5) Active confirmed Problem Essential hypertension (36980749) Essential hypertension with goal blood pressure less than 130\/80 (I10) Active confirmed Problem Mj's thyroiditis (23530286) 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) Active confirmed Problem Pain of left breast (0669396762) Pain of left breast (N64.4) Active confirmed Problem Refractory migraine (856082560) Intractable migraine with status migrainosus, unspecified migraine type (G43.911) Active confirmed Problem History of malignant neoplasm of thyroid (295784228) History of thyroid cancer (Z85.850) Active confirmed Problem Personal history of primary malignant neoplasm of breast (197711364) History of breast cancer in adulthood (Z85.3) Active confirmed Problem Basal cell carcinoma (BCC) of skin of breast, unspecified laterality (C44.511) Active confirmed Vital Signs Heart Rate 100 /min 09/04/2025 Blood pressure diastolic 80 mm Hg 09/04/2025 Height 65 in 09/04/2025 Blood pressure systolic 128 mm Hg 09/04/2025 Weight 264 lbs 09/04/2025 BMI 43.93 kg/m2 09/04/2025 Encounters Encounter Location Date Provider Diagnosis [facility] [address] [place] [id number] 09/10/2024 R Steve Juarez Intractable migraine without aura and with status migrainosus G43.011 [facility] [address] [place] [id number] 10/01/2024 Ellen Juarez Adult general medica l examination Z00.00 ; [...] cancer Z85.850 and BMI 40.0-44.9, adult Z68.41 [facility] [address] [place] [id number] 11/26/2024 Merary Sparrow Essential hypertensi on with [...] History of breast cancer in adulthood Z85.3 [facility] [address] [place] [id number] 12/10/2024 R Steve Larry Migraine headache G43.909 ; Chronic renal insufficiency N18.9 and Leg edema R60.[address] [facility] [address] [place] [id number] 12/17/2024 R Steve Larry Intractable migraine without aura and with status migrainosus G43.011 [facility] [address] [id number] 02/04/2025 R Steve Larry Migraine headache G43.909 ; BMI 40.0-44.9, adult Z68.41 and Morbid obesity E66.[address] [facility] [address] [id number] 03/20/2025 R Steve Larry Hypothyroidism E03.9 ; Dyslipidemia E78.5 and Migraine headache G43.[address] [facility] [address] [place] [id number] 03/31/2025 Merarymaverick Sparrow Candidiasis of breas t B37.89 [facility] [address] [place] [id number] 04/15/2025 R Steve Larry Intractable migraine without aura and with status migrainosus G43.011 [facility] [address] [place] [id number] 05/20/2025 R Steve Larry Chronic migraine wit hout aura, intractable, with status migrainosus G43.711 ; Conjunctivitis H10.9 and Rheumatoid arthritis M06.9 [facility] [address] [facility] [address] [place] [id number] 06/03/2025 Merary Sparrow Encounter for examination and observation for other specified reasons Z04.89 [facility] [address] [facility] [address] [place], [place] [id number] 06/17/2025 R Steve Larry Intractable migraine without aura and with status migrainosus G43.011 [facility] [address] [facility] [address] [place] [id number] 07/17/2025 R Steve Larry Bipolar disorder, current episode depressed, severe, without psychotic features F31.4 ; Periodic headache syndrome, not intractable G43.C0 and Rheumatoid arthritis M06.9 [facility] [address] [facility] [address] [place], [place] [id number] 09/04/2025 R Steve Larry Intractable migraine without aura and with status migrainosus G43.011 ; Postoperative hypothyroidism E89.0 and Dyslipidemia E78.5 [facility] [address] [facility] [address] [place], [place] [id number] 10/03/2024 R Steve Larry [facility] [address] [facility] [address] [place] [id number] 11/26/2024 Merary Sparrow [facility] [address] [facility] [address] [place] [id number] 12/02/2024 Merary Sparrow [facility] [address] [facility] [address] [place] [id number] 03/25/2025 R Steve Larry [facility] [address] [facility] [address] [place], [place] [id number] 06/05/2025 Enmanuel Walton Assessments Encounter Date Diagnosis (ICD Code) Assessment Notes Treatment Notes Treatment Clinical Notes Section Notes 09/10/2024 Intractable migraine without aura and with status migrainosus (ICD-10 - G43.011) To [facility] outpt for Morphine 2mg and Phenergan 25 [...] with status migrainosus (ICD-10 - G43.011) To [facility] outpt for Morphine 2mg and Phenergan 25 [...] with status migrainosus (ICD-10 - G43.011) To [facility] outpt for Morphine 2mg and Phenergan 25 [...] with status migrainosus (ICD-10 - G43.011) To [facility] outpt for Morphine 2mg and Phenergan 25 mg IM To [facility] outpt for Morphine 2mg and Phenergan 25 mg IM 07/17/2025 Bipolar disorder, current episode depressed, severe, without psychotic features (ICD-10 - F31.4) 07/17/2025 Periodic headache syndrome, not intractable (ICD-10 - G43.C0) 09/04/2025 Intractable migraine without aura and with status migrainosus (ICD-10 - G43.011) To [facility] outpt for Morphine 2mg and Phenergan 25 mg IM To [facility] outpt for Morphine 2mg and Phenergan 25 mg IM 07/17/2025 Rheumatoid arthritis (ICD-10 - M06.9) 09/04/2025 Postoperative hypothyroidism (ICD-10 - E89.0) 05/20/2025 Rheumatoid arthritis (ICD-10 - M06.9) 03/20/2025 Migraine headache (ICD-10 - G43.909) 02/04/2025 Morbid obesity (ICD-10 - E66.01) 12/10/2024 Leg edema (ICD-10 - R60.0) 11/26/2024 Headache (ICD-10 - R51) 10/01/2024 Postoperative hypothyroidism (ICD-10 - E89.0) 10/01/2024 Dyslipidemia (ICD-10 - E78.5) 11/26/2024 Hypokalemia (ICD-10 - E87.6) 09/04/2025 Dyslipidemia (ICD-10 - E78.5) 11/26/2024 Bipolar disorder, current episode depressed, severe, without psychotic features (ICD-10 - F31.4) 10/01/2024 Intractable migraine without aura and with status migrainosus (ICD-10 - G43.011) To [facility] outpt for Morphine 2mg and Phenergan 25 [...] H-CMP 08/30/2021 H-CMP 11/08/2021 H-T4 free 08/30/2021 P-Comprehensive Metabolic Panel (CMP) P-Lipid Panel 09/04/2025 P-TSH 09/04/2025 Next Appt Details Provider Name:Ellen Shetty, 09/04/2025 11:15:00 AM, [address] [facility], [address], [place], [place], [id number], Insurance Providers Payer Name Payer Address Payer Phone Subscriber Number Group Number Insured Name Patient Relationship to Insured Coverage Start Date Coverage End Date [employer] (MEDICAR E) [address] [address] [place] [phone] [id number] Roseline Peraza Self - patient is the insured Medications [...] 2 mg Morphine 03/25/2008 2 mg Morphine 07/28/2017 2 mg Morphine 08/29/2017 2 mg Morphine 09/18/2017 2 mg Morphine 09/29/2017 2 mg Morphine 10/30/2017 2 mg Morphine 03/23/2017 2 mg Morphine 04/11/2017 2 mg Morphine 05/11/2017 2 mg Morphine 06/15/2017 2 mg Morphine 06/26/2017 2 mg Morphine 07/19/2017 2 mg Morphine 10/26/2016 2 mg Morphine 11/18/2016 2 mg Morphine 11/21/2016 2 mg Morphine 01/05/2017 2 mg Morphine 02/02/2017 2 mg Morphine 02/23/2017 2 mg Morphine 07/14/2016 2 mg Morphine 08/04/2016 2 mg Morphine 08/19/2016 2 mg Morphine 09/02/2016 2 mg Morphine 09/08/2016 2 mg Morphine 09/28/2016 2 mg Morphine 04/22/2016 2 mg Morphine 04/29/2016 2 mg Morphine 05/26/2016 2 mg Morphine 06/24/2016 2 mg Morphine 07/04/2016 2 mg Morphine 07/06/2016 0.2 mg Morphine 11/05/2015 2 mg Morphine 11/10/2015 2 mg Morphine 12/04/2015 2 mg Morphine 12/22/2015 2 mg Morphine 01/15/2016 2 mg Morphine 02/19/2016 2 mg Morphine 05/25/2015 2 mg Morphine 07/03/2015 2 mg Morphine 07/06/2015 2 mg Morphine 08/07/2015 2 mg Morphine 09/10/2015 2 mg Morphine 09/16/2015 2 mg Morphine 01/16/2015 2 mg Morphine 02/13/2015 2 mg Morphine 02/20/2015 2 mg Morphine 03/12/2015 2 mg Reported per A G Morphine 03/20/2015 2 mg Morphine 05/01/2015 2 mg Morphine 10/17/2014 2 mg reported to [facility] Morphine 11/11/2014 2 mg Morphine 11/25/2014 2 mg Morphine 11/27/2014 2 mg Morphine 12/24/2014 2 mg Morphine 01/02/2015 2 mg Morphine 07/28/2014 2 mg Shot reported Morphine 08/12/2014 .2 mg Morphine 08/15/2014 2 mg shot reported- [facility] Morphine 09/05/2014 2 mg reported to [facility] 09/04/14 Morphine 09/15/2014 2 mg Documented/Rec orde d on [facility] Morphine 10/10/2014 2 [facility] Morphine 04/18/2014 2 mg Morphine 05/16/2014 2 mg Morphine 05/29/2014 2 mg Morphine 06/06/2014 2 mg Morphine 06/30/2014 2 mg Morphine 07/04/2014 2 mg Morphine 01/17/2014 2 mg Reported to [facility] Morphine 01/17/2014 Reported by [facility] Morphine 02/07/2014 2 mg Reported, 02-07-14 Morphine 02/11/2014 2 mg Morphine 02/28/2014 2 mg injection reported-[facility] Morphine 03/18/2014 2 mg Morphine 10/04/2013 [facility] 10/18/2013 2 mg Reported to [facility] Morphine 10/29/2013 2 [facility] 11/19/2013 2 mg Reported to [facility] Morphine 11/20/[address] [facility] Morphine 12/13/2013 1 mg Morphine 06/13/2013 2 mg Morphine 06/19/2013 Morphine 07/23/2013 2 mg Morphine 08/08/2013 2 mg Morphine 08/23/2013 2 mg Morphine 09/04/2013 2 mg Reported to [facility] Morphine 03/01/2013 Morphine 03/11/2013 2 mg Morphine 03/14/2013 2 mg Morphine 04/09/2013 2 mg Morphine 05/06/2013 2 mg Morphine 05/24/2013 2 mg Morphine 10/19/2012 Morphine 11/07/2012 2 mg Morphine 12/11/2012 2 mg Morphine 12/19/2012 Morphine 01/18/2013 2 mg Morphine 01/28/2013 Morphine 07/31/2012 Morphine 08/24/2012 2 mg Morphine 08/28/2012 Morphine 09/17/2012 Morphine 10/05/2012 Morphine 10/15/2012 Morphine 05/18/2012 Morphine 05/29/2012 Morphine 06/08/2012 Morphine 06/12/2012 Morphine 06/29/2012 Morphine 07/18/2012 Morphine 11/03/2011 2 mg Morphine 03/07/2012 Morphine 03/23/2012 2 mg Morphine 04/13/2012 2 mg Morphine 04/23/2012 Morphine 04/25/2012 Morphine 08/20/2011 2 mg Morphine 08/31/2011 1 mg Morphine 09/12/2011 2 mg Morphine 09/30/2011 2 mg Morphine 10/24/2011 2 mg Morphine 11/01/2011 2 mg Morphine 07/04/2011 Morphine 07/12/2011 2 mg Morphine 07/22/2011 Morphine 07/25/2011 Morphine 08/03/2011 3mg mL Morphine 08/09/2011 Morphine 05/11/2011 Morphine 05/17/2011 Morphine 06/11/2011 2 mL Morphine 06/14/2011 Morphine 06/15/2011 Morphine 06/23/2011 2 mg Morphine 03/30/2011 2 mg Morphine 04/08/2011 2 mg Morphine 04/13/2011 Morphine 04/26/2011 Morphine 04/27/2011 Morphine 05/02/2011 Morphine 01/05/2011 2 mg Morphine 01/12/2011 2 mg Morphine 02/15/2011 2 mg Morphine 02/22/2011 2 mg Morphine 03/09/2011 2 mg Morphine 03/14/2011 2 mg Morphine 10/21/2010 2 mg Morphine 11/03/2010 2 mL Morphine 11/17/2010 2 mg Morphine 11/23/2010 2 mg Morphine 12/06/2010 2 mg Morphine 12/10/2010 2 mg Morphine 08/13/2010 3 mg Morphine 08/23/2010 3 mg Morphine 09/01/2010 3 mL Morphine 09/20/2010 2 mg Morphine 09/27/2010 2 mg Morphine 10/13/2010 2 mg Morphine 06/23/2010 4 mg Morphine 06/28/2010 4 mg Morphine 07/14/2010 Morphine 07/23/2010 4 mg Morphine 08/02/2010 2 mg Morphine 08/11/2010 3 mg Morphine 04/01/2010 3 mg Morphine 05/13/2010 2 mg Morphine 05/20/2010 3 mg Morphine 05/28/2010 3 mg Morphine 06/11/2010 2 mg Morphine 06/22/2010 2 mg Morphine 01/13/2010 2 mg Morphine 01/20/2010 2 mg Morphine 02/02/2010 2 mg Morphine 02/05/2010 5 mg Morphine 02/11/2010 2MG Morphine 03/16/2010 2 mg Morphine 09/01/2009 2 mg Morphine 10/01/2009 2 mg Morphine 10/21/2009 2MG Morphine 11/13/2009 3 mg Morphine 12/04/2009 4 mg Morphine 12/17/2009 2 mg Morphine 05/29/2009 5 mg Morphine 06/10/2009 5 mg Morphine 06/24/2009 2 mg Morphine 07/20/2009 2 mg Morphine 07/30/2009 2 mg Morphine 08/13/2009 2 mg Morphine 01/28/2009 2 mg Morphine 02/10/2009 2 mg Morphine 03/16/2009 2 mg Morphine 03/18/[address] Toribio Morphine 04/13/2009 4 mg Morphine 05/14/2009 5 mg Morphine 09/03/2008 2 mg Morphine 10/03/2008 2MG Morphine 10/22/2008 2 mg Morphine 11/03/2008 4 mg Morphine 11/14/2008 2 mg Morphine 12/03/2008 2 mg Morphine 04/18/2008 2 mg Morphine 05/09/2008 2 mg Morphine 05/30/2008 4 mg Morphine 06/20/2008 4 mg Morphine 07/15/2008 4 mg Morphine 08/13/2008 2 mg Phenergan 12.5 mgs. IM 04/13/2005 25 mg. Phenergan 12.5 mgs. IM 07/01/2005 25 mg Phenergan 12.5 mgs. IM 09/07/2005 25 mg Phenergan 12.5 mgs. IM 01/16/2006 25 mg Phenergan 12.5 mgs. IM 05/16/2006 25 mg Phenergan 12.5 mgs. IM 07/21/2006 25 mg Phenergan 12.5 mgs. IM 07/06/2016 12.5 mg Sh ot reported Phenergan 12.5 mgs. IM 10/26/2016 12.5 mL Phenergan 12.5 mgs. IM 09/18/2017 12.5 mg Phenergan 12.5 mgs. IM 02/20/2018 12.5 mg Phenergan 12.5 mgs. IM 04/09/2013 12.5 Phenergan 12.5 mgs. IM 05/06/2013 12.5 mg Phenergan 12.5 mgs. IM 03/12/2015 1 mL Phenergan 12.5 mgs. IM 05/25/2015 12.5 mg Phenergan 12.5 mgs. IM 08/07/2015 12.5 mg Phenergan 12.5 mgs. IM 05/26/2016 12.5 mg Phenergan 12.5 mgs. IM 08/04/2006 25 mg Phenergan 12.5 mgs. IM 08/18/2006 25 mg Phenergan 12.5 mgs. IM 09/21/2006 25 mg Phenergan 12.5 mgs. IM 01/28/2009 12.5 mg Phenergan 12.5 mgs. IM 02/27/2013 12.5 Phenergan 12.5 mgs. IM 03/11/2013 phenergan 25 mg/ml 05/14/2005 1 mL phenergan 25 mg/ml 07/27/2005 0.5 mL phenergan 25 mg/ml 10/11/2005 1 mL phenergan 25 mg/ml 10/28/2005 1 mL phenergan 25 mg/ml 11/29/2005 25 mg phenergan 25 mg/ml 12/26/2005 25 mg phenergan 25 mg/ml 09/29/2017 25 mg phenergan 25 mg/ml 10/30/2017 25 mg phenergan 25 mg/ml 11/08/2017 phenergan 25 mg/ml 11/30/2017 25 mg phenergan 25 mg/ml 12/27/2017 25 mg phenergan 25 mg/ml 11/28/2018 1 mL phenergan 25 mg/ml 05/11/2017 25 mg phenergan 25 mg/ml 06/15/2017 25 mg phenergan 25 mg/ml 06/26/2017 25 mg phenergan 25 mg/ml 07/19/2017 phenergan 25 mg/ml 07/28/2017 25 mg phenergan 25 mg/ml 08/29/2017 25 mg phenergan 25 mg/ml 11/21/2016 phenergan 25 mg/ml 01/05/2017 25 mg phenergan 25 mg/ml 02/02/2017 25 mg phenergan 25 mg/ml 02/23/2017 25 mg phenergan 25 mg/ml 03/23/2017 25 mg phenergan 25 mg/ml 04/11/2017 25 mg phenergan 25 mg/ml 08/04/2016 0.25 mL phenergan 25 mg/ml 08/19/2016 25 mL phenergan 25 mg/ml 09/02/2016 1 phenergan 25 mg/ml 09/08/2016 25 mg phenergan 25 mg/ml 09/28/2016 1 mL phenergan 25 mg/ml 11/18/2016 1 mL phenergan 25 mg/ml 02/19/2016 1 mL phenergan 25 mg/ml 04/22/2016 25 mg 25 mg Im phenergan 25 mg/ml 04/29/2016 25 mg phenergan 25 mg/ml 06/24/2016 25 mg phenergan 25 mg/ml 07/04/2016 1 mL phenergan 25 mg/ml 07/14/2016 25 mg phenergan 25 mg/ml 09/16/2015 25 mg phenergan 25 mg/ml 11/05/2015 1 mL phenergan 25 mg/ml 11/10/2015 25 mg phenergan 25 mg/ml 12/04/2015 25 mg phenergan 25 mg/ml 12/22/2015 25 mg phenergan 25 mg/ml 01/15/2016 25 mg phenergan 25 mg/ml 02/20/2015 25 mg phenergan 25 mg/ml 03/20/2015 25 mg phenergan 25 mg/ml 05/01/2015 25 mg phenergan 25 mg/ml 07/03/2015 25 mg phenergan 25 mg/ml 07/06/2015 25 mg phenergan 25 mg/ml 09/10/2015 25 mg phenergan 25 mg/ml 11/25/2014 25 mg phenergan 25 mg/ml 11/27/2014 25 mg phenergan 25 mg/ml 12/24/2014 1 mL phenergan 25 mg/ml 01/02/2015 25 mg phenergan 25 mg/ml 01/16/2015 1 mL phenergan 25 mg/ml 02/13/2015 1 mL phenergan 25 mg/ml 08/15/2014 25 mg phenergan 25 mg/ml 09/05/2014 25 mg phenergan 25 mg/ml 09/15/2014 25 mg phenergan 25 mg/ml 10/10/2014 25 mg phenergan 25 mg/ml 10/17/2014 25 mg phenergan 25 mg/ml 11/11/2014 1 uL phenergan 25 mg/ml 05/29/2014 1 mL phenergan 25 mg/ml 06/06/2014 25 mg phenergan 25 mg/ml 06/30/2014 1 mL phenergan 25 mg/ml 07/04/2014 25 mg phenergan 25 mg/ml 07/28/2014 25 mg phenergan 25 mg/ml 08/12/2014 25 mg phenergan 25 mg/ml 02/07/2014 1 mL phenergan 25 mg/ml 02/11/2014 25 mg Shot h as been reported FW phenergan 25 mg/ml 02/28/2014 25 mg phenergan 25 mg/ml 03/18/2014 1 mL phenergan 25 mg/ml 04/18/2014 25 mg phenergan 25 mg/ml 05/16/2014 25 mg phenergan 25 mg/ml 10/29/2013 25 mg phenergan 25 mg/ml 11/19/2013 25 mg phenergan 25 mg/ml 11/20/2013 1 mL phenergan 25 mg/ml 12/13/2013 25 mg phenergan 25 mg/ml 01/17/2014 25 mg phenergan 25 mg/ml 01/17/2014 25 mg phenergan 25 mg/ml 08/08/2013 1 mL phenergan 25 mg/ml 08/23/2013 25 mg phenergan 25 mg/ml 09/04/2013 25 mg phenergan 25 mg/ml 10/04/2013 25 mg phenergan 25 mg/ml 10/16/2013 1 mL phenergan 25 mg/ml 10/18/2013 25 mg phenergan 25 mg/ml 03/14/2013 25 mg phenergan 25 mg/ml 04/03/2013 1 mL phenergan 25 mg/ml 05/24/2013 25 mg phenergan 25 mg/ml 06/13/2013 1 mL phenergan 25 mg/ml 06/19/2013 phenergan 25 mg/ml 07/23/2013 25 mg phenergan 25 mg/ml 12/11/2012 25 mg phenergan 25 mg/ml 12/19/2012 1 mL phenergan 25 mg/ml 01/18/2013 25 mg phenergan 25 mg/ml 01/28/2013 phenergan 25 mg/ml 02/13/2013 phenergan 25 mg/ml 03/01/2013 25 mg phenergan 25 mg/ml 09/17/2012 1 mL phenergan 25 mg/ml 10/05/2012 phenergan 25 mg/ml 10/15/2012 .25 mL phenergan 25 mg/ml 10/19/2012 phenergan 25 mg/ml 11/07/2012 25 mg phenergan 25 mg/ml 11/13/2012 phenergan 25 mg/ml 06/29/2012 phenergan 25 mg/ml 07/05/2012 phenergan 25 mg/ml 07/18/2012 phenergan 25 mg/ml 07/31/2012 phenergan 25 mg/ml 08/24/2012 25 mg phenergan 25 mg/ml 08/28/2012 0.5 mL phenergan 25 mg/ml 04/25/2012 phenergan 25 mg/ml 05/08/2012 phenergan 25 mg/ml 05/18/2012 1 mL phenergan 25 mg/ml 05/29/2012 phenergan 25 mg/ml 06/08/2012 1 mL phenergan 25 mg/ml 06/12/2012 phenergan 25 mg/ml 11/30/2011 phenergan 25 mg/ml 01/10/2012 25 mg/ml phenergan 25 mg/ml 03/07/2012 phenergan 25 mg/ml 03/23/2012 phenergan 25 mg/ml 04/13/2012 25 mg phenergan 25 mg/ml 04/23/2012 25 mL phenergan 25 mg/ml 09/12/2011 25 mg phenergan 25 mg/ml 09/30/2011 1 mL phenergan 25 mg/ml 10/24/2011 phenergan 25 mg/ml 11/01/2011 1 mL phenergan 25 mg/ml 11/03/2011 1 mL phenergan 25 mg/ml 11/19/2011 1.0 phenergan 25 mg/ml 07/22/2011 phenergan 25 mg/ml 07/25/2011 phenergan 25 mg/ml 08/03/2011 25mg mg phenergan 25 mg/ml 08/09/2011 1 mL phenergan 25 mg/ml 08/20/2011 1 mL phenergan 25 mg/ml 08/31/2011 1 mL phenergan 25 mg/ml 06/11/2011 1 mL phenergan 25 mg/ml 06/14/2011 phenergan 25 mg/ml 06/15/2011 phenergan 25 mg/ml 06/23/2011 25 mg phenergan 25 mg/ml 07/04/2011 phenergan 25 mg/ml 07/12/2011 1 mL phenergan 25 mg/ml 04/13/2011 1 mL phenergan 25 mg/ml 04/26/2011 phenergan 25 mg/ml 04/27/2011 phenergan 25 mg/ml 05/02/2011 phenergan 25 mg/ml 05/11/2011 1 mL phenergan 25 mg/ml 05/17/2011 phenergan 25 mg/ml 01/12/2011 25 mg phenergan 25 mg/ml 02/22/2011 1 mL phenergan 25 mg/ml 03/09/2011 25 mg phenergan 25 mg/ml 03/14/2011 25 mg phenergan 25 mg/ml 03/30/2011 25 mg phenergan 25 mg/ml 04/08/2011 25 mg phenergan 25 mg/ml 11/03/2010 1 mL phenergan 25 mg/ml 11/17/2010 1 mL phenergan 25 mg/ml 11/23/2010 phenergan 25 mg/ml 12/06/2010 25 mg phenergan 25 mg/ml 12/10/2010 25 mg phenergan 25 mg/ml 01/05/2011 25 mg phenergan 25 mg/ml 08/23/2010 1 mL phenergan 25 mg/ml 09/01/2010 0.25 mL phenergan 25 mg/ml 09/20/2010 1 mL phenergan 25 mg/ml 09/27/2010 25 mg phenergan 25 mg/ml 10/13/2010 25 mg phenergan 25 mg/ml 10/21/2010 25 mg phenergan 25 mg/ml 06/23/2010 1 mL phenergan 25 mg/ml 07/14/2010 1 mL phenergan 25 mg/ml 07/23/2010 25 mg phenergan 25 mg/ml 08/02/2010 25 mg phenergan 25 mg/ml 08/11/2010 25 mg phenergan 25 mg/ml 08/13/2010 25 mg phenergan 25 mg/ml 04/01/2010 25 mg phenergan 25 mg/ml 05/13/2010 phenergan 25 mg/ml 05/20/2010 1 mL phenergan 25 mg/ml 05/28/2010 1 mL phenergan 25 mg/ml 06/11/2010 25 mg phenergan 25 mg/ml 06/22/2010 phenergan 25 mg/ml 01/20/2010 25 mg phenergan 25 mg/ml 02/02/2010 25 mg phenergan 25 mg/ml 02/05/2010 25 mg phenergan 25 mg/ml 02/11/2010 phenergan 25 mg/ml 02/24/2010 25 mg phenergan 25 mg/ml 03/16/2010 25 mg phenergan 25 mg/ml 10/01/2009 25 mg phenergan 25 mg/ml 10/21/2009 25MG phenergan 25 mg/ml 11/13/2009 25 mg phenergan 25 mg/ml 12/04/2009 25 mg phenergan 25 mg/ml 12/17/2009 25 mg phenergan 25 mg/ml 01/13/2010 25 mg phenergan 25 mg/ml 06/10/2009 25 mg phenergan 25 mg/ml 06/24/2009 25 mg phenergan 25 mg/ml 07/20/2009 25 mg phenergan 25 mg/ml 07/30/2009 25 mg phenergan 25 mg/ml 08/13/2009 1.0 mL phenergan 25 mg/ml 09/01/2009 25 mg phenergan 25 mg/ml 02/10/2009 1/2 ml phenergan 25 mg/ml 03/16/2009 25 mg phenergan 25 mg/ml 03/18/2009 25 phenergan 25 mg/ml 04/13/2009 25 mg phenergan 25 mg/ml 05/14/2009 25 mg phenergan 25 mg/ml 05/29/2009 25 mg phenergan 25 mg/ml 09/03/2008 25 mg phenergan 25 mg/ml 10/03/2008 25MG phenergan 25 mg/ml 10/22/2008 25 mg phenergan 25 mg/ml 11/03/2008 25 mg phenergan 25 mg/ml 11/14/2008 25 mg phenergan 25 mg/ml 12/03/2008 25 mg phenergan 25 mg/ml 04/18/2008 1 mL phenergan 25 mg/ml 05/09/2008 1 mL phenergan 25 mg/ml 05/30/2008 25 mg phenergan 25 mg/ml 06/20/2008 1 mL phenergan 25 mg/ml 07/15/2008 25 mg phenergan 25 mg/ml 08/13/2008 25 mg phenergan 25 mg/ml 12/28/2007 25 mg phenergan 25 mg/ml 01/08/2008 25 mg phenergan 25 mg/ml 01/25/2008 25 mg phenergan 25 mg/ml 02/13/2008 25 mg phenergan 25 mg/ml 03/11/2008 25 mg phenergan 25 mg/ml 03/25/2008 25 mg phenergan 25 mg/ml 07/31/2007 25 mg phenergan 25 mg/ml 08/14/2007 25 mg phenergan 25 mg/ml 09/12/2007 25MG phenergan 25 mg/ml 10/09/2007 25MG phenergan 25 mg/ml 11/09/2007 25 mg phenergan 25 mg/ml 11/29/2007 25MG phenergan 25 mg/ml 05/30/2006 25 mg phenergan 25 mg/ml 06/09/2006 25MG phenergan 25 mg/ml 06/22/2006 25MG phenergan 25 mg/ml 07/01/2006 phenergan 25 mg/ml 09/13/2006 1 mL phenergan 25 mg/ml 07/12/2007 25 mg phenergan 25 mg/ml 01/03/2006 25 mg phenergan 25 mg/ml 02/28/2006 phenergan 25 mg/ml 03/27/2006 25 mg phenergan 25 mg/ml 03/28/2006 25 mg phenergan 25 mg/ml 04/17/2006 25 mg phenergan 25 mg/ml 05/02/2006 phenergan 50mg/ml 02/13/2006 0.5 mL phenergan 50mg/ml 02/15/2011 1/2 ml Vistaril 50 mg 06/01/2006 50 mg Medical (General) History Medical History History ICD Code MVP Chronic Migraine, s/p Botox injections Asthma BI-Polar Thyroid Cancer uterine cancer breast cancer, Dx: January 2010 10/04/11 CT of sinuses, minimal changes le ft max sinus Kidney stone Allergy injections Follows at [facility] for her annual mammogram Declines flu shot [...] EP study with ablation of AVNRT 05/23-05/03 [facility] ER-migraine 10/22 [facility] ER - mirgraine Nov 2017 [facility] ER-Migraine 10/19 [facility] ER -Migraine 08/06/17 [facility]-Chest pain 10/23/16 [facility]- ER- Migraine 05/03/16 [facility] ER-Migraine 04/03/16 [facility] ER- Migraine 07/06/15 [facility] ER - Migraine [facility] Er-Migraines 01-17-15 [facility] ER-migraine 11/16 [facility]-ER migraine 10-19-14 [facility]-ER migraine -2013 [facility] ER-migraine 11/02/13 [facility] ER-migraine 09/13 [facility] ER - Migraine 05/12/12 [facility] ER- Migraine 09/26/11 [facility] ER-pt fell 01/04/11 [facility] ER-migraine 12-18-10 [facility] ER-migraine 05/19/10 [facility] ER-fell off a stool 10/17/09 abdominal pain 04/09/2009 [facility] ER-migraine 61/ [facility] ER-migraine/sunburn 02/09/09 [facility] ER migraine 12/18/08 ct scan [facility] on abdomen 10/22/08 stomach pain 10/18/08 [facility] ER migraine 08/31/08 [facility] ER migraine 10.08 [facility] dehydration 06/09 [facility] ER, migraine 09/13/08 [facility] ER, migraine 09/09/[facility] 07/07/07 for DHE treatment 07/03-12/2005 same as above
--- OUTSIDE RECORDS SUMMARY | 2025-09-04 12:14 | XMS_ITS ---
Author Organization [facility] Address [address] [place] [address] Care Team Providers Care Mobile Application Development Lead Name Role Phone Valentín Juarez MD [...] Kerma 2 mGy 0 mGy 2 mGy Fluoro Time 0.9 Minutes 0 Minutes 0.9 Minutes
[2025-09-04 12:24] VITALS: BP 145/92; PULSE 80; RESP 20; TEMP 36.4; O2SAT 98
[2025-09-04] MEDS: MORPHINE 2MG/ML SYRINGE 2 MG IM (12:24)
[2025-09-04] MEDS: PROMETHAZINE HCL 25MG/ML 1ML VIAL 25 MG IM (12:26)
== END 2025-09-04 23:59 | disposition home or self-care (01) ==
LOC: INF 12:05
PROVIDERS: PCP Family Medicine; Visit Provider Family Medicine
DX: Z04.89 Encounter for examination and observation for other specified reasons (principal); Z79.899 Other long term (current) drug therapy
CPT/HCPCS: 96372; J2270; J2550

== ENCOUNTER 2025-09-05 09:58 | Outpatient (CLI) | payer MEDICARE, SELFPAY ==
--- OUTSIDE RECORDS SUMMARY | 2024-12-24 04:30 | XMS_ITS ---
Author Organization [facility] Address [address] [place] [id number] Care Team Providers Care Geological Engineer Name Role Phone Enmanuel Walton Primary Care Provider Ellen Juarez [phone] Allergies Allergen (clinical drug ingredient) Drug/Non Drug [...] Encounter Location Date Provider Diagnosis [facility] [address] [facility] [address] [facility] [address] [facility] [address] [place] [phone] 12/24/2024 Ellen Juarez Plan Of Treatment No Information Progress Notes * YSABEL BayleeB:1970 ( 55 yo F)Acc No.[id number]:12/24/2024 Progress Notes Patient: Roseline SAVAGE Provider: Ellen Juarez M.D. :1970 A ge:54 Y S ex:Female Date:12/24/2024 Address:[address] [place] Pcp:Enmanuel Walton Subjective: * Chief Complaints: * 1 . Checkup. * HPI: H PI: 54 year old female presents with c/o Patient is here today for?Pt is here today for a check up. * ROS: C ARDIOLOGY: Positive for f hemant with cardiology who RF cardiac med.?no C hest pain. D ERMATOLOGY: no R chaim. n o H letty. G ASTROENTEROLOGY: no N ausea. n o V omiting. n o D iarrhea.? U ROLOGY: no D ifficulty urinating. n o B lood in urine. 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 migraine 07/07/07, [facility] ER, migraine 09/09/07, [facility] ER, migraine 09/13/08, [facility] dehydration 06/09, [facility] ER migraine 10.08, [facility] ER migraine 08/31/08, stomach pain 10/18/08, ct scan [facility] on abdomen 10/22/08, [facility] ER migraine 12/18/08, [facility] ER-migraine/sunburn 02/09/09, [facility] ER-migraine 615/, abdominal pain 04/09/2009, [facility] ER-fell off a stool 10/17/09, [facility] ER-migraine 05/19/10, [facility] ER-migraine 12-18-10, [facility] ER-pt fell 01/04/11, [facility] ER- Migraine 09/26/11, [facility] ER - Migraine 05/12/12, [facility] ER-migraine 09/13, [facility] ER-migraine 11/02/13, [facility]-ER migraine , [facility]-ER migraine 10-19-14, [facility] ER-migraine 11/16, [facility] Er-Migraines 01-17-15, [facility] ER - Migraine , [facility] ER- Migraine 07/06/15, [facility] ER-Migraine 04/03/16, [facility]- ER- Migraine 05/03/16, [facility]-Chest pain 10/23/16, [facility] ER -Migraine 08/06/17, [facility] ER-Migraine 10/19, [facility] ER - mirgraine Nov 2017, [facility] ER- migraine 10/22. * Family History: F [...] New since last visit: none. 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 Past smoking status: no, Smoking status: Does [...] Electronic signature of Ellen Juarez MD on 09/05/2025 at 10:06 AM EST Sign off status: Pending * Provider: Ellen Juarez M.D. Date: 0 12/24/2024 Generated for Ashutosh terry/Lucia/Nidhismitting on: 1 11/06/2024 10:06 AM EST History and Physical Notes * HPI (History of Present Illness) Category Sub-Category Detail Notes Category Not es HPI Patient is here today for Pt is here toda y for a check up
--- OUTSIDE RECORDS SUMMARY | 2025-02-04 10:00 | XMS_ITS ---
Author Organization [facility] Address [address] [place] [phone] Care Team Providers Care Search And Rescue Officer Name Role Phone Enmanuel Walton Primary Care Provider Ellen Juarez [phone] Allergies Allergen (clinical drug ingredient) Drug/Non Drug [...] or ally once a day 04/01/2014 Active Maxalt-SAW GRINDER 10 MG 1 tab(s) orally once a [...] W/U Status Risk Notes Problem Morbid obesity (810475829) Morbid obesity (E66.01) Active confirmed Vital Signs Blood pressure systolic 120 mm Hg 02/05/20 25 Blood pressure diastolic 80 mm Hg 025 Heart Rate 73 /min 02/04/2025 Height 65 in 02/04/2025 Weight 263.6 lbs 02/04/2025 BMI 43.86 kg/m2 02/04/2025 Encounters Encounter Location Date Provider Diagnosis [facility] [address] [phone] 02/04/2025 R Steve Juarez Migraine headache G43.909 ; BMI 40.0-44.9, [...] Appt Details Follow Up: 3 Months, Reason: Progress Notes * Christiane GRADY:1970 ( 55 yo F)Acc No.[id number]:02/04/2025 Progress Notes Patient: Roseline SAVAGE Provider: Ellen Juarez M.D. :1970 A ge:55 Y S ex:Female Date:02/04/2025 Address:[place], [id number] Pcp:Enmanuel Walton Subjective: * Chief Complaints: * [...] lood in urine. 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 migraine 07/07/07, [facility] ER, migraine 09/09/07, [facility] ER, migraine 09/13/08, H dehydration 06/09, [facility] ER migraine ., [facility] ER migraine 08/31/08, stomach pain 10/18/08, ct scan [facility] on abdomen 10/22/08, [facility] ER migraine 12/18/08, [facility] ER-migraine/sunburn 02/09/09, [facility] ER-migraine 6102/07, abdominal pain 04/09/2009, [facility] ER-fell off a stool 10/17/09, [facility] ER-migraine 05/19/10, [facility] ER-migraine 12-18-10, [facility] ER-pt fell 01/04/11, [facility] ER- Migraine 09/26/11, [facility] ER - Migraine 05/12/12, [facility] ER-migraine 09/13, [facility] ER-migraine 11/02/13, [facility]-ER migraine -2013, [facility]-ER migraine --, [facility] ER-migraine 11/16, [facility] Er-Migraines -, [facility] ER - Migraine 8, [facility] ER- Migraine 07/06/15, [facility] ER-Migraine 04/03/16, [facility]- ER- Migraine 05/03/16, [facility]-Chest pain 10/23/16, [facility] ER -Migraine 08/06/17, [facility] ER-Migraine 10/19, [facility] ER - mirgraine Nov 2017, [facility] ER- migraine 10/22. * Family [...] New since last visit: none. 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 Past smoking status: no, Smoking status: [...] tab(s) orally once a day , Taking Maxalt-SAW GRINDER 10 MG Tablet Disintegrating 1 tab(s) orally [...] 2 plus. Assessment: * Assessment: 1. B WI 40.0-44.9, adult - Z68.41 2 . M igraine headache - G43.909 ? 3 . M orbid obesity - E66.01 Plan: * Treatment: * Procedure Codes: G 2211 Complex e/m visit add on, 3074F SYST BP LT 130 MM HG, 3079F DIAST BP 80-89 MM HG * Follow Up: 3 Months * Images: Billing Information: * Visit Code: 31864 Office Visit, Est Pt., Level 3. * Procedure Codes: G2211 Complex e/m visit add on. 3074F SYST BP LT 130 MM HG. 3079F DIAST BP 80-89 MM HG. * Electronic signature of Ellen Juarez MD on 09/05/2025 at 10:08 AM EST Sign off status: Pending * Provider: Ellen Juarez M.D. Date: 0 02/04/2025 Generated for Maryi mara/Lucia/eTransmitting on: 11/06/2024 10:08 AM EST History and Physical Notes * [...]
--- OUTSIDE RECORDS SUMMARY | 2025-03-20 06:30 | XMS_ITS ---
Author Organization [facility] Address [address] [place] [id number] Care Team Providers Care Robotic Toy Inventor Name Role Phone Enmanuel Walton Primary Care Provider Ellen Juarez [phone] Allergies Allergen (clinical drug ingredient) Drug/Non Drug [...] estephanie ketorolac Ketorolac rash Drug Allergy Active Results Component Value Reference Range Notes P-Comprehensive Metabolic Pa brad (CMP) Reviewed date:03/25/2025 02:45:41 PM Interpretation:GFR 59 Performing Lab: Notes/Report: Test performed by [facility] , [address], [place] [address] Ermias Ibarra MD, Superannuation Funds Manager CLIA: [id number] Sodium 143 135-145 mmol/L Potassium 4.6 3.5-5.3 mmol/L Chloride 107 97-108 mmol/L CO2 23 22-32 mmol/L Glucose 86 65-99 mg/dL BUN 30 6-20 mg/dL Creatinine 1.09 0.50-1.00 mg/dL Calcium 9.4 8.6-10.4 mg/dL eGFR by Creatinine 59 >59 mL/min/1.73m2 Protein 6.5 6.0-8.3 g/dL Albumin 4.2 3.5-5.3 g/dL Alkaline Phosphatase 88 35-121 IU/L ALT (SGPT) 19 <5-47 IU/L AST (SGOT) 16 <5-40 IU/L Bilirubin, Total 0.4 <0.2-1.2 mg/dL A/G Ratio 1.8 1.1-2.5 P-Lipid Panel Reviewed date:03/25/2025 02:45:41 PM Interpretation:LDL 72 Performing Lab: Notes/Report: Test performed by [email or web address] [address] [place] [address] , [address], [place] [address] Ermias Ibarra MD, Superannuation Funds Manager CLIA: [id number] Cholesterol 160 <200 mg/dL Triglycerides 94 <150 mg/dL HDL Cholesterol 69 >39 mg/dL Cholesterol / HDL Ratio 2.32 0.00-4.44 Ratio Non-HDL Cholesterol 91 <130 mg/dL LDL Cholesterol (Calculation) 72 <130 mg/dL LDL Cholesterol Levels* Less than 100 mg/dL Optimal 100 to 129 mg/dL Near Optimal/ Above Optimal 130 to 159 mg/dL Borderline High 160 to 189 mg/dL High 190 mg/dL and above Very High * Categories as recommended by the 2004 ATPIII guidelines LDL/HDL Ratio 1.0 <3.3 Ratio LDL Cholesterol Patient History Test Date: 05/14/2024 LDL Results: 164 Units: mg/dL % Change: - Test Date: 10/01/2024 LDL Results: 102 Units: mg/dL % Change: -37% Test Date: 03/20/2025 LDL Results: 72 Units: mg/dL % Change: -29% P-TSH Reviewed date:03/25/2025 02:45:41 PM Interpretation:1.62 Performing Lab: Notes/Report: Test performed by [email or web address] [address] [place] [address] , [address], [place] [address] Ermias Ibarra MD, Superannuation Funds Manager CLIA: [id number] TSH 1.62 0.43-5.25 mU/L REASON FOR VISIT Check Up w/ Refills Medications Medication SIG (Take, Route, Frequency, Duration) Notes Start Date End Date Status Ventolin HFA 108 (90 Base) MCG/ACT 1 puff as needed Inhalation four times a day as needed 01/25/2024 Active Ibuprofen 800 MG 1 tab(s) orally 3 ti mes a day Active Promethazine HCl 25 MG 1 tablet as neede d Orally q6h prn Active Triamterene-HCTZ 37.5-25 MG 1/2 tab(s) o rally once a day Active Maxalt-PLATE SENSITIZER 10 MG 1 tab(s) orally once a day, may repeat Q2h x2 Active Aspirin 81 MG 1 tab(s) orally once a day Active B-12 1000 MCG 1 tab(s) orally once a day 04/01/2014 Active Esomeprazole Magnesium 40 MG take 1 caps ule by mouth every day Orally Once a day; Duration: 90 days Active Vitamin D3 125 MCG (5000 UT) 1 cap(s) or ally once a day 04/01/2014 Active Bisoprolol Fumarate 5 MG 1 tablet Orally Once a day; Duration: 30 day(s) Active oxyCODONE HCl 5 MG 1 tab(s) orally thre e times a day as needed 03/20/2025 Active Levothyroxine Sodium 100 MCG 1 tab(s) Or ally once a day; Duration: 90 days Active Potassium Chloride ER 10 MEQ take 1 caps ule by mouth once daily with food Orally Once a day; Duration: 90 days Active Atorvastatin Calcium 40 MG 1 tab(s) Oral ly At Bed Time; Duration: 90 days Active Venlafaxine HCl ER 150 MG 1 capsule with food Orally Once a day; Duration: 90 days Active Methotrexate Sodium 2.5 MG 6 tabs Orally weekly Active Vital Signs Blood pressure systolic 120 mm Hg 03/20/20 25 Blood pressure diastolic 80 mm Hg 025 Heart Rate 80 /min 03/20/2025 Height 65 in 03/20/2025 Weight 261.2 lbs 03/20/2025 BMI 43.46 kg/m2 03/20/2025 Encounters Encounter Location Date Provider [facility] [address] [phone] 03/20/2025 Ellen Juarez Hypothyroidism E03.9 ; Dyslipidemia E78.5 and Migraine headache G43.909 Assessments Encounter Date Diagnosis (ICD Code) Assessment Notes Treatment Notes Treatment Clinical Notes Section Notes 03/20/2025 Hypothyroidism (ICD-10 - E03.9) 03/20/2025 Dyslipidemia (ICD-10 - E78.5) 03/20/2025 Migraine headache (ICD-10 - G43.909) Plan Of Treatment Medication Medication Name Sig Start Date Stop Date Notes oxyCODONE HCl 5 MG 1 tab(s) orally thre e times a day as needed 03/20/2025 Next Appt Details Follow Up: 3 Months, Reason: Progress Notes * Christiane GRADY:1970 ( 55 yo F)Acc No.[id number]:03/20/2025 Progress Notes Patient: S Roseline JENNINGS Provider: Ellen Juarez M.D. :1970 A ge:55 Y S ex:Female Date:03/20/2025 Address:[id number] Pcp:Enmanuel Walton Subjective: * Chief Complaints: * 1 . Check Up w/ Refills. * HPI: H PI: 55 year old female presents with c/o Patient is here today for?Pt is here today for a check up with refills for her Oxycodone. She is also due for blood work related to her chronic medical problems. R heumatology: She is following with rheumatology and recently started on methotrexate. * ROS: D ERMATOLOGY: no R chaim. n o H letty. G ASTROENTEROLOGY: no N ausea. n o V omiting. n o D iarrhea.? U ROLOGY: no D ifficulty urinating. n o B lood in urine. 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 07/[facility]/07, [facility] ER, migraine 09/09/07, [facility] ER, migraine 09/13/08, H dehydration 06/09, [facility] ER migraine ., [facility] ER migraine 08/31/08, stomach pain 10/18/08, ct scan [facility] on abdomen 10/22/08, [facility] ER migraine 12/18/08, [facility] ER-migraine/sunburn 02/09/09, [facility] ER-migraine , abdominal pain 04/09/2009, [facility] ER-fell off a stool 10/17/09, [facility] ER-migraine 05/19/10, [facility] ER-migraine 12-18-10, [facility] ER-pt fell 01/04/11, [facility] ER- Migraine 09/26/11, [facility] ER - Migraine 05/12/12, [facility] ER-migraine 09/13, [facility] ER-migraine 11/02/13, [facility]-ER migraine -2013, [facility]-ER migraine 10-19-14, [facility] ER-migraine 11/16, [facility] Er-Migraines 01-17-15, [facility] ER - Migraine 8, [facility] ER- Migraine 07/06/15, [facility] ER-Migraine 04/03/16, [facility]- ER- Migraine 05/03/16, [facility]-Chest pain 10/23/16, [facility] ER -Migraine 08/06/17, [facility] ER-Migraine 10/19, [facility] ER - mirgraine Nov 2017, [facility] ER- migraine 10/22. * Family History: F [...] New since last visit: none. 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 Past smoking status: no, Smoking status: Does not smoke. Occup. exposure: none. Recreational drug use: no. Alcohol: no. Sexually active: no.. Travel ouside [place]: no. * Medications: T aking Methotrexate Sodium 2.5 MG Tablet 6 tabs Orally weekly , Taking Potassium Chloride ER 10 MEQ Capsule Extended [...] tab(s) orally once a day , Taking Maxalt-PLATE SENSITIZER 10 MG Tablet Disintegrating 1 tab(s) orally once a day, may repeat Q2h x2 , Taking Ibuprofen 800 MG Tablet 1 tab(s) orally 3 times a day , Taking Ventolin HFA 108 (90 Base) MCG/ACT Aerosol Solution 1 puff as needed Inhalation four times a day as needed , Taking Triamterene-HCTZ 37.5-25 MG Tablet 1/2 tab(s) orally once a day , Taking Promethazine HCl 25 MG Tablet 1 tablet as needed Orally q6h prn , Taking oxyCODONE HCl 5 MG Tablet 1 tab(s) orally three times a day as needed , Medication List reviewed and reconciled with the patient * Allergies: W ellbutrin XL, SERZONE, Butorphanol Tartrate, Pseudoephedrine-guaiFENesin: rash, Reglan: get sick, face swells, Neurontin: rash, Ketorolac: rash - Allergy. Objective: * Vitals: W t: 261.2, Temp: 98.4, BP: 120/80, HR: 80, Nurse: avril, Ht: 65, BMI:43.46. * Examination: G eneral Examination: General Appearance: N AD. H EENT: u nremarkable.?Oral cavity: n o lesions, mucosa moist and WNL, no erythema. N jacky: s upple, no lymphadenopathy. C hest: n ormal shape and expansion. H eart: R SR. L ungs: c lear to auscultation. N eurologic Exam: I ntact, gait normal. S kin: n ormal, no rash.?Extremities: n o leg edema. Assessment: * Assessment: 1. H ypothyroidism - E03.9 (Primary) 2 . D yslipidemia - E78.5 ?3. M igraine headache - G43.909 Plan: * Treatment: Value Reference Range T SH 1.62 0.43-5.25 - mU/L * Ellen Juarez 03/25/2025 02:45:32 PM EDT > See phone encounter 2.?Dyslipidemia?LAB: P-Comprehensive Metabolic Panel (CMP) (Collection Date & Time - 03/20/2025 12:20 PM)?GFR 59* Value Reference Range A /G Ratio 1.8 1.1-2.5 - * A lbumin 4.2 3.5-5.3 - g/dL * A lkaline Phosphatase 88 35-121 - IU/L * A LT (SGPT) 19 <5-47 - IU/L * A ST (SGOT) 16 <5-40 - IU/L * B ilirubin, Total 0.4 <0.2-1.2 - mg/dL * B UN 30 H 6-20 - mg/dL * C alcium 9.4 8.6-10.4 - mg/dL * C hloride 107 97-108 - mmol/L * C O2 23 22-32 - mmol/L * C reatinine 1.09 H 0.50-1.00 - mg/dL * G lucose 86 65-99 - mg/dL * P otassium 4.6 3.5-5.3 - mmol/L * S odium 143 135-145 - mmol/L * P rotein 6.5 6.0-8.3 - g/dL * e GFR by Creatinine 59 L >59 - mL/min/1.73m2 * Ellen Juarez Steve 03/25/2025 02:45:32 PM EDT > See phone encounter ?LAB: P-Lipid Panel (Collection Date & Time - 03/20/2025 12:20 PM)?LDL 72* Value Reference Range C holesterol / HDL Ratio 2.32 0.00-4.44 - Ratio * C holesterol 160 <200 - mg/dL * H DL Cholesterol 69 >39 - mg/dL * L DL Cholesterol (Calculation) 72 <130 - mg/d L * L DL/HDL Ratio 1.0 <3.3 - Ratio * N on-HDL Cholesterol 91 <130 - mg/dL * T riglycerides 94 <150 - mg/dL * Ellen Juarez Steve 03/25/2025 02:45:32 PM EDT > See phone encounter 3.?Migraine headache? Refill oxyCODONE HCl Tablet, 5 MG, 1 tab(s), orally, three times a day as needed, 90, Refills 0. ? * Procedure Codes: G 2211 Complex e/m visit add on, 1036F TOBACCO NON-USER, G8783 BP SCR PRFRM RCMDD DEFIND SCR INTVL, G8752 MOST RECENT SYSTOLIC BP < 140MM HG, G8754 MOST RECENT DIASTOLIC BP < 90MM HG * Follow Up: 3 Months * Images: Billing Information: * Visit Code: 58031 Office Visit, Est Pt., Level 4. * Procedure Codes: G2211 Complex e/m visit add on. 1036F TOBACCO NON-USER. G8783 BP SCR PRFRM RCMDD DEFIND SCR INTVL. G8752 MOST RECENT SYSTOLIC BP < 140MM HG. G8754 MOST RECENT DIASTOLIC BP < 90MM HG. * Electronic signature of Ellen Juarez MD on 09/05/2025 at 10:08 AM EST Sign off status: Pending * Provider: Ellen Juarez M.D. Date: 0 03/20/2025 Generated for Maryi ng/Lucia/eTransmitting on: 1 11/06/2024 10:08 AM EST History and Physical Notes * HPI (History of Present Illness) Category Sub-Category Detail Notes Category Not es HPI Patient is here toda y for Pt is here today for a check up with refills for her Oxycodone She is also due for blood work related to her chronic medical problems. Examination Category Sub-Category Detail Notes Category Not es General Examination HEENT: unremarkable Heart: RSR Lungs: clear to auscultatio n Extremities: no leg edema General Appearance: NAD Skin: normal, no rash Neurologic Exam: Intact, gait normal Neck: supple, no lymphaden opathy Oral cavity: no lesions, mucosa m oist and WNL, no erythema Peripheral pulses: Chest: normal shape and exp ansion
--- OUTSIDE RECORDS SUMMARY | 2025-03-31 05:45 | XMS_ITS ---
Author Organization [facility] Address [address] [place] [phone] Care Team Providers Care Floor Sanding Machine Operator Name Role Phone Enmanuel Walton Primary Care Provider Merary Sparrow Unavailable [phone] Allergies Allergen (clinical drug ingredient) Drug/Non Drug [...] rash Drug Allergy Active REASON FOR VISIT RASH ON ARMS Medications Medication SIG (Take, Route, Frequency, Duration) Notes Start Date End Date Status Ibuprofen 800 MG 1 tab(s) orally 3 ti mes a day Active Maxalt-CARDIAC SPECIALIST 10 MG 1 tab(s) orally once a day, may repeat Q2h x2 Active Triamterene-HCTZ 37.5-25 MG 1/2 tab(s) o rally once a day Active Ventolin HFA 108 (90 Base) MCG/ACT 1 puff as needed Inhalation four times a day as needed 01/25/2024 Active Promethazine HCl 25 MG 1 tablet as neede d Orally q6h prn Active Nystatin 690875 UNIT/GM 1 application Ex ternally 4 times a day; Duration: 14 days 03/31/2025 Active Vitamin D3 125 MCG (5000 UT) 1 cap(s) orally once a day 04/01/2014 Active Bisoprolol Fumarate 5 MG 1 tablet Orally Once a day; Duration: 30 day(s) Active Aspirin 81 MG 1 tab(s) orally once a day Active B-12 1000 MCG 1 tab(s) orally once a day 04/01/2014 Active Venlafaxine HCl ER 150 MG 1 capsule with food Orally Once a day; Duration: 90 days Active Potassium Chloride ER 10 MEQ take 1 capsule by mouth once daily with food Orally Once a day; Duration: 90 days Active Levothyroxine Sodium 100 MCG 1 tab(s) Orally once a day; Duration: 90 days Active Atorvastatin Calcium 40 MG 1 tab(s) Oral ly At Bed Time; Duration: 90 days Active Esomeprazole Magnesium 40 MG take 1 capsule by mouth every day Orally Once a day; Duration: 90 days Active Methotrexate Sodium 2.5 MG 6 tabs Orally weekly Active oxyCODONE HCl 5 MG 1 tab(s) orally thre e times a day as needed 03/20/2025 Active Vital Signs Blood pressure systolic 120 mm Hg 03/31/20 25 Blood pressure diastolic 82 mm Hg 025 Heart Rate 87 /min 03/31/2025 Height 65 in 03/31/2025 Weight 262.6 lbs 03/31/2025 BMI 43.69 kg/m2 03/31/2025 Encounters Encounter Location Date Provider Diagnosis [facility] [address] [place] [phone] 03/31/2025 Merary Sparrow Candidiasis of breas t B37.89 Assessments Encounter Date Diagnosis (ICD Code) Assessment Notes Treatment Notes Treatment Clinical Notes Section Notes 03/31/2025 Candidiasis of breast (ICD-10 - B37.89) Keep under the breast dry as possible. Use cream up to 4 times a day. Wash bra every night to not reinfect with the yeast infection. Follw up as needed. Plan Of Treatment Medication Medication Name Sig Start Date Stop Date Notes Nystatin 836684 UNIT/GM 1 application Ex ternally 4 times a day; Duration: 14 days 03/31/2025 Treatment Notes Assessment Notes Candidiasis of breast Keep under the khoa ast dry as possible. Use cream up to 4 times a day. Wash bra every night to not reinfect with the yeast infection. Follw up as needed. Next Appt Details Follow Up: prn, Reason: Progress Notes * Leo GRADYaDOB:1970 ( 55 yo F)Acc No.[id number]:03/31/2025 Progress Notes Patient: Roseline SAVAGE Provider: MODESTO Oh :1970 A ge:55 Y S ex:Female Date:03/31/2025 Address:[place], [id number] Pcp:Enmanuel Walton Subjective: * Chief Complaints: * 1 . RASH ON ARMS. * HPI: D ermatology: 55 year old female presents with c/o rash P t is here today with c/o rash under her breast and sts it has been there for 2 months. Pt sts it itches very badly and sts when shes in the heat it does get worse. * ROS: R ESPIRATORY: no S hortness of breath. C ARDIOLOGY: no C hest pain. n o P alpitations. D ERMATOLOGY: Rash y es, u nder bilateral breasts, redness, itchy. 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 n o H letty. G ASTROENTEROLOGY: no N ausea. n o V omiting. n o D iarrhea.? U ROLOGY: no D ifficulty urinating. n o B lood in urine. 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 migraine 07/07/07, [facility] ER, migraine 09/09/07, [facility] ER, migraine 09/13/08, H dehydration 06/09, [facility] ER migraine 07.09, [facility] ER migraine 08/31/08, stomach pain 10/18/08, ct scan [facility] on abdomen 10/22/08, [facility] ER migraine 12/18/08, [facility] ER-migraine/sunburn 02/09/09, [facility] ER-migraine , abdominal pain 04/09/2009, [facility] ER-fell off a stool 10/17/09, [facility] ER-migraine 05/19/10, [facility] ER-migraine 12-18-10, [facility] ER-pt fell 01/04/11, [facility] ER- Migraine 09/26/11, [facility] ER - Migraine 05/12/12, [facility] ER-migraine 09/13, [facility] ER-migraine 11/02/13, [facility]-ER migraine , [facility]-ER migraine 10-19-14, [facility] ER-migraine 11/16, [facility] Er-Migraines 01-17-15, [facility] ER - Migraine , [facility] ER- Migraine 07/06/15, [facility] ER-Migraine 04/03/16, [facility]- ER- Migraine 05/03/16, [facility]-Chest pain 10/23/16, [facility] ER -Migraine 08/06/17, [facility] ER-Migraine 10/19, [facility] ER - mirgraine Nov 2017, [facility] ER- migraine 10/22. * Family History: [...] since last visit: none. 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 Past smoking status: no, Smoking status: Does not smoke. Occup. exposure: none. Recreational drug use: no. Alcohol: no. Sexually active: no.. Travel ouside [place]: no. * Medications: T aking oxyCODONE HCl 5 MG Tablet 1 tab(s) orally three times a day as needed , Taking Methotrexate Sodium 2.5 MG Tablet 6 tabs [...] tab(s) orally once a day , Taking Maxalt-CARDIAC SPECIALIST 10 MG Tablet Disintegrating 1 tab(s) orally [...] tablet as needed Orally q6h prn , Medication List reviewed and reconciled with the patient * Allergies: W ellbutrin XL, SERZONE, Butorphanol Tartrate, Pseudoephedrine-guaiFENesin: rash, Reglan: get sick, face swells, Neurontin: rash, Ketorolac: rash - Allergy. Objective: * Vitals: W t: 262.6, Temp: 98.0, BP: 120/82, HR: 87, Nurse: [facility], Ht: 65, BMI:43.69. * Examination: G eneral Examination: Chest: n ormal. H eart: R RR. L ungs: n ormal, clear to auscultation. S kin: r edness with satellite lesions under bilateral breasts, endorse itchiness. Assessment: * Assessment: 1. C andidiasis of breast - B37.89 (Primary) Plan: * Treatment: * Procedure Codes: G 2211 Complex e/m visit add on, 1036F TOBACCO NON-USER, G8783 BP SCR PRFRM RCMDD DEFIND SCR INTVL, G8752 MOST RECENT SYSTOLIC BP < 140MM HG, G8754 MOST RECENT DIASTOLIC BP < 90MM HG * Follow Up: p rn * Images: Billing Information: * Visit Code: 28278 Office Visit, Est Pt., Level 3. * Procedure Codes: G2211 Complex e/m visit add on. 1036F TOBACCO NON-USER. G8783 BP SCR PRFRM RCMDD DEFIND SCR INTVL. G8752 MOST RECENT SYSTOLIC BP < 140MM HG. G8754 MOST RECENT DIASTOLIC BP < 90MM HG. * Electronic signature of Bonnie Sparrow APRN on 09/05/2025 at 10:08 AM EST Sign off status: Pending * Provider: MODESTO Oh Date: 0 03/31/2025 Generated for Ashutosh terry/Lucia/Iselaitting on: 1 11/06/2024 10:08 AM EST History and Physical Notes * HPI (History of Present Illness) Category Sub-Category Detail Notes Category Not es Dermatology rash Pt is here today with c/o rash under her breast and sts it has been there for 2 months. Pt sts it itches very badly and sts when shes in the heat it does get worse Examination Category Sub-Category Detail Notes Category Not es General Examination Heart: RRR Lungs: normal, clear to aus cultation Skin: redness with satelli te lesions under bilateral breasts, endorse itchiness Chest: normal
--- OUTSIDE RECORDS SUMMARY | 2025-04-15 09:45 | XMS_ITS ---
Author Organization [facility] Address [address] [facility] [address] [place] [phone] Care Team Providers Care Reproduction Artist Name Role Phone Enmanuel Walton Primary Care Provider Ellen Juarez [phone] Allergies Allergen (clinical drug ingredient) Drug/Non Drug [...] rash Drug Allergy Active REASON FOR VISIT migraine Medications Medication SIG (Take, Route, Frequency, Duration) Notes Start Date End Date Status Esomeprazole Magnesium 40 MG take 1 capsule by mouth every day Orally Once a day; Duration: 90 days Active Bisoprolol Fumarate 5 MG 1 tablet Orally Once a day; Duration: 30 day(s) Active Vitamin D3 125 MCG (5000 UT) 1 cap(s) orally once a day 04/01/2014 Active B-12 1000 MCG 1 tab(s) orally once a day 04/01/2014 Active Aspirin 81 MG 1 tab(s) orally once a day Active Levothyroxine Sodium 100 MCG 1 tab(s) Orally once a day; Duration: 90 days Active Methotrexate Sodium 2.5 MG 6 tabs Orally weekly Active Potassium Chloride ER 10 MEQ take 1 capsule by mouth once daily with food Orally Once a day; Duration: 90 days Active Venlafaxine HCl ER 150 MG 1 capsule with food Orally Once a day; Duration: 90 days Active Atorvastatin Calcium 40 MG 1 tab(s) Oral ly At Bed Time; Duration: 90 days Active Nystatin 980574 UNIT/GM 1 application Ex ternally 4 times a day; Duration: 14 days 03/31/2025 Active oxyCODONE HCl 5 MG 1 tab(s) orally thre e times a day as needed Active Medrol 4 MG as directed Orally Active Promethazine HCl 25 MG 1 tablet as neede d Orally q6h prn Active Triamterene-HCTZ 37.5-25 MG 1/2 tab(s) o rally once a day Active Maxalt-RUBBER COMPOUNDER SUPERVISOR 10 MG 1 tab(s) orally once a day, may repeat Q2h x2 Active Ibuprofen 800 MG 1 tab(s) orally 3 ti mes a day Active Ventolin HFA 108 (90 Base) MCG/ACT 1 puff as needed Inhalation four times a day as needed 01/25/2024 Active Vital Signs Weight 262.2 lbs 04/15/2025 Blood pressure systolic 120 mm Hg 04/15/20 25 Blood pressure diastolic 78 mm Hg 025 Heart Rate 79 /min 04/15/2025 Height 65 in 04/15/2025 BMI 43.63 kg/m2 04/15/2025 Encounters Encounter Location Date Provider Diagnosis [facility] [address] [phone] 04/15/2025 Ellen Juarez Intractable migraine without aura and with status migrainosus G43.011 Assessments Encounter Date Diagnosis (ICD Code) Assessment Notes Treatment Notes Treatment Clinical Notes Section Notes 04/15/2025 Intractable migraine without aura and with status migrainosus (ICD-10 - G43.011) To [facility] outpt for Morphine 2mg and Phenergan 25 mg IM Plan Of Treatment Medication Medication Name Sig Start Date Stop Date Notes oxyCODONE HCl 5 MG 1 tab(s) orally thre e times a day as needed Medrol 4 MG as directed Orally Promethazine HCl 25 MG 1 tablet as needed Orally q6h prn Treatment Notes Assessment Notes Intractable migraine without aura and with status migrainosus To [facility] outpt for Morphine 2mg and Phenergan 25 mg IM Next Appt Details Follow Up: prn, Reason: Progress Notes * Baylee GRADYB:1970 ( 55 yo F)Acc No.[id number]:04/15/2025 Progress Notes Patient: Roseline SAVAGE Provider: Ellen Juarez M.D. :1970 A ge:55 Y S ex:Female Date:04/15/2025 Address:[place], [id number] Pcp:Enmanuel Walton Subjective: * Chief Complaints: * 1 . Migraine. * HPI: N eurology: 55 year old female presents with c/o headache P t here for a migraine. Pt s tates its been going on for 4 days. Pt states all day migraine. Pt states nothing helps. * ROS: D ERMATOLOGY: no R chaim. n o H letty. G ASTROENTEROLOGY: Nausea y es. V omiting y es. n o D iarrhea.? U ROLOGY: no D ifficulty urinating. n o B lood in urine. 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 migraine 07/07/07, [facility] ER, migraine 09/09/07, [facility] ER, migraine 09/13/08, H dehydration 06/09, [facility] ER migraine 07.09, [facility] ER migraine 08/31/08, stomach pain 10/18/08, ct scan [facility] on abdomen 10/22/08, [facility] ER migraine 12/18/08, [facility] ER-migraine/sunburn 02/09/09, [facility] ER-migraine , abdominal pain 04/09/2009, [facility] ER-fell off a stool 10/17/09, [facility] ER-migraine 05/19/10, [facility] ER-migraine 12-18-10, [facility] ER-pt fell 01/04/11, [facility] ER- Migraine 09/26/11, [facility] ER - Migraine 05/12/12, [facility] ER-migraine 09/13, [facility] ER-migraine 11/02/13, [facility]-ER migraine -2013, [facility]-ER migraine 10-19-, [facility] ER-migraine 11/16, [facility] Er-Migraines --, [facility] ER - Migraine 8, [facility] ER- Migraine 07/06/15, [facility] ER-Migraine 04/03/16, [facility]- ER- Migraine 05/03/16, [facility]-Chest pain 10/23/16, [facility] ER -Migraine 08/06/17, [facility] ER-Migraine 10/19, [facility] ER - mirgraine Nov 2017, [facility] ER- migraine 10/22. * Family History: F [...] New since last visit: none. 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 Past smoking status: no, Smoking status: [...] tab(s) orally once a day , Taking Maxalt-RUBBER COMPOUNDER SUPERVISOR 10 MG Tablet Disintegrating 1 tab(s) orally [...] as needed Orally q6h prn , Taking Nystatin 531863 UNIT/GM Cream 1 application Externally 4 times a day , Medication List reviewed and reconciled with the patient * Allergies: W ellbutrin XL, SERZONE, Butorphanol Tartrate, Pseudoephedrine-guaiFENesin: rash, Reglan: get sick, face swells, Neurontin: rash, Ketorolac: rash - Allergy. Objective: * Vitals: W t: 262.2, Temp: 98.3, BP: 120/78, HR: 79, Nurse: pe, Ht: 65, BMI:43.63. * Examination: G eneral Examination: General Appearance: N AD. Mild photophobia. H EENT: s clera and conjunctiva clear, PERRLA, TM's normal, translucent. Nares patent. Sinuses NT. N jacky: s upple, no meningismus. H eart: R SR. L ungs: c lear to auscultation. N eurologic Exam: normal cranial nerves II-XII. No focal motor deficits. Assessment: * Assessment: 1. I ntractable migraine without aura and with status migrainosus - G43.011 (Primary) ? Plan: * Treatment: * Procedure Codes: G 2211 Complex e/m visit add on, 1036F TOBACCO NON-USER, G8783 BP SCR PRFRM RCMDD DEFIND SCR INTVL, G8752 MOST RECENT SYSTOLIC BP < 140MM HG, G8754 MOST RECENT DIASTOLIC BP < 90MM HG * Follow Up: p rn * Images: Billing Information: * Visit Code: 82842 Office Visit, Est Pt., Level 3. * [...] * Provider: Ellen Juarez M.D. Date: 0 04/15/2025 Generated for Ashutosh terry/Lucia/eTammonitting on: 1 11/06/2024 10:06 AM EST History and Physical Notes * HPI (History of Present Illness) Category Sub-Category Detail Notes Category Not es Neurology headache Pt here for a mi graine. Pt states its been going on for 4 days. Pt states all day migraine. Pt states nothing helps Examination Category Sub-Category Detail Notes Category Not es General Examination HEENT: sclera and c onjunctiva clear, PERRLA, TM's normal, translucent. Nares patent. Sinuses NT Heart: RSR Lungs: clear to auscultatio n General Appearance: NAD. Mild photophobi a Neurologic Exam: normal cranial nerve s II-XII. No focal motor deficits Neck: supple, no meningism us
--- OUTSIDE RECORDS SUMMARY | 2025-05-20 04:00 | XMS_ITS ---
Author [facility] Address [address] [place] [phone] Care Team Providers Care Research Specialist Name Role Phone Enmanuel Walton Primary Care Provider Ellen Juarez [phone] Allergies Allergen (clinical drug ingredient) Drug/Non Drug [...] rash Drug Allergy Active REASON FOR VISIT refill Medications Medication SIG (Take, Route, Frequency, Duration) Notes Start Date End Date Status Ibuprofen 800 MG 1 tab(s) orally 3 ti mes a day Active Ventolin HFA 108 (90 Base) MCG/ACT 1 puff as needed Inhalation four times a day as needed 01/25/2024 Active Triamterene-HCTZ 37.5-25 MG 1/2 tab(s) o rally once a day Active Maxalt-LEAD LOADER 10 MG 1 tab(s) orally once a day, may repeat Q2h x2 Active Promethazine HCl 25 MG 1 tablet as neede d Orally q6h prn Active Vitamin D3 125 MCG (5000 UT) 1 cap(s) or ally once a day 04/01/2014 Active B-12 1000 MCG 1 tab(s) orally once a day 04/01/2014 Active Aspirin 81 MG 1 tab(s) orally once a day Active Esomeprazole Magnesium 40 MG take 1 caps ule by mouth every day Orally Once a day; Duration: 90 days Active Bisoprolol Fumarate 5 MG 1 tablet Orally Once a day; Duration: 30 day(s) Active Levothyroxine Sodium 100 MCG 1 tab(s) [...] At Bed Time; Duration: 90 days Active oxyCODONE HCl 5 MG 1 tab(s) orally thre e times a day as needed 05/20/2025 Active Azelastine HCl 0.05 % 1 drop into affect ed eye Ophthalmic Twice a day 05/20/2025 Active Problems Problem Type SNOMED Code ICD Code Onset Dates Problem Status W/U Status Risk Notes Problem Rheumatoid arthritis (79336199) Rheumatoid arthritis (M06.9) Active confirmed Vital Signs Weight 263.4 lbs 05/20/2025 Blood pressure systolic 130 mm Hg 05/20/20 25 Blood pressure diastolic 78 mm Hg 025 Heart Rate 95 /min 05/20/2025 Height 65 in 05/20/2025 BMI 43.83 kg/m2 05/20/2025 Encounters Encounter Location Date Provider Diagnosis [facility] [address] [facility] [address] [phone] 05/20/2025 Ellen Juarez Chronic migraine wit hout aura, intractable, with status migrainosus G43.711 ; Conjunctivitis H10.9 and Rheumatoid arthritis M06.9 Assessments Encounter Date Diagnosis (ICD Code) Assessment Notes Treatment Notes Treatment Clinical Notes Section Notes 05/20/2025 Chronic migraine without aura, intractable, with status migrainosus (ICD-10 - G43.711) 05/20/2025 Conjunctivitis (ICD-10 - H10.9) 05/20/2025 Rheumatoid arthritis (ICD-10 - M06.9) Plan Of Treatment Medication Medication Name Sig Start Date Stop Date Notes oxyCODONE HCl 5 MG 1 tab(s) orally thre e times a day as needed 05/20/2025 Azelastine HCl 0.05 % 1 drop into affect ed eye Ophthalmic Twice a day 05/20/2025 Next Appt Details Follow Up: 3 Months, Reason: Progress Notes * Baylee GRADYB:1970 ( 55 yo F)Acc No.[id number]:05/20/2025 Progress Notes Patient: Roseline SAVAGE Provider: Ellen Juarez M.D. :1970 A ge:55 Y S ex:Female Date:05/20/2025 Address:[place], [id number] Pcp:Enmanuel Walton Subjective: * Chief Complaints: * 1 . Refill. * HPI: N eurology: She is requesting a refill on her oxycodone which she takes for chronic pain related to rheumatoid arthritis and migraine headaches. O pthalmology: She complains of irritation of the right eye with watery drainage for the past 2 weeks. * ROS: D ERMATOLOGY: no R chaim. n o H letty. G ASTROENTEROLOGY: no N ausea. n o V omiting. n o D iarrhea.? U ROLOGY: no D ifficulty urinating. n o B lood in urine. 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 for her annual mammogram, Declines [...] migraine 07/07/07, [facility], migraine 09/09/07, [facility], migraine 09/13/08, H dehydration 06/09, [facility] ER migraine 10.08, [facility] ER migraine 08/31/08, stomach pain 10/18/08, ct scan [facility] on abdomen 10/22/08, [facility] ER migraine 12/18/08, [facility] ER-migraine/sunburn 02/09/09, [facility] ER-migraine 61/, abdominal pain 04/09/2009, [facility] ER-fell off a stool 10/17/09, [facility] ER-migraine 05/19/10, [facility] ER-migraine 12-18-10, [facility] ER-pt fell 01/04/11, [facility] ER- Migraine 09/26/11, [facility] ER - Migraine 05/12/12, [facility] ER-migraine 09/13, [facility] ER-migraine 11/02/13, [facility]-ER migraine -2013, [facility]-ER migraine 10-19-14, [facility] ER-migraine 11/16, [facility] Er-Migraines 01-17-15, [facility] - Migraine , [facility]- Migraine 07/06/15, [facility] ER-Migraine 04/03/16, [facility]- ER- Migraine 05/03/16, [facility]-Chest pain 10/23/16, [facility] ER -Migraine 08/06/17, [facility] ER-Migraine 10/19, [facility] ER - mirgraine Nov 2017, [facility] ER- migraine 10/22. * Family History: F [...] New since last visit: none. 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 Past smoking status: no, Smoking status: [...] tab(s) orally once a day , Taking Maxalt-LEAD LOADER 10 MG Tablet Disintegrating 1 tab(s) orally [...] - Allergy. Objective: * Vitals: W t: 263.4, Temp: 98.2, BP: 130/78, HR: 95, Nurse:pe, Ht: 65, BMI:43.83. * Examination: G eneral Examination: General Appearance: N AD. H EENT: R ight conjunctiva mildly injected. No foreign body or purulent drainage noted.. O ral cavity: n o lesions, mucosa moist and WNL, no erythema. N jacky: s upple, no lymphadenopathy. C hest: normal shape and expansion. H eart: R SR. L ungs: c lear to auscultation. E xtremities: n o leg edema. Assessment: * Assessment: 1. C onjunctivitis - H10.9 (Primary) 2 . C hronic migraine without aura, intractable, with status migrainosus - G43.711 3 . R heumatoid arthritis - M06.9? Plan: * Treatment: 2. C hronic migraine without aura, intractable, with status migrainosus Refill oxyCODONE HCl Tablet, 5 MG, 1 tab(s), orally, three times a day as needed, 90, Refills 0.? * Procedure Codes: G 2211 Complex e/m visit add on, 1036F TOBACCO NON-USER, G8783 BP SCR PRFRM RCMDD DEFIND SCR INTVL, G8752 MOST RECENT SYSTOLIC BP < 140MM HG, G8754 MOST RECENT DIASTOLIC BP < 90MM HG * Follow Up: 3 Months * Images: Billing Information: * Visit Code: 96339 Office Visit, Est Pt., Level 3. * Procedure Codes: G2211 Complex e/m visit add on. 1036F TOBACCO NON-USER. G8783 BP SCR PRFRM RCMDD DEFIND SCR INTVL. G8752 MOST RECENT SYSTOLIC BP < 140MM HG. G8754 MOST RECENT DIASTOLIC BP < 90MM HG. * Electronic signature of Ellen Juarez MD on 09/05/2025 at 10:04 AM EST Sign off status: Pending * Provider: Ellen Juarez M.D. Date: 0 05/20/2025 Generated for Ashutosh terry/Lucia/Syed on: 1 11/06/2024 10:04 AM EST History and Physical Notes * Examination Category Sub-Category Detail Notes Category Not es General Examination HEENT: Right conjun ctiva mildly injected. No foreign body or purulent drainage noted. Heart: RSR Lungs: clear to auscultatio n Extremities: no leg edema General Appearance: NAD Neck: supple, no lymphaden opathy Oral cavity: no lesions, mucosa m oist and WNL, no erythema Chest: normal shape and exp ansion
--- OUTSIDE RECORDS SUMMARY | 2025-06-03 06:30 | XMS_ITS ---
Author Organization [facility] Address [address] [place] [id number] Care Team Providers Care Meal Attendant Name Role Phone Enmanuel Walton Primary Care Provider Merary Sparrow Unavailable [phone] Allergies Allergen (clinical drug ingredient) Drug/Non Drug [...] rash Drug Allergy Active REASON FOR VISIT f/u surg Medications Medication SIG (Take, Route, Frequency, Duration) Notes Start Date End Date Status Azelastine HCl 0.05 % 1 drop into affect ed eye Ophthalmic Twice a day 05/20/2025 Active Venlafaxine HCl ER 150 MG 1 capsule with food Orally Once a day; Duration: 90 days Active Atorvastatin Calcium 40 MG 1 tab(s) Oral ly At Bed Time; Duration: 90 days Active Potassium Chloride ER 10 MEQ take 1 caps ule by mouth once daily with food Orally Once a day; Duration: 90 days Active oxyCODONE HCl 5 MG 1 tab(s) orally thre e times a day as needed 05/20/2025 Active Triamterene-HCTZ 37.5-25 MG 1/2 tab(s) o rally once a day Active Promethazine HCl 25 MG 1 tablet as neede d Orally q6h prn Active Ibuprofen 800 MG 1 tab(s) orally 3 ti mes a day Active Ventolin HFA 108 (90 Base) MCG/ACT 1 puff as needed Inhalation four times a day as needed 01/25/2024 Active Bisoprolol Fumarate 5 MG 1 tablet Orally Once a day; Duration: 30 day(s) Active Aspirin 81 MG 1 tab(s) orally once a day Active Maxalt-TAILOR HELPER 10 MG 1 tab(s) orally once a day, may repeat Q2h x2 Active Vitamin D3 125 MCG (5000 UT) 1 cap(s) or ally once a day 04/01/2014 Active B-12 1000 MCG 1 tab(s) orally once a day 04/01/2014 Active Levothyroxine Sodium 100 MCG 1 tab(s) Or ally once a day; Duration: 90 days Active Esomeprazole Magnesium 40 MG take 1 caps ule by mouth every day Orally Once a day; Duration: 90 days Active Vital Signs Blood pressure systolic 132 mm Hg 06/03/20 25 Blood pressure diastolic 70 mm Hg 025 Heart Rate 89 /min 06/03/2025 Height 65 in 06/03/2025 Weight 264 lbs 06/03/2025 BMI 43.93 kg/m2 06/03/2025 Encounters Encounter Location Date Provider Diagnosis [facility] [address] [facility] [address] [place], [place] [phone] 06/03/2025 Merary Sparrow Encounter for examination and observation for other specified reasons Z04.89 Assessments Encounter Date Diagnosis (ICD Code) Assessment Notes Treatment Notes Treatment Clinical Notes Section Notes 06/03/2025 Encounter for examination and observation for other specified reasons (ICD-10 - Z04.89) to continue with care of groin procedure sites as per cardioogy; has FU sade in 5 weeks with them which she will keep Plan Of Treatment Treatment Notes Assessment Notes Encounter for examination an d observation for other specified reasons to continue with care of groin procedure sites as per cardioogy; has FU sade in 5 weeks with them which she will keep Next Appt Details Follow Up: prn, Reason: Progress Notes * Christiane GRADY:1970 ( 55 yo F)Acc No.[id number]:06/03/2025 Progress Notes Patient: S Roseline JENNINGS Provider: MODESTO Oh :1970 A ge:55 Y S ex:Female Date:06/03/2025 Address:[place], [id number] Pcp:Enmanuel Walton Subjective: * Chief Complaints: * 1 . F/u surg. * HPI: H PI: Patient is here today for P t states she had surgery on 05/23/25. Pt states they wanted her come here for an f/u.. * ROS: D ERMATOLOGY: no R chaim. n o H letty. G ASTROENTEROLOGY: no N ausea. n o V omiting. n o D iarrhea.? U ROLOGY: no B lood in urine. n o F requent urination. ? 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 * Hospitalization/Major Diagno stic Procedure: s stuart as above , [place] for [facility] treatment 07/03-12/2005, [facility] migraine 07/07/07, [facility], migraine 09/09/07, [facility] ER, migraine 09/13/08, H dehydration 06/09, [facility] ER migraine 10.08, [facility] ER migraine 08/31/08, stomach pain 10/18/08, ct scan [facility] on abdomen 10/22/08, [facility] ER migraine 12/18/08, [facility] ER-migraine/sunburn 02/09/09, [facility] ER-migraine /, abdominal pain 04/09/2009, [facility] ER-fell off a stool 10/17/09, [facility] ER-migraine 05/19/10, [facility] ER-migraine 12-18-10, [facility] ER-pt fell 01/04/11, [facility] ER- Migraine 09/26/11, [facility] ER - Migraine 05/12/12, [facility] ER-migraine 09/13, [facility] ER-migraine 11/02/13, [facility]-ER migraine -2013, [facility]-ER migraine 10-19-14, [facility] ER-migraine 11/16, [facility] Er-Migraines 01-17-15, [facility] ER - Migraine , [facility] ER- Migraine 07/06/15, [facility] ER-Migraine 04/03/16, [facility]- ER- Migraine 05/03/16, [facility]-Chest pain 10/23/16, [facility] ER -Migraine 08/06/17, [facility] ER-Migraine 10/19, [facility] ER - mirgraine Nov 2017, [facility] ER- migraine 10/22, EP study with ablation of AVNRT 05/23-05/24/2025. * Family History: F ather: alive, diagnosed [...] New since last visit: none. 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 Past smoking status: no, Smoking status: [...] tab(s) orally once a day , Taking Maxalt-TAILOR HELPER 10 MG Tablet Disintegrating 1 tab(s) orally [...] times a day as needed , Taking Azelastine HCl 0.05 % Solution 1 drop into affected eye Ophthalmic Twice a day , Discontinued Methotrexate Sodium 2.5 MG Tablet 6 tabs Orally weekly , Medication List reviewed and reconciled with the patient * Allergies: W ellbutrin XL, SERZONE, Butorphanol Tartrate, Pseudoephedrine-guaiFENesin: rash, Reglan: get sick, face swells, Neurontin: rash, Ketorolac: rash - Allergy. Objective: * Vitals: W t: 264, Temp: 98.1, BP: 132/70, HR: 89, Nurse: pe, Ht: 65, BMI:43.93. * Examination: G eneral Examination: General Appearance: N AD, alert, appears healthy, , pleasant, well nourished and hydrated. H eart: R RR 80/min, no ectopics. L ungs: C TAB A&P. S kin: g roin site with C/D dressing; groin area appears dry. Assessment: * Assessment: 1. E ncounter for examination and observation for other specified reasons - Z04.89 (Primary)? Specify :post procedure exam Plan: * Treatment: * Procedure Codes: G 2211 Complex e/m visit add on * Follow Up: p rn * Images: Billing Information: * Visit Code: 92781 Office Visit, Est Pt., Level 3. * Procedure Codes: G2211 Complex e/m visit add on. * Electronic signature of Bonnie Sparrow APRN on 09/05/2025 at 10:09 AM EST Sign off status: Pending * Provider: MODESTO Oh Date: 0 06/03/2025 Generated for Ashutosh terry/Lucia/Nidhismitting on: 1 11/06/2024 10:09 AM EST History and Physical Notes * HPI (History of Present Illness) Category Sub-Category Detail Notes Category Not es HPI Patient is here today for Pt sta yony she had surgery on 05/23/25. Pt states they wanted her come here for an f/u. Examination Category Sub-Category Detail Notes Category Not es General Examination Heart: RRR 80/min, no ectopi cs Lungs: CTAB A&P General Appearance: NAD, alert, appears healthy, , pleasant, well nourished and hydrated Skin: groin site with C/D dressing; groin area appears dry
--- OUTSIDE RECORDS SUMMARY | 2025-06-17 06:15 | XMS_ITS ---
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 Name Role Phone Enmanuel Walton Primary Care Provider [phone] Ellen Juarez [phone] Allergies Allergen (clinical drug ingredient) Drug/Non Drug [...] rash Drug Allergy Active REASON FOR VISIT MIGRAINE Medications Medication SIG (Take, Route, Frequency, Duration) Notes Start Date End Date Status Promethazine HCl 25 MG 1 tablet as neede d Orally q6h prn Active oxyCODONE HCl 5 MG 1 tab(s) orally thre e times a day as needed Active Azelastine HCl 0.05 % 1 drop into affect ed eye Ophthalmic Twice a day 05/20/2025 Active Potassium Chloride ER 10 MEQ TAKE 1 CAPSULE BY MOUTH DAILY WITH FOOD; Duration: 90 Active Nystatin 486558 UNIT/GM APPLY 1 APPLICAT ION EXTERNALLY FOUR TIMES DAILY; Duration: 14 Active Ventolin HFA 108 (90 Base) MCG/ACT 1 puff as needed Inhalation four times a day as needed 01/25/2024 Active Triamterene-HCTZ 37.5-25 MG 1/2 tab(s) o rally once a day Active Aspirin 81 MG 1 tab(s) orally once a day Active Maxalt-SHIPPING ASSOCIATE 10 MG 1 tab(s) orally once a day, may repeat Q2h x2 Active Ibuprofen 800 MG 1 tab(s) orally 3 ti mes a day Active Levothyroxine Sodium 100 MCG [...] At Bed Time; Duration: 90 days Active Vital Signs Blood pressure systolic 132 mm Hg 06/17/20 25 Blood pressure diastolic 78 mm Hg 025 Heart Rate 78 /min 06/17/2025 Height 65 in 06/17/2025 Weight 258.6 lbs 06/17/2025 BMI 43.03 kg/m2 06/17/2025 Encounters Encounter Location Date Provider Diagnosis [facility] [address] [phone] 06/17/2025 Ellen Juarez Intractable migraine without aura and with status migrainosus G43.011 Assessments Encounter Date Diagnosis (ICD Code) Assessment Notes Treatment Notes Treatment Clinical Notes Section Notes 06/17/2025 Intractable migraine without aura and with status migrainosus (ICD-10 - G43.011) To [facility] outpt for Morphine 2mg and Phenergan 25 mg IM To [facility] outpt for Morphine 2mg and Phenergan 25 mg IM Plan Of Treatment Medication Medication Name Sig Start Date Stop Date Notes oxyCODONE HCl 5 MG 1 tab(s) orally thre e times a day as needed Treatment Notes Assessment Notes Intractable migraine without aura and with status migrainosus To [facility] outpt for Morphine 2mg and Phenergan 25 mg IM To [facility] outpt for Morphine 2mg and Phenergan 25 mg IM Next Appt Details Follow Up: prn, Reason: Progress Notes * Baylee GRADYB:1970 ( 55 yo F)Acc No.[id number]:06/17/2025 Progress Notes Patient: Roseline SAVAGE Provider: Ellen Juarez M.D. :1970 A ge:55 Y S ex:Female Date:06/17/2025 Address:[place], [id number] Pcp:Enmanuel Walton Subjective: * Chief Complaints: * 1 . MIGRAINE. * HPI: C ardiology: 55 year old female presents with c/o Headaches P t states she has been having Migraine for 4 days now and all day. Pt states nothing helps her when she gets a migraine. She has tried and failed multiple therapeutic modalities. Please refer to previous neurology consultation notes. 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 Gomez. * Surgical History: s inus surgery x2 [...] as above , for DHE treatment 07/03-12/2005, [facility] migraine 07/07/07, [facility] ER, migraine 09/09/07, [facility] ER, migraine 09/13/08, H dehydration 06/09, [facility] ER migraine ., [facility] ER migraine 08/31/08, stomach pain 10/18/08, ct scan [facility] on abdomen 10/22/08, [facility] ER migraine 12/18/08, [facility] ER-migraine/sunburn 02/09/09, [facility] ER-migraine , abdominal pain 04/09/2009, [facility] ER-fell off a stool 10/17/09, [facility] ER-migraine 05/19/10, [facility] ER-migraine 12-18-10, [facility] ER-pt fell 01/04/11, [facility] ER- Migraine 09/26/11, [facility] ER - Migraine 05/12/12, [facility] ER-migraine 09/13, [facility] ER-migraine 11/02/13, [facility]-ER migraine -2013, [facility] migraine 10-19-14, [facility] ER-migraine 11/16, [facility] Er-Migraines 01-17-15, [facility] ER - Migraine , [facility] ER- Migraine 07/06/15, [facility] ER-Migraine 04/03/16, [facility]- ER- Migraine 05/03/16, [facility]-Chest pain 10/23/16, [facility] ER -Migraine 08/06/17, [facility] ER-Migraine 10/19, [facility] ER - mirgraine Nov 2017, [facility] ER- migraine 10/22, EP study with ablation [...] New since last visit: none. 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 Past smoking status: no, Smoking status: Does not smoke. Occup. exposure: none. Recreational drug use: no. Alcohol: no. Sexually active: no.. Travel ouside [place]: no. * Medications: T aking Venlafaxine HCl ER 150 MG Capsule Extended [...] tab(s) orally once a day , Taking Maxalt-SHIPPING ASSOCIATE 10 MG Tablet Disintegrating 1 tab(s) orally [...] affected eye Ophthalmic Twice a day , Taking Potassium Chloride ER 10 MEQ Capsule Extended Release TAKE 1 CAPSULE BY MOUTH DAILY WITH FOOD , Taking Nystatin 488359 UNIT/GM Cream APPLY 1 APPLICATION EXTERNALLY FOUR TIMES DAILY , Medication List reviewed and reconciled with the patient * Allergies: W ellbutrin XL, SERZONE, Butorphanol Tartrate, Pseudoephedrine-guaiFENesin: rash, Reglan: get sick, face swells, Neurontin: rash, Ketorolac: rash - Allergy. Objective: * Vitals: W t: 258.6, Temp: 97.6, BP: 132/78, HR: 78, Nurse: pe, Ht: 65, BMI:43.03. * Examination: G eneral Examination: General Appearance: N AD. Mild photophobia. Sitting in a darkened room. H EENT: s clera and conjunctiva clear, PERRLA, TM's normal, translucent. Nares patent. Sinuses NT. N jacky: s upple, no meningismus. H eart: R SR. L ungs: clear to auscultation. N eurologic Exam: normal cranial [...] G8754 MOST RECENT DIASTOLIC BP < 90MM HG, 3075F SYST BP GE 130 - 139MM HG, 3078F DIAST BP < 80 MM HG * Follow Up: p rn * Images: Billing Information: * Visit Code: 23472 Office Visit, Est Pt., Level 3. * Procedure Codes: G2211 Complex e/m visit add on. 1036F TOBACCO NON-USER. G8783 BP SCR PRFRM RCMDD DEFIND SCR INTVL. G8752 MOST RECENT SYSTOLIC BP < 140MM HG. G8754 MOST RECENT DIASTOLIC BP < 90MM HG. 3075F SYST BP GE 130 - 139MM HG. 3078F DIAST BP < 80 MM HG. * Electronic signature of Ellen Juarez MD on 09/05/2025 at 10:08 AM EST Sign off status: Pending * Provider: Ellen Juarez M.D. Date: 0 06/17/2025 Generated for Ashutosh terry/Lucia/eTeloise on: 1 11/06/2024 10:08 AM EST History and Physical Notes * HPI (History of Present Illness) Category Sub-Category Detail Notes Category Not es Cardiology Headaches Pt states she roe s been having Migraine for 4 days now and all day. Pt states nothing helps her when she gets a migraine She has tried and failed multiple therapeutic modalities. Please refer to previous neurology consultation notes. Examination Category Sub-Category Detail Notes Category Not es General Examination HEENT: sclera and c onjunctiva clear, PERRLA, TM's normal, translucent. Nares patent. Sinuses NT Heart: RSR Lungs: clear to auscultatio n General Appearance: NAD. Mild photophobi a. Sitting in a darkened room Neurologic Exam: normal cranial nerve s II-XII. No focal motor deficits Neck: supple, no meningism us
--- OUTSIDE RECORDS SUMMARY | 2025-07-08 08:15 | XMS_ITS | Encounter Summary ---
[facility] Address [address] [place] [address] Care Team Providers Care Regulatory Affairs Spec Name Role Phone Valentín Juarez MD Primary Care Provider Reason for Visit * Reason Comments Paroxysmal SVT (supraventric ular tachycardia) Patient complains of heaviness in the chest Encounter Details Date Type Department Care Team (Late st Contact Info) Description 07/08/2025 9:15 AM EDT Office Visit [facility] [address] [facility] [address] [place] [address] Esequiel Norris PA-C [address] [place] [address] [address] [place] [address] SVT (supraventricular tachycardia) (Primary Dx); Essential hypertension Social History Tobacco Use Types Packs/Day Years [...] Sign Reading Time Taken Comments Blood Pressure 110/64 07/08/2025 9:00 AM EDT Pulse 73 07/08/2025 9:00 AM EDT Temperature - - Respiratory Rate - - Oxygen Saturation 97% 07/08/2025 9:00 AM EDT Inhaled Oxygen Concentration - - Weight 118 kg (260 lb 14.4 oz) 07/08/2025 9:00 A M EDT Height 165.1 cm (5' 5 ) 07/08/2025 9:00 AM EDT Body Mass Index 43.42 07/08/2025 9:00 AM EDT documented in this encounter Progress Notes * Esequiel Norris PA-C - 07/08/2025 9:15 AM EDTAssociated Order(s): ECG 12 Lead Post-Procedure Diagnose(s): SVT (supraventricular tachycardia) Images from the original note were not included. Cardiac Electrophysiology Outpatient Note [facility] Office Visit Roseline Peraza [id number] 07/08/2025 Primary Care Physician: Valentín Juarez MD Referred By: No ref. 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 female who presents to my electrophysiology clinic for follow up of SVT s/p typical AVNRT ablation 05/[address] Villafana. Since being discharged from that procedure, she reports she is doing well with no recurrent tachypalpitations or near syncopal episodes. Past Medical History: Diagnosis Date Breast cancer Cancer History of Mj thyroiditis 06/07/2016 Hx of radiation therapy Irradiation breast irradiation Radiation Screening mammogram, encounter for 03/07/2017 Thyroid cancer Uterine cancer Past Surgical History: Procedure Laterality Date BREAST BIOPSY BREAST LUMPECTOMY Left 01/21/2010 CARDIAC ELECTROPHYSIOLOGY PROCEDURE N/A 05/23/2025 Procedure: EP/CRM Study +/- SVT ablation; hold bisoprolol 5 days prior; Surgeon: John Villafana MD;Location: [facility] EP INVASIVE LOCATION; Service: Cardiovascular; Laterality: N/A; OTHER SURGICAL HISTORY 05/23/2025 EPS/ SVT ABLATION PER DR. VILLAFANA TOTAL ABDOMINAL HYSTERECTOMY WITH SALPINGO OOPHORECTOMY 2008 Family History Problem Relation Age of Onset Hypertension Father Ovarian cancer Maternal Grandmother Breast cancer Neg Hx Social History Socioeconomic History Marital status: Single Tobacco Use Smoking status: Never Smokeless tobacco: Never Vaping Use Vaping status: Never Used Passive vaping exposure: Yes Substance and Sexual Activity Alcohol use: No Drug use: No Sexual activity: Defer Current Outpatient Medications: ALBUTEROL IN, Inhale 2 puffs as needed., Disp: , Rfl: aspirin 81 MG chewable tablet, Chew 1 tablet Daily., Disp: , Rfl: atorvastatin (LIPITOR) 40 MG tablet, Take 1 tablet by mouth Daily., Disp: , Rfl: bisoprolol (ZEBeta) 5 MG tablet, Take 0.5 tablets by mouth Daily., Disp: 45 tablet, Rfl: 3 esomeprazole (NexIUM) 40 MG capsule, Take 1 capsule by mouth Every Morning Before Breakfast., Disp:, Rfl: ibuprofen (ADVIL,MOTRIN) 800 MG tablet, Take 1 tablet by mouth As Needed for Mild Pain., Disp: , Rfl: levothyroxine (SYNTHROID, LEVOTHROID) 100 MCG tablet, Take 1 tablet by mouth Daily. 110 MG DAILY, Disp: , Rfl: 0 oxyCODONE (ROXICODONE) 5 MG immediate release tablet, Take 1 tablet by mouth 3 (Three) Times a Day., Disp: , Rfl: 0 potassium chloride (MICRO-K) 10 MEQ CR capsule, Take 1 capsule by mouth Daily. with food, Disp: , Rfl: promethazine (PHENERGAN) 50 MG tablet, Take 0.5 tablets by mouth As Needed for Nausea or Vomiting.,Disp: , Rfl: venlafaxine XR (EFFEXOR-XR) 150 MG 24 hr capsule, Take 1 capsule by mouth Daily., Disp: , Rfl: 0 vitamin B-12 (CYANOCOBALAMIN) 1000 MCG tablet, Take 1 tablet by mouth Daily., Disp: , Rfl: vitamin D3 125 MCG (5000 UT) capsule capsule, Take 1 capsule by mouth Daily., Disp: , Rfl: Allergies: Allergies Allergen Reactions Ketorolac Shortness Of Breath Serzone [Nefazodone] Shortness Of Breath Stadol [Butorphanol] Shortness Of Breath Toradol [Ketorolac Tromethamine] Shortness Of Breath Compazine [Prochlorperazine Edisylate] Swelling Dilaudid [Hydromorphone] Mental Status Change Neurontin [Gabapentin] Reglan [Metoclopramide] Swelling Pseudoephedrine-Guaifenesin Rash Wellbutrin [Bupropion] Rash Objective Vital Signs: Blood pressure 110/64, pulse 73, height 165.1 cm (65 ), weight 118 kg (260 lb 14.4 oz), SpO2 97%. PHYSICAL EXAM General appearance: Awake, alert, cooperative Head: Normocephalic, without obvious abnormality, atraumatic Lungs: Clear to ascultation bilaterally Heart: Regular rate and rhythm, no murmurs, no lower extremity swelling Skin: Skin color, turgor normal, no rashes or lesions Neurologic: Grossly normal Lab Results Component Value Date GLUCOSE 96 05/23/2025 CALCIUM 8.9 05/23/2025 NA 141 05/23/2025 K 3.5 05/23/2025 CO2 22.7 05/23/2025 CL 107 05/23/2025 BUN 24.7 (H) 05/23/2025 CREATININE 0.91 05/23/2025 EGFRIFNONA 77 06/28/2016 BCR 27.1 (H) 05/23/2025 ANIONGAP 11.3 05/23/2025 Lab Results Component Value Date WBC 7.65 05/23/2025 HGB 11.5 (L) 05/23/2025 HCT 35.2 05/23/2025 MCV 90.5 05/23/2025 PLT 291 05/23/2025 No results found for: INR , PROTIME No results found for: TSH , [id number] , S6YMVTH , THYROIDAB I personally viewed and interpreted the patient's EKG/Telemetry/lab data ECG 12 Lead Date/Time: 07/08/2025 9:24 AM Performed by: Esequiel Norris PA-C Authorized by: Esequiel Norris PA-C Comparison: compared with previous ECG from 09/03/2025 Rhythm: sinus rhythm Clinical impression: normal ECG Roseline Peraza reports that she has never smoked. She has never used smokeless tobacco. Advance Care Planning Advance Care Planning: ACP discussion was declined by the patient. Patient does not have an advancedirective, information provided. Assessment & Plan 1. SVT (supraventricular tachycardia) S/p AVNRT ablation without recurrence of symptomatic tachypalpitations 2. Essential hypertension BP controlled in the office today. Will decrease bisoprolol to 2.5 mg daily Follow Up: Return in about 1 year (around 07/08/2026). Thank you for allowing me to participate in the care of your patient. Please do not hesitate to contact me with additional questions or concerns. Esequiel Norris PA-C Cardiac Electrophysiology [facility] documented in this encounter Plan of Treatment Upcoming Encounters Date Type Department Care Team (Late st Contact Info) Description 07/21/2026 11:15 AM EDT Office Visit [facility] [address] [facility] [address] [place] [address] John Villafana MD [address] [place] [address] [address] [place] [address] documented as of this encounter Procedures Procedure Name Priority Date/Time Associated Diagnosis Comments ECG 12-LEAD Routine 07/08/2025 SVT (supraventricular tachycardia) documented in this encounter Results * ECG 12-LEAD (07/08/2025) Narrative 07/08/2025 Esequiel Norris PA-C 07/08/2025 10:03 AM ECG 12 Lead Date/Time: 07/08/2025 9:24 AM Performed by: Esequiel Norris PA-C Authorized by: Esequiel Norris PA-C Comparison: compared with previous ECG from 09/03/2025 Rhythm: sinus rhythm Clinical impression: normal ECG Procedure Note Esequiel Norris PA-C - 07/08/2025 9:15 AM EDT Images from the original note were not included. Cardiac Electrophysiology Outpatient Note [facility] Office Visit Roseline Peraza [id number] 07/08/2025 Primary Care Physician: Valentín Juarez MD Referred By: No ref. 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 female who presents to my electrophysiologyclinic for follow up of SVT s/p typical AVNRT ablation 05/2025 by . Since being discharged from that procedure, she reports she isdoing well with no recurrent tachypalpitations or near syncopalepisodes. Past Medical History: Diagnosis Date Breast cancer Cancer History of Mj thyroiditis 06/07/2016 Hx of radiation therapy Irradiation breast irradiation Radiation Screening mammogram, encounter for 03/07/2017 Thyroid cancer Uterine cancer Past Surgical History: Procedure Laterality Date BREAST BIOPSY BREAST LUMPECTOMY Left 01/21/2010 CARDIAC ELECTROPHYSIOLOGY PROCEDURE N/A 05/23/2025 Procedure: EP/CRM Study +/- SVT ablation; hold bisoprolol 5 days prior;Surgeon: John Villafana MD; Location: [facility] EP INVASIVE LOCATION;Service: Cardiovascular; Laterality: N/A; OTHER SURGICAL HISTORY 05/23/2025 EPS/ SVT ABLATION PER DR. VILLAFANA TOTAL ABDOMINAL HYSTERECTOMY WITH SALPINGO OOPHORECTOMY 2008 Family History Problem Relation Age of Onset Hypertension Father Ovarian cancer Maternal Grandmother Breast cancer Neg Hx Social History Socioeconomic History Marital status: Single Tobacco Use Smoking status: Never Smokeless tobacco: Never Vaping Use Vaping status: Never Used Passive vaping exposure: Yes Substance and Sexual Activity Alcohol use: No Drug use: No Sexual activity: Defer Current Outpatient Medications: ALBUTEROL IN, Inhale 2 puffs as needed., Disp: , Rfl: aspirin 81 MG chewable tablet, Chew 1 tablet Daily., Disp: , Rfl: atorvastatin (LIPITOR) 40 MG tablet, Take 1 tablet by mouth Daily.,Disp: , Rfl: bisoprolol (ZEBeta) 5 MG tablet, Take 0.5 tablets by mouth Daily., Disp:45 tablet, Rfl: 3 esomeprazole (NexIUM) 40 MG capsule, Take 1 capsule by mouth EveryMorning Before Breakfast., Disp: , Rfl: ibuprofen (ADVIL,MOTRIN) 800 MG tablet, Take 1 tablet by mouth As Neededfor Mild Pain., Disp: , Rfl: levothyroxine (SYNTHROID, LEVOTHROID) 100 MCG tablet, Take 1 tablet bymouth Daily. 110 MG DAILY, Disp: , Rfl: 0 oxyCODONE (ROXICODONE) 5 MG immediate release tablet, Take 1 tablet bymouth 3 (Three) Times a Day., Disp: , Rfl: 0 potassium chloride (MICRO-K) 10 MEQ CR capsule, Take 1 capsule by mouthDaily. with food, Disp: , Rfl: promethazine (PHENERGAN) 50 MG tablet, Take 0.5 tablets by mouth AsNeeded for Nausea or Vomiting., Disp: , Rfl: venlafaxine XR (EFFEXOR-XR) 150 MG 24 hr capsule, Take 1 capsule bymouth Daily., Disp: , Rfl: 0 vitamin B-12 (CYANOCOBALAMIN) 1000 MCG tablet, Take 1 tablet by mouthDaily., Disp: , Rfl: vitamin D3 125 MCG (5000 UT) capsule capsule, Take 1 capsule by mouthDaily., Disp: , Rfl: Allergies: Allergies Allergen Reactions Ketorolac Shortness Of Breath Serzone [Nefazodone] Shortness Of Breath Stadol [Butorphanol] Shortness Of Breath Toradol [Ketorolac Tromethamine] Shortness Of Breath Compazine [Prochlorperazine Edisylate] Swelling Dilaudid [Hydromorphone] Mental Status Change Neurontin [Gabapentin] Reglan [Metoclopramide] Swelling Pseudoephedrine-Guaifenesin Rash Wellbutrin [Bupropion] Rash Objective Vital Signs: Blood pressure 110/64, pulse 73, height 165.1 cm (65 ),weight 118 kg (260 lb 14.4 oz), SpO2 97%. PHYSICAL EXAM General appearance: Awake, alert, cooperative Head: Normocephalic, without obvious abnormality, atraumatic Lungs: Clear to ascultation bilaterally Heart: Regular rate and rhythm, no murmurs, no lower extremity swelling Skin: Skin color, turgor normal, no rashes or lesions Neurologic: Grossly normal Lab Results Component Value Date GLUCOSE 96 05/23/2025 CALCIUM 8.9 05/23/2025 NA 141 05/23/2025 K 3.5 05/23/2025 CO2 22.7 05/23/2025 CL 107 05/23/2025 BUN 24.7 (H) 05/23/2025 CREATININE 0.91 05/23/2025 EGFRIFNONA 77 06/28/2016 BCR 27.1 (H) 05/23/2025 ANIONGAP 11.3 05/23/2025 Lab Results Component Value Date WBC 7.65 05/23/2025 HGB 11.5 (L) 05/23/2025 HCT 35.2 05/23/2025 MCV 90.5 05/23/2025 PLT 291 05/23/2025 No results found for: INR , PROTIME No results found for: TSH , L0QBAOM , R3XUPRO , THYROIDAB I personally viewed and interpreted the patient's EKG/Telemetry/lab data ECG 12 Lead Date/Time: 07/08/2025 9:24 AM Performed by: Esequiel Norris PA-C Authorized by: Esequiel Norris PA-C Comparison: compared with previousECG from 09/03/2025 Rhythm: sinus rhythm Clinical impression: normal ECG Roseline Peraza reports that she has never smoked. She has never usedsmokeless tobacco. Advance Care Planning Advance Care Planning: ACP discussion was declined by the patient. Patientdoes not have an advance directive, information provided. Assessment & Plan 1. SVT (supraventricular tachycardia) S/p AVNRT ablation without recurrence of symptomatic tachypalpitations 2. Essential hypertension BP controlled in the office today. Will decrease bisoprolol to 2.5 mgdaily Follow Up: Return in about 1 year (around 07/08/2026). Thank you for allowing me to participate in the care of your patient.Please do not hesitate to contact me with additional questions orconcerns. Esequiel Norris PA-C Cardiac Electrophysiology [facility] Esequiel Norris PA-C ECG ORDERABLES Final Result documented in this encounter Visit Diagnoses Diagnosis SVT (supraventricular tachycardia)- Primary Other specified cardiac dysrhythmias Essential hypertension Unspecified essential hypertension documented in this encounter Care Teams Regulatory Affairs Spec Relationship Specialty Start Date End Date Valentín Juarez MD [facility] [address] [facility] [address] [place] [address] PCP - General Family Medicine 06/14/16 documented as of this encounter
--- OUTSIDE RECORDS SUMMARY | 2025-07-17 10:30 | XMS_ITS ---
Author Organization [facility] Address [address] [place] [id number] Care Team Providers Care Turner And Former Automatic Name Role Phone Enmanuel Walton Primary Care Provider Ellen Juarez [phone] Allergies Allergen (clinical drug ingredient) Drug/Non Drug [...] Notes Start Date End Date Status Nystatin 144348 UNIT/GM APPLY 1 APPLICAT ION EXTERNALLY FOUR [...] orally 3 ti mes a day Active Maxalt-CONTRACT LOADER 10 MG 1 tab(s) orally once [...] Time; Duration: 90 days Active Vital Signs Weight 258.8 lbs 07/17/2025 Blood pressure systolic 130 mm Hg 07/17/20 25 Blood pressure diastolic 76 mm Hg 025 Heart Rate 78 /min 07/17/2025 Height 65 in 07/17/2025 BMI 43.06 kg/m2 07/17/2025 Encounters Encounter Location Date Provider Diagnosis [facility] [address] [place] [id number] 07/17/2025 Ellen Juarez Bipolar disorder, current episode [...] * Christiane GRADY:1970 ( 55 yo F)Acc No.[id number]:07/17/2025 Progress Notes Patient: Roseline SAVAGE Provider: Ellen Juarez M.D. :1970 A ge:55 Y S ex:Female Date:07/17/2025 Address:[place], [id number] Pcp:Enmanuel Walton Subjective: * Chief Complaints: * [...] requent urination. ? 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 migraine 07/07/07, [facility] ER, migraine 09/09/07, [facility] ER, migraine 09/13/08, H dehydration 06/09, [facility] ER migraine 10.08, [facility] ER migraine 08/31/08, stomach pain 10/18/08, ct scan [facility] on abdomen 10/22/08, [facility] ER migraine 12/18/08, [facility] ER-migraine/sunburn 02/09/09, [facility] ER-migraine , abdominal pain 04/09/2009, [facility] ER-fell off a stool 10/17/09, [facility] ER-migraine 05/19/10, [facility] ER-migraine 12-18-10, [facility] ER-pt fell 01/04/11, [facility] ER- Migraine 09/26/11, [facility] ER - Migraine 05/12/12, [facility] ER-migraine 09/13, [facility] ER-migraine 11/02/13, [facility]-ER migraine -2013, [facility]-ER migraine 10-19-14, [facility] ER-migraine 11/16, [facility] Er-Migraines 01-17-15, [facility] ER - Migraine , [facility] ER- Migraine 07/06/15, [facility] ER-Migraine 04/03/16, [facility]- ER- Migraine 05/03/16, [facility]-Chest pain 10/23/16, [facility] ER -Migraine 08/06/17, [facility] ER-Migraine 10/19, [facility] ER - mirgraine Nov 2017, [facility] ER- migraine 10/22, EP study [...] since last visit: none. 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 Past smoking status: no, Smoking status: Does [...] tab(s) orally once a day , Taking Maxalt-CONTRACT LOADER 10 MG Tablet Disintegrating 1 tab(s) [...] MOUTH DAILY WITH FOOD , Taking Nystatin 994362 UNIT/GM Cream APPLY 1 APPLICATION EXTERNALLY FOUR [...] Temp: 97.7, BP: 130/76, HR: 78, Nurse: [facility], Ht: 65, BMI:43.06. * Examination: G eneral [...] * Images: Billing Information: * Visit Code: 13696 Office Visit, Est Pt., Level 3. * Procedure Codes: G2211 Complex e/m visit add on. 3075F SYST BP GE 130 - 139MM HG. 3078F DIAST BP < 80 MM HG. * Electronic signature of Ellen Juarez MD on 09/05/2025 at 10:05 AM EST Sign off status: Pending * Provider: Ellen Juarez M.D. Date: 1 Generated for Ashutosh terry/Lucia/eTransmitting on: 1 11/06/2024 10:05 AM EST History and Physical Notes * [...]
--- OUTSIDE RECORDS SUMMARY | 2025-09-04 06:15 | XMS_ITS ---
Author Organization [facility] Address [address] [place] [id number] Care Team Providers Care Cryptologic Technician Technical Name Role Phone Enmanuel Walton Primary Care Provider [phone] Ellen Juarez [phone] Allergies Allergen (clinical drug ingredient) Drug/Non Drug [...] Range Notes P-Comprehensive Metabolic Pa brad (CMP) (Not yet reviewed by provider) Interpretation: Performing Lab: Notes/Report: CLIA: [id number] Nefize Sertac Markus JI, PhD, FCAP, [employer] [address] [facility] , [address], [place] [address] Test performed by [employer], qualifyor Sodium 141 135-145 mmol/L Potassium 4.5 3.5-5.3 mmol/L Chloride 103 97-108 mmol/L CO2 26 20-32 mmol/L Glucose 96 65-99 mg/dL BUN 19 6-20 mg/dL Creatinine 0.95 0.50-1.00 mg/dL Calcium 9.7 8.6-10.4 mg/dL eGFR by Creatinine 70 >59 mL/min/1.73m2 Protein 6.7 6.0-8.3 g/dL Albumin 3.9 3.5-5.3 g/dL Alkaline Phosphatase 78 41-145 IU/L ALT (SGPT) 19 <5-47 IU/L AST (SGOT) 18 <5-40 IU/L Bilirubin, Total 0.4 <0.2-1.2 mg/dL A/G Ratio 1.4 1.1-2.5 P-Lipid Panel (Not yet revie wed by provider) Interpretation: Performing Lab: Notes/Report: CLIA: [id number] Juan Jose Aparicio MD, PhD, FCAP, [employer] [address] [place] [address] , [address], [place] [address] Test performed by [employer], [employer] Lipid Panel Footnote See Below *Based on optimal reference values. Please refer to the DOS for additional information regarding diagnostic lipid reference ranges, patient management based on the recently updated lipid guidelines ([place] [employer]/[place] [employer] Task Force on Clinical Practice Guidelines (2018), and pediatric diagnostic lipid reference values (<18 years old). Total Cholesterol 162 <200 mg/dL Triglycerides 112 <150 mg/dL HDL Cholesterol 60 >50 mg/dL Total Cholesterol / HDL Ratio* 2.70 <3.99 Rati o Non-HDL Cholesterol 102 <130 mg/dL LDL Cholesterol (Calculation) 80 <100 mg/dL LDL / HDL Ratio* 1.33 <1.99 Ratio LDL Cholesterol Patient History Test Date: 10/01/2024 LDL Results: 102 Units: mg/dL % Change: -37% Test Date: 03/20/2025 LDL Results: 72 Units: mg/dL % Change: -29% Test Date: 09/04/2025 LDL Results: 80 Units: mg/dL % Change: +11% P-TSH (Not yet reviewed by alberto bidr) Interpretation: Performing Lab: Notes/Report: Test performed by [employer] [address] [place] [address] , [facility], [place] [address] Juan Jose Aparicio MD, PhD, FCAP, [employer] CLIA: [id number] TSH 5.73 0.43-5.25 mU/L REASON FOR VISIT migraine and refills Medications Medication SIG (Take, Route, Frequency, Duration) Notes Start Date End Date Status Atorvastatin Calcium 40 MG 1 tab(s) Orally At Bed Time; Duration: 90 days Active Levothyroxine Sodium 100 MCG 1 tab(s) Orally once a day; Duration: 90 days Active Simponi Aria 50 MG/4ML as directed Intravenous Active Promethazine HCl 25 MG 1 tablet as neede d Orally q6h prn Active Potassium Chloride ER 10 MEQ TAKE 1 CAPSULE BY MOUTH DAILY WITH FOOD Active Ibuprofen 800 MG 1 tab(s) orally 3 ti mes a day Not-Taking Esomeprazole Magnesium 40 MG take 1 capsule by mouth every day Orally Once a day; Duration: 90 days Active Bisoprolol Fumarate 5 MG 1/2 tablet Oral ly Once a day Active Vitamin D3 125 MCG (5000 UT) 1 cap(s) orally once a day 04/01/2014 Active Maxalt-SURVEY ANALYST 10 MG 1 tab(s) orally once a day, may repeat Q2h x2 Active oxyCODONE HCl 5 MG 1 tab(s) orally thre e times a day as needed Active Aspirin 81 MG 1 tab(s) orally once a day Active Ventolin HFA 108 (90 Base) MCG/ACT 1 puff as needed Inhalation four times a day as needed 01/25/2024 Active Triamterene-HCTZ 37.5-25 MG 1/2 tab(s) orally once a day Active Azelastine HCl 0.05 % 1 drop into affect ed eye Ophthalmic Twice a day 05/20/2025 Active B-12 1000 MCG 1 tab(s) orally once a day 04/01/2014 Active Venlafaxine HCl ER 150 MG 1 capsule with food Orally Once a day; Duration: 90 days Active Vital Signs Weight 264 lbs 09/04/2025 Blood pressure systolic 128 mm Hg 09/04/20 25 Blood pressure diastolic 80 mm Hg 025 Heart Rate 100 /min 09/04/2025 Height 65 in 09/04/2025 BMI 43.93 kg/m2 09/04/2025 Encounters Encounter Location Date Provider Diagnosis [facility] [id number] 09/04/2025 R Steve Juarez Intractable migraine without aura and with status migrainosus G43.011 ; Postoperative hypothyroidism E89.0 ; Dyslipidemia E78.5 ; Acquired hypothyroidism E03.9 ; Deficiency of other specified B group vitamins E53.8 ; Migraine headache G43.909 and Hypokalemia E87.6 Assessments Encounter Date Diagnosis (ICD Code) Assessment Notes Treatment Notes Treatment Clinical Notes Section Notes 09/04/2025 Intractable migraine without aura and with status migrainosus (ICD-10 - G43.011) To [facility] outpt for Morphine 2mg and Phenergan 25 mg IM To [facility] outpt for Morphine 2mg and Phenergan 25 mg IM 09/04/2025 Postoperative hypothyroidism (ICD-10 - E89.0) 09/04/2025 Dyslipidemia (ICD-10 - E78.5) 09/04/2025 Acquired hypothyroidism (ICD-10 - E03.9) 09/04/2025 Deficiency of other specified B group vitamins (ICD-10 - E53.8) 09/04/2025 Migraine headache (ICD-10 - G43.909) 09/04/2025 Hypokalemia (ICD-10 - E87.6) Plan Of Treatment Medication Medication Name Sig Start Date Stop Date Notes Atorvastatin Calcium 40 MG 1 tab(s) Oral ly At Bed Time; Duration: 90 days Levothyroxine Sodium 100 MCG 1 tab(s) Or ally once a day; Duration: 90 days Potassium Chloride ER 10 MEQ TAKE 1 CAPS ULE BY MOUTH DAILY WITH FOOD Bisoprolol Fumarate 5 MG 1/2 tablet Orally Once a day Vitamin D3 125 MCG (5000 UT) 1 cap(s) orally once a day Maxalt-SURVEY ANALYST 10 MG 1 tab(s) orally once a day, may repeat Q2h x2 oxyCODONE HCl 5 MG 1 tab(s) orally thre e times a day as needed Treatment Notes Assessment Notes Intractable migraine without aura and with status migrainosus To [facility] outpt for Morphine 2mg and Phenergan 25 mg IM To [facility] outpt for Morphine 2mg and Phenergan 25 mg IM Pending Test Test Name Order Date P-Comprehensive Metabolic Panel (CMP) P-Lipid Panel 09/04/2025 P-TSH 09/04/2025 Next Appt Details Follow Up: 6 Months, Reason: Progress Notes * Leo GRADYEmmettB:1970 ( 55 yo F)Acc No.[id number]:09/04/2025 Progress Notes Patient: Roseline SAVAGE Provider: Ellen Juarez M.D. :1970 A ge:55 Y S ex:Female Date:09/04/2025 Address:[id number] Pcp:Enmanuel Walton Subjective: * Chief Complaints: * 1 . Migraine and refills. * HPI: H PI: Patient is here today for P t states she needs refills on her meds and is due for labs. N eurology: C/o migraine headache x 4 days. No relief with abortive meds she has at home. Some nausea and dry heaves. * ROS: D ERMATOLOGY: no R chaim. n o H letty. G ASTROENTEROLOGY: no N ausea. n o V omiting. n o D iarrhea.? U ROLOGY: no D ifficulty urinating. n o B lood in urine. 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, Chronic Migraine, s/p Botox injections, Asthma, BI-Polar, Thyroid Cancer, Uterine cancer, breast cancer, Dx: January 2010, 10/04/11 CT of sinuses, minimal changes left max sinus, Kidney stone, Allergy injections, Follows at [facility] for her annual mammogram, Declines flu shot [...] ER migraine 07/07/07, [facility] ER, migraine 09/09/07, [facility] ER, migraine 09/13/08, [facility] dehydration 06/09, [facility] ER migraine .08, [facility] ER migraine 08/31/08, stomach pain 10/18/08, ct scan [facility] on abdomen 10/22/08, [facility] ER migraine 12/18/08, [facility] ER-migraine/sunburn 02/09/09, [facility] ER-migraine 615/, abdominal pain 04/09/2009, [facility] ER-fell off a stool 10/17/09, [facility] ER-migraine 05/19/10, [facility] ER-migraine 12-18-10, [facility] ER-pt fell 01/04/11, [facility] ER- Migraine 09/26/11, [facility] ER - Migraine 05/12/12, [facility] ER-migraine 09/13, [facility] ER-migraine 11/02/13, [facility]-ER migraine -2013, [facility]-ER migraine 10-19-14, [facility] ER-migraine 11/16, [facility] Er-Migraines 01-17-15, [facility] ER - Migraine , [facility] ER- Migraine 07/06/15, [facility] ER-Migraine 04/03/16, [facility]- ER- Migraine 05/03/16, [facility]-Chest pain 10/23/16, [facility] ER -Migraine 08/06/17, [facility] ER-Migraine 10/19, [facility] ER - mirgraine Nov 2017, [facility] ER- migraine 10/22, EP study with [...] New since last visit: none. 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 Past smoking status: no, Smoking status: Does not smoke. Occup. exposure: none. Recreational drug use: no. Alcohol: no. Sexually active: no.. Travel ouside [place]: no. * Medications: T aking Simponi Aria 50 MG/4ML Solution as directed Intravenous , Taking oxyCODONE HCl 5 MG Tablet 1 tab(s) orally three times a day as needed , Taking Promethazine HCl 25 MG Tablet 1 tablet as needed Orally q6h prn , Taking Venlafaxine HCl ER 150 MG Capsule Extended Release 24 Hour 1 capsule with food Orally Once a day , Taking Atorvastatin Calcium 40 MG Tablet 1 tab(s) Orally At Bed Time , Taking Levothyroxine Sodium 100 MCG Tablet 1 tab(s) Orally once a day , Taking Bisoprolol Fumarate 5 MG Tablet 1/2 tablet Orally Once a day , Taking Vitamin D3 125 MCG (5000 UT) Capsule 1 cap(s) orally once a day , Taking B-12 1000 MCG Tablet 1 tab(s) orally once a day , Taking Aspirin 81 MG Tablet Delayed Release 1 tab(s) orally once a day , Taking Maxalt-SURVEY ANALYST 10 MG Tablet Disintegrating 1 tab(s) orally once a day, may repeat Q2h x2 , Taking Ventolin HFA 108 (90 Base) MCG/ACT Aerosol Solution 1 puff as needed Inhalation four times a day as needed , Taking Triamterene-HCTZ 37.5-25 MG Tablet 1/2 tab(s) orally once a day , Taking Azelastine HCl 0.05 % Solution 1 drop into affected eye Ophthalmic Twice a day , Taking Esomeprazole Magnesium 40 MG Capsule Delayed Release take 1 capsule by mouth every day Orally Once a day , Taking Potassium Chloride ER 10 MEQ Capsule Extended Release TAKE 1 CAPSULE BY MOUTH DAILY WITH FOOD , Not-Taking Ibuprofen 800 MG Tablet 1 tab(s) orally 3 times a day , Medication List reviewed and reconciled with the patient * Allergies: W ellbutrin XL, SERZONE, Butorphanol Tartrate, Pseudoephedrine-guaiFENesin: rash, Reglan: get sick, face swells, Neurontin: rash, Ketorolac: rash - Allergy. Objective: * Vitals: W t: 264, Temp: 98.1, BP: 128/80, HR: 100, Nurse: pe, Ht: 65, BMI:43.93. * Examination: G eneral Examination: HEENT: s clera and conjunctiva clear, PERRLA, TM's normal, translucent. Nares patent. Sinuses NT. N jacky: s upple, no meningismus. H eart: R SR. L ungs: c lear to auscultation. N eurologic Exam: normal cranial nerves II-XII. No focal motor deficits. Assessment: * Assessment: 1. I ntractable migraine without aura and with status migrainosus - G43.011 (Primary) ? 2 . P ostoperative hypothyroidism - E89.0 3 . D yslipidemia - E78.5? 4. A cquired hypothyroidism - E03.9 5 . D eficiency of other specified B group vitamins - E53.8 6 . M igraine headache - G43.909 ?7. H ypokalemia - E87.6 Plan: * Treatment: 2. P ostoperative hypothyroidism L AB: P-TSH (Collection Date & Time - 09/04/2025 10:48 AM) Value Reference Range T SH 5.73 H 0.43-5.25 - mU/L 3.?Dyslipidemia? Refill Atorvastatin Calcium Tablet, 40 MG, 1 tab(s), Orally, At Bed Time, 90 days, 90, Refills 1. ?LAB: P-Comprehensive Metabolic Panel (CMP) (Collection Date & Time - 09/04/2025 10:48 AM)* Value Reference Range A /G Ratio 1.4 1.1-2.5 - * A lbumin 3.9 3.5-5.3 - g/dL * A lkaline Phosphatase 78 41-145 - IU/L * A LT (SGPT) 19 <5-47 - IU/L * A ST (SGOT) 18 <5-40 - IU/L * B ilirubin, Total 0.4 <0.2-1.2 - mg/dL * B UN 19 6-20 - mg/dL * C alcium 9.7 8.6-10.4 - mg/dL * C hloride 103 97-108 - mmol/L * C O2 26 20-32 - mmol/L * C reatinine 0.95 0.50-1.00 - mg/dL * G lucose 96 65-99 - mg/dL * P otassium 4.5 3.5-5.3 - mmol/L * S odium 141 135-145 - mmol/L * P rotein 6.7 6.0-8.3 - g/dL * e GFR by Creatinine 70 >59 - mL/min/1.73m2 ?LAB: P-Lipid Panel (Collection Date & Time - 09/04/2025 10:48 AM)* Value Reference Range C holesterol / HDL Ratio 2.70 <3.99 - Ratio * C holesterol 162 <200 - mg/dL * H DL Cholesterol 60 >50 - mg/dL * L DL Cholesterol (Calculation) 80 <100 - mg/d L * L DL/HDL Ratio 1.33 <1.99 - Ratio * N on-HDL Cholesterol 102 <130 - mg/dL * T riglycerides 112 <150 - mg/dL * L ipid Panel Footnote See Below - 4.?Acquired hypothyroidism? Refill Levothyroxine Sodium Tablet, 100 MCG, 1 tab(s), Orally, once a day, 90 days, 90 Tablet, Refills 1.??5.?Deficiency of other specified B group vitamins? Refill Vitamin D3 Capsule, 125 MCG (5000 UT), 1 cap(s), orally, once a day, 90, Refills 1.? 6.?Migraine headache? Refill Maxalt-SURVEY ANALYST Tablet Disintegrating, 10 MG, 1 tab(s), orally, once a day, may repeat Q2h x2, 27, Refills 1.??7.?Hypokalemia? Refill Potassium Chloride ER Capsule Extended Release, 10 MEQ, TAKE 1 CAPSULE BY MOUTH DAILY WITH FOOD, 90, Refills 1.??8.?Others? Refill Bisoprolol Fumarate Tablet, 5 MG, 1/2 tablet, Orally, Once a day, 45, Refills 1.?? * Follow Up: 6 Months * Images: Billing Information: * Visit Code: 31726 Office Visit, Est Pt., Level 4. * Procedure Codes: * Electronic signature of Ellen Juarez MD on 09/05/2025 at 10:05 AM EST Sign off status: Pending * Provider: Ellen Juarez M.D. Date: 11/05/2024 Generated for Ashutosh terry/Lucia/Syed on: 11/06/2024 10:05 AM EST History and Physical Notes * HPI (History of Present Illness) Category Sub-Category Detail Notes Category Not es HPI Patient is here today for Pt sta yony she needs refills on her meds and is due for labs Examination Category Sub-Category Detail Notes Category Not es General Examination HEENT: sclera and c onjunctiva clear, PERRLA, TM's normal, translucent. Nares patent. Sinuses NT Heart: RSR Lungs: clear to auscultatio n General Appearance: Neurologic Exam: normal cranial nerve s II-XII. No focal motor deficits Neck: supple, no meningism us
--- OUTSIDE RECORDS SUMMARY | 2025-09-05 10:04 | XMS_ITS | Clinical Summary ---
Author Organization [facility] Address [address] [place] [address] Care Team Providers Care Cable Ferryboat Operator Name Role Phone Valentín Juarez MD Primary Care Provider [phone]- [phone] Social History Tobacco Use Types Packs/Day Years [...] Screening 08/12/202308/02, 08/12/2021, 03/30/2020, Additional history exists [id number] Vaccine (2024- season) 2025 UKY-Influenza Vaccine (#1) [...] patient's age to complete this topic Insurance [facility] MEDICARE Care Teams Cable Ferryboat Operator Relationship Specialty Start Date End Date Valentín Juarez MD [address] [place] [address] [facility] - General 02/12/21
--- OUTSIDE RECORDS SUMMARY | 2025-09-05 10:05 | XMS_ITS | Clinical Summary ---
Author Organization [facility] Address [address] [place] [address] Care Team Providers Care Cleaner Greaser Name Role Phone Valentín Juarez MD Primary [...] Description 07/08/2025 9:15 AM EDT Office Visit [facility] CARDIOLOGY [address] [facility] [address] [place] [address] Esequiel Norris PA-C SVT (supraventricular tachycardia) (Primary [...] Description 07/21/2026 11:15 AM EDT Office Visit [facility]IOLOGY [address] [facility] [address] [place] [address] John Villafana MD [address] [facility] [address] [place] [id number] Health Maintenance Due Date Last Done Comments [...] were not included. Cardiac Electrophysiology Outpatient Note [facility] Office Visit Roseline Peraza [phone] 07/08/2025 Primary Care Physician: Valentín Juarez MD [...] 5 days prior;Surgeon: John Villafana MD; Location: [facility];Service: Cardiovascular; Laterality: N/A; OTHER SURGICAL [...] PROTIME No results found for: TSH , Q1LKLPG , B4PDCTQ , THYROIDAB I personally viewed and interpreted [...] questions orconcerns. Esequiel Norris PA-C Cardiac Electrophysiology [facility] us Esequiel Norris PA-C ECG ORDERABLES Final [...] of concern indicated by the patient. A [place] marker is placed over a visible skin [...] of concern indicated by the patient. A [place] marker is placed over a visible skin lesion. A linear marker indicates a scar. _ Physician Order Diagnostic 6 Month follow up Mammogram with Breast Ultrasound if needed. Diagnosis: Abnormal Mammogram 01/15/2025 10:[address] Maty Brownlee MD on Maty Brownlee MD IM MAMMOGRAPHY ORDERABLES Fin al Result from Last 3 Months or Most Recently Relevant to Health Maintenance Insurance [facility] MEDICARE ADVANTAGE PPO Advance Directives * CPR (Attempt to Resuscitate) (Latest Code Status on File) Date Activated Date Inactivated Comments 05/23/2025 7:40 PM 05/24/2025 11:11 AM Question Answer Comments Code Status (Patient has no pulse and is not breathing): CPR (Attempt to Resuscitate) Medical Interventions (Patie nt has pulse or is breathing): Full Support Care Teams Cleaner Greaser Relationship Specialty Start Date End Date Valentín Juarez MD [address] [facility] [address] [place] [address] PCP - General Family Medicine 06/14/16
--- OUTSIDE RECORDS SUMMARY | 2025-09-05 10:06 | XMS_ITS | Encounter Summary ---
Author Organization [facility] Address [address] [place] [address] Care Team Providers Care Pension Fund Manager Name Role Phone Valentín Juarez MD Primary Care Provider Encounter Details Date Type Department Care Team (Late st Contact Info) Description 05/14/2012 Conversion Encounter [facility] HISTORICAL CONV [address] [place] [address] Interface, See Report Social History [...] ' Cande Feliciano M.D. ' Lissy Rodrigues, CREW [employer]OSS [address] [facility], [address] [place] [address] [employer] OFFICE NOTE ROSELINE GRADY : 1970 DATE OF VISIT: 05/14/2012 PROBLEM LIST: 1. Breast cancer: Stage I, less than 0.1 cm primary invasive ductal, ER/TX positive, HER-2 positive, node negative with family history of malignancy. Opted out of prophylactic surgeries and had lumpectomy and radiation, radiation completed 05/07/2010. Began Herceptin March 2010, but upon further review and after discussions with Dr. Yary Munoz at [facility][1] it was decided that given her small [...] exam. Lissy Rodrigues APRN* SE/rxalw Doc. ID [id number] Rev. #0 cc: Rima George M.D.* Willa [...] Feliciano M.D. ' Lissy Rodrigues APRN [address] [facility], [address] [place] [address] [employer] OFFICE NOTE ROSELINE GRADY : 1970 DATE OF VISIT: 11/12/2012 CHIEF COMPLAINT: Breast pain. PROBLEM LIST: 1. Breast cancer: Stage I, less than 0.1 cm primary invasive ductal carcinoma, ER/TX positive, HER-2/eddie positive, node negative with family history of malignancy. Opted out of prophylactic surgeries and had lumpectomy and radiation. Radiation completed 05/07/2010. Began Herceptin March 2010, but upon further review and after discussion between Dr. Hill and Dr. Yary Munoz at [facility][1] it was decided that given her small [...] Piotr Hill M.D. /rxalw; LH/rxalw Doc. ID [id number] Rev. #1 cc: Rima George M.D.* Willa [...] Cande Feliciano M.D. ' Lissy Rodrigues APRN [address] [place] [address], [place] [address] [place] [address] [employer] OFFICE NOTE ROSELINE GRADY : 1970 DATE OF VISIT: 05/28/2013 CHIEF COMPLAINT: Hot flashes. PROBLEM LIST: 1. Breast cancer: Stage I, less than 0.1 cm primary invasive ductal carcinoma, ER/TX positive, HER-2/eddie positive, node negative with family history of malignancy. Opted out of prophylactic surgeries and had lumpectomy and radiation. Radiation completed 05/07/2010. Began Herceptin March 2010, but upon further review and after discussion between Dr. Hill and Dr. Yary Munoz at [facility][1] it was decided that given her small [...] does workout at the exercise facility at [facility] usually every other day. She [...] Piotr Hill M.D. /rxalw; OSMIN/rxalw Doc. ID [id number]; [id number] Rev. #0 cc: Rima George M.D.* Willa [...] Description 07/21/2026 11:15 AM EDT Office Visit [facility] MEDICAL [facility] CARDIOLOGY [address] [facility] [address] [place] [address] [place] [address] [place] [address] [address] [place] [address] documented as of this encounter Visit Diagnoses Not on filedocumented in this encounter Care Teams Pension Fund Manager Relationship Specialty Start Date End Date Valentín Juarez MD [address] [facility] [address] [facility] [address] [place] [address] PCP - General Family Medicine 06/14/16 documented as of this encounter
--- OUTSIDE RECORDS SUMMARY | 2025-09-05 10:06 | XMS_ITS | Encounter Summary ---
Author Organization [facility] Address [address] [place] [address] Care Team Providers Care Net Software Developer Name Role Phone Valentín Juarez MD Primary [...] Description 07/21/2026 11:15 AM EDT Office Visit [facility] CARDIOLOGY [address] [facility] [address] [place] [id number] John Villafana MD [address] [facility] [address] [place] [address] documented as of this encounter Visit Diagnoses Not on filedocumented in this encounter Care Teams Net Software Developer Relationship Specialty Start Date End Date Valentín Juarez MD [address] [facility] [address] [facility] [place] [address] PCP - General Family Medicine 06/14/16 documented as of this encounter
--- OUTSIDE RECORDS SUMMARY | 2025-09-05 10:06 | XMS_ITS | Encounter Summary ---
Author Organization [facility] Address [address] [place] [address] Care Team Providers Care Loan Teller Name Role Phone Valentín Juarez MD Primary Care Provider Encounter Details Date Type Department Care Team (Late st Contact Info) Description 11/14/2011 Conversion Encounter [facility] HISTORICAL CONV [address] [facility] [address] Interface, See Report Social History [...] less than 0.1 cm primary invasive ductal, ER/WY positive, HER-2 positive, node-negative with a family history of malignancy. Opted out of prophylactic surgeries and has had lumpectomy and radiation. Started Herceptin in March 2010, but upon further review and discussions with Yary Munoz, [facility], it was decided that given her a [...] Dr. Tomás Plummer's assessment. 3. History of TRISTNA/BSO that apparently had some malignant cells though [...] the left breast region, but not any record changer time. No dominant masses. BREASTS: Bilateral breast exam revealed no worrisome masses. HEENT: No oropharyngeal lesions. LUNGS: Clear. HEART: Regular rhythm. ABDOMEN: No organomegaly, mass or tenderness. EXTREMITIES: No cyanosis, clubbing, or cords. NEUROLOGIC: No focal motor or sensory deficits. ASSESSMENT AND PLAN: 1. Stage I, less than 0.1 invasive ductal carcinoma ER/WY positive, HER-2 positive: We will continue her Arimidex. We will get her mammogram again in March and the left breast mammogram in September was BI-RADS III. We will continue the Arimidex until at least March 2015. Rodney Hill M.D.* OSMIN/rxdrs Doc. ID: [id number] Rev. #0 cc: Page 2 of 2 [facility] Page 1 of 2 Authenticated by RODNEY HILL M.D. On 11/15/2011 02:16:34 PM documented in this encounter Plan of Treatment Upcoming Encounters Date Type Department Care Team (Late st Contact Info) Description 07/21/2026 11:15 AM EDT Office Visit [facility] CARDIOLOGY [address] [facility] [address] [place] [address] John Villafana MD [address] [facility] [address] [place] [address] documented as of this encounter Visit Diagnoses Not on filedocumented in this encounter Care Teams Loan Teller Relationship Specialty Start Date End Date Valentín Juarez MD [address] [facility] [address] [place] [address] PCP - General Family Medicine 06/14/16 documented as of this encounter
--- OUTSIDE RECORDS SUMMARY | 2025-09-05 10:08 | XMS_ITS | Patient Health Record ---
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 Name Role Phone Enmanuel Walton Primary Care Provider [phone] Ellen Juarez Unavailable [phone] Merary Sparrow Unavailable [phone] Allergies Allergen (clinical drug ingredient) Drug/Non Drug [...] Active Results Component Value Reference Range Notes RBC Morphology, Hematology Reviewed date:10/03/2024 09:31:07 AM Interpretation: Performing Lab: Notes/Report: Test performed by [facility] [place] , [address], [place] [address] Ermias Ibarra MD, Trouble Dispatcher CLIA: [id number] Polychromasia Slight Microcytosis Slight Anisocytosis Slight Platelet Slide Review Normal P-Comprehensive Metabolic Pa brad (CMP) (Not yet reviewed by provider) Interpretation: Performing Lab: Notes/Report: Test performed by [facility] [address] [place], [place] [address] [place] , [address], [place] [address] Juan Jose Aparicio MD, PhD, [facility], Trouble Dispatcher CLIA: [id number] Sodium 141 135-145 mmol/L Potassium 4.5 3.5-5.3 [...] wed by provider) Interpretation: Performing Lab: Notes/Report: Test performed by [facility] [address] [place] [address] , [address], [place] [address] Juan Jose Aparicio MD, PhD, FCAP, Trouble Dispatcher CLIA: [id number] Lipid Panel Footnote See Below *Based on optimal reference values. Please refer to the DOS for additional information regarding diagnostic lipid reference ranges, patient management based on the recently updated lipid guidelines ([employer] College [employer]iology/Stateless [employer] Association Task Force on Clinical Practice Guidelines (2018), and pediatric diagnostic lipid reference values (<18 years old). Total Cholesterol 162 <200 mg/dL Triglycerides 112 <150 mg/dL HDL Cholesterol 60 >50 mg/dL Total Cholesterol / HDL Ratio* 2.70 <3.99 Rati o Non-HDL Cholesterol 102 <130 mg/dL LDL Cholesterol (Calculation) 80 <100 mg/dL LDL / HDL Ratio* 1.33 <1.99 Ratio % Change: -37% Test Date: 03/20/2025 LDL Results: 72 Units: mg/dL % Change: -29% Test Date: 09/04/2025 LDL Results: 80 Units: mg/dL % Change: +11% LDL Cholesterol Patient History Test Date: 10/01/2024 LDL Results: 102 Units: mg/dL P-TSH (Not yet reviewed by alberto bird) Interpretation: Performing Lab: Notes/Report: Test performed by [facility] [address] [place], [place] [address] [place] [address], [place] [address] Juan Jose Aparicio MD, PhD, FCAP, Trouble Dispatcher CLIA: [id number] TSH 5.73 0.43-5.25 mU/L P-Vitamin D 25-Hydroxy Reviewed date:10/03/2024 09:31:07 AM Interpretation:Normal Performing Lab: Notes/Report: Test performed by [facility] [address] [place] [address] [address], [place] [address] Ermias Ibarra MD, Trouble Dispatcher CLIA: [id number] Vitamin D 25-Hydroxy 62.0 30.0-100.0 ng/mL Interpretation of Vitamin D 25 OH: < 20 ng/mL - Deficiency 20 - 29 ng/mL - Insufficiency 30 - 100 ng/mL - Sufficiency > 100 ng/mL - Super-therapeutic- toxicity may occur above this level. Clinical correlation required. P-TSH Reviewed date:10/03/2024 09:31:07 AM Interpretation:Normal Performing Lab: Notes/Report: Test performed by [facility] [address] [place] [address] , [place] [address] Ermias Ibarra MD, Trouble Dispatcher CLIA: [id number] TSH 0.54 0.43-5.25 mU/L P-Lipid Panel Reviewed date:10/03/2024 09:31:07 AM Interpretation:Normal Performing Lab: Notes/Report: Test performed by [facility] [address] [place] [address] [place] [address] Ermias Ibarra MD, Trouble Dispatcher CLIA: [id number] Cholesterol 190 <200 mg/dL Triglycerides 121 <150 [...] 43 Performing Lab: Notes/Report: Test performed by [facility] [facility] [address] [facility] , [address], [place] [address] Ermias Ibarra MD, Trouble Dispatcher CLIA: [id number] Sodium 140 135-145 mmol/L Potassium 4.9 3.5-5.3 [...] 8.4 Performing Lab: Notes/Report: Test performed by [facility] [address] [place] [address] , [address], [place] [address] Ermias Ibarra MD, Trouble Dispatcher CLIA: [id number] WBC 9.1 3.8-11.5 K/uL Red Blood Cell [...] 5.5% glycohemoglobin 5.5% 5 - 6.5 % Mammogram, Bilateral Diagnos tic Reviewed date:12/14/2024 05:16:49 PM Interpretation: Performing Lab: Notes/Report: P-TSH Reviewed date:03/25/2025 02:45:41 PM Interpretation:1.62 Performing Lab: Notes/Report: Test performed by [facility] [address] [place] [address] , [address], [place] [address] Ermias Ibarra MD, Trouble Dispatcher CLIA: [id number] TSH 1.62 0.43-5.25 mU/L P-Lipid Panel Reviewed date:03/25/2025 02:45:41 PM Interpretation:LDL 72 Performing Lab: Notes/Report: Test performed by [facility] [address] [place] [address] , [address], [place] [address] Ermias Ibarra MD, Trouble Dispatcher RASHID: [id number] Cholesterol 160 <200 mg/dL Triglycerides 94 <150 [...] Results: 72 Units: mg/dL % Change: -29% P-Comprehensive Metabolic Pa brad (CMP) Reviewed date:03/25/2025 02:45:41 PM Interpretation:GFR 59 Performing Lab: Notes/Report: Test performed by [facility] [address] [place], [place] [address] [place] , [address], [place] [address] Ermias Ibarra MD, Trouble Dispatcher CLIA: [id number] Sodium 143 135-145 mmol/L Potassium 4.6 3.5-5.3 [...] 0.4 <0.2-1.2 mg/dL A/G Ratio 1.8 1.1-2.5 P-Basic Metabolic Panel (BMP ) Reviewed date:12/02/2024 10:07:21 AM Interpretation:bun 26, Cr 1.08 Performing Lab: Notes/Report: Test performed by [facility] [address] [place] [address] , [address], [place] [address] Ermias Ibarra MD, Trouble Dispatcher CLIA: [id number] Sodium 143 135-145 mmol/L Potassium 4.6 3.5-5.3 mmol/L Chloride 107 97-108 mmol/L CO2 25 22-32 mmol/L Glucose 89 65-99 mg/dL BUN 26 6-20 mg/dL Creatinine 1.08 0.50-1.00 mg/dL Calcium 9.5 8.6-10.4 mg/dL eGFR by Creatinine 60 >59 mL/min/1.73m2 Medications Medication SIG (Take, Route, Frequency, Duration) Notes Start Date End Date Status oxyCODONE HCl 5 MG 1 tab(s) orally thre e times a day as needed Active Ibuprofen 800 MG 1 tab(s) orally 3 ti mes a day Not-Taking Atorvastatin Calcium 40 MG 1 tab(s) Orally At Bed Time; Duration: 90 days Active B-12 1000 MCG 1 tab(s) orally once a day 04/01/2014 Active Levothyroxine Sodium 100 MCG 1 tab(s) Orally once a day; Duration: 90 days Active Aspirin 81 MG 1 tab(s) orally once a day Active Simponi Aria 50 MG/4ML as directed Intravenous Active Ventolin HFA 108 (90 Base) MCG/ACT 1 puff as needed Inhalation four times a day as needed 01/25/2024 Active Triamterene-HCTZ 37.5-25 MG 1/2 tab(s) orally once a day Active Promethazine HCl 25 MG 1 tablet as neede d Orally q6h prn Active Azelastine HCl 0.05 % 1 drop into affect ed eye Ophthalmic Twice a day 05/20/2025 Active Venlafaxine HCl ER 150 MG 1 capsule with food Orally Once a day; Duration: 90 days Active Esomeprazole Magnesium 40 MG take 1 capsule by mouth every day Orally Once a day; Duration: 90 days Active Bisoprolol Fumarate 5 MG 1/2 tablet Oral ly Once a day Active Vitamin D3 125 MCG (5000 UT) 1 cap(s) orally once a day 04/01/2014 Active Maxalt-[employer]ER 10 MG 1 tab(s) orally once a day, may repeat Q2h x2 Active Potassium Chloride ER 10 MEQ TAKE 1 CAPSULE BY MOUTH DAILY WITH FOOD Active Immunizations Vaccine Route Administration Date Status Comme nts Morphine 10mg/ml IM Intramuscular 07/27/2005 Administered Morphine 10mg/ml IM Intramuscular 09/07/2005 Administered Morphine 10mg/ml IM Intramuscular 11/29/2005 Administered Morphine 10mg/ml IM Intramuscular 06/09/2006 Administered Morphine 10mg/ml IM Intramuscular 06/22/2006 Administered Morphine 10mg/ml IM Intramuscular 07/01/2006 Administered Morphine 10mg/ml IM Intramuscular 08/18/2006 Administered Morphine 10mg/ml IM Intramuscular 11/09/2007 Administered xFlu shot-36 months and older IM Intramuscular 09/13/2010 Administered Hepatitis A (adult) IM Intramuscular 09/19/2018 Administer ed DT, 7 YEARS OR OLDER IM Intramuscular 06/15/2006 Administe red Hepatitis A (adult) IM Intramuscular 03/06/2019 Administer ed xFluzone Intradermal (18-64yrs)-trivalent-medic are pts ID Intradermal 10/19/2012 Administered Morphine 10mg/ml IM Intramuscular 11/29/2007 Administered Morphine 10mg/ml IM Intramuscular 10/09/2007 Administered Morphine 10mg/ml IM Intramuscular 09/12/2007 Administered Morphine 10mg/ml IM Intramuscular 08/14/2007 Administered Morphine 10mg/ml IM Intramuscular 07/12/2007 Administered Morphine 10mg/ml IM Intramuscular 09/21/2006 Administered Morphine 10mg/ml IM Intramuscular 08/04/2006 Administered Morphine 10mg/ml IM Intramuscular 07/21/2006 Administered Morphine 10mg/ml IM Intramuscular 05/30/2006 Administered Morphine 10mg/ml IM Intramuscular 05/16/2006 Administered Morphine 10mg/ml IM Intramuscular 05/02/2006 Administered Morphine 10mg/ml IM Intramuscular 04/17/2006 Administered Morphine 10mg/ml IM Intramuscular 03/28/2006 Administered Morphine 10mg/ml IM Intramuscular 03/27/2006 Administered Morphine 10mg/ml IM Intramuscular 02/28/2006 Administered Morphine 10mg/ml IM Intramuscular 02/13/2006 Administered Morphine 10mg/ml IM Intramuscular 01/16/2006 Administered Morphine 10mg/ml IM Intramuscular 01/03/2006 Administered Morphine 10mg/ml IM Intramuscular 12/26/2005 Administered Morphine 10mg/ml IM Intramuscular 10/28/2005 Administered Morphine 10mg/ml IM Intramuscular 10/11/2005 Administered Morphine 10mg/ml IM Intramuscular 07/01/2005 Administered COVID 19 [place] IM Intramuscular 04/13/2005 Administered COVID 19 Pfizer IM Intramuscular 05/14/2005 Administered Problems Problem Type SNOMED Code ICD Code Onset Dates Problem Status W/U Status Risk Notes Problem Hypothyroidism (48206654) Hypothyroidism (acquired) (E03.9) Active confirmed Problem Chronic renal insufficiency (914280963) Chronic renal insufficiency (N18.9) Active confirmed Problem Morbid obesity (387140923) Morbid obesity (E66.01) Active confirmed Problem Osteopenia (696255864) Osteopenia (M85.80) Active confirmed Problem Personal history of primary malignant neoplasm of breast (387594351) History of breast cancer (Z85.3) Active confirmed Problem Raised antinuclear antibody (151180408) Positive DARLINE (antinuclear antibody) (R76.8) Active confirmed Problem Basal cell carcinoma (4781850) Basal cell carcinoma (C44.91) Active confirmed Problem Severe depressed bipolar I disorder without psychotic features (59500467) Bipolar disorder, current episode depressed, severe, without psychotic features (F31.4) Active confirmed Problem Chronic intractable migraine without aura (266175508951043) Chronic migraine without aura, intractable, with status migrainosus (G43.711) Active confirmed Problem Chronic pain syndrome (935846140) Chronic pain syndrome (G89.4) Active confirmed Problem Chronic migraine (747085654) Chronic migraine (G43.709) Active confirmed Problem Depressive disorder (79965121) Depressive disorder (F32.9) Active confirmed Problem Gastroesophageal reflux disease without esophagitis (776823513) Gastroesophageal reflux disease without esophagitis (K21.9) Active confirmed Problem Acquired hypothyroidism (473222192) Acquired hypothyroidism (E03.9) Active confirmed Problem Hypothyroidism (91956634) Hypothyroidism (E03.9) Active confirmed Problem Headache (70709002) Periodic hea dache syndrome, 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) Active confirmed Problem Rheumatoid arthritis (12887255) Rheumatoid arthritis (M06.9) Active confirmed Problem Osteoarthritis of knee (204322930) Primary osteoarthritis of right knee (M17.11) Active confirmed Problem Calcaneal spur of left foot (342761799726615) Calcaneal spur of left foot (M77.32) Active confirmed Problem Body mass index 40+ - morbidly obese (204022193) BMI 40.0-44.9, adult (Z68.41) Active confirmed Problem Postoperative hypothyroidism (86064069) Postoperative hypothyroidism (E89.0) Active confirmed Problem Nephrolithiasis (46195796) Nephrolithiasis (N20.0) Active confirmed Problem Migraine variant with headache (disorder) (824404539) Migraine headache (G43.909) Active confirmed Problem Refractory migraine without aura (260304349) Intractable migraine without aura and with status migrainosus (G43.011) Active confirmed Problem Dyslipidemia (400754707) Dyslipidemia (E78.5) Active confirmed Problem Essential hypertension (13354655) Essential hypertension with goal blood pressure less than 130\/80 (I10) Active confirmed Problem Mj's thyroiditis (33788674) 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) Active confirmed Problem Pain of left breast (0125286618) Pain of left breast (N64.4) Active confirmed Problem Refractory migraine (549755251) Intractable migraine with status migrainosus, unspecified migraine type (G43.911) Active confirmed Problem History of malignant neoplasm of thyroid (479873944) History of thyroid cancer (Z85.850) Active confirmed Problem Personal history of primary malignant neoplasm of breast (160008495) History of breast cancer in adulthood (Z85.3) Active confirmed Problem Basal cell carcinoma (BCC) of skin of breast, unspecified laterality (C44.511) Active confirmed Vital Signs Heart Rate 100 /min 09/04/2025 Blood pressure diastolic 80 mm Hg 09/04/2025 Height 65 in 09/04/2025 Blood pressure systolic 128 mm Hg 09/04/2025 Weight 264 lbs 09/04/2025 BMI 43.93 kg/m2 09/04/2025 Encounters Encounter Location Date Provider [facility] [facility] [address] [place] [id number] 09/10/2024 Ellen Juarez Intractable migraine without aura and with status migrainosus G43.011 [facility] [address] [place] [id number] 10/01/2024 Ellen Juarez Adult general medica l [...] cancer Z85.850 and BMI 40.0-44.9, adult Z68.41 [facility] [address] [facility] [address] [place] [id number] 11/26/2024 Merary Sparrow Essential hypertensi on with [...] History of breast cancer in adulthood Z85.3 [facility] [address] [place] [id number] 12/10/2024 R Steve Larry Migraine headache G43.909 ; Chronic renal insufficiency N18.9 and Leg edema R60.0 [facility] [address] [place], [place] [id number] 12/17/2024 R Steve Larry Intractable migraine without aura and with status migrainosus G43.011 [facility] [address] [place] [id number] 02/04/2025 R Steve Larry Migraine headache G43.909 ; BMI 40.0-44.9, adult Z68.41 and Morbid obesity E66.01 [facility] [address] [place], [place] [id number] 03/20/2025 R Steve Larry Hypothyroidism E03.9 ; Dyslipidemia E78.5 and Migraine headache G43.909 [facility] [address] [place] [id number] 03/31/2025 Merary Sparrow Candidiasis of breas t B37.89 [facility] [address] [place], [place] [id number] 04/15/2025 R Steve Larry Intractable migraine without aura and with status migrainosus G43.011 [facility] [address] [place] [id number] 05/20/2025 R Steve Larry Chronic migraine wit hout aura, intractable, with status migrainosus G43.711 ; Conjunctivitis H10.9 and Rheumatoid arthritis M06.9 [facility] [address] [place] [id number] 06/03/2025 Merary Sparrow Encounter for examination and observation for other specified reasons Z04.89 [facility] [address] [place] [id number] 06/17/2025 R Steve Larry Intractable migraine without aura and with status migrainosus G43.011 [facility] [address] [place], [place] [id number] 07/17/2025 R Steve Larry Bipolar disorder, current episode depressed, severe, without psychotic features F31.4 ; Periodic headache syndrome, not intractable G43.C0 and Rheumatoid arthritis M06.9 [facility] [address] [place] [id number] 09/04/2025 R Steve Larry Intractable migraine without aura and with status migrainosus G43.011 ; Postoperative hypothyroidism E89.0 ; Dyslipidemia E78.5 ; Acquired hypothyroidism E03.9 ; Deficiency of other specified B group vitamins E53.8 ; Migraine headache G43.909 and Hypokalemia E87.6 [facility] [address] [facility] [place], [place] [id number] 10/03/2024 R Steve Larry [facility] [address] [place] [id number] 11/26/2024 Meraryaustin Sparrow [facility] [address] [facility] [place], [place] [id number] 12/02/2024 Merary Sparrow [facility] [address] [facility] [place] [id number] 03/25/2025 R Steve Larry [facility] [address] [facility] [place], [place] [id number] 06/05/2025 Enmanuel Walton Assessments Encounter Date Diagnosis (ICD Code) Assessment Notes Treatment Notes Treatment Clinical Notes Section Notes 09/10/2024 Intractable migraine without aura and with status migrainosus (ICD-10 - G43.011) To [facility] outpt for Morphine 2mg and Phenergan 25 [...] Chronic renal insufficiency (ICD-10 - N18.9) --improved 02/04/2025 BMI 40.0-44.9, adult (ICD-10 - Z68.41) [...] with status migrainosus (ICD-10 - G43.011) To [facility] outpt for Morphine 2mg and Phenergan 25 [...] with status migrainosus (ICD-10 - G43.011) To [facility] outpt for Morphine 2mg and Phenergan 25 mg IM To [facility] outpt for Morphine 2mg and Phenergan 25 mg IM 07/17/2025 Bipolar disorder, current episode depressed, severe, without psychotic features (ICD-10 - F31.4) 07/17/2025 Periodic headache syndrome, not intractable (ICD-10 - G43.C0) 12/10/2024 Migraine headache (ICD-10 - G43.909) 12/17/2024 Intractable migraine without aura and with status migrainosus (ICD-10 - G43.011) To [facility] outpt for Morphine 2mg and Phenergan 25 mg IM 09/04/2025 Intractable migraine without aura and with status migrainosus (ICD-10 - G43.011) To [facility] outpt for Morphine 2mg and Phenergan 25 mg IM To [facility] outpt for Morphine 2mg and Phenergan 25 mg IM 09/04/2025 Postoperative hypothyroidism (ICD-10 - E89.0) 02/04/2025 Morbid obesity (ICD-10 - E66.01) 07/17/2025 Rheumatoid arthritis (ICD-10 - M06.9) 05/20/2025 Rheumatoid arthritis (ICD-10 - M06.9) 03/20/2025 Migraine headache (ICD-10 - G43.909) 12/10/2024 Leg edema (ICD-10 - R60.0) 11/26/2024 Headache (ICD-10 - R51) 10/01/2024 Postoperative hypothyroidism (ICD-10 - E89.0) 10/01/2024 Dyslipidemia (ICD-10 - E78.5) 11/26/2024 Hypokalemia (ICD-10 - E87.6) 09/04/2025 Dyslipidemia (ICD-10 - E78.5) 09/04/2025 Acquired hypothyroidism (ICD-10 - E03.9) 10/01/2024 Intractable migraine without aura and with status migrainosus (ICD-10 - G43.011) To [facility] outpt for Morphine 2mg and Phenergan 25 mg IM 11/26/2024 Bipolar disorder, current episode depressed, severe, without psychotic features (ICD-10 - F31.4) 10/01/2024 Screening for diabetes mellitus (ICD-10 - Z13.1) 11/26/2024 Dyslipidemia (ICD-10 - E78.5) 09/04/2025 Deficiency of other specified B group vitamins (ICD-10 - E53.8) 09/04/2025 Migraine headache (ICD-10 - G43.909) 11/26/2024 Acquired hypothyroidism (ICD-10 - E03.9) 10/01/2024 Depressive disorder (ICD-10 - F32.9) 10/01/2024 Osteopenia (ICD-10 - M85.80) 11/26/2024 Gastroesophageal reflux disease without esophagitis (ICD-10 - K21.9) 09/04/2025 Hypokalemia (ICD-10 - E87.6) 11/26/2024 Renal insufficiency (ICD-10 - N28.9) 10/01/2024 Gastroesophageal reflux disease without esophagitis (ICD-10 - K21.9) 10/01/2024 History of breast cancer (ICD-10 - Z85.3) 11/26/2024 Breast screening (ICD-10 - Z12.31) 11/26/2024 History of breast cancer in adulthood (ICD-10 - Z85.3) 10/01/2024 Mj's thyroiditis (ICD-10 - E06.3) 10/01/2024 History of thyroid cancer (ICD-10 - Z85.850) 10/01/2024 BMI 40.0-44.9, adult (ICD-10 - Z68.41) Plan Of Treatment Pending Test Test Name Order Date Mammogram 10/01/2024 H-TSH 08/30/2021 H-Lipid Panel 08/30/2021 H-CMP 08/30/2021 H-CMP 11/08/2021 H-T4 free 08/30/2021 P-Comprehensive Metabolic Panel (CMP) P-Lipid Panel 09/04/2025 P-TSH 09/04/2025 Insurance Providers Payer Name Payer Address Payer Phone Subscriber Number Group Number Insured Name Patient Relationship to Insured Coverage Start Date Coverage End Date [employer] (MEDICAR E) [address] [address] [place] [address] [id number] Roseline Peraza Self - patient is the insured Medications Administered Medication Instructions Date of Administration Dosage Notes Dexamethasone 11/04/2005 1 mL Dexamethasone 11/21/2005 0.5 mL Dexamethasone 12/16/2005 1 mL Dexamethasone 04/10/2006 Dexamethasone 09/13/2006 1 mL Morphine 05/30/2008 4 mg Morphine 06/20/2008 4 mg Morphine 09/03/2008 2 mg Morphine 10/03/2008 2MG Morphine 11/03/2008 4 mg Morphine 11/14/2008 2 mg Morphine 05/14/2009 5 mg Morphine 09/01/2009 2 mg Morphine 11/13/2009 3 mg Morphine 12/04/2009 4 mg Morphine 01/13/2010 2 mg Morphine 06/22/2010 2 mg Morphine 06/23/2010 4 mg Morphine 07/14/2010 Morphine 08/13/2010 3 mg Morphine 09/20/2010 2 mg Morphine 10/13/2010 2 mg Morphine 03/09/2011 2 mg Morphine 03/14/2011 2 mg Morphine 06/11/2011 2 mL Morphine 06/14/2011 Morphine 06/15/2011 Morphine 06/23/2011 2 mg Morphine 08/20/2011 2 mg Morphine 08/31/2011 1 mg Morphine 09/12/2011 2 mg Morphine 09/30/2011 2 mg Morphine 07/31/2012 Morphine 09/17/2012 Morphine 10/15/2012 Morphine 10/19/2012 Morphine 08/23/2013 2 mg Morphine 11/19/2013 2 mg Reported to Timothy/NUNO Morphine 05/29/2014 2 mg Morphine 07/04/2014 2 mg Morphine 01/02/2015 2 mg Morphine 01/16/2015 2 mg Morphine 02/13/2015 2 mg Morphine 02/20/2015 2 mg Morphine 03/12/2015 2 mg Reported per A G Morphine 03/20/2015 2 mg Morphine 05/01/2015 2 mg Morphine 07/03/2015 2 mg Morphine 07/06/2015 2 mg Morphine 07/04/2016 2 mg Morphine 07/06/2016 0.2 mg Morphine 07/14/2016 2 mg Morphine 08/04/2016 2 mg Morphine 09/02/2016 2 mg Morphine 09/08/2016 2 mg Morphine 01/05/2017 2 mg Morphine 02/02/2017 2 mg Morphine 06/15/2017 2 mg Morphine 09/18/2017 2 mg Morphine 09/29/2017 2 mg Phenergan 12.5 mgs. IM 04/13/2005 [...] 03/12/2015 1 mL Phenergan 12.5 mgs. IM 07/06/2016 12.5 mg Sh ot reported Phenergan 12.5 mgs. IM 10/26/2016 12.5 mL Phenergan 12.5 mgs. IM 09/18/2017 12.5 mg phenergan 25 mg/ml 05/14/2005 1 [...] mg/ml 07/12/2007 25 mg phenergan 25 mg/ml 08/14/2007 25 [...] mg/ml 07/20/2009 25 mg phenergan 25 mg/ml 07/31/2007 25 mg Phenergan 12.5 mgs. IM 02/20/2018 12.5 mg Phenergan 12.5 mgs. IM 05/26/2016 12.5 mg Phenergan 12.5 mgs. IM 08/07/2015 12.5 mg Phenergan 12.5 mgs. IM 05/25/2015 12.5 mg Morphine 10/30/2017 2 mg Morphine 08/29/2017 2 mg Morphine 07/28/2017 2 mg Morphine 07/19/2017 2 mg Morphine 06/26/2017 2 mg Morphine 05/11/2017 2 mg Morphine 04/11/2017 2 mg Morphine 03/23/2017 2 mg Morphine 02/23/2017 2 mg Morphine 11/21/2016 2 mg Morphine 11/18/2016 2 mg Morphine 10/26/2016 2 mg Morphine 09/28/2016 2 mg Morphine 08/19/2016 2 mg Morphine 06/24/2016 2 mg Morphine 05/26/2016 2 mg Morphine 04/29/2016 2 mg Morphine 04/22/2016 2 mg Morphine 02/19/2016 2 mg Morphine 01/15/2016 2 mg Morphine 12/22/2015 2 mg Morphine 12/04/2015 2 mg Morphine 11/10/2015 2 mg Morphine 11/05/2015 2 mg Morphine 09/16/2015 2 mg Morphine 09/10/2015 2 mg Morphine 08/07/2015 2 mg Morphine 05/25/2015 2 mg Morphine 12/24/2014 2 mg Morphine 11/27/2014 2 mg Morphine 11/25/2014 2 mg Morphine 11/11/2014 2 mg Morphine 10/17/2014 2 mg reported to [employer] [facility] Morphine 10/10/2014 2 mg reported to [employer] [facility] Morphine 09/15/2014 2 mg Documented/Rec orde d on [facility] Morphine 09/05/2014 2 mg reported to [facility] 09/04/14 Morphine 08/15/2014 2 mg shot reported- [facility] Morphine 08/12/2014 .2 mg Morphine 07/28/2014 2 mg Shot reported Morphine 06/30/2014 2 mg Morphine 06/06/2014 2 mg Morphine 05/16/2014 2 mg Morphine 04/18/2014 2 mg Morphine 03/18/2014 2 mg Morphine 02/28/2014 2 mg injection reported-FW Morphine 02/11/2014 2 mg Morphine 02/07/2014 2 mg Reported, cr 5-9-14 Morphine 01/17/2014 Reported by CR Morphine 01/17/2014 2 mg Reported to Timothy/NIRANJAN Morphine 12/13/2013 1 mg Morphine 11/20/2013 reported to timothy, DS Morphine 10/29/2013 2 mg Reported to [facility] Morphine 10/18/2013 2 mg Reported to [facility] Morphine 10/04/2013 2 mg Reported to Ka sper Morphine 09/04/2013 2 mg Reported to Ka sper Morphine 08/08/2013 2 mg Morphine 07/23/2013 2 mg Morphine 06/19/2013 Morphine 06/13/2013 2 mg Morphine 05/24/2013 2 mg Morphine 05/06/2013 2 mg Morphine 04/09/2013 2 mg Morphine 03/14/2013 2 mg Morphine 03/11/2013 2 mg Morphine 03/01/2013 Morphine 01/28/2013 Morphine 01/18/2013 2 mg Morphine 12/19/2012 Morphine 12/11/2012 2 mg Morphine 11/07/2012 2 mg Morphine 10/05/2012 Morphine 08/28/2012 Morphine 08/24/2012 2 mg Morphine 07/18/2012 Morphine 06/29/2012 Morphine 06/12/2012 Morphine 06/08/2012 Morphine 05/29/2012 Morphine 05/18/2012 Morphine 04/25/2012 Morphine 04/23/2012 Morphine 04/13/2012 2 mg Morphine 03/23/2012 2 mg Morphine 03/07/2012 Morphine 11/03/2011 2 mg Morphine 11/01/2011 2 mg Morphine 10/24/2011 2 mg Morphine 08/09/2011 Morphine 08/03/2011 3mg mL Morphine 07/25/2011 Morphine 07/22/2011 Morphine 07/12/2011 2 mg Morphine 07/04/2011 Morphine 05/17/2011 Morphine 05/11/2011 Morphine 05/02/2011 Morphine 04/27/2011 Morphine 04/26/2011 Morphine 04/13/2011 Morphine 04/08/2011 2 mg Morphine 03/30/2011 2 mg Morphine 02/22/2011 2 mg Morphine 02/15/2011 2 mg Morphine 01/12/2011 2 mg Morphine 01/05/2011 2 mg Morphine 12/10/2010 2 mg Morphine 12/06/2010 2 mg Morphine 11/23/2010 2 mg Morphine 11/17/2010 2 mg Morphine 11/03/2010 2 mL Morphine 10/21/2010 2 mg Morphine 09/27/2010 2 mg Morphine 09/01/2010 3 mL Morphine 08/23/2010 3 mg Morphine 08/11/2010 3 mg Morphine 08/02/2010 2 mg Morphine 07/23/2010 4 mg Morphine 06/28/2010 4 mg Morphine 06/11/2010 2 mg Morphine 05/28/2010 3 mg Morphine 05/20/2010 3 mg Morphine 05/13/2010 2 mg Morphine 04/01/2010 3 mg Morphine 03/16/2010 2 mg Morphine 02/11/2010 2MG Morphine 02/05/2010 5 mg Morphine 02/02/2010 2 mg Morphine 01/20/2010 2 mg Morphine 12/17/2009 2 mg Morphine 10/21/2009 2MG Morphine 10/01/2009 2 mg Morphine 08/13/2009 2 mg Morphine 07/30/2009 2 mg Morphine 07/20/2009 2 mg Morphine 06/24/2009 2 mg Morphine 06/10/2009 5 mg Morphine 05/29/2009 5 mg Morphine 04/13/2009 4 mg Morphine 03/18/[address] Toribio Morphine 03/16/2009 2 mg Morphine 02/10/2009 2 mg Morphine 01/28/2009 2 mg Morphine 12/03/2008 2 mg Morphine 10/22/2008 2 mg Morphine 08/13/2008 2 mg Morphine 07/15/2008 4 mg Morphine 05/09/2008 2 mg Morphine 04/18/2008 2 mg Morphine 03/25/2008 2 mg Morphine 03/11/2008 2 mg Morphine 02/13/2008 2 mg Morphine 01/25/2008 2 mg Morphine 01/08/2008 2 mg Morphine 12/28/2007 4 mg Dexamethasone 11/08/2017 1 mL Depo- Medrol 40 mg/ml 05/21/2014 1 mL celestone 09/16/2011 phenergan 25 mg/ml 07/30/2009 25 mg phenergan [...] mg/ml 03/20/2015 25 mg phenergan 25 mg/ml 07/03/2015 25 [...] mg/ml 07/28/2017 25 mg phenergan 25 mg/ml 05/01/2015 25 mg phenergan 25 mg/ml 08/29/2017 25 [...] sinus Kidney stone Allergy injections Follows at [facility] for her annual mammogram Declines flu shot - 07/2023 SVT Rheumatoid arthritis - Dr. Gomez Surgical History Surgery Date(Month/Year) sinus surgery x2 (including Betancourt-Jeyson ) right foot surgery left ankle surgery breast bx oral surgery/Dr. 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-05/03 [facility] ER-migraine 10/22 [facility] ER - mirgraine Nov 2017 [facility]-Migraine 10/19 [facility] -Migraine 08/06/17 [facility]-Chest pain 10/23/16 [facility] ER- Migraine 05[facility]03/16 [facility] ER-Migraine 04/03/16 [facility] ER- Migraine 07[facility]06/15 [facility] ER - Migraine [facility] Er-Migraines 01-17-15 [facility] ER-migraine 11/16 [facility]-ER migraine 10-19-14 [facility]-ER migraine -2013 [facility] ER-migraine 11/02/13 [facility] ER-migraine 09/13 [facility] ER - Migraine 05/12/12 [facility] ER- Migraine 09/26/11 [facility] ER-pt fell 01/04/11 [facility] ER-migraine 12-18-10 [facility] ER-migraine 05/19/10 [facility] ER-fell off a stool 10/17/09 abdominal pain 04/09/2009 [facility] ER-migraine [facility] ER-migraine/sunburn 02/09/09 [facility] ER migraine 12/18/08 ct scan [facility] on abdomen 10/22/08 stomach pain 10/18/08 [facility] ER migraine 08/31/08 [facility] ER migraine 10.08 H dehydration 06/09 [facility] ER, migraine 09/13/08 [facility] ER, migraine 09/09/07 [facility] migraine 07/07/07 for DHE treatment 07/03-12/2005 same as above
--- OUTSIDE RECORDS SUMMARY | 2025-09-05 10:09 | XMS_ITS ---
Author Organization [facility] Address [address] [place] [address] Care Team Providers Care Stewardess Supervisor Name Role Phone Valentín Juarez MD Primary [...]
[2025-09-05 10:11] VITALS: BP 144/75; PULSE 95; RESP 16; TEMP 36.5; O2SAT 96
[2025-09-05] MEDS: LORATADINE 10MG TABLET 10 MG PO (10:12)
[2025-09-05] MEDS: ACETAMINOPHEN 500MG TAB 500 MG PO (10:12)
[2025-09-05] MEDS: SODIUM CHLORIDE 0.9% 10ML FLUSH SYRINGE 10 ML IV (10:14)
[2025-09-05 10:37] VITALS: BP 125/68; PULSE 71; RESP 18; O2SAT 97
[2025-09-05 11:27] VITALS: BP 115/63; PULSE 74; RESP 18; O2SAT 97
== END 2025-09-05 23:59 | disposition home or self-care (01) ==
PROVIDERS: PCP Family Medicine; Visit Provider Internal Medicine Rheumatology
DX: Z51.81 Encounter for therapeutic drug level monitoring (principal); Z79.899 Other long term (current) drug therapy; M06.89 Other specified rheumatoid arthritis, multiple sites
CPT/HCPCS: 96413; J1602